=== PATIENT | female | born 1945 | race Caucasian/White ===

== ENCOUNTER 2024-04-22 15:58 | Inpatient (IN) | payer MEDICARE, OTHER ==
[2024-04-22] MEDS: SODIUM CHLORIDE 0.9% 500 ML 500 ML IV ONE (16:41)
--- NOTE | 2024-04-22 16:46 | ED ---
General Adult HPI - General Chief complaint: Altered Mental Status Stated complaint: AMS Time Seen by Provider: 04/22/24 16:14 Source: EMS Mode of arrival: EMS Limitations: altered mental status - History of Present Illness Initial comments: Patient is an 78-year-old female past medical history CKD stage III, hypertension, CHF presenting today from [facility] for altered mental status. History limited by patient's aphasia. Patient reportedly AO x 4 at baseline up until 4 days ago per EMS report. Now not speaking or following commands. Patient does follow commands for me but does not answer my questions. Per chart review from patient's paperwork from the [facility] patient was being evaluated for paranoia and hallucinations yesterday and per that note patient was able to answer questions at that time. - Related Data Home Medications Medication Instructions Recorded Confirmed Acetaminophen Tab [Tylenol Tab] 1,000 mg PO BID 04/22/24 04/22/24 Acetaminophen [Tylenol 8 Hour] 650 mg PO Q6H PRN 04/22/24 04/22/24 Apixaban [Eliquis] 5 mg PO BID 04/22/24 04/22/24 Atorvastatin [Lipitor] 10 mg PO HS@199904/22/24 04/22/24 Calcium Carbonate [Tums] 500 mg PO TID PRN 04/22/24 04/22/24 Dapagliflozin Propanediol [Farxiga] 10 mg PO DAILY 04/22/24 04/22/24 Diltiazem Oral [Cardizem Oral] 60 mg PO Q6H 04/22/24 04/22/24 Fluticasone Nasal [place] [Flonase 1 spr EA NOSTRIL BID PRN 04/22/24 04/22/24 Nasal Nicolaus] Furosemide [Lasix] 20 mg PO DAILY 04/22/24 04/22/24 Latanoprost [Latanoprost 0.005%] 1 drop BOTH EYES HS@199904/22/24 04/22/24 Levothyroxine Sodium [Synthroid] 112 mcg PO DAILY@0500 04/22/24 04/22/24 Loratadine 10 mg PO DAILY 04/22/24 04/22/24 Magnesium Oxide [Mag-Ox] 400 mg PO HS@199904/22/24 04/22/24 Naloxone HCl 0.4 mg IM DIRECTED PRN 04/22/24 04/22/24 Naloxone HCl [Narcan] 4 mg NASAL ONCE PRN 04/22/24 04/22/24 Ondansetron [Zofran] 4 mg PO Q6H PRN 04/22/24 04/22/24 Potassium Chloride ER [K-Dur 20] 20 meq PO DAILY 04/22/24 04/22/24 Tramadol 100mg 100 mg PO BID PRN 04/22/24 04/22/24 allopurinoL 200 mg PO DAILY 04/22/24 04/22/24 guaiFENesin [guaiFENesin ER] 600 mg PO Q12H 04/22/24 04/22/24 Allergies Allergy/AdvReac Type Severity Reaction Status Date / Time morphine AdvReac Unknown Verified 04/22/24 16:27 Review of Systems ROS Statement: Those systems with pertinent positive or pertinent negative responses have been documented in the HPI. Limitations: ROS unobtainable due to patients medical condition Past Medical History Past Medical History: Unable to Obtain, Atrial Fibrillation, Heart Failure, CV A/TIA, Hyperlipidemia, Hypertension, Renal Disease, Thyroid Disorder Past Surgical History: Unable to Obtain, Joint Replacement Smoking Status: Unknown if ever smoked General Exam - General Exam Comments Initial Comments: PE: CONSTITUTIONAL: [no apparent distress, chronically ill-appearing, awake, alert, disheveled SKIN: Warm, dry, no jaundice, hives or petechiae EYES: Pupils are equally round, extraocular movements intact without nystagmus, clear conjunctiva, non-icteric sclera HENT: Normocephalic, atraumatic, dry mucus membranes, oropharynx clear without exudates NECK: , Full range of motion, normal appearance PULMONARY: Clear to auscultation without wheezes, rhonchi, or rales, normal excursion, no accessory muscle use and no stridor, exam is limited by patient's body habitus and ability to cooperate with exam, she continues making whining noises throughout the entirety of exam CARDIOVASCULAR: Tachycardia, irregularly irregular rhythm,. No appreciated murmurs, rubs or gallops. Strong radial pulses with intact distal perfusion. 1+ bilateral lower extremity pitting edema GASTROINTESTINAL: Soft, active bowel sounds throughout, non-tender, non- distended, no palpable masses, over patient does guard with palpation of her abdomen, does not appear to be painful in one particular area. No hepatosplenomegaly GENITOURINARY: MUSCULOSKELETAL: Extremities have no gross deformity or signs of injury NEUROLOGIC:_a/o x 0-aphasic, GCS 12, follows commands, EOM intact, no facial droop, Moves all extremities x 4 without motor or sensory deficit PSYCHIATRIC:_appears withdrawn, makes poor eye contact, cooperative Limitations: altered mental status Course Vital Signs 04/22/24 04/22/24 04/22/24 16:02 19:10 20:00 Temperature 97.4 F L Pulse Rate 126 H 112 H 102 H Respiratory 20 18 18 Rate Blood Pressure 128/92 138/86 150/108 O2 Sat by Pulse 94 L 93 L 95 Oximetry 04/22/24 04/22/24 04/22/24 21:00 22:00 23:12 Temperature Pulse Rate 123 H 98 98 Respiratory 18 18 18 Rate Blood Pressure 146/86 140/88 133/89 O2 Sat by Pulse 94 L 94 L 94 L Oximetry 04/23/24 04/23/24 04/23/24 01:00 02:00 04:00 Temperature Pulse Rate 114 H 88 113 H Respiratory 17 16 20 Rate Blood Pressure 141/93 138/77 127/78 O2 Sat by Pulse 96 95 93 L Oximetry 04/23/24 04/23/24 04/23/24 07:50 10:31 13:48 Temperature 97.4 F L Pulse Rate 105 H 133 H 90 Respiratory 18 18 18 Rate Blood Pressure 151/92 135/92 128/75 O2 Sat by Pulse 94 L 93 L 97 Oximetry 04/23/24 04/23/24 04/23/24 15:21 18:30 19:30 Temperature 98.0 F Pulse Rate 81 90 84 Respiratory 18 18 18 Rate Blood Pressure 110/75 122/78 142/73 O2 Sat by Pulse 98 95 98 Oximetry 04/23/24 04/23/24 04/24/24 20:00 22:00 00:00 Temperature Pulse Rate 67 80 79 Respiratory 18 18 18 Rate Blood Pressure 132/70 140/69 143/68 O2 Sat by Pulse 98 98 98 Oximetry 04/24/24 04/24/24 04/24/24 02:00 04:00 07:00 Temperature 98.1 F Pulse Rate 78 80 77 Respiratory 18 18 20 Rate Blood Pressure 125/67 135/74 135/81 O2 Sat by Pulse 98 98 98 Oximetry 04/24/24 04/24/24 04/24/24 10:00 10:34 12:00 Temperature Pulse Rate 81 81 81 Respiratory 20 20 20 Rate Blood Pressure 129/74 129/70 123/74 O2 Sat by Pulse 98 98 98 Oximetry 04/24/24 04/24/24 04/24/24 13:51 15:05 15:14 Temperature Pulse Rate 78 63 74 Respiratory 16 18 18 Rate Blood Pressure 121/72 136/75 136/75 O2 Sat by Pulse 98 99 99 Oximetry 04/24/24 15:39 Temperature 98.7 F Pulse Rate 71 Respiratory 18 Rate Blood Pressure 123/76 O2 Sat by Pulse 98 Oximetry EKG Findings - EKG Comments: EKG Findings:: Atrial fibrillation with RVR rate 105 bpm intervals within acceptable limits, left axis deviation, right bundle branch block, no STEMI Medical Decision Making - Medical Decision Making Was pt. sent in by a medical professional or institution (Dr. PA, RIG SUPERVISOR, urgent care, hospital, or assisted...) When possible be specific @ -Patient was sent in by the [facility] Did you speak to anyone other than the patient for history (EMS, parent, family, police, friend...)? What history was obtained from this source @ -No Did you review nursing and triage notes (agree or disagree)? Why? @ -I reviewed and agree with nursing and triage notes Were old charts reviewed (outside hosp., previous admission, EMS record, old EKG, old radiological studies, urgent care reports/EKG's, assisted records)? Report findings @ -Medical records reviewed, reviewed paperwork sent with patient from [facility], sent in for being "awake but unresponsive unable to follow commands/altered mental status, per note sent with patient on evaluation patient was being evaluated for hallucinations, anxiety and depression, per EMS report patient's last known normal was 4 days ago and is AO x 4 at baseline I spoke with patient's nurse at the [facility], Tommie, states that patient until a week ago was oriented x 4 and able to converse without any issue, over the course of the last week she has become progressively more confused, with halluci nations and this morning was awake and able to speak but had repetitive speech. This afternoon when her family came to visit the patient was not speaking at all the was awake. This is what prompted them to call 911 to bring her to the emergency department. Differential Diagnosis (chest pain, altered mental status, abdominal pain women, abdominal pain men, vaginal bleeding, weakness, fever, dyspnea, syncope, headache, dizziness, GI bleed, back pain, seizure, CVA, palpatations, mental health, musculoskeletal)? @ -Differential Altered Mental Status: Hypoglycemia, DKA, hypercapnia, ETOH, overdose, myxedema coma, HTN encephalopathy, infection, encephalitis, psychosis, intercranial hemorrhage, hepatic encephalopathy, CVA, this is not meant to be an all-inclusive list EKG interpreted by me (3pts min.). @ -As above X-rays interpreted by me (1pt min.). @Cardiomegaly, no consolidation CT interpreted by me (1pt min.). @CT brain shows no evidence of hemorrhage or mass effect, CTA shows no evidence of large vessel occlusion or dissection, CT abdomen pelvis without contrast does not appear to show hydronephrosis, ureterolithiasis, free air or signs of bowel obstruction U/S interpreted by me (1pt. min.). @ -None done What testing was considered but not performed or refused? (CT, X-rays, U/S, labs)? Why? @ -None What meds were considered but not given or refused? Why? @ -None Did you discuss the management of the patient with other professionals (professionals i.e. , PA, RIG SUPERVISOR, lab, RT, psych nurse, social studies teacher, outsole flexer, teacher, mortgage loan officer, residential case manager)? Give summary @ -No Was smoking cessation discussed for >3mins.? @ -No Was critical care preformed (if so, how long)? Yes, 35 minutes Were there social determinants of health that impacted care today? How? (Homelessness, low income, unemployed, alcoholism, drug addiction, transportation, low edu. Level, literacy, decrease access to med. care, residential, rehab)? @ -No Was there de-escalation of care discussed even if they declined (Discuss DNR or withdrawal of care, Hospice)? @ -No What co-morbidities impacted this encounter? (DM, HTN, Smoking, COPD, CAD, Cancer, CVA, ARF, Chemo, Hep., AIDS, mental health diagnosis, sleep apnea, morbid obesity)? @Stage III CKD, hypertension, hypothyroidism, CHF Was patient admitted / discharged? Hospital course, mention meds given and route, prescriptions, significant lab abnormalities, going to OR and other pertinent info. @ -Admission- patient is an 78-year-old female the past medical history of stage III CKD, hypertension, hypothyroidism, CHF presenting today for altered mental status. On my assessment patient tachycardic, awake, eyes are open respirations are unlabored. When I say the patient's name she does make eye contact, when I ask her to look to the right and to the left she does follow these commands, additionally she has 5 out of 5 strength in all 4 extremities is able to hold her arms and legs up without issue. After a brief period patient begins making a constant whining noise, keeping her mouth closed. This did not appear to be in response to painful stimuli because I was not touching her when she began making the sounds. She did appear to guard with palpation of her abdomen. Called patient's facility and obtained history as noted above. Plan for CT brain, will likely obtain CTA however patient does have stage III CKD so may withhold this based on patient's kidney function today, will obtain remainder of altered mental status workup. Of note patient is tachycardic however I suspect tachycardia may be due to underlying infection or volume depletion so before addressing A-fib with RVR with calcium channel blockers we will hydrate and asse ss for othe causes of tachycardia. Patient noted a mild leukocytosis white blood count 15.3, urinalysis positive for nitrates and moderate amount of blood, given patient's leukocytosis and tachycardia blood cultures x 2, lactic and cefepime were ordered to complete sepsis order set. This occurred at 17:56. On reassessment patient remains awake and alert though staring at wall, does not respond to questions or answer questions. Family is at bedside. They do note that patient has had recent stressors and that her son and another family member unexpectedly in the last few months. They state that patient turned to them while in her room here and stated "you're trying to kill me", so has spoken since arriving in the ED. Mildly tachycardic, she has heart rates in 90s and 110 though does intermittently go up to 130. She missed her 5:00 dose of oral Cardizem so we given a Cardizem bolus. Updated patient to findings of UTI and plan for admission. Case discussed with Dr. Montoya, kindly accepts patient for admission. Patient overall refusing oral medications, did slowly take her Eliquis however will not open her mouth for Cardizem. At this point we will give additional C ardizem bolus and start patient on Cardizem drip. Undiagnosed new problem with uncertain prognosis? @ -No Drug Therapy requiring intensive monitoring for toxicity (Heparin, Nitro, Insulin, Cardizem)? @ -No Were any procedures done? @ -No Diagnosis/symptom? Acute encephalopathy, urinary tract infection Acute, or Chronic, or Acute on Chronic? acute Uncomplicated (without systemic symptoms) or Complicated (systemic symptoms)? complicated Side effects of treatment? @ -No Exacerbation, Progression, or Severe Exacerbation? @ -No Poses a threat to life or bodily function? How? (Chest pain, [place], [place], pneumonia, PE, COPD, DKA, ARF, appy, cholecystitis, CVA, Diverticulitis, Homicidal, Suicidal, threat to staff... and all critical care pts) Yes - Lab Data Result diagrams: 04/25/24 05:00 04/22/24 16:37 Lab Results 04/22/24 04/22/24 04/22/24 Range/Units 16:37 16:37 16:37 WBC 15.3 H (3.8-10.6) k/uL RBC 4.70 (3.80-5.40) m/uL Hgb 14.4 (11.4-16.0) gm/dL Hct 45.4 (34.0-46.0) % MCV 96.6 (80.0-100.0) fL MCH 30.6 (25.0-35.0) pg MCHC 31.7 (31.0-37.0) g/dL RDW 14.5 (11.5-15.5) % Plt Count 353 (150-450) k/uL MPV 6.9 Neutrophils % 80 % Lymphocytes % 15 % Monocytes % 4 % Eosinophils % 0 % Basophils % 0 % Neutrophils # 12.2 H (1.3-7.7) k/uL Lymphocytes # 2.2 (1.0-4.8) k/uL Monocytes # 0.7 (0-1.0) k/uL Eosinophils # 0.1 (0-0.7) k/uL Basophils # 0.0 (0-0.2) k/uL Hypochromasia Slight PT 12.1 (10.0-12.5) sec INR 1.1 (<1.2) APTT 24.7 (22.0-30.0) sec Sodium 138 (137-145) mmol/L Potassium 3.8 (3.5-5.1) mmol/L Chloride 99 (98-107) mmol/L Carbon Dioxide 28 (22-30) mmol/L Anion Gap 11 mmol/L BUN 19 H (7-17) mg/dL Creatinine 0.91 (0.52-1.04) mg/dL Est GFR (CKD-EPI)AfAm 69 (>60 ml/min/1.73 sqM) Est GFR (CKD-EPI)NonAf 60 (>60 ml/min/1.73 sqM) Glucose 145 H (74-99) mg/dL Plasma Lactic Acid Jose D (0.7-2.0) mmol/L Calcium 10.6 H (8.4-10.2) mg/dL Magnesium 1.9 (1.6-2.3) mg/dL Total Bilirubin 0.7 (0.2-1.3) mg/dL AST 31 (14-36) U/L ALT 16 (4-34) U/L Alkaline Phosphatase 86 (38-126) U/L Ammonia (<30) umol/L Troponin I (0.000-0.034) ng/mL Total Protein 6.5 (6.3-8.2) g/dL Albumin 4.0 (3.5-5.0) g/dL Lipase 52 (23-300) U/L TSH 2.000 (0.465-4.680) mIU/L Urine Color Urine Appearance (Clear) Urine pH (5.0-8.0) Ur Specific [place] (1.001-1.035) Urine Protein (Negative) Urine Glucose (UA) (Negative) Urine Ketones (Negative) Urine Blood (Negative) Urine Nitrite (Negative) Urine Bilirubin (Negative) Urine Urobilinogen (<2.0) mg/dL Ur Leukocyte Esterase (Negative) Urine RBC (0-5) /hpf Urine WBC (0-5) /hpf Ur Squamous Epith Cells (0-4) /hpf Urine Bacteria (None) /hpf Urine Mucus (None) /hpf Salicylates <1.0 mg/dL Acetaminophen <10.0 ug/mL Influenza Type A (PCR) (Not Detectd) Influenza Type B (PCR) (Not Detectd) RSV (PCR) (Not Detectd) SARS-CoV-2 (PCR) (Not Detectd) 04/22/24 04/22/24 04/22/24 Range/Units 16:37 16:37 16:37 WBC (3.8-10.6) k/uL RBC (3.80-5.40) m/uL Hgb (11.4-16.0) gm/dL Hct (34.0-46.0) % MCV (80.0-100.0) fL MCH (25.0-35.0) pg MCHC (31.0-37.0) g/dL RDW (11.5-15.5) % Plt Count (150-450) k/uL MPV Neutrophils % % Lymphocytes % % Monocytes % % Eosinophils % % Basophils % % Neutrophils # (1.3-7.7) k/uL Lymphocytes # (1.0-4.8) k/uL Monocytes # (0-1.0) k/uL Eosinophils # (0-0.7) k/uL Basophils # (0-0.2) k/uL Hypochromasia PT (10.0-12.5) sec INR (<1.2) APTT (22.0-30.0) sec Sodium (137-145) mmol/L Potassium (3.5-5.1) mmol/L Chloride (98-107) mmol/L Carbon Dioxide (22-30) mmol/L Anion Gap mmol/L BUN (7-17) mg/dL Creatinine (0.52-1.04) mg/dL Est GFR (CKD-EPI)AfAm (>60 ml/min/1.73 sqM) Est GFR (CKD-EPI)NonAf (>60 ml/min/1.73 sqM) Glucose (74-99) mg/dL Plasma Lactic Acid Jose D (0.7-2.0) mmol/L Calcium (8.4-10.2) mg/dL Magnesium (1.6-2.3) mg/dL Total Bilirubin (0.2-1.3) mg/dL AST (14-36) U/L ALT (4-34) U/L Alkaline Phosphatase (38-126) U/L Ammonia <9 (<30) umol/L Troponin I 0.022 (0.000-0.034) ng/mL Total Protein (6.3-8.2) g/dL Albumin (3.5-5.0) g/dL Lipase (23-300) U/L TSH (0.465-4.680) mIU/L Urine Color Light Yellow Urine Appearance Clear (Clear) Urine pH 5.0 (5.0-8.0) Ur Specific [place] 1.022 (1.001-1.035) Urine Protein Negative (Negative) Urine Glucose (UA) 4+ H (Negative) Urine Ketones Negative (Negative) Urine Blood Moderate H (Negative) Urine Nitrite Positive H (Negative) Urine Bilirubin Negative (Negative) Urine Urobilinogen <2.0 (<2.0) mg/dL Ur Leukocyte Esterase Small H (Negative) Urine RBC 14 H (0-5) /hpf Urine WBC 4 (0-5) /hpf Ur Squamous Epith Cells 2 (0-4) /hpf Urine Bacteria Occasional H (None) /hpf Urine Mucus Rare H (None) /hpf Salicylates mg/dL Acetaminophen ug/mL Influenza Type A (PCR) (Not Detectd) Influenza Type B (PCR) (Not Detectd) RSV (PCR) (Not Detectd) SARS-CoV-2 (PCR) (Not Detectd) 04/22/24 04/22/24 Range/Units 16:37 19:53 WBC (3.8-10.6) k/uL RBC (3.80-5.40) m/uL Hgb (11.4-16.0) gm/dL Hct (34.0-46.0) % MCV (80.0-100.0) fL MCH (25.0-35.0) pg MCHC (31.0-37.0) g/dL RDW (11.5-15.5) % Plt Count (150-450) k/uL MPV Neutrophils % % Lymphocytes % % Monocytes % % Eosinophils % % Basophils % % Neutrophils # (1.3-7.7) k/uL Lymphocytes # (1.0-4.8) k/uL Monocytes # (0-1.0) k/uL Eosinophils # (0-0.7) k/uL Basophils # (0-0.2) k/uL Hypochromasia PT (10.0-12.5) sec INR (<1.2) APTT (22.0-30.0) sec Sodium (137-145) mmol/L Potassium (3.5-5.1) mmol/L Chloride (98-107) mmol/L Carbon Dioxide (22-30) mmol/L Anion Gap mmol/L BUN (7-17) mg/dL Creatinine (0.52-1.04) mg/dL Est GFR (CKD-EPI)AfAm (>60 ml/min/1.73 sqM) Est GFR (CKD-EPI)NonAf (>60 ml/min/1.73 sqM) Glucose (74-99) mg/dL Plasma Lactic Acid Jose D 1.5 (0.7-2.0) mmol/L Calcium (8.4-10.2) mg/dL Magnesium (1.6-2.3) mg/dL Total Bilirubin (0.2-1.3) mg/dL AST (14-36) U/L ALT (4-34) U/L Alkaline Phosphatase (38-126) U/L Ammonia (<30) umol/L Troponin I (0.000-0.034) ng/mL Total Protein (6.3-8.2) g/dL Albumin (3.5-5.0) g/dL Lipase (23-300) U/L TSH (0.465-4.680) mIU/L Urine Color Urine Appearance (Clear) Urine pH (5.0-8.0) Ur Specific [place] (1.001-1.035) Urine Protein (Negative) Urine Glucose (UA) (Negative) Urine Ketones (Negative) Urine Blood (Negative) Urine Nitrite (Negative) Urine Bilirubin (Negative) Urine Urobilinogen (<2.0) mg/dL Ur Leukocyte Esterase (Negative) Urine RBC (0-5) /hpf Urine WBC (0-5) /hpf Ur Squamous Epith Cells (0-4) /hpf Urine Bacteria (None) /hpf Urine Mucus (None) /hpf Salicylates mg/dL Acetaminophen ug/mL Influenza Type A (PCR) Not Detected (Not Detectd) Influenza Type B (PCR) Not Detected (Not Detectd) RSV (PCR) Not Detected (Not Detectd) SARS-CoV-2 (PCR) Not Detected (Not Detectd) Disposition Clinical Impression: Acute encephalopathy, Urinary tract infection Disposition: ADMITTED IP TO THIS HOSP Condition: Stable
[2024-04-22 17:04] LABS: Basophils % (A) 0 %; Eosinophils # (A) 0.1 k/uL (0-0.7); Eosinophils % (A) 0 %; HCT 45.4 % (34.0-46.0); HGB 14.4 gm/dL (11.4-16.0); Hypochromasia Slight; Lymphocytes # (A) 2.2 k/uL (1.0-4.8); Lymphocytes % (A) 15 %; MCH 30.6 pg (25.0-35.0); MCHC 31.7 g/dL (31.0-37.0); MCV 96.6 fL (80.0-100.0); Mean Platelet Volume 6.9; Monocytes # (A) 0.7 k/uL (0-1.0); Monocytes % (A) 4 %; Neutrophils # (A) 12.2 k/uL (1.3-7.7); Neutrophils % (A) 80 %; Platelet Count 353 k/uL (150-450); RDW 14.5 % (11.5-15.5); WBC 15.3 k/uL (3.8-10.6)
[2024-04-22 17:39] LABS: INR 1.1 (<1.2); Partial Thromboplastin Time 24.7 sec (22.0-30.0); Prothrombin Time 12.1 sec (10.0-12.5)
[2024-04-22 17:51] LABS: ALT 16 U/L (4-34); Acetaminophen <10.0 ug/mL; African American GFR (CKD) 69 (>60 ml/min/1.73 sqM); Anion Gap 11 mmol/L; Appearance,Urine Clear (Clear); Bacteria,Urine Occasional /hpf; Bilirubin,Urine Negative (Negative); Blood Urea Nitrogen 19 mg/dL (7-17); Blood,Urine Moderate (Negative); Calcium 10.6 mg/dL (8.4-10.2); Carbon Dioxide 28 mmol/L (22-30); Chloride 99 mmol/L (98-107); Color,Urine Light Yellow; Glucose 145 mg/dL (74-99); Glucose,Urine (UA) 4+ (Negative); Ketones,Urine Negative (Negative); Leukocyte Esterase,Urine Small (Negative); Lipase 52 U/L (23-300); Magnesium 1.9 mg/dL (1.6-2.3); Mucus,Urine Rare /hpf; Nitrite,Urine Positive (Negative); Non-African American GFR(CKD) 60 (>60 ml/min/1.73 sqM); Protein,Urine Negative (Negative); RBC,Urine 14 /hpf (0-5); Salicylate <1.0 mg/dL; Sodium 138 mmol/L (137-145); Specific Gravity,Urine 1.022 (1.001-1.035); Squamous Epithelial Cell,Urine 2 /hpf (0-4); Total Bilirubin 0.7 mg/dL (0.2-1.3); Urobilinogen,Urine <2.0 mg/dL (<2.0); WBC,Urine 4 /hpf (0-5)
[2024-04-22 17:53] LABS: AST 31 U/L (14-36); Alkaline Phosphatase 86 U/L (38-126); Potassium 3.8 mmol/L (3.5-5.1); Total Protein 6.5 g/dL (6.3-8.2)
[2024-04-22] MEDS: DILTIAZEM 5 MG/ML 5 ML VIAL IVP STA (19:13)
--- NOTE | 2024-04-22 19:14 | CT ---
EXAMINATION TYPE: CT brain wo con DATE OF EXAM: 04/22/2024 6:56 PM COMPARISON: None. CLINICAL INDICATION: Female, 78 years old with history of Altered mental status, AMS, worsening x4 da ys. UA at [facility] negative for UTI. arrives non-verbal. TECHNIQUE: Brain: Axial CT images of the brain were obtained with coronal and sagittal reformats created and rev iewed. Contrast used: None. Oral contrast used: None. CT DLP: 1132 mGycm, Automated exposure control for dose reduction was used. FINDINGS: Brain: No acute intracranial hemorrhage, midline shift or acute mass effect. Basal cisterns are patent. Vent ricles and sulci are prominent compatible with generalized cerebral volume loss. Vascular calcificati ons involving the right vertebral artery. Patchy periventricular and subcortical white matter hypoatt enuation suggestive of underlying chronic microvascular ischemic disease. No sizable extra-axial flui d collection. No depressed calvarial fracture or scalp hematoma. Paranasal sinuses and mastoid air ce lls appear patent. Previous bilateral cataract lens extraction noted. IMPRESSION: No acute intracranial process. [facility], , 04/22/2024 7:11 PM
--- NOTE | 2024-04-22 19:15 | XR ---
EXAMINATION TYPE: XR chest 1V DATE OF EXAM: 04/22/2024 6:44 PM COMPARISON: None. CLINICAL INDICATION: Female, 78 years old with history of altered mental status; [facility] TECHNIQUE: XR chest 1V Frontal view of the chest. FINDINGS: Low lung volumes limit study. Cardiomegaly. No acute focal consolidation. No pleural effusion. No pneumothorax. No acute osseous abnormality. IMPRESSION: No acute cardiopulmonary disease/process. [facility], , 04/22/2024 7:12 PM
--- NOTE | 2024-04-22 19:25 | CT ---
EXAMINATION TYPE: CT abdomen pelvis wo con DATE OF EXAM: 04/22/2024 6:56 PM COMPARISON: None. CLINICAL INDICATION: Female, 78 years old with history of altered, guards with palp of abdomen; AMS, worsening x4 days. UA at [facility] negative for UTI. arrives non-verbal. TECHNIQUE: Axial CT abdomen pelvis wo con;Sagittal and coronal reformats were created on a separate workstation. Oral contrast used: without Oral Contrast (none if empty) CT DLP: 1307 mGycm, Automated exposure control for dose reduction was used. FINDINGS: LOWER CHEST: Cardiomegaly and mitral annular calcifications partially visualized. Trace left pleural effusion with adjacent left lower lobe consolidative changes. ABDOMEN LIVER: Unremarkable GALLBLADDER AND BILE DUCTS: The gallbladder is surgically absent. PANCREAS: Unremarkable. SPLEEN: Unremarkable. ADRENAL GLANDS: Unremarkable. KIDNEYS AND URETERS: Bilateral renal parenchymal atrophy. Nonobstructing small calculus in the inferi or right renal collecting system. No evidence of significant hydronephrosis or hydroureter. PELVIS BLADDER: Leone catheter within the decompressed bladder with associated nondependent gas. Overall, ev aluation of the urinary bladder is significantly limited due to streak artifact bilateral arthroplast y devices. REPRODUCTIVE: Calcified fibroid uterus. ABDOMEN & PELVIS STOMACH AND BOWEL: Colonic diverticulosis without acute diverticulitis. No evidence small bowel obstr uction. Appendix unremarkable. Stomach unremarkable. PERITONEUM/RETROPERITONEUM: No evidence of pneumoperitoneum or free fluid. VASCULATURE: No evidence of aortic aneurysm. MUSCULOSKELETAL: No acute osseous abnormalities. Thoracolumbar spine degenerative changes with grade 1 anterolisthesis of L4 on L5. Bilateral hip arthroplasty device is present. LYMPH NODES: No gross evidence for lymphadenopathy. SOFT TISSUE/ABDOMINAL WALL: Unremarkable IMPRESSION: 1. No acute abnormality in the abdomen/pelvis. 2. Trace left pleural effusion and adjacent left lower lobe consolidative changes which may reflect atelectasis and/or pneumonia. 3. Additional nonacute findings as above. [facility], , 04/22/2024 7:23 PM
--- NOTE | 2024-04-22 19:30 | CT ---
EXAMINATION TYPE: CT angio head neck DATE OF EXAM: 04/22/2024 7:00 PM COMPARISON: None. CLINICAL INDICATION: Female, 78 years old with history of altered, completely aphasic; [facility], TECHNIQUE: Axially acquired helical CT angiogram of the head and neck was obtained with contrast. Axi al images are supplemented with 3D reconstructions and MIP images which were post-processed at an in dependent workstation. NASCET criteria used. . FINDINGS: CTA HEAD: No evidence of acute intracranial hemorrhage, mass effect, or midline shift. The ventricles, sulci, a nd cisterns are unremarkable. Vertebral arteries: The vertebral arteries are patent. Vertebral artery dominance: Codominant Basilar artery: The basilar artery is intact. The basilar artery bifurcation is normal. Internal Carotid arteries: The cervical, petrous, cavernous and supraclinoid segments are normal. NE: Patent with no evidence of aneurysm. ACOM: Present without evidence of aneurysm. MCA: Patent with no evidence of aneurysm. [employer]: Patent with no evidence of aneurysm. PCOM: Left P-comm hypoplastic. Dural sinuses: Patent. CTA NECK: Right Carotid System: The common carotid and external carotid arteries are patent. There is less than 25% stenosis at the c arotid bifurcation secondary to calcified/noncalcified plaque. The rest of the internal carotid arter y is patent. Left Carotid System: The common carotid and external carotid arteries are patent. There is less than 25% stenosis at the c arotid bifurcation secondary to calcified/noncalcified plaque. The rest of the internal carotid arter y is patent. Vertebral arteries are patent without evidence hemodynamically significant stenosis. There is a three-vessel aortic arch. The origins of the great vessels are patent. No evidence of hemo dynamically significant stenosis. Upper thorax: IMPRESSION: 1. No evidence of dissection of the cervical internal carotid arteries or vertebral arteries. 2. No any evidence of significant stenosis at the carotid bifurcations. 3. No evidence of intracranial high-grade stenosis or intracranial aneurysm. [facility], , 04/22/2024 7:28 PM
[2024-04-22] MEDS ORDERED: ACETAMINOPHEN TAB 325 MG TAB PO PRN (20:23)
[2024-04-22] MEDS ORDERED: NALOXONE 0.4 MG/ML 1 ML VIAL IV PRN (20:23)
[2024-04-22] MEDS: CEFEPIME 2 GM in SODIUM CHLORIDE 0.9% 100 ML IVPB STA (21:15)
[2024-04-22] MEDS: DEXTROSE 5%-0.45% NACL 1,000 ML IV SCH (21:15)
[2024-04-22] MEDS: ATORVASTATIN 10 MG TAB PO SCH (21:24)
[2024-04-22] MEDS: APIXABAN 5 MG TAB PO SCH (21:24)
[2024-04-22] MEDS: DILTIAZEM 125 MG in SODIUM CHLORIDE 0.9% 100 ML IV SCH (23:15)
[2024-04-22] MEDS: DILTIAZEM ORAL 60 MG TAB PO SCH (23:17)
[2024-04-22] MEDS: DILTIAZEM DRIP BOLUS FROM BAG 1 MG SOLN IV ONE (23:18)
[2024-04-23] MEDS: FUROSEMIDE 20 MG TAB PO SCH (08:38)
[2024-04-23] MEDS ORDERED: CALCIUM CARBONATE 500 MG CHEWABLE PO PRN (10:06)
[2024-04-23] MEDS: PANTOPRAZOLE 40 MG/10 ML VIAL IV SCH (10:25)
--- NOTE | 2024-04-23 11:14 | P.HPIM ---
History of Present Illness H&P Date: 04/23/24 History of present illness; patient is a 78-year-old lady with past medical history significant for CKD stage III, hypertension, CHF who is currently a resident of a halfway facility brought to the ER for altered mental status. Most of the history has been taken from the EMR as patient is a poor historian, according to that patient was all right 1 week back when nursing staff found her that patient was confused. Before 1 week patient was alert oriented x 4 and and answering questions. Over the last 1 week patient has become more confused with limited participation. Day prior to admission patient was brought talking and was hallucinating. Patient was moving all extremities. Nursing staff did not notice any slurred speech. There was no weakness of any extremity. There is no complaint of any fall. Family visited patient in the halfway and they found her to be altered and because of this altered mental status, patient brought to the ER. Initial lab work done in the ER showed WBC 15.3, hemoglobin 14.4, platelet count 353, sodium 138, potassium 3.8, BUN 19, creatinine 0.91, glucose 145, calcium 10.6, magnesium 1.9, bilirubin 0.7, AST 31, ALT 16, UA showed nitrite positive, small amount of leukocyte Estrace Influenza A not detected Influenza B not detected RSV not detected COVID-19 not detected EKG done in the ER showed heart rate of 105, irregular rhythm, no ST segment elevation or depression seen, no T-wave inversions seen. Chest x-ray done in the ER no acute cardiopulmonary process CT head done showed no acute intracranial process CTA head and neck done showed no significant stenosis, aneurysm or thrombus in the intracranial circulation CT abdomen pelvis done showed no acute abnormality in the abdominal/pelvis In the ER, patient was moving her extremities and was following commands for the physician. Family did tell the ER physician that the patient had been going through a lot of of stress with loss of her son and another family member. They also mentioned that patient told them while in the room that they were trying to kill her Patient admitted to internal medicine service REVIEW OF SYSTEMS: Review of system cannot be obtained as patient refuses to respond to questions PHYSICAL EXAMINATION: GENERAL: The patient is alert, moving all extremities, HEENT: Pupils are round and equally reacting to light. EOMI. No scleral icterus. No conjunctival pallor. Normocephalic, atraumatic. No pharyngeal erythema. No thyromegaly. CARDIOVASCULAR: S1 and S2 present. No murmurs, rubs, or gallops. PULMONARY: Chest is clear to auscultation, no wheezing or crackles. ABDOMEN: Soft, nontender, nondistended, normoactive bowel sounds. No palpable or ganomegaly. MUSCULOSKELETAL: No joint swelling or deformity. EXTREMITIES: No cyanosis, clubbing, or pedal edema. NEUROLOGICAL: Gross neurological examination did not reveal any focal deficits. SKIN: No rashes. Assessment and plan Acute infectious encephalopathy UTI Psychosis Depression Chronic atrial fibrillation, currently in RVR Hypertension Hypothyroidism Hyperlipidemia Monitor vital signs Monitor CBC Monitor CMP Ordered blood cultures Ordered urine culture Ordered Rocephin Ordered Cardizem drip Continue Eliquis Consult neurology Consult psychiatry PT and OT evaluation Labs and medication were reviewed.. Continue same treatment. Continue with symptomatic treatment. Resume home medication. Monitor labs and vitals. DVT and GI prophylaxis. Further recommendations as per clinical course of the patient Dictation was produced using [employer] dictation software. please excuse any grammatical, word or spelling errors. Past Medical History Past Medical History: Unable to Obtain, Atrial Fibrillation, Heart Failure, CVA/TIA, Hyperlipidemia, Hypertension, Renal Disease, Thyroid Disorder Past Surgical History: Unable to Obtain, Joint Replacement Smoking Status: Unknown if ever smoked Medications and Allergies Home Medications Medication Instructions Recorded Confirmed Type Acetaminophen Tab [Tylenol Tab] 1,000 mg PO BID 04/22/24 04/22/24 History Acetaminophen [Tylenol 8 Hour] 650 mg PO Q6H PRN 04/22/24 04/22/24 History Apixaban [Eliquis] 5 mg PO BID 04/22/24 04/22/24 History Atorvastatin [Lipitor] 10 mg PO HS@199904/22/24 04/22/24 History Calcium Carbonate [Tums] 500 mg PO TID PRN 04/22/24 04/22/24 History Dapagliflozin Propanediol [Farxiga] 10 mg PO DAILY 04/22/24 04/22/24 History Diltiazem Oral [Cardizem Oral] 60 mg PO Q6H 04/22/24 04/22/24 History Fluticasone Nasal [place] [Flonase 1 spr EA NOSTRIL BID PRN 04/22/24 04/22/24 History Nasal [place]] Furosemide [Lasix] 20 mg PO DAILY 04/22/24 04/22/24 History Latanoprost [Latanoprost 0.005%] 1 drop BOTH EYES HS@199904/22/24 04/22/24 History Levothyroxine Sodium [Synthroid] 112 mcg PO DAILY@0500 04/22/24 04/22/24 History Loratadine 10 mg PO DAILY 04/22/24 04/22/24 History Magnesium Oxide [Mag-Ox] 400 mg PO HS@199904/22/24 04/22/24 History Naloxone HCl 0.4 mg IM DIRECTED PRN 04/22/24 04/22/24 History Naloxone HCl [Narcan] 4 mg NASAL ONCE PRN 04/22/24 04/22/24 History Ondansetron [Zofran] 4 mg PO Q6H PRN 04/22/24 04/22/24 History Potassium Chloride ER [K-Dur 20] 20 meq PO DAILY 04/22/24 04/22/24 History Tramadol 100mg 100 mg PO BID PRN 04/22/24 04/22/24 History allopurinoL 200 mg PO DAILY 04/22/24 04/22/24 History guaiFENesin [guaiFENesin ER] 600 mg PO Q12H 04/22/24 04/22/24 History Allergies Allergy/AdvReac Type Severity Reaction Status Date / Time morphine AdvReac Unknown Verified 04/22/24 16:27 Physical Exam Vitals: Vital Signs Temp Pulse Resp BP Pulse Ox 04/23/24 07:50 97.4 F L 105 H 18 151/92 94 L 04/23/24 04:00 113 H 20 127/78 93 L 04/23/24 02:00 88 16 138/77 95 04/23/24 01:00 114 H 17 141/93 96 04/22/24 23:12 98 18 133/89 94 L 04/22/24 22:00 98 18 140/88 94 L 04/22/24 21:00 123 H 18 146/86 94 L 04/22/24 20:00 102 H 18 150/108 95 04/22/24 19:10 112 H 18 138/86 93 L 04/22/24 16:02 97.4 F L 126 H 20 128/92 94 L Intake and Output 04/22/24 04/23/24 04/23/24 22:59 06:59 14:59 Other: Weight 93.44 kg Results CBC & Chem 7: 04/22/24 16:37 04/22/24 16:37 Labs: Abnormal Lab Results - Last 24 Hours (Table) 04/22/24 04/22/24 04/22/24 Range/Units 16:37 16:37 16:37 WBC 15.3 H (3.8-10.6) k/uL Neutrophils # 12.2 H (1.3-7.7) k/uL BUN 19 H (7-17) mg/dL Glucose 145 H (74-99) mg/dL Calcium 10.6 H (8.4-10.2) mg/dL Urine Glucose (UA) 4+ H (Negative) Urine Blood Moderate H (Negative) Urine Nitrite Positive H (Negative) Ur Leukocyte Esterase Small H (Negative) Urine RBC 14 H (0-5) /hpf Urine Bacteria Occasional H (None) /hpf Urine Mucus Rare H (None) /hpf
[2024-04-23] MEDS: guaiFENesin 600 MG TABLET.ER PO SCH (13:46)
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
[2024-04-23] MEDS: LATANOPROST 0.005% OPHTH DROPS 2.5 ML BTL BOTH EYES SCH (21:10)
[2024-04-23 23:18] LABS: Chol/HDL Ratio 2.18 Ratio
[2024-04-23 23:19] LABS: LDL Cholesterol,Calculated 45.3 mg/dL (0.0-131.0)
[2024-04-24] MEDS: LEVOTHYROXINE 112 MCG TAB PO SCH (06:18)
--- NOTE | 2024-04-24 07:23 | P.CONS ---
History of Present Illness - Reason for Consult Consult date: 04/23/24 UTI Requesting physician: Bhargav Herrera - Chief Complaint Mental status changes x 1 day - History of Present Illness Patient is a 78-year-old female with a past medical history significant for hypertension hyperlipidemia CVA TIA heart failure and atrial fibrillation patient was brought into the hospital from the local prison for evaluation of mental status changes patient was noted to be less responsive and also noticed to have some hallucination by the prison staff for the patient was sent to the ER on arrival to the patient was afebrile no fever have been recorded subsequently patient was nontachycardic hypotensive or hypoxic and no need for supplemental oxygen patient did have a white count of 15.3 with a left shift creatinine 0.91 electrolytes are normal liver enzymes are normal she did have a positive UA influenza RSV COVID testing was negative blood cultures obtained which are currently pending did have a chest x-ray no acute cardiopul monary disease process abdominal pelvis CT no acute abnormality in the abdominal pelvis trace left effusion and chest and left lower lobe consolidative changes which may reflect atelectasis or pneumonia patient was started on Rocephin infectious disease was consulted for possible UTI most information has been extracted from review the chart talking to nursing staff the patient has had was not available historian Review of Systems Positive points has been mentioned in HPI complete review could not be obtained because of his underlying mental status Past Medical History Past Medical History: Unable to Obtain, Atrial Fibrillation, Heart Failure, CVA/TIA, Hyperlipidemia, Hypertension, Renal Disease, Thyroid Disorder Past Surgical History: Unable to Obtain, Joint Replacement Smoking Status: Unknown if ever smoked Medications and Allergies Home Medications Medication Instructions Recorded Confirmed Type Acetaminophen Tab [Tylenol Tab] 1,000 mg PO BID 04/22/24 04/22/24 History Acetaminophen [Tylenol 8 Hour] 650 mg PO Q6H PRN 04/22/24 04/22/24 History Apixaban [Eliquis] 5 mg PO BID 04/22/24 04/22/24 History Atorvastatin [Lipitor] 10 mg PO HS@2000 04/22/24 04/22/24 History Calcium Carbonate [Tums] 500 mg PO TID PRN 04/22/24 04/22/24 History Dapagliflozin Propanediol [Farxiga] 10 mg PO DAILY 04/22/24 04/22/24 History Diltiazem Oral [Cardizem Oral] 60 mg PO Q6H 04/22/24 04/22/24 History Fluticasone Nasal [place] [Flonase 1 spr EA NOSTRIL BID PRN 04/22/24 04/22/24 History Nasal [place]] Furosemide [Lasix] 20 mg PO DAILY 04/22/24 04/22/24 History Latanoprost [Latanoprost 0.005%] 1 drop BOTH EYES HS@199904/22/24 04/22/24 History Levothyroxine Sodium [Synthroid] 112 mcg PO DAILY@0500 04/22/24 04/22/24 History Loratadine 10 mg PO DAILY 04/22/24 04/22/24 History Magnesium Oxide [Mag-Ox] 400 mg PO HS@199904/22/24 04/22/24 History Naloxone HCl 0.4 mg IM DIRECTED PRN 04/22/24 04/22/24 History Naloxone HCl [Narcan] 4 mg NASAL ONCE PRN 04/22/24 04/22/24 History Ondansetron [Zofran] 4 mg PO Q6H PRN 04/22/24 04/22/24 History Potassium Chloride ER [K-Dur 20] 20 meq PO DAILY 04/22/24 04/22/24 History Tramadol 100mg 100 mg PO BID PRN 04/22/24 04/22/24 History allopurinoL 200 mg PO DAILY 04/22/24 04/22/24 History guaiFENesin [guaiFENesin ER] 600 mg PO Q12H 04/22/24 04/22/24 History Allergies Allergy/AdvReac Type Severity Reaction Status Date / Time morphine AdvReac Unknown Verified 04/22/24 16:27 Physical Exam Vitals: Vital Signs Temp Pulse Resp BP Pulse Ox 04/23/24 10:31 133 H 18 135/92 93 L 04/23/24 07:50 97.4 F L 105 H 18 151/92 94 L 04/23/24 04:00 113 H 20 127/78 93 L 04/23/24 02:00 88 16 138/77 95 04/23/24 01:00 114 H 17 141/93 96 04/22/24 23:12 98 18 133/89 94 L 04/22/24 22:00 98 18 140/88 94 L 04/22/24 21:00 123 H 18 146/86 94 L 04/22/24 20:00 102 H 18 150/108 95 04/22/24 19:10 112 H 18 138/86 93 L 04/22/24 16:02 97.4 F L 126 H 20 128/92 94 L Intake and Output 04/22/24 04/23/24 04/23/24 22:59 06:59 14:59 Intake Total 58.917 Balance 58.917 Intake: Intake, IV Titration 58.917 Amount Diltiazem 125 mg In 58.917 Sodium Chloride 0.9% 100 ml @ 5 MG/HR 5 mls/hr IV .Q24H [facility] Rx#:[id number] Other: Weight 93.44 kg GENERAL DESCRIPTION: Elderly female lying in bed, no distress. No tachypnea or accessory muscle of respiration use. HEENT: Shows Pallor , no scleral icterus. Oral mucous membrane is dry. NECK: Trachea central, no thyromegaly. LUNGS: Unlabored breathing. Clear to auscultation anteriorly. HEART: S1, S2, regular rate and rhythm. No loud murmur ABDOMEN: Soft, no tenderness , guarding or rigidity, no organomegaly EXTREMITIES: No edema of feet. SKIN: No rash, no masses palpable. NEUROLOGICAL: The patient is awake, but pleasantly confused orientation could not be determined Results CBC & Chem 7: 04/22/24 16:37 04/22/24 16:37 Labs: Abnormal Lab Results - Last 24 Hours (Table) 04/22/24 04/22/24 04/22/24 Range/Units 16:37 16:37 16:37 WBC 15.3 H (3.8-10.6) k/uL Neutrophils # 12.2 H (1.3-7.7) k/uL BUN 19 H (7-17) mg/dL Glucose 145 H (74-99) mg/dL Calcium 10.6 H (8.4-10.2) mg/dL Urine Glucose (UA) 4+ H (Negative) Urine Blood Moderate H (Negative) Urine Nitrite Positive H (Negative) Ur Leukocyte Esterase Small H (Negative) Urine RBC 14 H (0-5) /hpf Urine Bacteria Occasional H (None) /hpf Urine Mucus Rare H (None) /hpf Assessment and Plan (1) Leukocytosis Current Visit: Yes Status: Acute Code(s): D72.829 - ELEVATED WHITE BLOOD CELL COUNT, UNSPECIFIED SNOMED Code(s): 614124058 (2) Urinary tract infection Current Visit: Yes Status: Acute Code(s): N39.0 - URINARY TRACT INFECTION, SITE NOT SPECIFIED SNOMED Code(s): 76600845 Plan: 1patient presented to hospital with mental status changes in this patient who did have a elevated white count positive UA concerning for symptomatic UTI likely from to the gram-negative pathogen currently no other obvious focus of infection with his elevated white count there was question of possible pneumonia however the patient is breathing comfortably on room air clinically doubt pneumonia 2patient to be treated with Rocephin 2 g daily while waiting for the culture to finalize We will follow on clinical condition and cultures to further adjust medication if needed Thank you for this consultation we will follow the patient along with you Dictation was produced using [employer] dictation software. please excuse any grammatical, word or spelling errors. Time with Patient: Greater than 30
--- NOTE | 2024-04-24 08:37 | P.CNNES ---
History of Present Illness Consult date: 04/23/24 Requesting physician: Jihan Kan Reason for Consult: Altered mental status History of Present Illness: Patient is a 78-year-old right-handed female came to the hospital by ambulance yesterday at 3:58 PM for altered mental status. Patient not able to provide appropriate history. She states that she had pneumonia, was confused for a while. She states that she took a pill which made her confused, and she feels like she was waking up with dreams like real. Patient then started talking out of context as per details below, therefore history not reliable. As per EMS flow sheet, they were dispatched for unresponsive patient. Staff mentioned the patient began to decline 4 days ago. Patient is normally alert a nd oriented 4 but has been getting gradually more confused and less engaging over the past 4 days. Nurse mentioned that this morning patient was verbally communicating but confused. Dipstick was negative for UTI. No fever. Staff check the patient in the afternoon and was found verbally unresponsive. Patient not complaining of anything. When they arrived, patient was awake alert but verbally unresponsive. Patient would look at you when you set her name. She will trip with her hands when asked twice would not move anything else when asked. Patient's blood pressure was 150/86 pulse rate 68 respiration 18 and saturation 98%. Blood sugar 212. Blood test shows WBC 15.3 hemoglobin 14.4, platelets 353 PT/PTT normal, CMP essentially normal. Troponin negative ammonia less than 9. UA showed positive nitrite, small amount of leukocyte Estrace for WBCs and occasional bacteria. Influenza, dysphagia and coronal virus PCR negative. EKG showed atrial fibrillation with rapid ventricular response. CT head showed no acute intracranial process. I personally reviewed CT head, agree with the findings. Evidence of old ischemia involving bilateral basal ganglia. Chest x-ray showed no acute cardiac event process. CT abdomen and pelvis showed no acute abnormality in the abdomen and pelvis. CTA of head and neck revealed no evidence of dissection of the cervical and intracranial carotid arteries or vertebral arteries. No evidence of significant stenosis at the carotid bifurcation. No evidence of intracranial high-grade stenosis or intracranial aneurysm. Home medications include Eliquis 5 mg twice a day, Lipitor 10 mg, Farxiga, Lasix, Cardizem, tramadol. Patient states that she feels good now, wants "more glue on oxygen". Patient is fixated on "Glue". Please refer to examination below. Patient states she lives with her children. She does have a walker and uses sometimes. Review of Systems All pertinent positive and negative review of systems mentioned in the HPI. Patient admits to having headache but denies any abdominal pain or chest pain. Past Medical History Past Medical History: Unable to Obtain, Atrial Fibrillation, Heart Failure, CVA/TIA, Hyperlipidemia, Hypertension, Renal Disease, Thyroid Disorder Past Surgical History: Unable to Obtain, Joint Replacement Smoking Status: Unknown if ever smoked Medications and Allergies Home Medications Medication Instructions Recorded Confirmed Type Acetaminophen Tab [Tylenol Tab] 1,000 mg PO BID 04/22/24 04/22/24 History Acetaminophen [Tylenol 8 Hour] 650 mg PO Q6H PRN 04/22/24 04/22/24 History Apixaban [Eliquis] 5 mg PO BID 04/22/24 04/22/24 History Atorvastatin [Lipitor] 10 mg PO HS@199904/22/24 04/22/24 History Calcium Carbonate [Tums] 500 mg PO TID PRN 04/22/24 04/22/24 History Dapagliflozin Propanediol [Farxiga] 10 mg PO DAILY 04/22/24 04/22/24 History Diltiazem Oral [Cardizem Oral] 60 mg PO Q6H 04/22/24 04/22/24 History Fluticasone Nasal [place] [Flonase 1 spr EA NOSTRIL BID PRN 04/22/24 04/22/24 History Nasal [place]] Furosemide [Lasix] 20 mg PO DAILY 04/22/24 04/22/24 History Latanoprost [Latanoprost 0.005%] 1 drop BOTH EYES HS@199904/22/24 04/22/24 History Levothyroxine Sodium [Synthroid] 112 mcg PO DAILY@0500 04/22/24 04/22/24 History Loratadine 10 mg PO DAILY 04/22/24 04/22/24 History Magnesium Oxide [Mag-Ox] 400 mg PO HS@199904/22/24 04/22/24 History Naloxone HCl 0.4 mg IM DIRECTED PRN 04/22/24 04/22/24 History Naloxone HCl [Narcan] 4 mg NASAL ONCE PRN 04/22/24 04/22/24 History Ondansetron [Zofran] 4 mg PO Q6H PRN 04/22/24 04/22/24 History Potassium Chloride ER [K-Dur 20] 20 meq PO DAILY 04/22/24 04/22/24 History Tramadol 100mg 100 mg PO BID PRN 04/22/24 04/22/24 History allopurinoL 200 mg PO DAILY 04/22/24 04/22/24 History guaiFENesin [guaiFENesin ER] 600 mg PO Q12H 04/22/24 04/22/24 History Allergies Allergy/AdvReac Type Severity Reaction Status Date / Time morphine AdvReac Unknown Verified 04/22/24 16:27 Physical Examination - Vital Signs Vital Signs: Vital Signs Temp Pulse Resp BP Pulse Ox 04/23/24 07:50 97.4 F L 105 H 18 151/92 94 L 04/23/24 04:00 113 H 20 127/78 93 L 04/23/24 02:00 88 16 138/77 95 04/23/24 01:00 114 H 17 141/93 96 04/22/24 23:12 98 18 133/89 94 L 04/22/24 22:00 98 18 140/88 94 L 04/22/24 21:00 123 H 18 146/86 94 L 04/22/24 20:00 102 H 18 150/108 95 04/22/24 19:10 112 H 18 138/86 93 L 04/22/24 16:02 97.4 F L 126 H 20 128/92 94 L Intake and Output 04/22/24 04/23/24 04/23/24 22:59 06:59 14:59 Other: Weight 93.44 kg Patient is an elderly female, who appears somewhat delirious, confused. Patient appears slightly flushed. Patient is alert awake. She often perseverates. On asking the month, patient states it is "March", said 3 times. On asking the year, she said "", also said 3 times. Patient states "1 pill was at an angle". Patient then perseverates on 04/07/1926. She is frequently talking about something "glue". Patient states some random stuff like "the 1 pill I gave you was for March". "It was April 06, was the ". "Last letter is another 7". For earlobe patient states "ear bone", then said "that's where that oval comes in". Took extra time to get knuckles out of her. She would say fingers, joints etc. Patient was able to repeat. Patient knows that she is in [place] in [place]. Regarding the building, patient states "the same building as my glue was". She believes it is a school. Then she said was a yarsanism, on giving some choices. No dysarthria. Attention, concentration and fund of knowledge are all moderately impaired. Patient appears somewhat delirious. On cranial nerve examination, pupils are equal, round and reacting to light, visual melgoza are difficult to assess because of patient's noncooperation, inattentiveness. Extraocular muscles are intact with no nystagmus. Face is symmetric, tongue protrudes to the midline. Palatal elevation and sensation normal, hearing and shoulder shrug normal, facial sensation normal. On muscle strength testing, there is no pronator drift and the strength is normal in arms and legs distally and proximally, except deltoids which are 4 bilaterally, and hip flexion 3-on the right, 4+ left. Ankle dorsiflexion normal. Deep tendon reflexes are symmetric and plantars are flat. Sensory to touch is equal and she did not cooperate for neglect testing. Cerebellar function showed no ataxia for ctulyh-pz-ubhb testing. No ataxia for aiml-lc-iskc testing on either side. Tone and bulk of muscles normal. Gait deferred.. On general examination, there is no carotid bruit or murmur, S1-S2 audible. Chest is clear on consultation. Abdomen is soft nontender. No organomegaly, bowel sounds present. Peripheral pulses are present. There is mild peripheral edema. Results - Laboratory Findings CBC and BMP: 04/22/24 16:37 04/22/24 16:37 Abnormal Lab Findings: Abnormal Labs 04/22/24 04/22/24 04/22/24 16:37 16:37 16:37 WBC 15.3 H Neutrophils # 12.2 H BUN 19 H Glucose 145 H Calcium 10.6 H Urine Glucose (UA) 4+ H Urine Blood Moderate H Urine Nitrite Positive H Ur Leukocyte Esterase Small H Urine RBC 14 H Urine Bacteria Occasional H Urine Mucus Rare H Assessment and Plan Assessment: * Altered mental status, likely due to acute delirium. Rule out CVA. * Possible UTI * Atrial fibrillation, on Eliquis * Hypertension * Diabetes * Hyperlipidemia Plan: * MRI of the brain without contrast, evaluate for acute CVA * 2-D echo with bubble study to rule out PFO. Cardiology on the case. * CTA head and neck showed: No evidence of dissection of the cervical internal carotid arteries or vertebral arteries. No evidence of significant stenosis at the carotid bifurcations. No evidence of intracranial high-grade stenosis or intracranial aneurysm. * Fasting a.m. lipid panel with cholesterol 122, LDL 45, HDL 55, triglycerides 104. Continue Lipitor 10 mg daily. * Hemoglobin A1c 5.3 * B12, folate. Ammonia normal < 9 * EEG * Patient has probable UTI. Patient started on ceftriaxone. ID consulted. * Optimize control of blood pressure * Continue Eliquis 5 mg twice a day. * Neuro checks every 2 hours.. * Telemetry monitoring rule out any arrhythmia * DVT prophylaxis: Patient on Eliquis * Neurology will continue to follow. Thank you for the consult.
[2024-04-24] MEDS: allopurinoL 100 MG TAB PO SCH (10:27)
[2024-04-24] MEDS: DILTIAZEM ORAL 30 MG TAB PO STA (10:27)
[2024-04-24] MEDS: LORATADINE 10 MG TAB PO SCH (10:28)
[2024-04-24] MEDS: DAPAGLIFLOZIN PROPANEDIOL 10 MG TABLET PO SCH (10:40)
--- NOTE | 2024-04-24 11:49 | P.CRDCN ---
History of Present Illness History of present illness: HISTORY OF PRESENT ILLNESS: This is a 78-year-old female with a past medical history significant for hyperlipidemia, congestive heart failure, and atrial fibrillation. Patient does not follow with a [facility]. We have been asked to see the patient in consultation for atrial fibrillation. Patient examined at the bedside in the emergency room. Patient was brought into the hospital from [facility] due to altered mental status. Patient apparently was more confused and was hallucinating. Patient was found to be in A-fib with RVR. She was started on IV Cardizem. The patient does have a history of atrial fibrillation and is prescribed Eliquis on an outpatient basis. At the time of examination she remains in atrial fibrillation with heart rate in the 80s. She is currently on IV Cardizem at 10 mg an hour. She still remains somewhat confused at the time of examination. She denies any chest pain or pressure. Denies any shortness of breath. DIAGNOSTICS: - EKG reveals atrial fibrillation with RVR. Right bundle branch block. - Chest xray negative for acute process - Laboratory data: WBC 15.3. Hemoglobin 14.4. Platelet count 353. Sodium 138. Potassium 3.8. BUN 19. Creatinine 0.91. TSH 2.0. - Current home cardiac medications include Eliquis 5 mg twice a day, Lipitor 10 mg at night, Farxiga 10 mg daily, Cardizem 60 mg every 6 hours, Lasix 20 mg daily - No previous echocardiogram, stress test, or cardiac catheterization available in EMR for review REVIEW OF SYSTEMS: At the time of my exam: CONSTITUTIONAL: Denies fever or chills. HEENT: Denies blurred vision, vision changes, or eye pain. Denies hemoptysis CARDIOVASCULAR: Denies chest pain. Denies orthopnea. Denies PND. Denies palpitations RESPIRATORY: Denies shortness of breath. GASTROINTESTINAL: Denies abdominal pain. Denies nausea or vomiting. HEMATOLOGIC: Denies bleeding disorders. GENITOURINARY: Denies any blood in urine. SKIN: Denies pruitis. Denies rash. PHYSICAL EXAM: VITAL SIGNS: Reviewed. GENERAL: Well-developed in no acute distress. HEENT: Head is normocephalic. Pupils are equal, round. Sclerae anicteric. Mucous membranes of the mouth are moist. Neck supple. No JVD or thyromegaly LUNGS: Respirations even and unlabored. Lungs essentially clear to auscultation bilaterally. HEART: Irregular rate and rhythm. S1 and S2 heard. ABDOMEN: Soft. Nondistended. Nontender. EXTREMITIES: Normal range of motion. No clubbing or cyanosis. Peripheral pulses intact. No lower extremity edema NEUROLOGIC: Awake and alert. Oriented x 1. ASSESSMENT: Altered mental status Urinary tract infection Atrial fibrillation with RVR, paroxysmal versus persistent Chronic congestive heart failure, type unknown, currently euvolemic Hyperlipidemia Obesity: BMI 43.1 PLAN: Obtain 2D echo to assess cardiac structure and function TSH checked and within normal limits Continue anticoagulation with Eliquis Increase atorvastatin to 20 mg at night Discontinue IV Cardizem. Resume home dose of oral Cardizem 60 mg every 6 hours Continue telemetry monitoring Further recommendations pending patient course Nurse practitioner note has been reviewed by physician. Signing provider agrees with the documented findings, assessment, and plan of care documented by [employer] as a scribe. Past Medical History Past Medical History: Unable to Obtain, Atrial Fibrillation, Heart Failure, CVA/TIA, Hyperlipidemia, Hypertension, Renal Disease, Thyroid Disorder Past Surgical History: Unable to Obtain, Joint Replacement Smoking Status: Unknown if ever smoked Medications and Allergies Home Medications Medication Instructions Recorded Confirmed Type Acetaminophen Tab [Tylenol Tab] 1,000 mg PO BID 04/22/24 04/22/24 History Acetaminophen [Tylenol 8 Hour] 650 mg PO Q6H PRN 04/22/24 04/22/24 History Apixaban [Eliquis] 5 mg PO BID 04/22/24 04/22/24 History Atorvastatin [Lipitor] 10 mg PO HS@199904/22/24 04/22/24 History Calcium Carbonate [Tums] 500 mg PO TID PRN 04/22/24 04/22/24 History Dapagliflozin Propanediol [Farxiga] 10 mg PO DAILY 04/22/24 04/22/24 History Diltiazem Oral [Cardizem Oral] 60 mg PO Q6H 04/22/24 04/22/24 History Fluticasone Nasal [place] [Flonase 1 spr EA NOSTRIL BID PRN 04/22/24 04/22/24 History Nasal [place]] Furosemide [Lasix] 20 mg PO DAILY 04/22/24 04/22/24 History Latanoprost [Latanoprost 0.005%] 1 drop BOTH EYES HS@199904/22/24 04/22/24 History Levothyroxine Sodium [Synthroid] 112 mcg PO DAILY@0500 04/22/24 04/22/24 History Loratadine 10 mg PO DAILY 04/22/24 04/22/24 History Magnesium Oxide [Mag-Ox] 400 mg PO HS@199904/22/24 04/22/24 History Naloxone HCl 0.4 mg IM DIRECTED PRN 04/22/24 04/22/24 History Naloxone HCl [Narcan] 4 mg NASAL ONCE PRN 04/22/24 04/22/24 History Ondansetron [Zofran] 4 mg PO Q6H PRN 04/22/24 04/22/24 History Potassium Chloride ER [K-Dur 20] 20 meq PO DAILY 04/22/24 04/22/24 History Tramadol 100mg 100 mg PO BID PRN 04/22/24 04/22/24 History allopurinoL 200 mg PO DAILY 04/22/24 04/22/24 History guaiFENesin [guaiFENesin ER] 600 mg PO Q12H 04/22/24 04/22/24 History Allergies Allergy/AdvReac Type Severity Reaction Status Date / Time morphine AdvReac Unknown Verified 04/22/24 16:27 Physical Exam Vitals: Vital Signs Temp Pulse Resp BP Pulse Ox 04/24/24 04:00 98.1 F 80 18 135/74 98 04/24/24 02:00 78 18 125/67 98 04/24/24 00:00 79 18 143/68 98 04/23/24 22:00 80 18 140/69 98 04/23/24 20:00 67 18 132/70 98 04/23/24 19:30 84 18 142/73 98 04/23/24 18:30 98.0 F 90 18 122/78 95 04/23/24 15:21 81 18 110/75 98 04/23/24 13:48 90 18 128/75 97 04/23/24 10:31 133 H 18 135/92 93 L Intake and Output 04/23/24 04/24/24 04/24/24 22:59 06:59 14:59 Intake Total 49.667 0 Output Total 600 Balance 49.667 -600 Intake: Intake, IV Titration 49.667 0 Amount Diltiazem 125 mg In 49.667 0 Sodium Chloride 0.9% 100 ml @ 5 MG/HR 5 mls/hr IV .Q24H [facility] Rx#:[id number] Output: Urine 600 Results 04/22/24 16:37 04/22/24 16:37 Lipids 04/23/24 Range/Units 12:05 Triglycerides 104.00 (0.00-149.00) mg/dL Cholesterol 122.00 (0.00-200.00) mg/dL HDL Cholesterol 55.90 (40.00-60.00) mg/dL Cholesterol/HDL Ratio 2.18 Ratio Current Medications Generic Name Dose Route Start Last Admin Trade Name Freq PRN Reason Stop Dose Admin Acetaminophen 650 mg 04/22/24 20:23 Acetaminophen Tab 325 Mg Tab PO Q6HR PRN Mild Pain or Fever > 100.5 Acetaminophen 650 mg 04/23/24 10:06 Acetaminophen Tab 325 Mg Tab PO Q6H PRN Mild Pain (Scale 1 to 3) Allopurinol 200 mg 04/24/24 09:00 Allopurinol 100 Mg Tab PO DAILY [facility] Apixaban 5 mg 04/22/24 21:00 04/23/24 20:16 Apixaban 5 Mg Tab PO 5 mg BID [facility] Administration Protocol Atorvastatin Calcium 10 mg 04/22/24 20:00 04/23/24 20:16 Atorvastatin 10 Mg Tab PO 10 mg HS@2000 INE[facility] Administration Calcium Carbonate/Glycine 500 mg 04/23/24 10:06 Calcium Carbonate 500 Mg Chewable PO TID PRN Indigestion Dapagliflozin 10 mg 04/24/24 09:00 Dapagliflozin Propanediol 10 Mg Tablet PO DAILY [facility] Diltiazem HCl 60 mg 04/22/24 23:00 04/24/24 06:19 Diltiazem Oral 60 Mg Tab PO Not Given Q6H [facility] Furosemide 20 mg 04/23/24 09:00 04/23/24 08:38 Furosemide 20 Mg Tab PO 20 mg DAILY [facility] Administration Guaifenesin 600 mg 04/23/24 10:15 04/23/24 20:16 Guaifenesin 600 Mg Tablet.Er PO 600 mg Q12HR [facility] Administration Dextrose/Sodium Chloride 1,000 mls @ 70 mls/hr 04/22/24 20:30 04/24/24 00:54 Dextrose 5%-1/2ns Iv Soln IV 70 mls/hr .[id number] [facility] Administration Diltiazem HCl 125 mg/ Sodium 125 mls @ 5 mls/hr 04/22/24 22:30 04/23/24 23:19 Chloride IV 10 mg/hr .Q24H [facility] 10 mls/hr Administration Protocol 5 MG/HR Ceftriaxone Sodium 2 gm/ 50 mls @ 100 mls/hr 04/23/24 11:00 04/23/24 11:02 Sodium Chloride IVPB 100 mls/hr Q24HR [facility] Administration Protocol Latanoprost 1 drops 04/23/24 20:00 04/23/24 21:10 Latanoprost 0.005% Ophth Drops 2.5 Ml Btl BOTH EYES 1 drops HS@2000 INE[facility] Administration Levothyroxine Sodium 112 mcg 04/24/24 05:00 04/24/24 06:18 Levothyroxine 112 Mcg Tab PO 112 mcg DAILY@0500 [facility] Administration Loratadine 10 mg 04/24/24 09:00 Loratadine 10 Mg Tab PO DAILY [facility] Naloxone HCl 0.2 mg 04/22/24 20:23 Naloxone 0.4 Mg/Ml 1 Ml Vial IV Q2M PRN Opioid Reversal Pantoprazole Sodium 40 mg 04/23/24 09:00 04/23/24 10:25 Pantoprazole 40 Mg/10 Ml Vial IV 40 mg DAILY [facility] Administration Intake and Output 04/23/24 04/24/24 04/24/24 22:59 06:59 14:59 Intake Total 49.667 0 Output Total 600 Balance 49.667 -600 Intake: Intake, IV Titration 49.667 0 Amount Diltiazem 125 mg In 49.667 0 Sodium Chloride 0.9% 100 ml @ 5 MG/HR 5 mls/hr IV .Q24H [facility] Rx#:[id number] Output: Urine 600 04/22/24 16:37 04/22/24 16:37
--- NOTE | 2024-04-24 15:13 | P.PN ---
Subjective Progress Note Date: 04/24/24 patient is a 78-year-old lady with past medical history significant for CKD stage III, hypertension, CHF who is currently a resident of a [facility] facility brought to the ER for altered mental status. Most of the history has been taken from the EMR as patient is a poor historian, according to that pat ient was all right 1 week back when nursing staff found her that patient was confused. Before 1 week patient was alert oriented x 4 and and answering questions. Over the last 1 week patient has become more confused with limited participation. Day prior to admission patient was brought talking and was hallucinating. Patient was moving all extremities. Nursing staff did not notice any slurred speech. There was no weakness of any extremity. There is no complaint of any fall. Family visited patient in the [facility] and they found her to be altered and because of this altered mental status, patient brought to the ER. Initial lab work done in the ER showed WBC 15.3, hemoglobin 14.4, platelet count 353, sodium 138, potassium 3.8, BUN 19, creatinine 0.91, glucose 145, calcium 10.6, magnesium 1.9, bilirubin 0.7, AST 31, ALT 16, UA showed nitrite positive, small amount of leukocyte Estrace Influenza A not detected Influenza B not detected RSV not detected COVID-19 not detected EKG done in the ER showed heart rate of 105, irregular rhythm, no ST segment elevation or depression seen, no T-wave inversions seen. Chest x-ray done in the ER no acute cardiopulmonary process CT head done showed no acute intracranial process CTA head and neck done showed no significant stenosis, aneurysm or thrombus in the intracranial circulation CT abdomen pelvis done showed no acute abnormality in the abdominal/pelvis In the ER, patient was moving her extremities and was following commands for the physician. Family did tell the ER physician that the patient had been going through a lot of of stress with loss of her son and another family member. They also mentioned that patient told them while in the room that they were trying to kill her Patient admitted to internal medicine service 04/24. Patient seen and examined. Patient more alert compared to yesterday, answering questions but then states something totally out of abnormal like she told me that she does not have syphilis REVIEW OF SYSTEMS: CONSTITUTIONAL: No fever, no malaise,. CARDIOVASCULAR: No chest pain, no palpitations, no syncope. PULMONARY: No shortness of breath, no cough, GASTROINTESTINAL: No diarrhea, no nausea, no vomiting, no abdominal pain. NEUROLOGICAL: No headaches, no weakness, PHYSICAL EXAMINATION: GENERAL: The patient is alert, mental status waxes and wanes HEENT: Pupils are round and equally reacting to light. EOMI. No scleral icterus. No conjunctival pallor. Normocephalic, atraumatic. No pharyngeal erythema. No thyromegaly. CARDIOVASCULAR: S1 and S2 present. No murmurs, rubs, or gallops. PULMONARY: Chest is clear to auscultation, no wheezing or crackles. ABDOMEN: Soft, nontender, nondistended, normoactive bowel sounds. No palpable organomegaly. MUSCULOSKELETAL: No joint swelling or deformity. EXTREMITIES: No cyanosis, clubbing, or pedal edema. NEUROLOGICAL: Gross neurological examination did not reveal any focal deficits. SKIN: No rashes. Assessment and plan Acute infectious encephalopathy UTI Psychosis Depression Chronic atrial fibrillation Hypertension Hypothyroidism Hyperlipidemia Monitor vital signs Monitor CBC Monitor CMP Follow-up on blood cultures follow-up on urine cultures Continue Rocephin Continue oral Cardizem and Eliquis MRI brain ordered EEG ordered Neurology following Psychiatry evaluated, think this is most likely encephalopathy secondary to UTI PT and OT evaluation Labs and medication were reviewed.. Continue same treatment. Continue with s ymptomatic treatment. Resume home medication. Monitor labs and vitals. DVT and GI prophylaxis. Further recommendations as per clinical course of the patient Dictation was produced using [employer] dictation software. please excuse any grammatical, word or spelling errors. Objective - Vital Signs Vital signs: Vital Signs Temp 98.1 F 04/24/24 04:00 Pulse 81 04/24/24 10:00 Resp 20 04/24/24 10:00 BP 129/74 04/24/24 10:00 Pulse Ox 98 04/24/24 10:00 FiO2 Intake & Output 04/23/24 04/24/24 04/24/24 18:59 06:59 18:59 Intake Total 108.584 0 Output Total 800 600 120 Balance -691.416 -600 -120 Intake: Intake, IV Titration 108.584 0 Amount Diltiazem 125 mg In 108.584 0 Sodium Chloride 0.9% 100 ml @ 5 MG/HR 5 mls/hr IV .Q24H [facility] Rx#:[id number] Output: Urine 800 600 120 - Labs CBC & Chem 7: 04/22/24 16:37 04/22/24 16:37 Labs: Microbiology - Last 24 Hours (Table) 04/22/24 19:13 Blood Culture - Preliminary Blood
--- NOTE | 2024-04-24 16:04 | P.PN ---
Subjective Progress Note Date: 04/24/24 Principal diagnosis: Reason for follow-up is UTI Patient is a 78-year-old female with a past medical history significant for hypertension hyperlipidemia CVA TIA heart failure and atrial fibrillation patient was brought into the hospital from the local halfway for evaluation of mental status, patient have elevated white count positive UA concerning for urinary tract infection. On today's evaluation that is 04/24/2024, Patient is afebrile patient is currently on room air and denies having any shortness of breath, the patient denies any chest pain or cough, the patient denies any nausea vomiting did not have any abdominal pain and no diarrhea No CBC was done today cultures are currently pending Objective - Vital Signs Vital signs: Vital Signs Temp 98.1 F 04/24/24 04:00 Pulse 81 04/24/24 10:00 Resp 20 04/24/24 10:00 BP 129/74 04/24/24 10:00 Pulse Ox 98 04/24/24 10:00 FiO2 Intake & Output 04/23/24 04/24/24 04/24/24 18:59 06:59 18:59 Intake Total 108.584 0 Output Total 800 600 120 Balance -691.416 -600 -120 Intake: Intake, IV Titration 108.584 0 Amount Diltiazem 125 mg In 108.584 0 Sodium Chloride 0.9% 100 ml @ 5 MG/HR 5 mls/hr IV .Q24H [facility], [facility]–1983 Rx#:[id number] Output: Urine 800 600 120 - Exam GENERAL DESCRIPTION: An elderly female lying in bed in no distress RESPIRATORY SYSTEM: Unlabored breathing , decreased breath sounds at bases HEART: S1 S2 regular rate and rhythm , ABDOMEN: Soft , no tenderness EXTREMITIES: No edema feet - Labs CBC & Chem 7: 04/22/24 16:37 04/22/24 16:37 Labs: Microbiology - Last 24 Hours (Table) 04/22/24 19:13 Blood Culture - Preliminary Blood Assessment and Plan (1) Leukocytosis Current Visit: Yes Status: Acute Code(s): D72.829 - ELEVATED WHITE BLOOD CELL COUNT, UNSPECIFIED SNOMED Code(s): 443818948 (2) Urinary tract infection Current Visit: Yes Status: Acute Code(s): N39.0 - URINARY TRACT INFECTION, SITE NOT SPECIFIED SNOMED Code(s): 40349972 Plan: 1patient presented to hospital with mental status changes in this patient who did have a elevated white count positive UA concerning for symptomatic UTI likely from to the gram-negative pathogen currently no other obvious focus of infection with his elevated white count there was question of possible pneumonia however the patient is breathing comfortably on room air clinically doubt pneum onia 2unfortunately no urine culture done in the ER will request for UA and culture continue with Rocephin monitor clinical course closely Dictation was produced using [employer] dictation software. please excuse any grammatical, word or spelling errors. Time with Patient: Less than 30
[2024-04-24 17:22] LABS: Appearance,Urine Clear (Clear); Bilirubin,Urine Negative (Negative); Blood,Urine Small (Negative); Color,Urine Colorless; Glucose,Urine (UA) 3+ (Negative); Ketones,Urine Negative (Negative); Leukocyte Esterase,Urine Small (Negative); Mucus,Urine Rare /hpf; Nitrite,Urine Negative (Negative); PH, Urine 5.5 (5.0-8.0); Protein,Urine Negative (Negative); RBC,Urine 10 /hpf (0-5); Specific Gravity,Urine 1.004 (1.001-1.035); Squamous Epithelial Cell,Urine <1 /hpf (0-4); Urobilinogen,Urine <2.0 mg/dL (<2.0); WBC,Urine 8 /hpf (0-5)
[2024-04-24] MEDS: FOLIC ACID 1 MG TAB PO SCH (18:14)
[2024-04-24] MEDS: ZINC OXIDE PASTE (Z-GUARD) 1 APPLIC TOPICAL PRN (18:17)
[2024-04-24] MEDS: ATORVASTATIN 20 MG TAB PO SCH (20:09)
--- NOTE | 2024-04-24 22:50 | P.PN ---
Subjective Progress Note Date: 04/24/24 Patient was seen for a follow-up. Patient continues to be somewhat delirious. She has a very flat affect. I spoke to patient's granddaughter Jada, who provided with further information. She mentions that patient at baseline is completely normal person. She started having altered mental status about 2 weeks ago. It has progressively got worse, particularly in the last 1 week when she has been worse. She has been having some violent thoughts like someone's head has been chopped off and she is having a lot of thoughts. She saw patient 2 nights ago and she was staring at the wall, wide eyed not responding talking about "glue". Last night when she saw her, she had just woken up. She was saying something about fingers chopped off. Patient's granddaughter mentions that patient had history of a stroke, with no residual deficits. She has been under a lot of stress because her and her son within the last 1 year. Objective - Vital Signs Vital signs: Vital Signs Temp 98.7 F 04/24/24 15:39 Pulse 71 04/24/24 15:39 Resp 18 04/24/24 15:39 BP 123/76 04/24/24 15:39 Pulse Ox 98 04/24/24 15:39 FiO2 Intake & Output 04/23/24 04/24/24 04/24/24 18:59 06:59 18:59 Intake Total 108.584 0 Output Total 800 600 820 Balance -691.416 -600 -820 Intake: Intake, IV Titration 108.584 0 Amount Diltiazem 125 mg In 108.584 0 Sodium Chloride 0.9% 100 ml @ 5 MG/HR 5 mls/hr IV .Q24H [facility] Rx#:[id number] Output: Urine 800 600 820 - Exam Patient continues to be delirious, flat affect, partially oriented. She knows that she is in [facility], in [facility]. Patient denies headache. On asking the month patient says 43. Speech is otherwise clear. - Labs CBC & Chem 7: 04/22/24 16:37 04/22/24 16:37 Labs: Microbiology - Last 24 Hours (Table) 04/22/24 19:13 Blood Culture - Preliminary Blood Assessment and Plan Assessment: * Altered mental status, likely due to acute delirium. Rule out CVA. Rule out psychosis from depression. * Possible UTI * Atrial fibrillation, on Eliquis * Hypertension * Diabetes * Hyperlipidemia Plan: * MRI of the brain without contrast, evaluate for acute CVA * 2-D echo with bubble study to rule out PFO. Cardiology on the case. * CTA head and neck showed: No evidence of dissection of the cervical internal carotid arteries or vertebral arteries. No evidence of significant stenosis at the carotid bifurcations. No evidence of intracranial high-grade stenosis or intracranial aneurysm. * Fasting a.m. lipid panel with cholesterol 122, LDL 45, HDL 55, triglycerides 104. Continue Lipitor 10 mg daily. * Hemoglobin A1c 5.3 * B12 650, folate 7.7. Ammonia normal < 9. Patient started on folic acid 1 mg daily. * EEG pending. * Optimize control of blood pressure * Continue Eliquis 5 mg twice a day. * Neuro checks every 2 hours.. * Telemetry monitoring rule out any arrhythmia * Psychiatry has seen the patient, who believes patient has delirium from acute UTI. If the above neurological workup is negative, then recommend psychiatry follow-up for possible inpatient psych. * Check CBC in the morning. Patient is afebrile. Patient denies headache. * Patient currently on ceftriaxone for possible UTI. ID following. * DVT prophylaxis: Patient on Eliquis * Discussed with patient's granddaughter on the phone. * Dr. Sun to resume neurology service in the morning.
[2024-04-25] MEDS: SODIUM CHLORIDE 0.9% 1,000 ML IV SCH (02:25)
[2024-04-25 09:18] LABS: Basophils # (A) 0.05 X 10*3/uL (0.00-0.10); Basophils % (A) 0.5 %; Eosinophils # (A) 0.23 X 10*3/uL (0.04-0.35); Eosinophils % (A) 2.2 %; HGB 13.9 g/dL (12.0-15.0); Lymphocytes % (A) 21.6 %; MCH 30.2 pg (27.0-32.0); MCHC 31.6 g/dL (32.0-37.0); MCV 95.4 FL (80.0-97.0); Mean Platelet Volume 9.8 FL (9.5-12.2); Monocytes # (A) 0.78 X 10*3/uL (0.20-1.00); Monocytes % (A) 7.3 %; NRBC Per 100 WBC 0 X 10*3/uL (0.00-0.01); Neutrophils # (A) 7.23 X 10*3/uL (1.80-7.70); Platelet Count 316 X 10*3/uL (140-440); RBC 4.61 X 10*6/uL (4.10-5.20); RDW 14.8 % (11.5-14.5); WBC 10.63 X 10*3/uL (4.50-10.00)
[2024-04-25] MEDS: DILTIAZEM ORAL 60 MG TAB PO SCH (10:08)
--- NOTE | 2024-04-25 11:27 | CA ---
Transthoracic Echo Report Name: Danae Saavedra Age: 78 Gender: F : 1945 Exam Date: 04/25/2024 08:49 Exam Location: [facility] Ht (in): 58 Wt (lb): 206 Ordering Physician: Ángela Lockett Attending/Referring Phys: [id number], Cathryn Physical Meteorologist Mini Delgado, AIMEE Procedure CPT: Indications: LV Function, afib Cardiac Hx: Technical Quality: Poor, Technically difficult study Contrast 1: Definity Total Dose (mL): 2 Contrast 2: Total Dose (mL): MEASUREMENTS (Male / Female) Normal Values 2D ECHO LV Diastolic Diameter PLAX 3.8 cm 4.2 - 5.9 / 3.9 - 5.3 cm LV Systolic Diameter PLAX 2.1 cm IVS Diastolic Thickness 1.5 cm 0.6 - 1.0 / 0.6 - 0.9 cm LVPW Diastolic Thickness 1.6 cm 0.6 - 1.0 / 0.6 - 0.9 cm LV Relative Wall Thickness 0.8 RV Internal Dim ED PLAX 2.5 cm LA Systolic Diameter LX 5.6 cm 3.0 - 4.0 / 2.7 - 3.8 cm M-MODE Aortic Root Diameter MM 3.1 cm LA Systolic Diameter MM 4.8 cm LA Ao Ratio MM 1.5 AV Cusp Separation MM 1.9 cm DOPPLER AI Peak Velocity 247.0 cm/s AI Peak Gradient 24.4 mmHg AI Pressure Half Time 742.8 ms MV E' Velocity 7.2 cm/s TR Peak Velocity 322.5 cm/s TR Peak Gradient 41.6 mmHg Right Atrial Pressure 10.0 mmHg Pulmonary Artery Systolic Pressu 51.6 mmHg Right Ventricular Systolic Press 51.6 mmHg FINDINGS Left Ventricle Left ventricular ejection fraction is estimated at 65-70 %. Severely increased left ventricular wall thickness. Hyperdynamic left ventricular systolic function. Small left ventricular cavity. Apical hypertrophy of the left ventricle. Right Ventricle Right ventricle not well visualized. Moderate pulmonary hypertension. Right Atrium Mild right atrial dilatation. Left Atrium Severely increased left atrial diameter. Mitral Valve Structurally normal mitral valve. Aortic Valve Trileaflet aortic valve. Mild aortic regurgitation. Mild aortic regurgitation. Tricuspid Valve Structurally normal tricuspid valve. [id number] tricuspid regurgitation. No tricuspid stenosis. Pulmonic Valve Structurally normal pulmonic valve. No pulmonic stenosis. Trace pulmonic regurgitation. Pericardium No pericardial or pleural effusion. Aorta Normal size aortic root and proximal ascending aorta. CONCLUSIONS Technically difficult study for interpretation Poorly visualized endocardium and intracardiac valves Normal LV systolic function Moderate pulmonary hypertension Mild aortic regurgitation Moderate to severe tricuspid regurgitation Moderate pulmonary hypertension Previewed by: Dr. Home Powell MD (Electronically Signed) Final Date: 25 April 2024 11:26
--- NOTE | 2024-04-25 13:50 | P.PN ---
Subjective HISTORY OF PRESENT ILLNESS: This is a 78-year-old female with a past medical history significant for hyperlipidemia, congestive heart failure, and atrial fibrillation. Patient does not follow with a industrial relations director at [facility]. We have been asked to see the patient in consultation for atrial fibrillation. Patient examined at the bedside in the emergency room. Patient was brought into the hospital from [facility] due to altered mental status. Patient apparently was more confused and was hallucinating. Patient was found to be in A-fib with RVR. She was started on IV Cardizem. The patient does have a history of atrial fibrillation and is prescribed Eliquis on an outpatient basis. At the time of examination she remains in atrial fibrillation with heart rate in the 80s. She is currently on IV Cardizem at 10 mg an hour. She still remains somewhat confused at the time of examination. She denies any chest pain or pressure. Denies any shortness of breath. DIAGNOSTICS: - EKG reveals atrial fibrillation with RVR. Right bundle branch block. - Chest xray negative for acute process - Laboratory data: WBC 15.3. Hemoglobin 14.4. Platelet count 353. Sodium 138. Potassium 3.8. BUN 19. Creatinine 0.91. TSH 2.0. - Current home cardiac medications include Eliquis 5 mg twice a day, Lipitor 10 mg at night, Farxiga 10 mg daily, Cardizem 60 mg every 6 hours, Lasix 20 mg daily - No previous echocardiogram, stress test, or cardiac catheterization available in EMR for review 04/25/2024 Patient examined this morning the bedside. Patient appears to be resting comfortably at the time of examination. Patient answers "fine" to all questions asked during examination. Heart rates are well-controlled. Echocardiogram completed revealing ejection fraction 65 to 70%, hyperdynamic left ventricular systolic function, moderate pulmonary hypertension, mild aortic regurgitation, moderate to severe tricuspid regurgitation. PHYSICAL EXAM: VITAL SIGNS: Reviewed. GENERAL: Well-developed in no acute distress. HEENT: Head is normocephalic. Pupils are equal, round. Sclerae anicteric. Mucous membranes of the mouth are moist. Neck supple. No JVD or thyromegaly LUNGS: Respirations even and unlabored. Lungs essentially clear to auscultation bilaterally. HEART: Irregular rate and rhythm. S1 and S2 heard. ABDOMEN: Soft. Nondistended. Nontender. EXTREMITIES: Normal range of motion. No clubbing or cyanosis. Peripheral pulses intact. No lower extremity edema ASSESSMENT: Altered mental status Urinary tract infection Atrial fibrillation with RVR, paroxysmal versus persistent Chronic congestive heart failure, type unknown, currently euvolemic Hyperlipidemia Obesity: BMI 43.1 PLAN: Continue anticoagulation with Eliquis Continue current dose of oral Cardizem Continue additional cardiac medications Continue telemetry monitoring No further inpatient recommendations from a cardiac standpoint We will sign off. Please reconsult if needed. Nurse practitioner note has been reviewed by physician. Signing provider agrees with the documented findings, assessment, and plan of care documented by RIG SUPERINTENDENT as a scribe. Objective - Vital Signs Vital signs: Vital Signs Temp 97.3 F L 04/25/24 12:53 Pulse 102 H 04/25/24 12:53 Resp 17 04/25/24 12:53 BP 137/79 04/25/24 12:53 Pulse Ox 95 04/25/24 12:53 FiO2 Intake & Output 04/24/24 04/25/24 04/25/24 18:59 06:59 18:59 Output Total 1070 475 Balance -1070 -475 Weight 93.44 kg Output: Urine 1070 475 Other: Voiding Method Indwelling Catheter Indwelling Catheter - Labs CBC & Chem 7: 04/25/24 05:00 04/22/24 16:37 Labs: Abnormal Lab Results - Last 24 Hours (Table) 04/24/24 04/25/24 Range/Units 17:00 05:00 WBC 10.63 H (4.50-10.00) X 10*3/uL MCHC 31.6 L (32.0-37.0) g/dL RDW 14.8 H (11.5-14.5) % Urine Glucose (UA) 3+ H (Negative) Urine Blood Small H (Negative) Ur Leukocyte Esterase Small H (Negative) Urine RBC 10 H (0-5) /hpf Urine WBC 8 H (0-5) /hpf Urine Mucus Rare H (None) /hpf Microbiology - Last 24 Hours (Table) 04/22/24 19:13 Blood Culture - Preliminary Blood
--- NOTE | 2024-04-25 14:32 | P.PN ---
Subjective Progress Note Date: 04/25/24 patient is a 78-year-old lady with past medical history significant for CKD stage III, hypertension, CHF who is currently a resident of a longterm facility brought to the ER for altered mental status. Most of the history has been taken from the EMR as patient is a poor historian, according to that pat ient was all right 1 week back when nursing staff found her that patient was confused. Before 1 week patient was alert oriented x 4 and and answering questions. Over the last 1 week patient has become more confused with limited participation. Day prior to admission patient was brought talking and was hallucinating. Patient was moving all extremities. Nursing staff did not notice any slurred speech. There was no weakness of any extremity. There is no complaint of any fall. Family visited patient in the longterm and they found her to be altered and because of this altered mental status, patient brought to the ER. Initial lab work done in the ER showed WBC 15.3, hemoglobin 14.4, platelet count 353, sodium 138, potassium 3.8, BUN 19, creatinine 0.91, glucose 145, calcium 10.6, magnesium 1.9, bilirubin 0.7, AST 31, ALT 16, UA showed nitrite positive, small amount of leukocyte Estrace Influenza A not detected Influenza B not detected RSV not detected COVID-19 not detected EKG done in the ER showed heart rate of 105, irregular rhythm, no ST segment elevation or depression seen, no T-wave inversions seen. Chest x-ray done in the ER no acute cardiopulmonary process CT head done showed no acute intracranial process CTA head and neck done showed no significant stenosis, aneurysm or thrombus in the intracranial circulation CT abdomen pelvis done showed no acute abnormality in the abdominal/pelvis In the ER, patient was moving her extremities and was following commands for the physician. Family did tell the ER physician that the patient had been going through a lot of of stress with loss of her son and another family member. They also mentioned that patient told them while in the room that they were trying to kill her Patient admitted to internal medicine service 04/24. Patient seen and examined. Patient more alert compared to yesterday, answering questions but then states something totally out of abnormal like she told me that she does not have syphilis 04/25 patient seen and examined. Patient mental status waxes and wanes. Patient makes weird statements and keeps staring at the roof. Did tell nursing staff that she will kill her brothers REVIEW OF SYSTEMS: Review of system cannot be obtained as patient refuses to answer PHYSICAL EXAMINATION: GENERAL: The patient is alert, mental status waxes and wanes HEENT: Pupils are round and equally reacting to light. EOMI. No scleral icterus. No conjunctival pallor. Normocephalic, atraumatic. No pharyngeal erythema. No thyromegaly. CARDIOVASCULAR: S1 and S2 present. No murmurs, rubs, or gallops. PULMONARY: Chest is clear to auscultation, no wheezing or crackles. ABDOMEN: Soft, nontender, nondistended, normoactive bowel sounds. No palpable organomegaly. MUSCULOSKELETAL: No joint swelling or deformity. EXTREMITIES: No cyanosis, clubbing, or pedal edema. NEUROLOGICAL: Gross neurological examination did not reveal any focal deficits. SKIN: No rashes. Assessment and plan Acute infectious encephalopathy UTI Psychosis Depression Chronic atrial fibrillation Hypertension Hypothyroidism Hyperlipidemia Monitor vital signs Monitor CBC Monitor CMP Follow-up on blood cultures follow-up on urine cultures Continue Rocephin Continue oral Cardizem and Eliquis MRI brain ordered EEG ordered Neurology following Will reconsult psychiatry PT and OT evaluation Labs and medication were reviewed.. Continue same treatment. Continue with symptomatic treatment. Resume home medication. Monitor labs and vitals. DVT and GI prophylaxis. Further recommendations as per clinical course of the patient Dictation was produced using [employer] dictation software. please excuse any grammatical, word or spelling errors. Objective - Vital Signs Vital signs: Vital Signs Temp 97.3 F L 04/25/24 12:53 Pulse 102 H 04/25/24 12:53 Resp 17 04/25/24 12:53 BP 137/79 04/25/24 12:53 Pulse Ox 95 04/25/24 12:53 FiO2 Intake & Output 04/24/24 04/25/24 04/25/24 18:59 06:59 18:59 Output Total 1070 475 Balance -1070 -475 Weight 93.44 kg Output: Urine 1070 475 Other: Voiding Method Indwelling Catheter Indwelling Catheter - Labs CBC & Chem 7: 04/25/24 05:00 04/22/24 16:37 Labs: Abnormal Lab Results - Last 24 Hours (Table) 04/24/24 04/25/24 Range/Units 17:00 05:00 WBC 10.63 H (4.50-10.00) X 10*3/uL MCHC 31.6 L (32.0-37.0) g/dL RDW 14.8 H (11.5-14.5) % Urine Glucose (UA) 3+ H (Negative) Urine Blood Small H (Negative) Ur Leukocyte Esterase Small H (Negative) Urine RBC 10 H (0-5) /hpf Urine WBC 8 H (0-5) /hpf Urine Mucus Rare H (None) /hpf Microbiology - Last 24 Hours (Table) 04/22/24 19:13 Blood Culture - Preliminary Blood
[2024-04-25] MEDS ORDERED: OLANZapine 10 MG VIAL IM PRN (14:34)
[2024-04-25] MEDS ORDERED: OLANZapine 5 MG TAB PO PRN (14:34)
--- NOTE | 2024-04-25 14:44 | P.PN ---
Progress Note - Text Progress Note Date: 04/25/24 IDENTIFYING DATA: Patient is an 78-year-old female, currently at [facility] REASON FOR CONSULT: AMS, possible catatonia INTERVAL HISTORY: Patient seen and evaluated. She was A&Ox2-3 not date. Patient of note was a poor historian, stating "I do not know" to several questions. She states feeling "not good" but was unable to elaborate what was going on. She reports auditory hallucinations, described as voices saying "you are " however she herself denied any suicidal or homicidal ideations. She reports paranoia. She denied any past psych history. Staff noted patient to be spitting pills out and displaying psychotic behavior. Patient is currently on antibiotics for UTI. MENTAL STATUS EXAM: General Appearance: Patient appears to be stated age. Patient appears to have fair hygiene and grooming wearing hospital gown with poor eye contact. Behavior: Patient is calmly lying in bed without any agitated behavior. Speech: Volume is low, monotone however normal rate Mood/Affect: Mood described as "not good" and affect is constricted Suicidality/Homicidality: Patient denied any suicidal or homicidal ideations Perceptions: Patient describes auditory hallucinations however did not appear internally preoccupied. Though content/process: There is evidence of paranoia Judgment and insight: Poor IMPRESSIONS: Delirium, related to UTI PLAN: -At this time patient DOES NOT meet criteria for inpatient psychiatric admission. -Delirium precautions recommended with patient including - avoiding use of narcotics and [employer] sedatives, limit anticholinergic medications when possible, frequent re-orientation, minimize use of restraints, open window shades during the day and close them at night -Would recommend the following medication changes/additions: Start Zyprexa zydis 5 mg at bedtime with as needed p.o./IM for acute safety concerns. Patient symptoms are likely sequela of UTI given patient's age and presentation. Of note, it is normal to still exhibit delirium symptoms such as paranoia and psychosis despite being on antibiotics and given patient's age, it may take several weeks to fully clear. Will start antipsychotic medications in the interim -Communicated plan to patient's nurse -Will continue to follow along -Please contact with any questions.
[2024-04-25] MEDS: OLANZapine ODT 5 MG TAB PO SCH (19:47)
[2024-04-26] MEDS: ACETAMINOPHEN TAB 325 MG TAB PO PRN (00:34)
--- NOTE | 2024-04-26 02:38 | EEG ---
ELECTROENCEPHALOGRAM REPORT CLINICAL HISTORY: The is an 78-year-old woman with altered mental status. The video EEG is obtained to evaluate for seizure epileptiform activity. RELEVANT MEDICATION: The patient is not on any antiseizure medication. EEG TYPE: This is a routine 21-channel EEG with video using the 10/20 electrode placement system. DESCRIPTION: Wakefulness is only obtained. During awake state, the background consists of low-to- moderate voltage of 7 to 8 hertz activity and sometimes intermixed with delta activity. There was no physiological stage 2 sleep architecture. There is no focal slowing. Interictal and ictal is none. ACTIVATION PROCEDURE: Photic stimulation did not evoke a posterior driving response. There is no abnormality during the photic stimulation. Hyperventilation is not performed. CLINICAL INTERPRETATION: This is an abnormal routine EEG. The background slowing suggestive of mild encephalopathy. There is no focal slowing, epileptiform discharge, or seizure on the EEG. Clinical correlation is recommended. MMMORIS / IJN: [id number] /
--- NOTE | 2024-04-26 15:04 | P.PN ---
Subjective Progress Note Date: 04/25/24 Principal diagnosis: Reason for follow-up is UTI Patient is a 78-year-old female with a past medical history significant for hypertension hyperlipidemia CVA TIA heart failure and atrial fibrillation patient was brought into the hospital from the local snf for evaluation of mental status, patient have elevated white count positive UA concerning for urinary tract infection. On today's evaluation that is 04/25/2024, patient has been afebrile, patient is breathing comfortably and is currently on room air, patient is lethargic but arousable not a very good historian no vomiting or diarrhea has been reported. Patient white count is 10.6 3 repeat UA is positive with a WBC Objective - Vital Signs Vital signs: Vital Signs Temp 97.3 F L 04/25/24 12:53 Pulse 102 H 04/25/24 12:53 Resp 17 04/25/24 12:53 BP 137/79 04/25/24 12:53 Pulse Ox 95 04/25/24 12:53 FiO2 Intake & Output 04/24/24 04/25/24 04/25/24 18:59 06:59 18:59 Output Total 1070 475 Balance -1070 -475 Weight 93.44 kg Output: Urine 1070 475 Other: Voiding Method Indwelling Catheter Indwelling Catheter - Exam GENERAL DESCRIPTION: An elderly female lying in bed in no distress RESPIRATORY SYSTEM: Unlabored breathing , decreased breath sounds at bases HEART: S1 S2 regular rate and rhythm , ABDOMEN: Soft , no tenderness EXTREMITIES: No edema feet - Labs CBC & Chem 7: 04/25/24 05:00 04/22/24 16:37 Labs: Abnormal Lab Results - Last 24 Hours (Table) 04/24/24 04/25/24 Range/Units 17:00 05:00 WBC 10.63 H (4.50-10.00) X 10*3/uL MCHC 31.6 L (32.0-37.0) g/dL RDW 14.8 H (11.5-14.5) % Urine Glucose (UA) 3+ H (Negative) Urine Blood Small H (Negative) Ur Leukocyte Esterase Small H (Negative) Urine RBC 10 H (0-5) /hpf Urine WBC 8 H (0-5) /hpf Urine Mucus Rare H (None) /hpf Microbiology - Last 24 Hours (Table) 12/27/24 19:13 Blood Culture - Preliminary Blood Assessment and Plan (1) Leukocytosis Current Visit: Yes Status: Acute Code(s): D72.829 - ELEVATED WHITE BLOOD CELL COUNT, UNSPECIFIED SNOMED Code(s): 067740868 (2) Urinary tract infection Current Visit: Yes Status: Acute Code(s): N39.0 - URINARY TRACT INFECTION, SITE NOT SPECIFIED SNOMED Code(s): 63961772 Plan: 1patient presented to hospital with mental status changes in this patient who did have a elevated white count positive UA concerning for symptomatic UTI likely from to the gram-negative pathogen currently no other obvious focus of infection with his elevated white count there was question of possible pneumonia however the patient is breathing comfortably on room air clinically doubt pneumonia 2patient did have improvement her white count her repeat urine is positive we will wait for the culture continue with Rocephin Dictation was produced using [employer] dictation software. please excuse any grammatical, word or spelling errors. Time with Patient: Less than 30
--- NOTE | 2024-04-26 15:06 | P.PN ---
Subjective Progress Note Date: 04/26/24 Principal diagnosis: Reason for follow-up is UTI Patient is a 78-year-old female with a past medical history significant for hypertension hyperlipidemia CVA TIA heart failure and atrial fibrillation patient was brought into the hospital from the local custodial for evaluation of mental status, patient have elevated white count positive UA concerning for urinary tract infection. On today's evaluation that is 04/26/2024, Patient is afebrile this morning patient is more awake and alert today she is breathing comfortably room air denies any chest pain or cough no abdominal pain and no diarrhea has been reported. No new lab has been obtained today. Blood culture pending Objective - Vital Signs Vital signs: Vital Signs Temp 98.6 F 04/26/24 07:31 Pulse 103 H 04/26/24 07:31 Resp 18 04/26/24 07:31 BP 152/84 04/26/24 07:31 Pulse Ox 94 L 04/26/24 07:31 FiO2 Intake & Output 04/25/24 04/26/24 04/26/24 18:59 06:59 18:59 Intake Total 120 480 Output Total 700 Balance -580 480 Intake: Oral 120 480 Output: Urine 700 Other: Voiding Method Indwelling Catheter Indwelling Catheter Indwelling Catheter # Voids 2 # Bowel Movements 1 - Exam GENERAL DESCRIPTION: An elderly female lying in bed in no distress RESPIRATORY SYSTEM: Unlabored breathing , decreased breath sounds at bases HEART: S1 S2 regular rate and rhythm , ABDOMEN: Soft , no tenderness EXTREMITIES: No edema feet - Labs CBC & Chem 7: 04/25/24 05:00 04/22/24 16:37 Labs: Microbiology - Last 24 Hours (Table) 04/22/24 19:13 Blood Culture - Preliminary Blood Assessment and Plan (1) Leukocytosis Current Visit: Yes Status: Acute Code(s): D72.829 - ELEVATED WHITE BLOOD CELL COUNT, UNSPECIFIED SNOMED Code(s): 827393896 (2) Urinary tract infection Current Visit: Yes Status: Acute Code(s): N39.0 - URINARY TRACT INFECTION, SITE NOT SPECIFIED SNOMED Code(s): 10958709 Plan: 1patient presented to hospital with mental status changes in this patient who did have a elevated white count positive UA concerning for symptomatic UTI likely from to the gram-negative pathogen currently no other obvious focus of infection with his elevated white count there was question of possible pneumonia however the patient is breathing comfortably on room air clinically doubt pneumonia 2patient did have improvement her white count her repeat urine is positive but did not have the threshold for culture we will continue Rocephin, in view of clinical improvement finishing therapy with oral Ceftin Dictation was produced using [employer] dictation software. please excuse any grammatical, word or spelling errors. Time with Patient: Less than 30
--- NOTE | 2024-04-26 15:43 | P.PN ---
Subjective Progress Note Date: 04/26/24 patient is a 78-year-old lady with past medical history significant for CKD stage III, hypertension, CHF who is currently a resident of a custodial facility brought to the ER for altered mental status. Most of the history has been taken from the EMR as patient is a poor historian, according to that pat ient was all right 1 week back when nursing staff found her that patient was confused. Before 1 week patient was alert oriented x 4 and and answering questions. Over the last 1 week patient has become more confused with limited participation. Day prior to admission patient was brought talking and was hallucinating. Patient was moving all extremities. Nursing staff did not notice any slurred speech. There was no weakness of any extremity. There is no complaint of any fall. Family visited patient in the custodial and they found her to be altered and because of this altered mental status, patient brought to the ER. Initial lab work done in the ER showed WBC 15.3, hemoglobin 14.4, platelet count 353, sodium 138, potassium 3.8, BUN 19, creatinine 0.91, glucose 145, calcium 10.6, magnesium 1.9, bilirubin 0.7, AST 31, ALT 16, UA showed nitrite positive, small amount of leukocyte Estrace Influenza A not detected Influenza B not detected RSV not detected COVID-19 not detected EKG done in the ER showed heart rate of 105, irregular rhythm, no ST segment elevation or depression seen, no T-wave inversions seen. Chest x-ray done in the ER no acute cardiopulmonary process CT head done showed no acute intracranial process CTA head and neck done showed no significant stenosis, aneurysm or thrombus in the intracranial circulation CT abdomen pelvis done showed no acute abnormality in the abdominal/pelvis In the ER, patient was moving her extremities and was following commands for the physician. Family did tell the ER physician that the patient had been going through a lot of of stress with loss of her son and another family member. They also mentioned that patient told them while in the room that they were trying to kill her Patient admitted to internal medicine service 04/24. Patient seen and examined. Patient more alert compared to yesterday, answering questions but then states something totally out of abnormal like she told me that she does not have syphilis 04/25 patient seen and examined. Patient mental status waxes and wanes. Patient makes weird statements and keeps staring at the roof. Did tell nursing staff that she will kill her brothers 04/26. Patient seen examined. Patient refused to talk. EEG done showed mild encephalopathy, no evidence of seizure-like activity REVIEW OF SYSTEMS: Review of system cannot be obtained as patient refuses to answer PHYSICAL EXAMINATION: GENERAL: The patient is alert, HEENT: Pupils are round and equally reacting to light. EOMI. No scleral icterus. No conjunctival pallor. Normocephalic, atraumatic. No pharyngeal erythema. No thyromegaly. CARDIOVASCULAR: S1 and S2 present. No murmurs, rubs, or gallops. PULMONARY: Chest is clear to auscultation, no wheezing or crackles. ABDOMEN: Soft, nontender, nondistended, normoactive bowel sounds. No palpable organomegaly. MUSCULOSKELETAL: No joint swelling or deformity. EXTREMITIES: No cyanosis, clubbing, or pedal edema. NEUROLOGICAL: Gross neurological examination did not reveal any focal deficits. SKIN: No rashes. Assessment and plan Acute infectious encephalopathy UTI Psychosis Depression Chronic atrial fibrillation Hypertension Hypothyroidism Hyperlipidemia Monitor vital signs Monitor CBC Monitor CMP Follow-up on blood cultures follow-up on urine cultures Continue Rocephin Continue oral Cardizem and Eliquis MRI brain ordered EEG done showed mild encephalopathy, no evidence of seizure-like activity Neurology following Psych reevaluation, added Zyprexa as needed, patient has not been getting up for inpatient psych admission PT and OT evaluation Labs and medication were reviewed.. Continue same treatment. Continue with symptomatic treatment. Resume home medication. Monitor labs and vitals. DVT and GI prophylaxis. Further recommendations as per clinical course of the patient Dictation was produced using [employer] dictation software. please excuse any grammatical, word or spelling errors. Objective - Vital Signs Vital signs: Vital Signs Temp 98.5 F 04/26/24 13:30 Pulse 109 H 04/26/24 13:30 Resp 20 04/26/24 13:30 BP 164/72 04/26/24 13:30 Pulse Ox 95 04/26/24 13:30 FiO2 Intake & Output 04/25/24 04/26/24 04/26/24 18:59 06:59 18:59 Intake Total 120 480 Output Total 700 575 Balance -580 480 -575 Intake: Oral 120 480 Output: Urine 700 575 Other: Voiding Method Indwelling Catheter Indwelling Catheter Indwelling Catheter # Voids 2 # Bowel Movements 1 - Labs CBC & Chem 7: 04/25/24 05:00 04/22/24 16:37 Labs: Microbiology - Last 24 Hours (Table) 04/22/24 19:13 Blood Culture - Preliminary Blood
--- NOTE | 2024-04-26 17:42 | P.PN ---
Subjective Progress Note Date: 04/26/24 I am seeing the patient for the first time during this hospital admission. Please refer to Dr. Lowe's note for further details. According the patient's nurse the patient is having episode of staring off. According to the campus receptionist it seems that psychiatry was consulted twice during this hospital admission. Also per the campus receptionist the patient was having conversation yesterday with the nurse. Objective - Vital Signs Vital signs: Vital Signs Temp 98.5 F 04/26/24 13:30 Pulse 109 H 04/26/24 13:30 Resp 20 04/26/24 13:30 BP 164/72 04/26/24 13:30 Pulse Ox 95 04/26/24 13:30 FiO2 Intake & Output 04/25/24 04/26/24 04/26/24 18:59 06:59 18:59 Intake Total 120 480 Output Total 700 575 Balance -580 480 -575 Intake: Oral 120 480 Output: Urine 700 575 Other: Voiding Method Indwelling Catheter Indwelling Catheter Indwelling Catheter # Voids 2 # Bowel Movements 1 - Exam General: Lying in bed and does not appear in acute distress. Neuro: Patient was looking to the right upon examiner and nurse was at bedside and she was responding. With painful stimuli she kept on saying ouch stated that it is not the nurse and that was me that was doing it. Also she followed few simple commands with motivation such as showing a thumbs. Upon asking her as a last command to stick out her tongue then I will bedside then she did immediately. Then towards the end of the exam upon leaving the room patient's was having behavioral issues and stating that we need to take shower. - Labs CBC & Chem 7: 04/25/24 05:00 04/22/24 16:37 Labs: Microbiology - Last 24 Hours (Table) 04/22/24 19:13 Blood Culture - Preliminary Blood Assessment and Plan Assessment: * Episode of confusion, staring off not responding is more psychiatric. With Motivation patient appropriately follows commands and has behavioral issues towards the end of the exam. * Possible UTI * Atrial fibrillation, on Eliquis * Hypertension * Diabetes * Hyperlipidemia Plan: * 2-D echo with bubble study to rule out PFO. Cardiology on the case. * CTA head and neck showed: No evidence of dissection of the cervical internal carotid arteries or vertebral arteries. No evidence of significant stenosis at the carotid bifurcations. No evidence of intracranial high-grade stenosis or intracranial aneurysm. * Fasting a.m. lipid panel with cholesterol 122, LDL 45, HDL 55, triglycerides 104. Continue Lipitor 10 mg daily. * Hemoglobin A1c 5.3 * B12 650, folate 7.7. Ammonia normal < 9. Patient started on folic acid 1 mg daily. * EEG: Is abnormal. The background slowing suggestive of mild encephalopathy. There is no focal slowing,epileptiform discharge or seizure on the EEG. * Dr. Lowe ordered MRI of the brain and I canceled it since this does not seems neurological but seems more psychiatric. * Optimize control of blood pressure * Continue Eliquis 5 mg twice a day. * Psychiatry has seen the patient, who believes patient has delirium from acute UTI. Recommend the patient to be reevaluated by psychiatry team. * Patient currently on ceftriaxone for possible UTI. ID following. * DVT prophylaxis: Patient on Eliquis The plan discussed with the patient's nurse Will follow-up with the patient sporadically. Time with Patient: Less than 30
[2024-04-27 09:15] LABS: HGB 13.8 g/dL (12.0-15.0); MCH 30.2 pg (27.0-32.0); MCHC 32.9 g/dL (32.0-37.0); MCV 91.9 FL (80.0-97.0); Mean Platelet Volume 9.8 FL (9.5-12.2); NRBC Per 100 WBC 0 X 10*3/uL (0.00-0.01); Platelet Count 337 X 10*3/uL (140-440); RBC 4.57 X 10*6/uL (4.10-5.20); RDW 14.9 % (11.5-14.5); WBC 11.83 X 10*3/uL (4.50-10.00)
[2024-04-27 09:32] LABS: ALT 9 U/L (8-44); AST 26 U/L (13-35); Albumin 3.3 g/dL (3.8-4.9); Alkaline Phosphatase 75 U/L (41-126); BUN/Creat Ratio 17.12 Ratio (12.00-20.00); Blood Urea Nitrogen 13.7 mg/dL (9.0-27.0); Calcium 10.4 mg/dL (8.7-10.3); Carbon Dioxide 26.9 mmol/L (21.6-31.8); Chloride 99 mmol/L (96-109); Globulin 2.2 g/dL (1.6-3.3); Glucose 99 mg/dL (70-110); Potassium 3.1 mmol/L (3.5-5.5); Sodium 142 mmol/L (135-145); Total Bilirubin 0.4 mg/dL (0.3-1.2); Total Protein 5.5 g/dL (6.2-8.2)
--- NOTE | 2024-04-27 13:25 | P.PN ---
Subjective Progress Note Date: 04/27/24 patient is a 78-year-old lady with past medical history significant for CKD stage III, hypertension, CHF who is currently a [facility] a [facility] brought to the ER for altered mental status. Most of the history has been taken from the EMR as patient is a poor historian, according to that pat ient was all right 1 week back when nursing staff found her that patient was confused. Before 1 week patient was alert oriented x 4 and and answering questions. Over the last 1 week patient has become more confused with limited participation. Day prior to admission patient was brought talking and was hallucinating. Patient was moving all extremities. Nursing staff did not notice any slurred speech. There was no weakness of any extremity. There is no complaint of any fall. Family visited patient in the prison and they found her to be altered and because of this altered mental status, patient brought to the ER. Initial lab work done in the ER showed WBC 15.3, hemoglobin 14.4, platelet count 353, sodium 138, potassium 3.8, BUN 19, creatinine 0.91, glucose 145, calcium 10.6, magnesium 1.9, bilirubin 0.7, AST 31, ALT 16, UA showed nitrite positive, small amount of leukocyte Estrace Influenza A not detected Influenza B not detected RSV not detected COVID-19 not detected EKG done in the ER showed heart rate of 105, irregular rhythm, no ST segment elevation or depression seen, no T-wave inversions seen. Chest x-ray done in the ER no acute cardiopulmonary process CT head done showed no acute intracranial process CTA head and neck done showed no significant stenosis, aneurysm or thrombus in the intracranial circulation CT abdomen pelvis done showed no acute abnormality in the abdominal/pelvis In the ER, patient was moving her extremities and was following commands for the physician. Family did tell the ER physician that the patient had been going through a lot of of stress with loss of her son and another family member. They also mentioned that patient told them while in the room that they were trying to kill her Patient admitted to internal medicine service 04/24. Patient seen and examined. Patient more alert compared to yesterday, answering questions but then states something totally out of abnormal like she told me that she does not have syphilis 04/25 patient seen and examined. Patient mental status waxes and wanes. Patient makes weird statements and keeps staring at the roof. Did tell nursing staff that she will kill her brothers 04/26. Patient seen examined. Patient refused to talk. EEG done showed mild encephalopathy, no evidence of seizure-like activity 04/27. Patient seen and examined. Patient little bit more talkative compared to yesterday. Vital signs stable. Neurology discontinued MRI. REVIEW OF SYSTEMS: Review of system cannot be obtained as patient refuses to answer PHYSICAL EXAMINATION: GENERAL: The patient is alert, HEENT: Pupils are round and equally reacting to light. EOMI. No scleral icterus. No conjunctival pallor. Normocephalic, atraumatic. No pharyngeal erythema. No thyromegaly. CARDIOVASCULAR: S1 and S2 present. No murmurs, rubs, or gallops. PULMONARY: Chest is clear to auscultation, no wheezing or crackles. ABDOMEN: Soft, nontender, nondistended, normoactive bowel sounds. No palpable organomegaly. MUSCULOSKELETAL: No joint swelling or deformity. EXTREMITIES: No cyanosis, clubbing, or pedal edema. NEUROLOGICAL: Gross neurological examination did not reveal any focal deficits. SKIN: No rashes. Assessment and plan Acute infectious encephalopathy UTI Psychosis Depression Chronic atrial fibrillation Hypertension Hypothyroidism Hyperlipidemia Monitor vital signs Monitor CBC Monitor CMP Follow-up on blood cultures follow-up on urine cultures Continue Rocephin Continue oral Cardizem and Eliquis EEG done showed mild encephalopathy, no evidence of seizure-like activity Neurology following Psych reevaluation, added Zyprexa as needed, patient does not need inpatient psych admission PT and OT evaluation Labs and medication were reviewed.. Continue same treatment. Continue with symptomatic treatment. Resume home medication. Monitor labs and vitals. DVT and GI prophylaxis. Further recommendations as per clinical course of the patient Dictation was produced using [employer] dictation software. please excuse any grammatical, word or spelling errors. Objective - Vital Signs Vital signs: Vital Signs Temp 97.6 F 04/27/24 07:29 Pulse 112 H 04/27/24 07:29 Resp 16 04/27/24 07:29 BP 130/81 04/27/24 07:29 Pulse Ox 96 04/27/24 07:29 FiO2 Intake & Output 04/26/24 04/27/24 04/27/24 18:59 06:59 18:59 Intake Total 762 710 Output Total 700 200 Balance 62 510 Intake: Oral 762 710 Output: Urine 700 200 Other: Voiding Method Indwelling Catheter Indwelling Catheter Indwelling Catheter - Labs CBC & Chem 7: 04/27/24 05:11 04/27/24 05:11 Labs: Abnormal Lab Results - Last 24 Hours (Table) 04/27/24 04/27/24 Range/Units 05:11 05:11 WBC 11.83 H (4.50-10.00) X 10*3/uL RDW 14.9 H (11.5-14.5) % Potassium 3.1 L (3.5-5.5) mmol/L Anion Gap 16.10 H (4.00-12.00) mmol/L Calcium 10.4 H (8.7-10.3) mg/dL Total Protein 5.5 L (6.2-8.2) g/dL Albumin 3.3 L (3.8-4.9) g/dL Albumin/Globulin Ratio 1.50 L (1.60-3.17) Ratio
[2024-04-27] MEDS: POTASSIUM CHLORIDE ER 20 MEQ TAB.ER PO STA (13:44)
--- NOTE | 2024-04-27 22:17 | P.PN ---
Subjective Progress Note Date: 04/27/24 Principal diagnosis: Reason for follow-up is UTI Patient is a 78-year-old female with a past medical history significant for hypertension hyperlipidemia CVA TIA heart failure and atrial fibrillation patient was [facility] into the [facility] the local [facility] for evaluation of mental status, patient have elevated white count positive UA concerning for urinary tract infection. On today's evaluation that is 04/27/2024,the patient denies any fever or any chills, patient is more awake alert today and breathing comfortably on room air, the patient denies chest pain shortness of breath and no significant cough, patient denies abdominal pain, no nausea vomiting or diarrhea. Patient white count slightly up 11.83 creatinine 0.8 Objective - Vital Signs Vital signs: Vital Signs Temp 97.9 F 04/27/24 14:03 Pulse 103 H 04/27/24 14:03 Resp 18 04/27/24 14:03 BP 136/73 04/27/24 14:03 Pulse Ox 95 04/27/24 14:03 FiO2 Intake & Output 04/26/24 04/27/24 04/27/24 18:59 06:59 18:59 Intake Total 762 710 50 Output Total 700 200 Balance 62 510 50 Intake: Intake, IV Titration 50 Amount cefTRIAXone 2 gm In 50 Sodium Chloride 0.9% 50 ml @ 100 mls/hr IVPB Q24HR [facility] Rx#:[id number] Oral 762 710 Output: Urine 700 200 Other: Voiding Method Indwelling Catheter Indwelling Catheter Indwelling Catheter - Exam GENERAL DESCRIPTION: An elderly female lying in bed in no distress RESPIRATORY SYSTEM: Unlabored breathing , decreased breath sounds at bases HEART: S1 S2 regular rate and rhythm , ABDOMEN: Soft , no tenderness EXTREMITIES: No edema feet - Labs CBC & Chem 7: 04/27/24 05:11 04/27/24 05:11 Labs: Abnormal Lab Results - Last 24 Hours (Table) 04/27/24 04/27/24 Range/Units 05:11 05:11 WBC 11.83 H (4.50-10.00) X 10*3/uL RDW 14.9 H (11.5-14.5) % Potassium 3.1 L (3.5-5.5) mmol/L Anion Gap 16.10 H (4.00-12.00) mmol/L Calcium 10.4 H (8.7-10.3) mg/dL Total Protein 5.5 L (6.2-8.2) g/dL Albumin 3.3 L (3.8-4.9) g/dL Albumin/Globulin Ratio 1.50 L (1.60-3.17) Ratio Assessment and Plan (1) Leukocytosis Current Visit: Yes Status: Acute Code(s): D72.829 - ELEVATED WHITE BLOOD CELL COUNT, UNSPECIFIED SNOMED Code(s): 882676041 (2) Urinary tract infection Current Visit: Yes Status: Acute Code(s): N39.0 - URINARY TRACT INFECTION, SITE NOT SPECIFIED SNOMED Code(s): 49096300 Plan: 1patient presented to hospital with mental status changes in this patient who did have a elevated white count positive UA concerning for symptomatic UTI likel y from to the gram-negative pathogen currently no other obvious focus of infection with his elevated white count there was question of possible pneumonia however the patient is breathing comfortably on room air clinically doubt pneumonia 2patient did have improvement her white count her repeat urine is positive but did not have the threshold for culture 3patient did have clinical improvement and will continue Rocephin,finishing therapy with oral Ceftin Dictation was produced using [employer] dictation software. please excuse any grammatical, word or spelling errors. Time with Patient: Less than 30
[2024-04-28 06:56] LABS: African American GFR (CKD) >90 (>60 ml/min/1.73 sqM); Anion Gap 8 mmol/L; Blood Urea Nitrogen 17 mg/dL (7-17); Calcium 9.9 mg/dL (8.4-10.2); Carbon Dioxide 28 mmol/L (22-30); Chloride 98 mmol/L (98-107); Glucose 104 mg/dL (74-99); Non-African American GFR(CKD) 83 (>60 ml/min/1.73 sqM); Potassium 2.8 mmol/L (3.5-5.1); Sodium 134 mmol/L (137-145)
--- NOTE | 2024-04-28 12:24 | P.PN ---
Subjective HISTORY OF PRESENT ILLNESS: This is a 78-year-old female with a past medical history significant for hyperlipidemia, congestive heart failure, and atrial fibrillation. Patient does not follow with a brand strategy manager [facility]. We have been asked to see the patient in consultation for atrial fibrillation. Patient examined at the bedside in the emergency room. Patient was brought into the hospital from [facility] due to altered mental status. Patient apparently was more confused and was hallucinating. Patient was found to be in A-fib with RVR. She was started on IV Cardizem. The patient does have a history of atrial fibrillation and is prescribed Eliquis on an outpatient basis. At the time of examination she remains in atrial fibrillation with heart rate in the 80s. She is currently on IV Cardizem at 10 mg an hour. She still remains somewhat confused at the time of examination. She denies any chest pain or pressure. Denies any shortness of breath. DIAGNOSTICS: - EKG reveals atrial fibrillation with RVR. Right bundle branch block. - Chest xray negative for acute process - Laboratory data: WBC 15.3. Hemoglobin 14.4. Platelet count 353. Sodium 138. Potassium 3.8. BUN 19. Creatinine 0.91. TSH 2.0. - Current home cardiac medications include Eliquis 5 mg twice a day, Lipitor 10 mg at night, Farxiga 10 mg daily, Cardizem 60 mg every 6 hours, Lasix 20 mg daily - No previous echocardiogram, stress test, or cardiac catheterization available in EMR for review 04/25/2024 Patient examined this morning the bedside. Patient appears to be resting comfortably at the time of examination. Patient answers "fine" to all questions asked during examination. Heart rates are well-controlled. Echocardiogram completed revealing ejection fraction 65 to 70%, hyperdynamic left ventricular systolic function, moderate pulmonary hypertension, mild aortic regurgitation, moderate to severe tricuspid regurgitation. 04/28/2024 Cardiology was reconsulted due to A-fib with RVR yesterday. Patient examined this afternoon at the bedside. Patient currently denies chest pain or pressure. She denies shortness of breath. Per nursing, patient had urinary retention and had indwelling urinary catheter reinserted. Telemetry reveals atrial fibrillation with controlled ventricular rates. Patient was tachycardic yesterday with heart rates in the 110's. However she has been controlled today. She is currently on Cardizem 60 mg 4 times a day. PHYSICAL EXAM: VITAL SIGNS: Reviewed. GENERAL: Well-developed in no acute distress. HEENT: Head is normocephalic. Pupils are equal, round. Sclerae anicteric. Mucous membranes of the mouth are moist. Neck supple. No JVD or thyromegaly LUNGS: Respirations even and unlabored. Lungs essentially clear to auscultation bilaterally. HEART: Irregular rate and rhythm. S1 and S2 heard. ABDOMEN: Soft. Nondistended. Nontender. EXTREMITIES: Normal range of motion. No clubbing or cyanosis. Peripheral pulses intact. No lower extremity edema ASSESSMENT: Altered mental status Urinary tract infection Atrial fibrillation with RVR, paroxysmal versus persistent Chronic congestive heart failure, type unknown, currently euvolemic Hyperlipidemia Obesity: BMI 43.1 PLAN: Continue anticoagulation with Eliquis Continue current dose of oral Cardizem. May increase if patient has further i ssues of Afib rvr Continue additional cardiac medications Continue telemetry monitoring We will sign off. Please reconsult if needed. Nurse practitioner note has been reviewed by physician. Signing provider agrees with the documented findings, assessment, and plan of care documented by FIELD SERVICE COORDINATOR as a scribe. Objective - Vital Signs Vital signs: Vital Signs Temp 98.0 F 04/28/24 07:38 Pulse 79 04/28/24 07:38 Resp 16 04/28/24 07:38 BP 116/71 04/28/24 07:38 Pulse Ox 94 L 04/28/24 07:38 FiO2 Intake & Output 04/27/24 04/28/24 04/28/24 18:59 06:59 18:59 Intake Total 530 Output Total 450 Balance 80 Intake: Intake, IV Titration 50 Amount cefTRIAXone 2 gm In 50 Sodium Chloride 0.9% 50 ml @ 100 mls/hr IVPB Q24HR [facility] Rx#:[id number] Oral 480 Output: Urine 450 Other: Voiding Method Indwelling Catheter Indwelling Catheter Indwelling Catheter # Voids 1 - Labs CBC & Chem 7: 04/27/24 05:11 04/28/24 06:06 Labs: Abnormal Lab Results - Last 24 Hours (Table) 04/28/24 Range/Units 06:06 Sodium 134 L (137-145) mmol/L Potassium 2.8 L (3.5-5.1) mmol/L Glucose 104 H (74-99) mg/dL Microbiology - Last 24 Hours (Table) 04/22/24 19:13 Blood Culture - Final Blood
--- NOTE | 2024-04-28 13:31 | P.PN ---
Subjective Progress Note Date: 04/28/24 Principal diagnosis: Reason for follow-up is UTI Patient is a 78-year-old female with a past medical history significant for hypertension hyperlipidemia CVA TIA heart failure and atrial fibrillation patient was brought into the hospital from the local [place] [facility] for evaluation of mental status, patient have elevated white count positive UA concerning for urinary tract infection. On today's evaluation that is 04/28/2024,the patient remains to be afebrile, patient is on room air not requiring supplemental oxygen patient is slightly sleepy today however did open eyes to her name, she is currently in no distress no vomiting or diarrhea has been reported. Patient did have a creatinine 0.69 no CBC was done today blood culture has been negative Objective - Vital Signs Vital signs: Vital Signs Temp 98.0 F 04/28/24 07:38 Pulse 79 04/28/24 07:38 Resp 16 04/28/24 07:38 BP 116/71 04/28/24 07:38 Pulse Ox 94 L 04/28/24 07:38 FiO2 Intake & Output 04/27/24 04/28/24 04/28/24 18:59 06:59 18:59 Intake Total 530 Output Total 450 Balance 80 Intake: Intake, IV Titration 50 Amount cefTRIAXone 2 gm In 50 Sodium Chloride 0.9% 50 ml @ 100 mls/hr IVPB Q24HR [facility] Rx#:[id number] Oral 480 Output: Urine 450 Other: Voiding Method Indwelling Catheter Indwelling Catheter Indwelling Catheter # Voids 1 - Exam GENERAL DESCRIPTION: An elderly female lying in bed in no distress RESPIRATORY SYSTEM: Unlabored breathing , decreased breath sounds at bases HEART: S1 S2 regular rate and rhythm , ABDOMEN: Soft , no tenderness EXTREMITIES: No edema feet - Labs CBC & Chem 7: 04/27/24 05:11 04/28/24 06:06 Labs: Abnormal Lab Results - Last 24 Hours (Table) 04/28/24 Range/Units 06:06 Sodium 134 L (137-145) mmol/L Potassium 2.8 L (3.5-5.1) mmol/L Glucose 104 H (74-99) mg/dL Microbiology - Last 24 Hours (Table) 04/22/24 19:13 Blood Culture - Final Blood Assessment and Plan (1) Leukocytosis Current Visit: Yes Status: Acute Code(s): D72.829 - ELEVATED WHITE BLOOD CELL COUNT, UNSPECIFIED SNOMED Code(s): 149764038 (2) Urinary tract infection Current Visit: Yes Status: Acute Code(s): N39.0 - URINARY TRACT INFECTION, SITE NOT SPECIFIED SNOMED Code(s): 59898088 Plan: 1patient presented to hospital with mental status changes in this patient who did have a elevated white count positive UA concerning for symptomatic UTI likely from to the gram-negative pathogen currently no other obvious focus of infection with his elevated white count there was question of possible pneumonia however the patient is breathing comfortably on room air clinically doubt pneumonia 2patient did have improvement her white count her repeat urine is positive but did not have the threshold for culture 3patient did have clinical improvement we will continue with Rocephin while inpatient and monitor clinical course closely Dictation was produced using [employer] dictation software. please excuse any grammatical, word or spelling errors. Time with Patient: Less than 30
[2024-04-28] MEDS ORDERED: Potassium Replacement Protocol 1 EACH MISC MISCELLANE PRN ×2 (13:33→21:54)
--- NOTE | 2024-04-28 13:43 | P.PN ---
Subjective Progress Note Date: 05/05/24 patient is a 78-year-old lady with past medical history significant for CKD stage III, hypertension, CHF who is currently a resident of a residential facility brought to the ER for altered mental status. Most of the history has been taken from the EMR as patient is a poor historian, according to that pat ient was all right 1 week back when nursing staff found her that patient was confused. Before 1 week patient was alert oriented x 4 and and answering questions. Over the last 1 week patient has become more confused with limited participation. Day prior to admission patient was brought talking and was hallucinating. Patient was moving all extremities. Nursing staff did not notice any slurred speech. There was no weakness of any extremity. There is no complaint of any fall. Family visited patient in the residential and they found her to be altered and because of this altered mental status, patient brought to the ER. Initial lab work done in the ER showed WBC 15.3, hemoglobin 14.4, platelet count 353, sodium 138, potassium 3.8, BUN 19, creatinine 0.91, glucose 145, calcium 10.6, magnesium 1.9, bilirubin 0.7, AST 31, ALT 16, UA showed nitrite positive, small amount of leukocyte Estrace Influenza A not detected Influenza B not detected RSV not detected COVID-19 not detected EKG done in the ER showed heart rate of 105, irregular rhythm, no ST segment elevation or depression seen, no T-wave inversions seen. Chest x-ray done in the ER no acute cardiopulmonary process CT head done showed no acute intracranial process CTA head and neck done showed no significant stenosis, aneurysm or thrombus in the intracranial circulation CT abdomen pelvis done showed no acute abnormality in the abdominal/pelvis In the ER, patient was moving her extremities and was following commands for the physician. Family did tell the ER physician that the patient had been going through a lot of of stress with loss of her son and another family member. They also mentioned that patient told them while in the room that they were trying to kill her Patient admitted to internal medicine service 04/24. Patient seen and examined. Patient more alert compared to yesterday, answering questions but then states something totally out of abnormal like she told me that she does not have syphilis 04/25 patient seen and examined. Patient mental status waxes and wanes. Patient makes weird statements and keeps staring at the roof. Did tell nursing staff that she will kill her brothers 04/26. Patient seen examined. Patient refused to talk. EEG done showed mild encephalopathy, no evidence of seizure-like activity 04/27. Patient seen and examined. Patient little bit more talkative compared to yesterday. Vital signs stable. Neurology discontinued MRI. 04/28. Patient seen and examined. Complaining of urine retention, bladder scan showed more than 400 mL of urine, Leone placed. Potassium this morning is 2.8, replacement ordered REVIEW OF SYSTEMS: Complaining abdominal pain Continues to have poor appetite Denies any chest pain or shortness of breath PHYSICAL EXAMINATION: GENERAL: The patient is alert, HEENT: Pupils are round and equally reacting to light. EOMI. No scleral icterus. No conjunctival pallor. Normocephalic, atraumatic. No pharyngeal erythema. No thyromegaly. CARDIOVASCULAR: S1 and S2 present. No murmurs, rubs, or gallops. PULMONARY: Chest is clear to auscultation, no wheezing or crackles. ABDOMEN: Soft, nontender, nondistended, normoactive bowel sounds. No palpable organomegaly. MUSCULOSKELETAL: No joint swelling or deformity. EXTREMITIES: No cyanosis, clubbing, or pedal edema. NEUROLOGICAL: Gross neurological examination did not reveal any focal deficits. SKIN: No rashes. Assessment and plan Acute infectious encephalopathy UTI Psychosis Depression Chronic atrial fibrillation Hypertension Hypothyroidism Hyperlipidemia Monitor vital signs Monitor CBC Monitor CMP Follow-up on blood cultures follow-up on urine cultures Continue Rocephin Continue oral Cardizem and Eliquis EEG done showed mild encephalopathy, no evidence of seizure-like activity Neurology following Psych reevaluation, added Zyprexa as needed, patient does not need inpatient psy ch admission PT and OT evaluation Labs and medication were reviewed.. Continue same treatment. Continue with symptomatic treatment. Resume home medication. Monitor labs and vitals. DVT and GI prophylaxis. Further recommendations as per clinical course of the patient Dictation was produced using [email or web address] dictation software. please excuse any grammatical, word or spelling errors. Objective - Vital Signs Vital signs: Vital Signs Temp 98.0 F 04/28/24 12:06 Pulse 95 04/28/24 12:06 Resp 16 04/28/24 12:06 BP 181/78 04/28/24 12:06 Pulse Ox 95 04/28/24 12:06 FiO2 Intake & Output 01/01/25 01/02/25 01/02/25 18:59 06:59 18:59 Intake Total 530 Output Total 450 Balance 80 Intake: Intake, IV Titration 50 Amount cefTRIAXone 2 gm In 50 Sodium Chloride 0.9% 50 ml @ 100 mls/hr IVPB Q24HR [facility] Rx#:[id number] Oral 480 Output: Urine 450 Other: Voiding Method Indwelling Catheter Indwelling Catheter Indwelling Catheter # Voids 1 - Labs CBC & Chem 7: 04/27/24 05:11 04/28/24 06:06 Labs: Abnormal Lab Results - Last 24 Hours (Table) 04/28/24 Range/Units 06:06 Sodium 134 L (137-145) mmol/L Potassium 2.8 L (3.5-5.1) mmol/L Glucose 104 H (74-99) mg/dL Microbiology - Last 24 Hours (Table) 04/22/24 19:13 Blood Culture - Final Blood
[2024-04-28] MEDS: POTASSIUM CHLORIDE ER 20 MEQ TAB.ER PO SCH ×2 (15:40→22:23)
[2024-04-29] MEDS ORDERED: Potassium Replacement Protocol 1 EACH MISC MISCELLANE PRN (01:33)
[2024-04-29] MEDS: POTASSIUM CHLORIDE ER 20 MEQ TAB.ER PO SCH (03:22)
[2024-04-29 07:44] LABS: Glucose,Whole Blood 122 mg/dL (70-110)
[2024-04-29] MEDS: METOPROLOL TARTRATE 5 MG/5 ML VIAL IVP STA (07:50)
[2024-04-29 07:59] LABS: ABG Base Excess 5.2 mmol/L; ABG HCO3 30 mmol/L (21-25); ABG Oxygen Saturation 88.3 % (94-97); ABG PCO2 41 mmHg (35-45); ABG PH 7.47 (7.35-7.45); ABG TCO2 31 mmol/L (19-24); Allen Test Performed? Yes
[2024-04-29 08:11] LABS: ABG PO2 52 mmHg (83-108)
[2024-04-29 08:15] LABS: Glucose,Whole Blood 136 mg/dL (70-110)
--- NOTE | 2024-04-29 08:46 | XR ---
EXAMINATION TYPE: XR chest 1V portable DATE OF EXAM: 04/29/2024 7:43 AM COMPARISON: 04/22/2024 CLINICAL INDICATION: Female, 78 years old with history of chest congestion, TECHNIQUE: XR chest 1V portable view(s) obtained. FINDINGS: The heart size is borderline prominent. The pulmonary vasculature is normal. The lungs are clear. IMPRESSION: 1. No acute pulmonary process. [facility], , 04/29/2024 8:43 AM
[2024-04-29 09:32] LABS: ABG Base Excess 5.2 mmol/L; ABG HCO3 30 mmol/L (21-25); ABG Oxygen Saturation >100.0 % (94-97); ABG PCO2 43 mmHg (35-45); ABG PH 7.45 (7.35-7.45); ABG PO2 288 mmHg (83-108); ABG TCO2 31 mmol/L (19-24); Allen Test Performed? Yes
[2024-04-29 09:35] LABS: African American GFR (CKD) 81 (>60 ml/min/1.73 sqM); Anion Gap 7 mmol/L; Blood Urea Nitrogen 17 mg/dL (7-17); Calcium 10.3 mg/dL (8.4-10.2); Carbon Dioxide 32 mmol/L (22-30); Chloride 102 mmol/L (98-107); Glucose 138 mg/dL (74-99); Non-African American GFR(CKD) 70 (>60 ml/min/1.73 sqM); Potassium 4.1 mmol/L (3.5-5.1); Sodium 141 mmol/L (137-145)
[2024-04-29] MEDS: LACTATED RINGERS 1,000 ML IV SCH (09:35)
[2024-04-29 09:47] LABS: HCT 43.2 % (34.0-46.0); HGB 13.7 gm/dL (11.4-16.0); Hypochromasia Slight; MCH 30.7 pg (25.0-35.0); MCHC 31.6 g/dL (31.0-37.0); MCV 97.1 fL (80.0-100.0); Mean Platelet Volume 7.3; Platelet Count 236 k/uL (150-450); RBC 4.45 m/uL (3.80-5.40); RDW 14.6 % (11.5-15.5); WBC 11.4 k/uL (3.8-10.6)
--- NOTE | 2024-04-29 12:49 | P.PN ---
Subjective Progress Note Date: 04/29/24 PROGRESS NOTE The patient is an 78-year-old female who was admitted few days ago with change in mental status, she has a known history of chronic persistent atrial fibrillation, anticoagulated, moderate to severe tricuspid regurgitation. Today she became less responsive, tachypneic and had episodes of atrial fibrillation with rapid ventricle response, she was transferred to the ICU she is on the BiPAP. Her rate is controlled at this time. She is opening her eyes to verbal stimulation and following commands. Her blood pressure is stable. There is no evidence of ventricular tachyarrhythmia. Her echocardiogram showed a preserved systolic function. Medications: Eliquis 5 mg twice a day, Lasix 20 mg daily, Cardizem 60 mg 4 times a day, atorvastatin 20 mg daily, Rocephin, Farxiga 10 mg daily, Zyprexa. PHYSICAL EXAMINATION: Blood pressure 117/50 heart rate 96 LUNGS: Clear to auscultation HEART: Irregular rate and rhythm, S1, S2. No S3. systolic murmur at the base ABDOMEN: Soft, nontender, no organomegaly obese EXTREMETIES: No edema LAB: Potassium 4.1, BUN 17, creatinine 0.8. Hemoglobin 13.7 IMPRESSION: 1. Change in mental status, improving 2. Respiratory failure on BiPAP, stable 3. Permanent atrial fibrillation, anticoagulated 4. History of psychosis and depression PLAN: 1. Continue present therapy 2. If patient is unable to take oral medication change to intravenous Cardizem 3. Follow oxygenation and wean BiPAP as tolerated 4. Depending on her progress further recommendations will be made Objective - Vital Signs Vital signs: Vital Signs Temp 98.6 F 04/29/24 08:13 Pulse 98 04/29/24 12:30 Resp 23 04/29/24 12:30 BP 117/50 04/29/24 12:30 Pulse Ox 99 04/29/24 12:30 FiO2 60 04/29/24 12:01 Intake & Output 04/28/24 04/29/24 04/29/24 18:59 06:59 18:59 Intake Total 222 225 Output Total 1625 675 45 Balance -1403 -675 180 Intake: IV 225 Lactated Ringers 1,000 ml 225 @ 75 mls/hr IV .[id number] [facility] Rx#:[id number] Oral 222 Output: Urine 1000 675 45 Post Void Residual 625 Other: Voiding Method Indwelling Catheter Indwelling Catheter - Labs CBC & Chem 7: 04/29/24 08:50 04/29/24 08:50 Labs: Abnormal Lab Results - Last 24 Hours (Table) 04/28/24 04/29/24 04/29/24 Range/Units 20:49 07:28 07:53 WBC (3.8-10.6) k/uL ABG pH 7.47 H (7.35-7.45) ABG pO2 52 L* (83-108) mmHg ABG HCO3 30 H (21-25) mmol/L ABG Total CO2 31 H (19-24) mmol/L ABG O2 Saturation 88.3 L (94-97) % Potassium 3.2 L (3.5-5.1) mmol/L Carbon Dioxide (22-30) mmol/L Glucose (74-99) mg/dL POC Glucose (mg/dL) 122 H (70-110) mg/dL Calcium (8.4-10.2) mg/dL 04/29/24 04/29/24 04/29/24 Range/Units 08:14 08:50 08:50 WBC 11.4 H (3.8-10.6) k/uL ABG pH (7.35-7.45) ABG pO2 (83-108) mmHg ABG HCO3 (21-25) mmol/L ABG Total CO2 (19-24) mmol/L ABG O2 Saturation (94-97) % Potassium (3.5-5.1) mmol/L Carbon Dioxide 32 H (22-30) mmol/L Glucose 138 H (74-99) mg/dL POC Glucose (mg/dL) 136 H (70-110) mg/dL Calcium 10.3 H (8.4-10.2) mg/dL 04/29/24 Range/Units 09:29 WBC (3.8-10.6) k/uL ABG pH (7.35-7.45) ABG pO2 288 H (83-108) mmHg ABG HCO3 30 H (21-25) mmol/L ABG Total CO2 31 H (19-24) mmol/L ABG O2 Saturation >100.0 H (94-97) % Potassium (3.5-5.1) mmol/L Carbon Dioxide (22-30) mmol/L Glucose (74-99) mg/dL POC Glucose (mg/dL) (70-110) mg/dL Calcium (8.4-10.2) mg/dL
[2024-04-29] MEDS: DILTIAZEM 125 MG in SODIUM CHLORIDE 0.9% 100 ML IV SCH (13:12)
--- NOTE | 2024-04-29 13:26 | P.CNPUL ---
History of Present Illness Consult date: 04/29/24 Requesting physician: Bhargav Herrera Reason for consult: hypoxemia Chief complaint: Altered mental status History of present illness: This is an 78-year-old female patient was brought in back on April 22, 2024 with altered mental status and confusion from a local longterm. CT scan of the brain revealed no acute intracranial process. She had been seen by neurology, psychiatry and infectious disease. Her mental status had been waxing and waning throughout the admission. This morning a rapid response team was called to her room as she was quite obtunded and with shallow respirations. C hest x-ray revealed no acute process. Blood gases on 4 L of oxygen revealed a PaO2 of 52, P CO2 41 and a pH of 7.47. She only responded to painful stimuli. She was subsequently transferred to the intensive care unit. She was placed on BiPAP 12 over 6 and 100% FiO2. Follow-up blood gases revealed a PaO2 of 288, pCO2 43 and a pH of 7.45. Her FiO2 had been decreased to 60%. White count 11.4. Hemoglobin 13.7. Platelets 236. Sodium 141. Potassium 4.1. Bicarb 32. BUN 17. Creatinine 0.80. Glucose 138. Ammonia level less than 9. Calcium 10.3. She remains quite obtunded. She is afebrile. Hemodynamically stable. She is continued on ceftriaxone. She is anticoagulated with Eliquis. Currently on a Cardizem drip at 10 mg/h for atrial fibrillation with rapid ventricular response. She remains on oral diuretics. Lactated Ringer's at 75 mL/h. Review of Systems ROS unobtainable: due to mental status Past Medical History Past Medical History: Unable to Obtain, Atrial Fibrillation, Heart Failure, CVA/ TIA, Hyperlipidemia, Hypertension, Renal Disease, Thyroid Disorder Additional Past Medical History / Comment(s): brain bleed from fall History of Any Multi-Drug Resistant Organisms: None Reported Past Surgical History: Unable to Obtain, Joint Replacement Smoking Status: Unknown if ever smoked Medications and Allergies Home Medications Medication Instructions Recorded Confirmed Type Acetaminophen Tab [Tylenol Tab] 1,000 mg PO BID 04/22/24 04/22/24 History Acetaminophen [Tylenol 8 Hour] 650 mg PO Q6H PRN 04/22/24 04/22/24 History Apixaban [Eliquis] 5 mg PO BID 04/22/24 04/22/24 History Atorvastatin [Lipitor] 10 mg PO HS@199904/22/24 04/22/24 History Calcium Carbonate [Tums] 500 mg PO TID PRN 04/22/24 04/22/24 History Dapagliflozin Propanediol [Farxiga] 10 mg PO DAILY 04/22/24 04/22/24 History Diltiazem Oral [Cardizem Oral] 60 mg PO Q6H 04/22/24 04/22/24 History Fluticasone Nasal [place] [Flonase 1 spr EA NOSTRIL BID PRN 04/22/24 04/22/24 History Nasal [place]] Furosemide [Lasix] 20 mg PO DAILY 04/22/24 04/22/24 History Latanoprost [Latanoprost 0.005%] 1 drop BOTH EYES HS@199904/22/24 04/22/24 History Levothyroxine Sodium [Synthroid] 112 mcg PO DAILY@0500 04/22/24 04/22/24 History Loratadine 10 mg PO DAILY 04/22/24 04/22/24 History Magnesium Oxide [Mag-Ox] 400 mg PO HS@199904/22/24 04/22/24 History Naloxone HCl 0.4 mg IM DIRECTED PRN 04/22/24 04/22/24 History Naloxone HCl [Narcan] 4 mg NASAL ONCE PRN 04/22/24 04/22/24 History Ondansetron [Zofran] 4 mg PO Q6H PRN 04/22/24 04/22/24 History Potassium Chloride ER [K-Dur 20] 20 meq PO DAILY 04/22/24 04/22/24 History Tramadol 100mg 100 mg PO BID PRN 04/22/24 04/22/24 History allopurinoL 200 mg PO DAILY 04/22/24 04/22/24 History guaiFENesin [guaiFENesin ER] 600 mg PO Q12H 04/22/24 04/22/24 History Allergies Allergy/AdvReac Type Severity Reaction Status Date / Time morphine AdvReac Unknown Verified 04/22/24 16:27 Physical Exam Vitals: Vital Signs Temp Pulse Pulse Resp BP BP Pulse Ox 04/29/24 12:30 98 23 117/50 99 04/29/24 12:15 114 H 20 117/50 98 04/29/24 12:01 04/29/24 12:00 112 H 22 124/86 94 L 04/29/24 11:45 100 31 H 124/86 93 L 04/29/24 11:30 103 H 26 H 124/86 95 04/29/24 11:15 104 H 31 H 124/86 99 04/29/24 11:00 97 24 119/56 100 04/29/24 10:45 124 H 23 114/54 97 04/29/24 10:30 97 18 108/72 93 L 04/29/24 10:15 117 H 17 105/72 99 04/29/24 10:00 105 H 24 123/99 94 L 04/29/24 09:45 105 H 21 134/75 100 04/29/24 09:33 04/29/24 09:30 124 H 32 H 194/163 100 04/29/24 09:15 94 20 180/142 100 04/29/24 09:00 123 H 20 145/56 100 04/29/24 08:45 113 H 22 137/89 100 04/29/24 08:31 04/29/24 08:30 103 H 31 H 107/72 97 04/29/24 08:25 04/29/24 08:15 105 H 21 108/70 04/29/24 08:13 98.6 F 105 H 28 H 108/70 100 04/29/24 06:50 106 H 04/29/24 06:37 109 H 18 97 04/29/24 06:32 110 H 18 135/82 97 04/29/24 06:27 130 H 18 139/90 86 L 04/29/24 02:00 98.1 F 109 H 12 109/77 94 L 04/28/24 20:00 14 04/28/24 19:56 98.4 F 108 H 12 122/72 95 FiO2 04/29/24 12:30 04/29/24 12:15 04/29/24 12:01 60 04/29/24 12:00 04/29/24 11:45 04/29/24 11:30 04/29/24 11:15 04/29/24 11:00 04/29/24 10:45 04/29/24 10:30 04/29/24 10:15 04/29/24 10:00 60 04/29/24 09:45 04/29/24 09:33 60 04/29/24 09:30 04/29/24 09:15 04/29/24 09:00 04/29/24 08:45 04/29/24 08:31 100 04/29/24 08:30 04/29/24 08:25 100 04/29/24 08:15 04/29/24 08:13 100 04/29/24 06:50 04/29/24 06:37 04/29/24 06:32 04/29/24 06:27 04/29/24 02:00 04/28/24 20:00 04/28/24 19:56 Intake and Output 04/28/24 04/29/24 04/29/24 22:59 06:59 14:59 Intake Total 225 Output Total 1625 675 45 Balance -1625 -675 180 Intake: IV 225 Lactated Ringers 1,000 ml 225 @ 75 mls/hr IV .[id number] [facility] Rx#:[id number] Output: Urine 1000 675 45 Post Void Residual 625 Other: Voiding Method Indwelling Catheter GENERAL EXAM: Obtunded 78-year-old female patient, on BiPAP. HEAD: Normocephalic. EYES: Normal reaction of pupils, equal size. NOSE: Clear with pink turbinates. THROAT: No erythema or exudates. NECK: No masses, no JVD. CHEST: No chest wall deformity. LUNGS: Equal air entry with no crackles, wheeze, rhonchi or dullness. CVS: S1 and S2 normal with no audible murmur, regular rhythm. ABDOMEN: No hepatosplenomegaly, normal bowel sounds, no guarding or rigidity. SPINE: No scoliosis or deformity SKIN: No rashes CENTRAL NERVOUS SYSTEM: No focal deficits, tone is normal in all 4 extremities. EXTREMITIES: There is no peripheral edema. No clubbing, no cyanosis. Peripheral pulses are intact. Results - Laboratory Findings CBC and BMP: 04/29/24 08:50 04/29/24 08:50 ABG ABG pH 7.45 (7.35-7.45) 04/29/24 09:29 ABG pCO2 43 mmHg (35-45) 04/29/24 09:29 ABG pO2 288 mmHg (83-108) H 04/29/24 09:29 ABG O2 Saturation >100.0 % (94-97) H 04/29/24 09:29 PT/INR, D-dimer PT 12.1 sec (10.0-12.5) 04/22/24 16:37 INR 1.1 (<1.2) 04/22/24 16:37 Abnormal lab findings: Abnormal Labs 04/22/24 04/22/24 04/22/24 16:37 16:37 16:37 WBC 15.3 H MCHC RDW Neutrophils # 12.2 H ABG pH ABG pO2 ABG HCO3 ABG Total CO2 ABG O2 Saturation Sodium Potassium Carbon Dioxide Anion Gap BUN 19 H Glucose 145 H POC Glucose (mg/dL) Calcium 10.6 H Total Protein Albumin Albumin/Globulin Ratio Urine Glucose (UA) 4+ H Urine Blood Moderate H Urine Nitrite Positive H Ur Leukocyte Esterase Small H Urine RBC 14 H Urine WBC Urine Bacteria Occasional H Urine Mucus Rare H 04/24/24 04/25/24 04/27/24 17:00 05:00 05:11 WBC 10.63 H 11.83 H MCHC 31.6 L RDW 14.8 H 14.9 H Neutrophils # ABG pH ABG pO2 ABG HCO3 ABG Total CO2 ABG O2 Saturation Sodium Potassium Carbon Dioxide Anion Gap BUN Glucose POC Glucose (mg/dL) Calcium Total Protein Albumin Albumin/Globulin Ratio Urine Glucose (UA) 3+ H Urine Blood Small H Urine Nitrite Ur Leukocyte Esterase Small H Urine RBC 10 H Urine WBC 8 H Urine Bacteria Urine Mucus Rare H 04/27/24 04/28/24 04/28/24 05:11 06:06 20:49 WBC MCHC RDW Neutrophils # ABG pH ABG pO2 ABG HCO3 ABG Total CO2 ABG O2 Saturation Sodium 134 L Potassium 3.1 L 2.8 L 3.2 L Carbon Dioxide Anion Gap 16.10 H BUN Glucose 104 H POC Glucose (mg/dL) Calcium 10.4 H Total Protein 5.5 L Albumin 3.3 L Albumin/Globulin Ratio 1.50 L Urine Glucose (UA) Urine Blood Urine Nitrite Ur Leukocyte Esterase Urine RBC Urine WBC Urine Bacteria Urine Mucus 04/29/24 04/29/24 04/29/24 07:28 07:53 08:14 WBC MCHC RDW Neutrophils # ABG pH 7.47 H ABG pO2 52 L* ABG HCO3 30 H ABG Total CO2 31 H ABG O2 Saturation 88.3 L Sodium Potassium Carbon Dioxide Anion Gap BUN Glucose POC Glucose (mg/dL) 122 H 136 H Calcium Total Protein Albumin Albumin/Globulin Ratio Urine Glucose (UA) Urine Blood Urine Nitrite Ur Leukocyte Esterase Urine RBC Urine WBC Urine Bacteria Urine Mucus 04/29/24 04/29/24 04/29/24 08:50 08:50 09:29 WBC 11.4 H MCHC RDW Neutrophils # ABG pH ABG pO2 288 H ABG HCO3 30 H ABG Total CO2 31 H ABG O2 Saturation >100.0 H Sodium Potassium Carbon Dioxide 32 H Anion Gap BUN Glucose 138 H POC Glucose (mg/dL) Calcium 10.3 H Total Protein Albumin Albumin/Globulin Ratio Urine Glucose (UA) Urine Blood Urine Nitrite Ur Leukocyte Esterase Urine RBC Urine WBC Urine Bacteria Urine Mucus - Diagnostic Findings Chest x-ray: image reviewed Assessment and Plan Assessment: Altered mental status admitted back on 04/22/2024. [place] to be acute infectious encephalopathy secondary to urinary tract infection. Today became obtunded and a rapid response team was initiated. Transferred to the intensive care unit 04/29/2024 Acute hypoxemic respiratory failure secondary to obtundation and shallow respirations. Chest x-ray shows no acute process. Currently on BiPAP Atrial fibrillation with a rapid ventricular response, currently on Cardizem drip at 10 mg an hour. Anticoagulated with Eliquis Possible episodes of catatonia History of depression Possible delirium secondary to infection History of congestive heart failure Hypertension Plan: The patient was seen and evaluated Chest x-ray, ABGs, labs and medications reviewed Continue on BiPAP support for now 04/01 and 60% FiO2 Titrate down the FiO2 as tolerated Will need a CT scan of the brain Currently on ceftriaxone Anticoagulated with Eliquis We will continue to follow and make further recommendations based on her clinical status I have personally seen and examined the patient, performed the documentation and the assessment and plan as written. Number of minutes spent on the visit: 20 Dictation was produced using [employer] dictation software. Please excuse any grammatical, word or spelling errors. This patient was seen in coordination with the pulmonary/critical care physician, Dr. Sun. He did spend greater than 50% of the time evaluating, examining and developing the plan of care. He agrees to the above HPI, physical exam, assessment and plan of care as dictated by the nurse practitioner..
--- NOTE | 2024-04-29 14:14 | P.PN ---
Subjective Progress Note Date: 04/29/24 patient is a 78-year-old lady with past medical history significant for CKD stage III, hypertension, CHF who is currently a resident of a long-term facility brought to the ER for altered mental status. Most of the history has been taken from the EMR as patient is a poor historian, according to that pat ient was all right 1 week back when nursing staff found her that patient was confused. Before 1 week patient was alert oriented x 4 and and answering questions. Over the last 1 week patient has become more confused with limited participation. Day prior to admission patient was brought talking and was hallucinating. Patient was moving all extremities. Nursing staff did not notice any slurred speech. There was no weakness of any extremity. There is no complaint of any fall. Family visited patient in the long-term and they found her to be altered and because of this altered mental status, patient brought to the ER. Initial lab work done in the ER showed WBC 15.3, hemoglobin 14.4, platelet count 353, sodium 138, potassium 3.8, BUN 19, creatinine 0.91, glucose 145, calcium 10.6, magnesium 1.9, bilirubin 0.7, AST 31, ALT 16, UA showed nitrite positive, small amount of leukocyte Estrace Influenza A not detected Influenza B not detected RSV not detected COVID-19 not detected EKG done in the ER showed heart rate of 105, irregular rhythm, no ST segment elevation or depression seen, no T-wave inversions seen. Chest x-ray done in the ER no acute cardiopulmonary process CT head done showed no acute intracranial process CTA head and neck done showed no significant stenosis, aneurysm or thrombus in the intracranial circulation CT abdomen pelvis done showed no acute abnormality in the abdominal/pelvis In the ER, patient was moving her extremities and was following commands for the physician. Family did tell the ER physician that the patient had been going through a lot of of stress with loss of her son and another family member. They also mentioned that patient told them while in the room that they were trying to kill her Patient admitted to internal medicine service 04/24. Patient seen and examined. Patient more alert compared to yesterday, answering questions but then states something totally out of abnormal like she told me that she does not have syphilis 04/25 patient seen and examined. Patient mental status waxes and wanes. Patient makes weird statements and keeps staring at the roof. Did tell nursing staff that she will kill her brothers 04/26. Patient seen examined. Patient refused to talk. EEG done showed mild encephalopathy, no evidence of seizure-like activity 04/27. Patient seen and examined. Patient little bit more talkative compared to yesterday. Vital signs stable. Neurology discontinued MRI. 04/28. Patient seen and examined. Complaining of urine retention, bladder scan showed more than 400 mL of urine, Leone placed. Potassium this morning is 2.8, replacement ordered 04/29. Patient seen examined. Patient had a rapid response called this morning for being lethargic and being in A-fib with RVR, stat CT head and IV Lopressor was given. Patient was transferred to ICU. Placed on BiPAP. REVIEW OF SYSTEMS: Review of system cannot be obtained as patient is lethargic PHYSICAL EXAMINATION: GENERAL: The patient is lethargic HEENT: Pupils are round and equally reacting to light. EOMI. No scleral icterus. No conjunctival pallor. Normocephalic, atraumatic. No pharyngeal erythema. No thyromegaly. CARDIOVASCULAR: S1 and S2 present. No murmurs, rubs, or gallops. Irregular in rate and rhythm PULMONARY: Diminished breath sounds at the bases bilaterally, no wheezing or crackles. ABDOMEN: Soft, nontender, nondistended, normoactive bowel sounds. No palpable organomegaly. MUSCULOSKELETAL: No joint swelling or deformity. EXTREMITIES: No cyanosis, clubbing, or pedal edema. NEUROLOGICAL: Lethargic SKIN: No rashes. Assessment and plan Acute infectious encephalopathy UTI Psychosis Depression Chronic atrial fibrillation Hypertension Hypothyroidism Hyperlipidemia Monitor vital signs Monitor CBC Monitor CMP Continue BiPAP Serial ABGs CT head ordered Ordered CTA chest Continue IV Rocephin Continue oral Cardizem, Lopressor, patient given IV Lopressor if continues to be in A-fib with RVR will consider initiating IV Cardizem drip Continue Eliquis EEG done showed mild encephalopathy, no evidence of seizure-like activity Neurology following Psych reevaluation, added Zyprexa as needed, patient does not need inpatient psy ch admission Transferred to ICU PT and OT evaluation Labs and medication were reviewed.. Continue same treatment. Continue with symptomatic treatment. Resume home medication. Monitor labs and vitals. DVT and GI prophylaxis. Further recommendations as per clinical course of the patient Dictation was produced using [employer] dictation software. please excuse any grammatical, word or spelling errors. Objective - Vital Signs Vital signs: Vital Signs Temp 98.1 F 04/29/24 02:00 Pulse 106 H 04/29/24 06:50 Resp 18 04/29/24 06:37 BP 135/82 04/29/24 06:32 Pulse Ox 97 04/29/24 06:37 FiO2 100 04/29/24 08:31 Intake & Output 04/28/24 04/29/24 04/29/24 18:59 06:59 18:59 Intake Total 222 Output Total 1625 675 Balance -1403 -675 Intake: Oral 222 Output: Urine 1000 675 Post Void Residual 625 Other: Voiding Method Indwelling Catheter Indwelling Catheter - Labs CBC & Chem 7: 04/29/24 08:50 04/29/24 08:50 Labs: Abnormal Lab Results - Last 24 Hours (Table) 04/28/24 04/29/24 04/29/24 Range/Units 20:49 07:28 07:53 ABG pH 7.47 H (7.35-7.45) ABG pO2 52 L* (83-108) mmHg ABG HCO3 30 H (21-25) mmol/L ABG Total CO2 31 H (19-24) mmol/L ABG O2 Saturation 88.3 L (94-97) % Potassium 3.2 L (3.5-5.1) mmol/L POC Glucose (mg/dL) 122 H (70-110) mg/dL 04/29/24 Range/Units 08:14 ABG pH (7.35-7.45) ABG pO2 (83-108) mmHg ABG HCO3 (21-25) mmol/L ABG Total CO2 (19-24) mmol/L ABG O2 Saturation (94-97) % Potassium (3.5-5.1) mmol/L POC Glucose (mg/dL) 136 H (70-110) mg/dL Microbiology - Last 24 Hours (Table) 04/22/24 19:13 Blood Culture - Final Blood
--- NOTE | 2024-04-29 15:03 | CT ---
EXAMINATION TYPE: CT brain wo con DATE OF EXAM: 04/29/2024 3:00 PM COMPARISON: 04/22/2024. CLINICAL INDICATION: Female, 78 years old with history of change in mentation, change in mental statu s TECHNIQUE: Brain: Axial CT images of the brain were obtained with coronal and sagittal reformats created and rev iewed. Contrast used: None. Oral contrast used: None. CT DLP: 1928.7 mGycm, Automated exposure control for dose reduction was used. FINDINGS: Brain: Extra-axial spaces: No abnormal extra-axial fluid collections. Ventricular system: Within normal limits Cerebral parenchyma: Bilateral hypodensities near the moreno radiata and the basal ganglia remote inj ury to the right inferior occipital lobe. No acute intraparenchymal hemorrhage or mass effect. The g ray-white junction is well differentiated. Cerebellum: Unremarkable. Mass effect: No evidence of midline shift. Intracranial vasculature: unremarkable Soft tissues: Normal. Calvarium/osseous structures: No depressed skull fracture. Paranasal sinuses and mastoid air cells: Mild scattered paranasal sinus disease. Visualized orbits: Bilateral aphakia IMPRESSION: 1. There remains hypodense areas surrounding the basal ganglia bilaterally and left posterior fronta l lobe. Findings not all that different from 04/22/2024, if there is concern for stroke consider MRI to exclude acute/subacute CVA. 2. Remote injury right inferior occipital lobe. [facility], , 04/29/2024 3:01 PM
--- NOTE | 2024-04-29 15:09 | CT ---
EXAMINATION TYPE: CT angio chest DATE OF EXAM: 04/29/2024 3:00 PM COMPARISON: None CLINICAL INDICATION: Female, 78 years old with history of hypoxia, resp distress; A Team, respiratory distress, hypoxia TECHNIQUE/CONTRAST: CTA scan of the thorax is performed with IV Contrast, patient injected with 100 mL of Isovue 370, MIP images are created and reviewed these are created on a separate workstation.. CT DLP: combined 1928.7 mGycm, Automated exposure control for dose reduction was used. FINDINGS: Lungs/Pleura: Increased consolidation changes in the left lung base most pronounced posteriorly. Find ings partially seen on prior on 04/22/2024. There is a small left pleural effusion no right pneumotho rax perfusion or focal consolidation. Airway: Large airways are patent. Heart: Heart is within normal limits for size. Vasculature: There is no evidence for a filling defect within the pulmonary vasculature to suggest ac anat pulmonary embolism. The pulmonary artery is of normal size. Mediastinum: No gross evidence of adenopathy. Small hiatal hernia. Musculoskeletal: No acute osseous abnormalities Soft Tissues/lymph nodes: Unremarkable. Lower neck: No significant findings. Upper Abdomen: The gallbladder surgically absent. IMPRESSION: 1. No evidence of pulmonary embolism. 2. Left lower lobe airspace consolidation correlate for pneumonia and/or atelectasis. 3. Small left pleural effusion. [facility], , 04/29/2024 3:06 PM
--- NOTE | 2024-04-29 15:27 | CDI ---
Documentation Clarification Form Date: 04/29/2024 03:09:20 PM From: Marely Garcia RN CCDS Phone: [phone] Admit Date: 04/22/2024 08:23:00 PM Patient Name: Danae Saavedra Visit Number: [id number] Discharge Date: ATTENTION: The Clinical Documentation Specialists (CDI) and [facility] Coding Staff appreciate your assistance in clarifying documentation. Please respond to the clarification below the line at the bottom and electronically sign. The CDI & [facility] Coding staff will review the response and follow-up if needed. Please note: Queries are made part of the Legal Health Record. If you have any questions, please contact the author of this message via ITS. Dr. Bhargav Herrera The patient has an elevated heart rate, lactic acid and elevated wbc. Based on this information and the findings below, is there an additional diagnosis that is clinically appropriate for this patient? History/Risk Factors: 78 year old female presents to the ED with altered mental status and hallucinating. Medical History: Atrial Fibrillation, Heart Failure, HTN, CKD and Thyroid Disorder. 04/23, HP Clinical Indicators: WBC, 04/22: 15.3 Venous Lactic acid, 04/22: 1.5 Blood cultures: 04/22, No growth after 5 days Vitals signs, 04/22: B/P 129/92, HR 126, Temp 97.4 F Oral, RR 20, SpO2 94% ra Treatment: ID Progress note, 04/28: Patient did have improvement her white count her repeat urine is positive but did not have the threshold for culture. Antibiotics: 04/23 Cefepime IVPB x 1; 04/23 Ceftrixone IVPB Q24H, IV Bolus: 04/22 0.9NS 500cc IV Bolus, 04/25 0.9NS 1L IV Bolus Is there an additional diagnosis that is clinically appropriate for this patient? [ x ] Sepsis, present on admission [ ] No additional diagnosis/not clinically significant [ ] Other, please specify [ ] Unable to determine SIRS Criteria: 2 or more of the following may indicate SIRS Temperature < 96.8F (36C) or > 101.0F (38.3C) Heart Rate > 90 bpm Respiratory Rate > 20 breaths/min or PaCO2 < 32 mmHg White Blood Cell Count > 12,000 or < 4,000 cells/mm3 or > 10% bands (Template Last Reviewed: April 2022) BROOKS
--- NOTE | 2024-04-29 17:20 | P.PN ---
Subjective Progress Note Date: 04/29/24 Follow-up with the patient and his seems today rapid response team was called since the patient was obtunded and with shallow respiration and is having respiratory issues and the patient is on BiPAP. She was transferred to ICU. She continues to be on BiPAP. Objective - Vital Signs Vital signs: Vital Signs Temp 98.5 F 04/29/24 16:00 Pulse 84 04/29/24 16:00 Resp 17 04/29/24 16:00 BP 106/61 04/29/24 16:00 Pulse Ox 100 04/29/24 16:00 FiO2 60 04/29/24 14:54 Intake & Output 04/28/24 04/29/24 04/29/24 18:59 06:59 18:59 Intake Total 222 650 Output Total 1625 675 135 Balance -1403 -675 515 Weight 93.44 kg Intake: IV 650 Lactated Ringers 1,000 ml 600 @ 75 mls/hr IV .[id number] [facility] Rx#:[id number] cefTRIAXone 2 gm In 50 Sodium Chloride 0.9% 50 ml @ 100 mls/hr IVPB Q24HR [facility] Rx#:[id number] Oral 222 Output: Urine 1000 675 135 Post Void Residual 625 Other: Voiding Method Indwelling Catheter Indwelling Catheter Indwelling Catheter - Exam General: Lying in bed and does not appear in acute distress. Lung: Ins on BiPAP Neuro: Is severely drowsy and briefly awakeable to voice. Not following commands or verbalizing. - Labs CBC & Chem 7: 04/29/24 08:50 04/29/24 08:50 Labs: Abnormal Lab Results - Last 24 Hours (Table) 04/28/24 04/29/24 04/29/24 Range/Units 20:49 07:28 07:53 WBC (3.8-10.6) k/uL ABG pH 7.47 H (7.35-7.45) ABG pO2 52 L* (83-108) mmHg ABG HCO3 30 H (21-25) mmol/L ABG Total CO2 31 H (19-24) mmol/L ABG O2 Saturation 88.3 L (94-97) % Potassium 3.2 L (3.5-5.1) mmol/L Carbon Dioxide (22-30) mmol/L Glucose (74-99) mg/dL POC Glucose (mg/dL) 122 H (70-110) mg/dL Calcium (8.4-10.2) mg/dL 04/29/24 04/29/24 04/29/24 Range/Units 08:14 08:50 08:50 WBC 11.4 H (3.8-10.6) k/uL ABG pH (7.35-7.45) ABG pO2 (83-108) mmHg ABG HCO3 (21-25) mmol/L ABG Total CO2 (19-24) mmol/L ABG O2 Saturation (94-97) % Potassium (3.5-5.1) mmol/L Carbon Dioxide 32 H (22-30) mmol/L Glucose 138 H (74-99) mg/dL POC Glucose (mg/dL) 136 H (70-110) mg/dL Calcium 10.3 H (8.4-10.2) mg/dL 04/29/24 Range/Units 09:29 WBC (3.8-10.6) k/uL ABG pH (7.35-7.45) ABG pO2 288 H (83-108) mmHg ABG HCO3 30 H (21-25) mmol/L ABG Total CO2 31 H (19-24) mmol/L ABG O2 Saturation >100.0 H (94-97) % Potassium (3.5-5.1) mmol/L Carbon Dioxide (22-30) mmol/L Glucose (74-99) mg/dL POC Glucose (mg/dL) (70-110) mg/dL Calcium (8.4-10.2) mg/dL Assessment and Plan Assessment: * Episode of confusion, staring off not responding is more psychiatric. With Motivation patient appropriately follows commands and has behavioral issues towards the end of the exam. Had EEG and mild encephalopathy and no seizure or discharges. Had repeat CT head and negative for acute or subacute stroke * Acute hypoxemic respiratory failure secondary to obstruction and shallow respiration and patient is on BiPAP. * Possible UTI * Atrial fibrillation, on Eliquis * Hypertension * Diabetes * Hyperlipidemia Plan: * 2-D echo with bubble study to rule out PFO. Cardiology on the case. * CTA head and neck showed: No evidence of dissection of the cervical internal carotid arteries or vertebral arteries. No evidence of significant stenosis at the carotid bifurcations. No evidence of intracranial high-grade stenosis or intracranial aneurysm. * Fasting a.m. lipid panel with cholesterol 122, LDL 45, HDL 55, triglycerides 104. Continue Lipitor 10 mg daily. * Hemoglobin A1c 5.3 * B12 650, folate 7.7. Ammonia normal < 9. Patient started on folic acid 1 mg daily. * EEG: Is abnormal. The background slowing suggestive of mild encephalopathy. There is no focal slowing,epileptiform discharge or seizure on the EEG. * Patient had a repeat CT of the head Today reported that there remains hypodense area surrounding the basal ganglia bilaterally and left posterior frontal lobe. Findings all that different from 04/22/2024, if there is any concern for stroke consider MRI to exclude acute/subacute CVA. Remote injury in the right frontal occipital lobe. * On examining the patient a few days ago she seemed more psychiatric than neurological. That is why MRI Brain was cancelled at that time. But if she continues to be confused and psychiatry team feels it is not psychiatric then recommend an MRI Brain. * Optimize control of blood pressure * Continue Eliquis 5 mg twice a day. * Psychiatry has seen the patient, who believes patient has delirium from acute UTI. Recommend the patient to be reevaluated by psychiatry team. * Patient currently on ceftriaxone for possible UTI. ID following. * DVT prophylaxis: Patient on Eliquis Will follow-up with the patient sporadically. Dr. Lowe will resume neurology service 05/02/2024 A.M. Time with Patient: Less than 30
[2024-04-29 20:13] LABS: Glucose,Whole Blood 109 mg/dL (70-110)
--- NOTE | 2024-04-29 20:15 | XR ---
EXAMINATION TYPE: XR chest 1V portable DATE OF EXAM: 04/29/2024 CLINICAL HISTORY: No left-sided breath sounds. TECHNIQUE: Single AP portable upright view of the chest is obtained. COMPARISON: Chest x-ray and CTA chest from earlier today FINDINGS: Persistent cardiomegaly with atherosclerotic thoracic aorta. Persistent left basilar conso lidation and/or atelectasis. Right lung remains clear. Osseous structures are intact. IMPRESSION: Persisting cardiomegaly with left basilar consolidation and/or atelectasis. No significan t change from earlier studies. [facility], , 04/29/2024 8:13 PM
[2024-04-29 20:43] LABS: ABG Base Excess 5.3 mmol/L; ABG HCO3 29 mmol/L (21-25); ABG Oxygen Saturation 94.6 % (94-97); ABG PCO2 39 mmHg (35-45); ABG PH 7.48 (7.35-7.45); ABG PO2 65 mmHg (83-108); ABG TCO2 30 mmol/L (19-24); Allen Test Performed? Yes
[2024-04-30 05:30] LABS: Basophils % (A) 0 %; Eosinophils # (A) 0.1 k/uL (0-0.7); Eosinophils % (A) 1 %; HCT 36.5 % (34.0-46.0); HGB 11.5 gm/dL (11.4-16.0); Lymphocytes # (A) 1.6 k/uL (1.0-4.8); Lymphocytes % (A) 12 %; MCHC 31.4 g/dL (31.0-37.0); MCV 95.5 fL (80.0-100.0); Mean Platelet Volume 7.7; Monocytes # (A) 0.7 k/uL (0-1.0); Monocytes % (A) 5 %; Neutrophils # (A) 11.3 k/uL (1.3-7.7); Neutrophils % (A) 82 %; Platelet Count 321 k/uL (150-450); RBC 3.83 m/uL (3.80-5.40); WBC 13.9 k/uL (3.8-10.6)
[2024-04-30 05:55] LABS: African American GFR (CKD) >90 (>60 ml/min/1.73 sqM); Anion Gap 8 mmol/L; Blood Urea Nitrogen 16 mg/dL (7-17); Carbon Dioxide 29 mmol/L (22-30); Chloride 104 mmol/L (98-107); Glucose 116 mg/dL (74-99); Non-African American GFR(CKD) 83 (>60 ml/min/1.73 sqM); Potassium 3.9 mmol/L (3.5-5.1); Sodium 141 mmol/L (137-145)
--- NOTE | 2024-04-30 06:59 | XR ---
EXAMINATION TYPE: XR chest 1V portable DATE OF EXAM: 04/30/2024 CLINICAL HISTORY: Difficulty breathing progress study. Diminished lung sounds left side TECHNIQUE: Single AP portable semiupright view of the chest is obtained. COMPARISON: Chest x-ray from one day earlier and older studies. FINDINGS: Persistent elevated left hemidiaphragm with left basilar consolidation and/or atelectasis P ersistent and mild cardiomegaly with atherosclerotic thoracic aorta. Right lung remains clear. Osseou s structures are intact. IMPRESSION: Persistent mild cardiomegaly with left basilar consolidation and/or atelectasis. No signi ficant change from one day earlier. [facility], , 04/30/2024 6:56 AM
[2024-04-30] MEDS: POTASSIUM CHLORIDE 10 MEQ in WATER FOR INJECTION 1 100ML.BAG IVPB SCH (07:06)
--- NOTE | 2024-04-30 09:02 | P.PN ---
Subjective Progress Note Date: 04/30/24 PROGRESS NOTE The patient is an 78-year-old female who was admitted few days ago with change in mental status, she has a known history of chronic persistent atrial fibrillation, anticoagulated, moderate to severe tricuspid regurgitation. Today she became less responsive, tachypneic and had episodes of atrial fibrillation with rapid ventricle response, she was transferred to the ICU she is on the BiPAP. Her rate is controlled at this time. She is opening her eyes to verbal stimulation and following commands. Her blood pressure is stable. There is no evidence of ventricular tachyarrhythmia. Her echocardiogram showed a preserved systolic function. April 30: The patient continues to be obtunded but opening eyes to verbal stimulation and following commands. She continues to be in atrial fibrillation but her rate is controlled, she is on IV Cardizem. Her blood pressure is relatively stable. There is no evidence of ventricular ectopic activity. Her chest x-ray is unchanged. Her CT scan of the chest showed no evidence of pulmonary embolism. Medications: IV Cardizem, oral anticoagulation has been on hold PHYSICAL EXAMINATION: Blood pressure 127/70 heart rate 94, on BiPAP LUNGS: Clear to auscultation anteriorly HEART: Irregular rate and rhythm, S1, S2. No S3. systolic murmur at the base ABDOMEN: Soft, nontender, no organomegaly obese EXTREMETIES: No edema LAB: Potassium 3.9, BUN 16, creatinine 0.69. Hemoglobin 11.5 IMPRESSION: 1. Change in mental status, stable since yesterday 2. Respiratory failure on BiPAP, stable 3. Permanent atrial fibrillation, rate controlled on IV Cardizem, off oral anticoagulation for now 4. History of psychosis and depression PLAN: 1. Continue present therapy 2. If patient is unable to take oral medication by tomorrow start IV heparin 3. Follow oxygenation and wean BiPAP as tolerated 4. Depending on her progress further recommendations will be made Objective - Vital Signs Vital signs: Vital Signs Temp 98.8 F 04/30/24 04:00 Pulse 92 04/30/24 07:00 Resp 18 04/30/24 07:00 BP 127/71 04/30/24 07:00 Pulse Ox 100 04/30/24 07:00 FiO2 70 04/30/24 07:40 Intake & Output 04/29/24 04/30/24 04/30/24 18:59 06:59 18:59 Intake Total 800 1014.833 175 Output Total 165 275 10 Balance 635 739.833 165 Weight 93.44 kg 95.5 kg Intake: IV 800 900 75 Lactated Ringers 1,000 ml 750 900 75 @ 75 mls/hr IV .[id number] [facility] Rx#:[id number] cefTRIAXone 2 gm In 50 Sodium Chloride 0.9% 50 ml @ 100 mls/hr IVPB Q24HR [facility] Rx#:[id number] Intake, IV Titration 114.833 100 Amount Diltiazem 125 mg In 114.833 Sodium Chloride 0.9% 100 ml @ 10 MG/HR 10 mls/hr IV .[id number] [facility] Rx#: [id number] Potassium Chloride 10 meq 100 In Water For Injection 1 100ml.bag @ 100 mls/hr IVPB Q1H [facility] Rx#: [id number] Output: Urine 165 275 10 Other: Voiding Method Indwelling Catheter Indwelling Catheter - Labs CBC & Chem 7: 04/30/24 05:15 04/30/24 05:15 Labs: Abnormal Lab Results - Last 24 Hours (Table) 04/29/24 04/29/24 04/29/24 Range/Units 08:50 08:50 09:29 WBC 11.4 H (3.8-10.6) k/uL Neutrophils # (1.3-7.7) k/uL ABG pH (7.35-7.45) ABG pO2 288 H (83-108) mmHg ABG HCO3 30 H (21-25) mmol/L ABG Total CO2 31 H (19-24) mmol/L ABG O2 Saturation >100.0 H (94-97) % Carbon Dioxide 32 H (22-30) mmol/L Glucose 138 H (74-99) mg/dL Calcium 10.3 H (8.4-10.2) mg/dL 04/29/24 04/30/24 04/30/24 Range/Units 20:41 05:15 05:15 WBC 13.9 H (3.8-10.6) k/uL Neutrophils # 11.3 H (1.3-7.7) k/uL ABG pH 7.48 H (7.35-7.45) ABG pO2 65 L (83-108) mmHg ABG HCO3 29 H (21-25) mmol/L ABG Total CO2 30 H (19-24) mmol/L ABG O2 Saturation (94-97) % Carbon Dioxide (22-30) mmol/L Glucose 116 H (74-99) mg/dL Calcium (8.4-10.2) mg/dL
--- NOTE | 2024-04-30 10:36 | P.PN ---
Subjective Progress Note Date: 04/30/24 Principal diagnosis: reason for consult: altered mental status This is an 78-year-old female patient was brought in back on April 22, 2024 with altered mental status and confusion from a local longterm. CT scan of the brain revealed no acute intracranial process. She had been seen by neurology, psychiatry and infectious disease. Her mental status had been waxing and waning throughout the admission. This morning a rapid response team was called to her room as she was quite obtunded and with shallow respirations. Chest x-ray revealed no acute process. Blood gases on 4 L of oxygen revealed a PaO2 of 52, P CO2 41 and a pH of 7.47. She only responded to painful stimuli. She was subsequently transferred to the intensive care unit on 04/29. She was placed on BiPAP 12 over 6 and 100% FiO2. Follow-up blood gases revealed a PaO2 of 288, pCO2 43 and a pH of 7.45. Her FiO2 had been decreased to 60%. White count 11.4. Hemoglobin 13.7. Platelets 236. Sodium 141. Potassium 4.1. Bicarb 32. BUN 17. Creatinine 0.80. Glucose 138. Ammonia level less than 9. Calcium 10.3. She remains quite obtunded. She is afebrile. Hemodynamically stable. She is continued on ceftriaxone. She is anticoagulated with Eliquis. On a Cardizem drip at 10 mg/h for atrial fibrillation with rapid ventricular response. She remains on oral diuretics. Lactated Ringer's at 75 mL/h. 04/30/2024 patient seen and examined at bedside. Patient still in the ICU requiring BiPAP oxygen support at the settings of 15/6 at FiO2 70%. Overnight, patient noted to have abnormal movements with some eye lateral deviation and that patient was awake and alert but does not fully follow all commands per nursing staff. Currently on Cardizem drip 10 mg/h and lactated Ringer's at 75 mL/h. Chest x-ray showed mild cardiomegaly with left bibasilar consolidation a nd/or atelectasis. Labs today show WBC 13.9, hemoglobin 11.5, platelet count 221,000, sodium 141, potassium 3.9, chloride 104, BUN 16, creatinine 0.69, glucose 116, calcium 10. Procalcitonin 0.21. Blood cultures final results are negative. Brain CT shows remaining hypodense area surrounding the basal ganglia bilaterally and left posterior imaging of frontal lobe which are findings that are not different from brain CT on admission and remote injury right inferior occipital lobe. Review of systems: Pertinent positives and negatives as discussed in HPI, a complete review of systems was performed and all other systems are negative. Pertinent imaging and labs reviewed. Physical examination: Vital signs reviewed General: non toxic, no distress, currently on BiPAP Derm: no unusual rashes/lesions, warm Head: atraumatic, normocephalic, symmetric Eyes: EOMI, anicteric sclera, pupils equal round reactive to light ENT: Nose and ears atraumatic Neck: No cervical lymphadenopathy, trachea midline, supple Mouth: no lip lesion, mucus membranes moist Cardiovascular: S1S2 present, irregularly irregular, no murmur Lungs: Decreased breath sounds on left lung field, no rhonchi, no rales, no accessory muscle use Abdominal: soft, nontender to palpation, no guarding Ext: No gross muscle atrophy, no contractures, positive dorsalis pedis pulse bilateral, no edema Neuro: CN II-XI grossly intact, no gross focal neuro deficits, follows limited commands Psych: Alert and oriented x1, appropriate affect and mood Assessment/Plan: -Active problems: Acute encephalopathy admitted back on 04/22/2024. Cameron to be acute infectious encephalopathy secondary to sepsis from urinary tract infection. Alert and awake and only oriented to self. Follows limited commands. Transferred to the intensive care unit 04/29/2024 Possible delirium secondary to infection Acute hypoxemic respiratory failure secondary to obtundation and shallow respirations. Chest x-ray showed mild cardiomegaly with left bibasilar consolidation and/or atelectasis. Currently on BiPAP Atrial fibrillation with a rapid ventricular response, currently on Cardizem drip at 10 mg an hour. Anticoagulated with Eliquis Possible episodes of catatonia -Chronic conditions: Depression Congestive heart failure Hypertension Recommendations: Continue on BiPAP support. FiO2 decreased to 50% Titrate down the FiO2 as tolerated then trial off BiPAP Currently NPO. Continue IV fluids LR at 75 mL/h. Procalcitonin 0.21. Discontinue IV ceftriaxone Continue Cardizem drip Brain CT 04/29 shows remaining hypodense area surrounding the basal ganglia bilaterally and left posterior imaging of frontal lobe which are findings that are not different from brain CT on admission and remote injury right inferior occipital lobe. Cardiology following. Recommended to transition to IV heparin tomorrow if still on n.p.o. Neurology following Psychiatry following Infectious disease following DVT prophylaxis: Eliquis 5mg PO twice GI prophylaxis: Protonix 40mg IV daily Prognosis: guarded. We will continue to follow and make further recommendations based on her clinical status Jessica Sutherland MD PGY-1/[employer] Dictation was produced using [employer] dictation software. please excuse any grammatical, word or spelling errors. Objective - Vital Signs Vital signs: Vital Signs Temp 98.8 F 04/30/24 04:00 Pulse 92 04/30/24 07:00 Resp 18 04/30/24 07:00 BP 127/71 04/30/24 07:00 Pulse Ox 100 04/30/24 07:00 FiO2 70 04/30/24 04:14 Intake & Output 04/29/24 04/30/24 04/30/24 18:59 06:59 18:59 Intake Total 800 1014.833 175 Output Total 165 275 10 Balance 635 739.833 165 Weight 93.44 kg 95.5 kg Intake: IV 800 900 75 Lactated Ringers 1,000 ml 750 900 75 @ 75 mls/hr IV .[id number] [facility] Rx#:[id number] cefTRIAXone 2 gm In 50 Sodium Chloride 0.9% 50 ml @ 100 mls/hr IVPB Q24HR [facility] Rx#:[id number] Intake, IV Titration 114.833 100 Amount Diltiazem 125 mg In 114.833 Sodium Chloride 0.9% 100 ml @ 10 MG/HR 10 mls/hr IV .[id number] [facility] Rx#: [id number] Potassium Chloride 10 meq 100 In Water For Injection 1 100ml.bag @ 100 mls/hr IVPB Q1H [facility] Rx#: [id number] Output: Urine 165 275 10 Other: Voiding Method Indwelling Catheter Indwelling Catheter - Labs CBC & Chem 7: 04/30/24 05:15 04/30/24 05:15 Labs: Abnormal Lab Results - Last 24 Hours (Table) 04/29/24 04/29/24 04/29/24 Range/Units 07:28 07:53 08:14 WBC (3.8-10.6) k/uL Neutrophils # (1.3-7.7) k/uL ABG pH 7.47 H (7.35-7.45) ABG pO2 52 L* (83-108) mmHg ABG HCO3 30 H (21-25) mmol/L ABG Total CO2 31 H (19-24) mmol/L ABG O2 Saturation 88.3 L (94-97) % Carbon Dioxide (22-30) mmol/L Glucose (74-99) mg/dL POC Glucose (mg/dL) 122 H 136 H (70-110) mg/dL Calcium (8.4-10.2) mg/dL 04/29/24 04/29/24 04/29/24 Range/Units 08:50 08:50 09:29 WBC 11.4 H (3.8-10.6) k/uL Neutrophils # (1.3-7.7) k/uL ABG pH (7.35-7.45) ABG pO2 288 H (83-108) mmHg ABG HCO3 30 H (21-25) mmol/L ABG Total CO2 31 H (19-24) mmol/L ABG O2 Saturation >100.0 H (94-97) % Carbon Dioxide 32 H (22-30) mmol/L Glucose 138 H (74-99) mg/dL POC Glucose (mg/dL) (70-110) mg/dL Calcium 10.3 H (8.4-10.2) mg/dL 04/29/24 04/30/24 04/30/24 Range/Units 20:41 05:15 05:15 WBC 13.9 H (3.8-10.6) k/uL Neutrophils # 11.3 H (1.3-7.7) k/uL ABG pH 7.48 H (7.35-7.45) ABG pO2 65 L (83-108) mmHg ABG HCO3 29 H (21-25) mmol/L ABG Total CO2 30 H (19-24) mmol/L ABG O2 Saturation (94-97) % Carbon Dioxide (22-30) mmol/L Glucose 116 H (74-99) mg/dL POC Glucose (mg/dL) (70-110) mg/dL Calcium (8.4-10.2) mg/dL
[2024-04-30 11:32] LABS: Glucose,Whole Blood 106 mg/dL (70-110)
--- NOTE | 2024-04-30 14:10 | P.PN ---
Subjective Progress Note Date: 04/29/24 Principal diagnosis: Reason for follow-up is UTI Patient is a 78-year-old female with a past medical history significant for hypertension hyperlipidemia CVA TIA heart failure and atrial fibrillation patient was brought into the hospital from the local [facility] for evaluation of mental status, patient have elevated white count positive UA concerning for urinary tract infection. On today's evaluation that is 04/29/2024, the patient was found less responsive and the patient has been transferred to the ICU patient is currently on a BiPAP no clear history of nausea vomiting has been reported and not requiring any pressor support. Patient not running any fever Patient white count is 11.4 creatinine 0.8, chest x-ray this morning no acute pulmonary process Objective - Vital Signs Vital signs: Vital Signs Temp 98.6 F 04/29/24 08:13 Pulse 98 04/29/24 12:30 Resp 23 04/29/24 12:30 BP 117/50 04/29/24 12:30 Pulse Ox 99 04/29/24 12:30 FiO2 60 04/29/24 12:01 Intake & Output 04/28/24 04/29/24 04/29/24 18:59 06:59 18:59 Intake Total 222 225 Output Total 1625 675 45 Balance -1403 -675 180 Intake: IV 225 Lactated Ringers 1,000 ml 225 @ 75 mls/hr IV .[id number] [facility] Rx#:[id number] Oral 222 Output: Urine 1000 675 45 Post Void Residual 625 Other: Voiding Method Indwelling Catheter Indwelling Catheter - Exam GENERAL DESCRIPTION: An elderly female lying in bed in no distress RESPIRATORY SYSTEM: Unlabored breathing , decreased breath sounds at bases HEART: S1 S2 regular rate and rhythm , ABDOMEN: Soft , no tenderness EXTREMITIES: No edema feet - Labs CBC & Chem 7: 04/30/24 05:15 04/30/24 05:15 Labs: Abnormal Lab Results - Last 24 Hours (Table) 04/28/24 04/29/24 04/29/24 Range/Units 20:49 07:28 07:53 WBC (3.8-10.6) k/uL ABG pH 7.47 H (7.35-7.45) ABG pO2 52 L* (83-108) mmHg ABG HCO3 30 H (21-25) mmol/L ABG Total CO2 31 H (19-24) mmol/L ABG O2 Saturation 88.3 L (94-97) % Potassium 3.2 L (3.5-5.1) mmol/L Carbon Dioxide (22-30) mmol/L Glucose (74-99) mg/dL POC Glucose (mg/dL) 122 H (70-110) mg/dL Calcium (8.4-10.2) mg/dL 04/29/24 04/29/24 04/29/24 Range/Units 08:14 08:50 08:50 WBC 11.4 H (3.8-10.6) k/uL ABG pH (7.35-7.45) ABG pO2 (83-108) mmHg ABG HCO3 (21-25) mmol/L ABG Total CO2 (19-24) mmol/L ABG O2 Saturation (94-97) % Potassium (3.5-5.1) mmol/L Carbon Dioxide 32 H (22-30) mmol/L Glucose 138 H (74-99) mg/dL POC Glucose (mg/dL) 136 H (70-110) mg/dL Calcium 10.3 H (8.4-10.2) mg/dL 04/29/24 Range/Units 09:29 WBC (3.8-10.6) k/uL ABG pH (7.35-7.45) ABG pO2 288 H (83-108) mmHg ABG HCO3 30 H (21-25) mmol/L ABG Total CO2 31 H (19-24) mmol/L ABG O2 Saturation >100.0 H (94-97) % Potassium (3.5-5.1) mmol/L Carbon Dioxide (22-30) mmol/L Glucose (74-99) mg/dL POC Glucose (mg/dL) (70-110) mg/dL Calcium (8.4-10.2) mg/dL Assessment and Plan (1) Leukocytosis Current Visit: Yes Status: Acute Code(s): D72.829 - ELEVATED WHITE BLOOD CELL COUNT, UNSPECIFIED SNOMED Code(s): 020711774 (2) Urinary tract infection Current Visit: Yes Status: Acute Code(s): N39.0 - URINARY TRACT INFECTION, SITE NOT SPECIFIED SNOMED Code(s): 55579705 Plan: 1patient presented to hospital with mental status changes in this patient who did have a elevated white count positive UA concerning for symptomatic UTI likely from to the gram-negative pathogen currently no other obvious focus of infection with his elevated white count there was question of possible pneumonia however the patient is breathing comfortably on room air clinically doubt pneumonia 2patient did have significant change in her clinical condition requiring transfer to the ICU patient is currently hypoxic on BiPAP chest x-ray was negative questionably PE we will check a CT angiogram of the chest CT of the brain is pending chest x-ray reported negative this morning Dictation was produced using [employer] dictation software. please excuse any grammatical, word or spelling errors. Time with Patient: Less than 30
--- NOTE | 2024-04-30 14:12 | P.PN ---
Subjective Progress Note Date: 04/30/24 Principal diagnosis: Reason for follow-up is UTI Patient is a 78-year-old female with a past medical history significant for hypertension hyperlipidemia CVA TIA heart failure and atrial fibrillation patient was [facility] the [facility] for evaluation of mental status, patient have elevated white count positive UA concerning for urinary tract infection. On today's evaluation that is 04/30/2024, patient continues to be afebrile the patient remains to be lethargic and BiPAP dependent is hemodynamic stable not requiring any pressor support no vomiting diarrhea or urinary changes reported by the nursing staff. Patient white count slightly up to 13.9 today, creatinine 2.69 patient did have a chest x-ray this morning which did shows left basilar consolidation or atelectasis Objective - Vital Signs Vital signs: Vital Signs Temp 98.0 F 04/30/24 12:00 Pulse 96 04/30/24 12:00 Resp 22 04/30/24 12:00 BP 112/74 04/30/24 12:00 Pulse Ox 100 04/30/24 12:00 FiO2 50 04/30/24 12:00 Intake & Output 04/29/24 04/30/24 04/30/24 18:59 06:59 18:59 Intake Total 800 1014.833 858.667 Output Total 165 275 115 Balance 635 739.833 743.667 Weight 93.44 kg 95.5 kg Intake: IV 800 900 650 Lactated Ringers 1,000 ml 750 900 450 @ 75 mls/hr IV .[id number] [facility] Rx#:[id number] Potassium Chloride 10 meq 200 In Water For Injection 1 100ml.bag @ 100 mls/hr IVPB Q1H [facility] Rx#: [id number] cefTRIAXone 2 gm In 50 Sodium Chloride 0.9% 50 ml @ 100 mls/hr IVPB Q24HR [facility] Rx#:[id number] Intake, IV Titration 114.833 208.667 Amount Diltiazem 125 mg In 114.833 108.667 Sodium Chloride 0.9% 100 ml @ 10 MG/HR 10 mls/hr IV .[id number] [facility] Rx#: [id number] Potassium Chloride 10 meq 100 In Water For Injection 1 100ml.bag @ 100 mls/hr IVPB Q1H [facility] Rx#: [id number] Output: Urine 165 275 115 Other: Voiding Method Indwelling Catheter Indwelling Catheter Indwelling Catheter - Exam GENERAL DESCRIPTION: An elderly female lying in bed in no distress RESPIRATORY SYSTEM: Unlabored breathing , decreased breath sounds at bases HEART: S1 S2 regular rate and rhythm , ABDOMEN: Soft , no tenderness EXTREMITIES: No edema feet - Labs CBC & Chem 7: 04/30/24 05:15 04/30/24 05:15 Labs: Abnormal Lab Results - Last 24 Hours (Table) 04/29/24 04/30/24 04/30/24 Range/Units 20:41 05:15 05:15 WBC 13.9 H (3.8-10.6) k/uL Neutrophils # 11.3 H (1.3-7.7) k/uL ABG pH 7.48 H (7.35-7.45) ABG pO2 65 L (83-108) mmHg ABG HCO3 29 H (21-25) mmol/L ABG Total CO2 30 H (19-24) mmol/L Glucose 116 H (74-99) mg/dL Assessment and Plan (1) Leukocytosis Current Visit: Yes Status: Acute Code(s): D72.829 - ELEVATED WHITE BLOOD CELL COUNT, UNSPECIFIED SNOMED Code(s): 353706993 (2) Urinary tract infection Current Visit: Yes Status: Acute Code(s): N39.0 - URINARY TRACT INFECTION, SITE NOT SPECIFIED SNOMED Code(s): 86812084 Plan: 1patient presented to hospital with mental status changes in this patient who did have a elevated white count positive UA concerning for symptomatic UTI likely from to the gram-negative pathogen currently no other obvious focus of infection with his elevated white count there was question of possible pneumonia however the patient is breathing comfortably on room air clinically doubt pneumonia 2patient did have significant change in her clinical condition requiring transfer to the ICU patient CT of the brain neck concerning for hyperdense lesion along the base again concerning for stroke possible MRI when respite status improves as reported by the patient nurse 3patient did have worsening of the white count chest x-ray showing left basilar infiltrate consolidation concerning for possible aspiration pneumonitis we will check a blood culture and start the patient on Zosyn empirically check procalcitonin and sputum with possible Dictation was produced using [employer] software. please excuse any grammatical, word or spelling errors. Time with Patient: Less than 30
--- NOTE | 2024-04-30 14:54 | P.PN ---
Subjective Progress Note Date: 04/30/24 patient is a 78-year-old lady with past medical history significant for CKD stage III, hypertension, CHF who is [facility] a [facility] brought to the ER for altered mental status. Most of the history has been taken from the EMR as patient is a poor historian, according to that pat ient was all right 1 week back when nursing staff found her that patient was confused. Before 1 week patient was alert oriented x 4 and and answering questions. Over the last 1 week patient has become more confused with limited participation. Day prior to admission patient was brought talking and was hallucinating. Patient was moving all extremities. Nursing staff did not notice any slurred speech. There was no weakness of any extremity. There is no complaint of any fall. Family visited patient in the [facility] and they found her to be altered and because of this altered mental status, patient brought to the ER. Initial lab work done in the ER showed WBC 15.3, hemoglobin 14.4, platelet count 353, sodium 138, potassium 3.8, BUN 19, creatinine 0.91, glucose 145, calcium 10.6, magnesium 1.9, bilirubin 0.7, AST 31, ALT 16, UA showed nitrite positive, small amount of leukocyte Estrace Influenza A not detected Influenza B not detected RSV not detected COVID-19 not detected EKG done in the ER showed heart rate of 105, irregular rhythm, no ST segment elevation or depression seen, no T-wave inversions seen. Chest x-ray done in the ER no acute cardiopulmonary process CT head done showed no acute intracranial process CTA head and neck done showed no significant stenosis, aneurysm or thrombus in the intracranial circulation CT abdomen pelvis done showed no acute abnormality in the abdominal/pelvis In the ER, patient was moving her extremities and was following commands for the physician. Family did tell the ER physician that the patient had been going through a lot of of stress with loss of her son and another family member. They also mentioned that patient told them while in the room that they were trying to kill her Patient admitted to internal medicine service 04/24. Patient seen and examined. Patient more alert compared to yesterday, answering questions but then states something totally out of abnormal like she told me that she does not have syphilis 04/25 patient seen and examined. Patient mental status waxes and wanes. Patient makes weird statements and keeps staring at the roof. Did tell nursing staff that she will kill her brothers 04/26. Patient seen examined. Patient refused to talk. EEG done showed mild encephalopathy, no evidence of seizure-like activity 04/27. Patient seen and examined. Patient little bit more talkative compared to yesterday. Vital signs stable. Neurology discontinued MRI. 04/28. Patient seen and examined. Complaining of urine retention, bladder scan showed more than 400 mL of urine, Leone placed. Potassium this morning is 2.8, replacement ordered 04/29. Patient seen examined. Patient had a rapid response called this morning for being lethargic and being in A-fib with RVR, stat CT head and IV Lopressor was given. Patient was transferred to ICU. Placed on BiPAP. 04/30. Patient seen and examined. Blood work done showed WBC 13.9, hemoglobin 11.5, platelet count 321, sodium 141, potassium 3.9, BUN 16, creatinine 0.69. Repeat CT head done on 04/29 showed hypodense area surrounding the basal ganglia bilaterally and left posterior lobe unchanged from previous study. Patient continues to be lethargic, does not follow commands REVIEW OF SYSTEMS: Review of system cannot be obtained as patient is lethargic PHYSICAL EXAMINATION: GENERAL: The patient is lethargic HEENT: Pupils are round and equally reacting to light. EOMI. No scleral icterus. No conjunctival pallor. Normocephalic, atraumatic. No pharyngeal erythema. No thyromegaly. CARDIOVASCULAR: S1 and S2 present. No murmurs, rubs, or gallops. Irregular in rate and rhythm PULMONARY: Diminished breath sounds at the bases bilaterally, no wheezing or crackles. ABDOMEN: Soft, nontender, nondistended, normoactive bowel sounds. No palpable organomegaly. MUSCULOSKELETAL: No joint swelling or deformity. EXTREMITIES: No cyanosis, clubbing, or pedal edema. NEUROLOGICAL: Lethargic, moving extremities SKIN: No rashes. Assessment and plan Acute infectious encephalopathy UTI Psychosis Depression Chronic atrial fibrillation Hypertension Hypothyroidism Hyperlipidemia Monitor vital signs Monitor CBC Monitor CMP Continue BiPAP Serial ABGs Repeat CT head results reviewed CT chest done showed no evidence of PE MRI brain ordered Antibiotics changed to IV Zosyn Continue IV Cardizem drip Continue Eliquis EEG done showed mild encephalopathy, no evidence of seizure-like activity Neurology following Psych reevaluation, added Zyprexa as needed, patient does not need inpatient psych admission Pulmonology following PT and OT evaluation Labs and medication were reviewed.. Continue same treatment. Continue with symptomatic treatment. Resume home medication. Monitor labs and vitals. DVT and GI prophylaxis. Further recommendations as per clinical course of the patient Dictation was produced using [employer] dictation software. please excuse any grammatical, word or spelling errors. Objective - Vital Signs Vital signs: Vital Signs Temp 98.8 F 04/30/24 04:00 Pulse 92 04/30/24 07:00 Resp 18 04/30/24 07:00 BP 127/71 04/30/24 07:00 Pulse Ox 100 04/30/24 07:00 FiO2 50 04/30/24 08:22 Intake & Output 04/29/24 04/30/24 04/30/24 18:59 06:59 18:59 Intake Total 800 1014.833 175 Output Total 165 275 10 Balance 635 739.833 165 Weight 93.44 kg 95.5 kg Intake: IV 800 900 75 Lactated Ringers 1,000 ml 750 900 75 @ 75 mls/hr IV .[id number] [facility] Rx#:[id number] cefTRIAXone 2 gm In 50 Sodium Chloride 0.9% 50 ml @ 100 mls/hr IVPB Q24HR [facility] Rx#:[id number] Intake, IV Titration 114.833 100 Amount Diltiazem 125 mg In 114.833 Sodium Chloride 0.9% 100 ml @ 10 MG/HR 10 mls/hr IV .[id number] [facility] Rx#: [id number] Potassium Chloride 10 meq 100 In Water For Injection 1 100ml.bag @ 100 mls/hr IVPB Q1H [facility] Rx#: [id number] Output: Urine 165 275 10 Other: Voiding Method Indwelling Catheter Indwelling Catheter - Labs CBC & Chem 7: 04/30/24 05:15 04/30/24 05:15 Labs: Abnormal Lab Results - Last 24 Hours (Table) 04/29/24 04/29/24 04/29/24 Range/Units 08:50 08:50 09:29 WBC 11.4 H (3.8-10.6) k/uL Neutrophils # (1.3-7.7) k/uL ABG pH (7.35-7.45) ABG pO2 288 H (83-108) mmHg ABG HCO3 30 H (21-25) mmol/L ABG Total CO2 31 H (19-24) mmol/L ABG O2 Saturation >100.0 H (94-97) % Carbon Dioxide 32 H (22-30) mmol/L Glucose 138 H (74-99) mg/dL Calcium 10.3 H (8.4-10.2) mg/dL 04/29/24 04/30/24 04/30/24 Range/Units 20:41 05:15 05:15 WBC 13.9 H (3.8-10.6) k/uL Neutrophils # 11.3 H (1.3-7.7) k/uL ABG pH 7.48 H (7.35-7.45) ABG pO2 65 L (83-108) mmHg ABG HCO3 29 H (21-25) mmol/L ABG Total CO2 30 H (19-24) mmol/L ABG O2 Saturation (94-97) % Carbon Dioxide (22-30) mmol/L Glucose 116 H (74-99) mg/dL Calcium (8.4-10.2) mg/dL
[2024-04-30] MEDS: PIPERACILLIN-TAZOBACTAM 3.375 GM in SODIUM CHLORIDE 0.9% 100 ML IVPB SCH (15:39)
[2024-04-30 17:37] LABS: Glucose,Whole Blood 95 mg/dL (70-110)
[2024-04-30] MEDS: METOPROLOL TARTRATE 5 MG/5 ML VIAL IVP SCH (20:13)
[2024-05-01 00:05] LABS: Glucose,Whole Blood 109 mg/dL (70-110)
[2024-05-01 05:15] LABS: Basophils % (A) 0 %; Eosinophils # (A) 0.2 k/uL (0-0.7); Eosinophils % (A) 2 %; HCT 35.9 % (34.0-46.0); HGB 11.2 gm/dL (11.4-16.0); Hypochromasia Slight; Lymphocytes # (A) 1.9 k/uL (1.0-4.8); Lymphocytes % (A) 15 %; MCH 30.2 pg (25.0-35.0); MCHC 31.2 g/dL (31.0-37.0); MCV 96.7 fL (80.0-100.0); Mean Platelet Volume 7.2; Monocytes # (A) 0.5 k/uL (0-1.0); Monocytes % (A) 4 %; Neutrophils # (A) 9.8 k/uL (1.3-7.7); Neutrophils % (A) 79 %; Platelet Count 322 k/uL (150-450); RBC 3.71 m/uL (3.80-5.40); RDW 14.6 % (11.5-15.5); WBC 12.5 k/uL (3.8-10.6)
[2024-05-01 05:25] LABS: African American GFR (CKD) >90 (>60 ml/min/1.73 sqM); Anion Gap 8 mmol/L; Blood Urea Nitrogen 16 mg/dL (7-17); Calcium 10.1 mg/dL (8.4-10.2); Carbon Dioxide 29 mmol/L (22-30); Chloride 104 mmol/L (98-107); Glucose 92 mg/dL (74-99); Non-African American GFR(CKD) 82 (>60 ml/min/1.73 sqM); Potassium 3.7 mmol/L (3.5-5.1); Sodium 141 mmol/L (137-145)
[2024-05-01 06:02] LABS: Glucose,Whole Blood 98 mg/dL (70-110)
[2024-05-01 06:22] LABS: C Reactive Protein 24.2 mg/dL (<1.0)
--- NOTE | 2024-05-01 07:12 | XR ---
EXAMINATION TYPE: XR chest 1V portable DATE OF EXAM: 05/01/2024 CLINICAL HISTORY: Difficulty breathing progress study. Diminished lung sounds left side. TECHNIQUE: Single AP portable semiupright view of the chest is obtained. COMPARISON: Chest x-ray from one day earlier and older studies. FINDINGS: Persistent elevated left hemidiaphragm with left basilar opacity. Persistent mild cardiome alma with atherosclerotic thoracic aorta. Right lung remains clear. Osseous structures are intact. IMPRESSION: Persistent cardiomegaly with left basilar consolidation and/or atelectasis. No significa nt change from one day earlier. [facility], , 05/01/2024 7:10 AM
[2024-05-01] MEDS: POTASSIUM CHLORIDE 10 MEQ in WATER FOR INJECTION 1 100ML.BAG IVPB SCH ×2 (07:55→18:13)
[2024-05-01] MEDS: FUROSEMIDE 10 MG/ML 4 ML VIAL IV STA (09:16)
--- NOTE | 2024-05-01 09:18 | P.PN ---
Subjective Progress Note Date: 05/01/24 PROGRESS NOTE The patient is an 78-year-old female who was admitted few days ago with change in mental status, she has a known history of chronic persistent atrial fibrillation, anticoagulated, moderate to severe tricuspid regurgitation. Today she became less responsive, tachypneic and had episodes of atrial fibrillation with rapid ventricle response, she was transferred to the ICU she is on the BiPAP. Her rate is controlled at this time. She is opening her eyes to verbal stimulation and following commands. Her blood pressure is stable. There is no evidence of ventricular tachyarrhythmia. Her echocardiogram showed a preserved systolic function. April 30: The patient continues to be obtunded but opening eyes to verbal stimulation and following commands. She continues to be in atrial fibrillation but her rate is controlled, she is on IV Cardizem. Her blood pressure is relatively stable. There is no evidence of ventricular ectopic activity. Her chest x-ray is unchanged. Her CT scan of the chest showed no evidence of pulmonary embolism. May 01: The patient is more awake and alert, following command. She had episodes of atrial fibrillation with rapid ventricle response yesterday, started on IV metoprolol. Her blood pressure and heart rate are stable at this time. She continues to be n.p.o. awaiting further evaluation although she appears to be more awake and alert today as noted. She continues to be on the BiPAP. She is in atrial fibrillation with controlled ventricular sponsor this morning. Medications: IV Cardizem, oral anticoagulation has been on hold, metoprolol tartrate 5 mg IV every 8 hours. PHYSICAL EXAMINATION: Blood pressure 109/60 heart rate 85, on BiPAP, awake, alert following command LUNGS: Clear to auscultation anteriorly HEART: Irregular rate and rhythm, S1, S2. No S3. systolic murmur at the base ABDOMEN: Soft, nontender, no organomegaly obese EXTREMETIES: Trace to 1+ edema LAB: Potassium 3.7, BUN 16, creatinine 0.70. Hemoglobin 11.2 IMPRESSION: 1. Change in mental status, improved 2. Respiratory failure on BiPAP, stable 3. Permanent atrial fibrillation, rate controlled on IV Cardizem and IV metoprolol, off oral anticoagulation for now 4. History of psychosis and depression PLAN: 1. Continue present therapy 2. If patient is unable to take oral medication today start IV heparin 3. Follow oxygenation and wean BiPAP as tolerated 4. Depending on her progress further recommendations will be made 5. If able to take oral can switch to oral beta-arabella and calcium channel arabella Objective - Vital Signs Vital signs: Vital Signs Temp 98.2 F 05/01/24 04:00 Pulse 85 05/01/24 08:30 Resp 22 05/01/24 08:30 BP 109/52 05/01/24 08:30 Pulse Ox 100 05/01/24 08:30 FiO2 40 05/01/24 08:00 Intake & Output 04/30/24 05/01/24 05/01/24 18:59 06:59 18:59 Intake Total 5523.539 8173 350 Output Total 215 215 65 Balance 1193.667 910 285 Weight 100.6 kg Intake: IV 1200 1000 350 Lactated Ringers 1,000 ml 900 900 150 @ 75 mls/hr IV .[id number] [facility] Rx#:[id number] Piperacillin-Tazobactam 3 100 100 100 .375 gm In Sodium Chloride 0.9% 100 ml @ 25 mls/hr IVPB Q8HR [facility] Rx# :[id number] Potassium Chloride 10 meq 200 100 In Water For Injection 1 100ml.bag @ 100 mls/hr IVPB Q1H [facility] Rx#: [id number] Intake, IV Titration 208.667 125 Amount Diltiazem 125 mg In 108.667 125 Sodium Chloride 0.9% 100 ml @ 10 MG/HR 10 mls/hr IV .[id number] [facility] Rx#: [id number] Potassium Chloride 10 meq 100 In Water For Injection 1 100ml.bag @ 100 mls/hr IVPB Q1H [facility] Rx#: [id number] Output: Urine 215 215 65 Other: Voiding Method Indwelling Catheter Indwelling Catheter # Bowel Movements 1 - Labs CBC & Chem 7: 05/01/24 04:52 05/01/24 04:52 Labs: Abnormal Lab Results - Last 24 Hours (Table) 05/01/24 05/01/24 Range/Units 04:52 04:52 WBC 12.5 H (3.8-10.6) k/uL RBC 3.71 L (3.80-5.40) m/uL Hgb 11.2 L (11.4-16.0) gm/dL Neutrophils # 9.8 H (1.3-7.7) k/uL C-Reactive Protein 24.2 H (<1.0) mg/dL
[2024-05-01] MEDS ORDERED: HEPARIN SODIUM 1,000 UN/ML (10ML VL) IV PRN ×2 (09:53→11:00)
[2024-05-01] MEDS ORDERED: HEPARIN SOD,PORK IN 0.45% NACL 25,000 UNIT in 0.45% NACL 1 250ML.BAG IV SCH (10:00)
[2024-05-01 11:15] LABS: Basophils % (A) 0 %; Eosinophils # (A) 0.2 k/uL (0-0.7); Eosinophils % (A) 1 %; HCT 40.1 % (34.0-46.0); HGB 12.5 gm/dL (11.4-16.0); Hypochromasia Moderate; Lymphocytes # (A) 1.4 k/uL (1.0-4.8); Lymphocytes % (A) 11 %; MCH 30.4 pg (25.0-35.0); MCHC 31.1 g/dL (31.0-37.0); MCV 97.7 fL (80.0-100.0); Mean Platelet Volume 7.2; Monocytes # (A) 0.5 k/uL (0-1.0); Monocytes % (A) 4 %; Neutrophils # (A) 9.9 k/uL (1.3-7.7); Neutrophils % (A) 82 %; Platelet Count 343 k/uL (150-450); RDW 14.6 % (11.5-15.5)
[2024-05-01] MEDS: HEPARIN SOD,PORK IN 0.45% NACL 25,000 UNIT in 0.45% NACL 1 250ML.BAG IV SCH (11:15)
[2024-05-01 11:25] LABS: INR 1.1 (<1.2); Partial Thromboplastin Time 25.5 sec (22.0-30.0); Prothrombin Time 11.7 sec (10.0-12.5)
[2024-05-01 11:31] LABS: Glucose,Whole Blood 93 mg/dL (70-110)
--- NOTE | 2024-05-01 11:35 | P.PN ---
Subjective Progress Note Date: 05/01/24 This is an 78-year-old female patient was brought in back on April 22, 2024 with altered mental status and confusion from a local snf. CT scan of the brain revealed no acute intracranial process. She had been seen by neurology, psychiatry and infectious disease. Her mental status had been waxing and waning throughout the admission. This morning a rapid response team was called to her room as she was quite obtunded and with shallow respirations. Chest x-ray revealed no acute process. Blood gases on 4 L of oxygen revealed a PaO2 of 52, P CO2 41 and a pH of 7.47. She only responded to painful stimuli. She was subsequently transferred to the intensive care unit on 04/29. She was p laced on BiPAP 12 over 6 and 100% FiO2. Follow-up blood gases revealed a PaO2 of 288, pCO2 43 and a pH of 7.45. Her FiO2 had been decreased to 60%. White count 11.4. Hemoglobin 13.7. Platelets 236. Sodium 141. Potassium 4.1. Bicarb 32. BUN 17. Creatinine 0.80. Glucose 138. Ammonia level less than 9. Calcium 10.3. She remains quite obtunded. She is afebrile. Hemodynamically stable. She is continued on ceftriaxone. She is anticoagulated with Eliquis. On a Cardizem drip at 10 mg/h for atrial fibrillation with rapid ventricular response. She remains on oral diuretics. Lactated Ringer's at 75 mL/h. 04/30/2024 patient seen and examined at bedside. Patient still in the ICU requiring BiPAP oxygen support at the settings of 15/6 at FiO2 70%. Overnight, patient noted to have abnormal movements with some eye lateral deviation and that patient was awake and alert but does not fully follow all commands per nursing staff. Currently on Cardizem drip 10 mg/h and lactated Ringer's at 75 mL/h. Chest x-ray showed mild cardiomegaly with left bibasilar consolidation and/or atelectasis. Labs today show WBC 13.9, hemoglobin 11.5, platelet count 221,000, sodium 141, potassium 3.9, chloride 104, BUN 16, creatinine 0.69, glucose 116, calcium 10. Procalcitonin 0.21. Blood cultures final results are negative. Brain CT shows remaining hypodense area surrounding the basal ganglia bilaterally and left posterior imaging of frontal lobe which are findings that are not different from brain CT on admission and remote injury right inferior occipital lobe. The patient is seen today May 01, 2024 in follow-up in the intensive care unit. She is a bit more awake and alert today compared to yesterday. She remains on BiPAP 15/6 and 40% FiO2. She has lactated Ringer's at 75 mL/h. She remains on a Cardizem drip at 10 mg/h. Chest x-ray reveals persistent cardiomegaly with left basilar consolidation. White count 12.0. Hemoglobin 12.5. Platelets 343. INR 1.1. Sodium 141. Potassium 3.7. Bicarb 29. BUN 16. Creatinine 0.70. Glucose 92. Procalcitonin 0.36. She is on antibiotics in the form of Zosyn per infectious disease. Remains on on oral diuretics. She remains in a +2.1 L balance. Objective - Vital Signs Vital signs: Vital Signs Temp 98.2 F 05/01/24 04:00 Pulse 71 05/01/24 10:00 Resp 14 05/01/24 10:00 BP 130/111 05/01/24 10:00 Pulse Ox 100 05/01/24 10:00 FiO2 40 05/01/24 08:00 Intake & Output 04/30/24 05/01/24 05/01/24 18:59 06:59 18:59 Intake Total 5524.505 9055 700 Output Total 215 215 205 Balance 1193.667 910 495 Weight 100.6 kg Intake: IV 1200 1000 500 Lactated Ringers 1,000 ml 900 900 300 @ 75 mls/hr IV .[id number] [facility] Rx#:[id number] Piperacillin-Tazobactam 3 100 100 100 .375 gm In Sodium Chloride 0.9% 100 ml @ 25 mls/hr IVPB Q8HR [facility] Rx# :[id number] Potassium Chloride 10 meq 200 100 In Water For Injection 1 100ml.bag @ 100 mls/hr IVPB Q1H [facility] Rx#: [id number] Intake, IV Titration 208.667 125 200 Amount Diltiazem 125 mg In 108.667 125 Sodium Chloride 0.9% 100 ml @ 10 MG/HR 10 mls/hr IV .[id number] [facility] Rx#: [id number] Potassium Chloride 10 meq 100 In Water For Injection 1 100ml.bag @ 100 mls/hr IVPB Q1H [facility] Rx#: [id number] Potassium Chloride 10 meq 200 In Water For Injection 1 100ml.bag @ 100 mls/hr IVPB Q1H [facility] Rx#: [id number] Output: Urine 215 215 205 Other: Voiding Method Indwelling Catheter Indwelling Catheter Indwelling Catheter # Bowel Movements 1 - Exam GENERAL EXAM: Alert, 78-year-old female, on BiPAP, resting in bed, comfortable in no apparent distress. HEAD: Normocephalic. EYES: Normal reaction of pupils, equal size. NOSE: Clear with pink turbinates. THROAT: No erythema or exudates. NECK: No masses, no JVD. CHEST: No chest wall deformity. LUNGS: Equal air entry with crackles in the left lung base. CVS: S1 and S2 normal with no audible murmur, regular rhythm. ABDOMEN: No hepatosplenomegaly, normal bowel sounds, no guarding or rigidity. SPINE: No scoliosis or deformity SKIN: No rashes CENTRAL NERVOUS SYSTEM: No focal deficits, tone is normal in all 4 extremities. EXTREMITIES: There is no peripheral edema. No clubbing, no cyanosis. Peripheral pulses are intact. - Labs CBC & Chem 7: 05/01/24 10:46 05/01/24 04:52 Labs: Abnormal Lab Results - Last 24 Hours (Table) 05/01/24 05/01/24 05/01/24 Range/Units 04:52 04:52 10:46 WBC 12.5 H 12.0 H (3.8-10.6) k/uL RBC 3.71 L (3.80-5.40) m/uL Hgb 11.2 L (11.4-16.0) gm/dL Neutrophils # 9.8 H 9.9 H (1.3-7.7) k/uL C-Reactive Protein 24.2 H (<1.0) mg/dL Assessment and Plan Assessment: Altered mental status admitted back on 04/22/2024. [place] to be acute infectious encephalopathy secondary to urinary tract infection. Became obtunded and a rapid response team was initiated and transferred to the intensive care unit 04/29/2024 Acute hypoxemic respiratory failure secondary to obtundation and shallow respirations. Chest x-ray shows left lower lobe infiltrate/atelectasis. Procalcitonin negative. Currently on BiPAP Atrial fibrillation with a rapid ventricular response, currently on Cardizem drip at 10 mg an hour. Anticoagulated with Eliquis Possible episodes of catatonia History of depression Possible delirium secondary to infection History of congestive heart failure Hypertension Plan: The patient was seen and evaluated Chest x-ray, labs and medications reviewed Continue on BiPAP support 15/6 and 40% FiO2 Titrate down the FiO2 as tolerated Swallow evaluation Currently on Cardizem drip at 10 mg an hour May need heparin drip if unable to take Eliquis Give Lasix 40 mg IVP x 1 Procalcitonin negative Remains on Zosyn per ID service We will continue to follow I have personally seen and examined the patient, performed the documentation and the assessment and plan as written. Number of minutes spent on the visit: 15 Dictation was produced using [employer] dictation software. Please excuse any grammatical, word or spelling errors. This patient was seen in coordination with the pulmonary/critical care physician, Dr. Sun. He did spend greater than 50% of the time evaluating, examining and developing the plan of care. He agrees to the above HPI, physical exam, assessment and plan of care as dictated by the nurse practitioner.
--- NOTE | 2024-05-01 12:06 | P.PN ---
Subjective Progress Note Date: 05/01/24 patient is a 78-year-old lady with past medical history significant for CKD stage III, hypertension, CHF who is currently a resident of a intermediate facility brought to the ER for altered mental status. Most of the history has been taken from the EMR as patient is a poor historian, according to that pat ient was all right 1 week back when nursing staff found her that patient was confused. Before 1 week patient was alert oriented x 4 and and answering questions. Over the last 1 week patient has become more confused with limited participation. Day prior to admission patient was brought talking and was hallucinating. Patient was moving all extremities. Nursing staff did not notice any slurred speech. There was no weakness of any extremity. There is no complaint of any fall. Family visited patient in the intermediate and they found her to be altered and because of this altered mental status, patient brought to the ER. Initial lab work done in the ER showed WBC 15.3, hemoglobin 14.4, platelet count 353, sodium 138, potassium 3.8, BUN 19, creatinine 0.91, glucose 145, calcium 10.6, magnesium 1.9, bilirubin 0.7, AST 31, ALT 16, UA showed nitrite positive, small amount of leukocyte Estrace Influenza A not detected Influenza B not detected RSV not detected COVID-19 not detected EKG done in the ER showed heart rate of 105, irregular rhythm, no ST segment elevation or depression seen, no T-wave inversions seen. Chest x-ray done in the ER no acute cardiopulmonary process CT head done showed no acute intracranial process CTA head and neck done showed no significant stenosis, aneurysm or thrombus in the intracranial circulation CT abdomen pelvis done showed no acute abnormality in the abdominal/pelvis In the ER, patient was moving her extremities and was following commands for the physician. Family did tell the ER physician that the patient had been going through a lot of of stress with loss of her son and another family member. They also mentioned that patient told them while in the room that they were trying to kill her Patient admitted to internal medicine service 04/24. Patient seen and examined. Patient more alert compared to yesterday, answering questions but then states something totally out of abnormal like she told me that she does not have syphilis 04/25 patient seen and examined. Patient mental status waxes and wanes. Patient makes weird statements and keeps staring at the roof. Did tell nursing staff that she will kill her brothers 04/26. Patient seen examined. Patient refused to talk. EEG done showed mild encephalopathy, no evidence of seizure-like activity 04/27. Patient seen and examined. Patient little bit more talkative compared to yesterday. Vital signs stable. Neurology discontinued MRI. 04/28. Patient seen and examined. Complaining of urine retention, bladder scan showed more than 400 mL of urine, Leone placed. Potassium this morning is 2.8, replacement ordered 04/29. Patient seen examined. Patient had a rapid response called this morning for being lethargic and being in A-fib with RVR, stat CT head and IV Lopressor was given. Patient was transferred to ICU. Placed on BiPAP. 04/30. Patient seen and examined. Blood work done showed WBC 13.9, hemoglobin 11.5, platelet count 321, sodium 141, potassium 3.9, BUN 16, creatinine 0.69. Repeat CT head done on 04/29 showed hypodense area surrounding the basal ganglia bilaterally and left posterior lobe unchanged from previous study. Patient continues to be lethargic, does not follow commands 05/01. Patient seen and examined. Blood work this morning showed WBC 12.5, hem oglobin 11.2, sodium 141, potassium 3.7, BUN 16, creatinine 0.70. More alert, talking, states she feels slightly better REVIEW OF SYSTEMS: Denies chest pain. Denies nausea or vomiting. Denies any abdominal pain PHYSICAL EXAMINATION: GENERAL: The patient is alert HEENT: Pupils are round and equally reacting to light. EOMI. No scleral icterus. No conjunctival pallor. Normocephalic, atraumatic. No pharyngeal erythema. No thyromegaly. CARDIOVASCULAR: S1 and S2 present. No murmurs, rubs, or gallops. Irregular in rate and rhythm PULMONARY: Diminished breath sounds at the bases bilaterally, no wheezing or crackles. ABDOMEN: Soft, nontender, nondistended, normoactive bowel sounds. No palpable organomegaly. MUSCULOSKELETAL: No joint swelling or deformity. EXTREMITIES: No cyanosis, clubbing, or pedal edema. NEUROLOGICAL: Lethargic, moving extremities SKIN: No rashes. Assessment and plan Acute infectious encephalopathy UTI Aspiration pneumonia Psychosis Depression Chronic atrial fibrillation Hypertension Hypothyroidism Hyperlipidemia Monitor vital signs Monitor CBC Monitor CMP Continue BiPAP as needed Continue oxygen supplementation CT chest done showed no evidence of PE MRI brain ordered Continue IV Zosyn Continue IV Cardizem drip Continue Eliquis EEG done showed mild encephalopathy, no evidence of seizure-like activity Neurology following Psych reevaluation, added Zyprexa as needed, patient does not need inpatient psych admission Pulmonology following PT and OT evaluation Labs and medication were reviewed.. Continue same treatment. Continue with symptomatic treatment. Resume home medication. Monitor labs and vitals. DVT and GI prophylaxis. Further recommendations as per clinical course of the patient Dictation was produced using [employer] dictation software. please excuse any grammatical, word or spelling errors. Objective - Vital Signs Vital signs: Vital Signs Temp 98.2 F 05/01/24 04:00 Pulse 85 05/01/24 08:30 Resp 22 05/01/24 08:30 BP 109/52 05/01/24 08:30 Pulse Ox 100 05/01/24 08:30 FiO2 40 05/01/24 08:00 Intake & Output 04/30/24 05/01/24 05/01/24 18:59 06:59 18:59 Intake Total 4139.272 2210 350 Output Total 215 215 65 Balance 1193.667 910 285 Weight 100.6 kg Intake: IV 1200 1000 350 Lactated Ringers 1,000 ml 900 900 150 @ 75 mls/hr IV .[id number] [facility] Rx#:[id number] Piperacillin-Tazobactam 3 100 100 100 .375 gm In Sodium Chloride 0.9% 100 ml @ 25 mls/hr IVPB Q8HR [facility] Rx# :[id number] Potassium Chloride 10 meq 200 100 In Water For Injection 1 100ml.bag @ 100 mls/hr IVPB Q1H [facility] Rx#: [id number] Intake, IV Titration 208.667 125 Amount Diltiazem 125 mg In 108.667 125 Sodium Chloride 0.9% 100 ml @ 10 MG/HR 10 mls/hr IV .[id number] [facility] Rx#: [id number] Potassium Chloride 10 meq 100 In Water For Injection 1 100ml.bag @ 100 mls/hr IVPB Q1H [facility] Rx#: [id number] Output: Urine 215 215 65 Other: Voiding Method Indwelling Catheter Indwelling Catheter # Bowel Movements 1 - Labs CBC & Chem 7: 05/01/24 10:46 05/01/24 04:52 Labs: Abnormal Lab Results - Last 24 Hours (Table) 05/01/24 05/01/24 Range/Units 04:52 04:52 WBC 12.5 H (3.8-10.6) k/uL RBC 3.71 L (3.80-5.40) m/uL Hgb 11.2 L (11.4-16.0) gm/dL Neutrophils # 9.8 H (1.3-7.7) k/uL C-Reactive Protein 24.2 H (<1.0) mg/dL
--- NOTE | 2024-05-01 13:25 | P.PN ---
Subjective Progress Note Date: 05/01/24 Follow-up with the patient and it seems a few days ago she had decline and condition and was having respiratory issues as well as results she was placed on BiPAP. Per the nurse she did not feel the patient was following commands but upon seeing her she did follow commands to me. She continues to be congested. Objective - Vital Signs Vital signs: Vital Signs Temp 98.7 F 05/01/24 12:00 Pulse 78 05/01/24 13:00 Resp 13 05/01/24 13:00 BP 128/54 05/01/24 13:00 Pulse Ox 98 05/01/24 13:00 FiO2 40 05/01/24 08:00 Intake & Output 04/30/24 05/01/24 05/01/24 18:59 06:59 18:59 Intake Total 6864.128 5347 850 Output Total 171 159 4205 Balance 1193.667 910 -205 Weight 100.6 kg Intake: IV 1200 1000 650 Lactated Ringers 1,000 ml 900 900 450 @ 75 mls/hr IV .[id number] [facility] Rx#:[id number] Piperacillin-Tazobactam 3 100 100 100 .375 gm In Sodium Chloride 0.9% 100 ml @ 25 mls/hr IVPB Q8HR [facility] Rx# :[id number] Potassium Chloride 10 meq 200 100 In Water For Injection 1 100ml.bag @ 100 mls/hr IVPB Q1H [facility] Rx#: [id number] Intake, IV Titration 208.667 125 200 Amount Diltiazem 125 mg In 108.667 125 Sodium Chloride 0.9% 100 ml @ 10 MG/HR 10 mls/hr IV .[id number] [facility] Rx#: [id number] Potassium Chloride 10 meq 100 In Water For Injection 1 100ml.bag @ 100 mls/hr IVPB Q1H [facility] Rx#: [id number] Potassium Chloride 10 meq 200 In Water For Injection 1 100ml.bag @ 100 mls/hr IVPB Q1H [facility] Rx#: [id number] Output: Urine 829 377 0701 Other: Voiding Method Indwelling Catheter Indwelling Catheter Indwelling Catheter # Bowel Movements 1 - Exam General: Lying in bed and does not appear in acute distress. Lung: Sounds coarse and she had cough on examination Neuro: Patient is drowsy but is awake both is oriented to self, she correctly stated she is in the hospital and the state was [place]. She was following simple commands. She is able to show thumbs up wiggled her toes. Motor the strength is unable to assess individual muscle strength because of her cooperation but patient had increased tone in the upper extremity mostly in the hands/distally. - Labs CBC & Chem 7: 05/01/24 10:46 05/01/24 04:52 Labs: Abnormal Lab Results - Last 24 Hours (Table) 05/01/24 05/01/24 05/01/24 Range/Units 04:52 04:52 10:46 WBC 12.5 H 12.0 H (3.8-10.6) k/uL RBC 3.71 L (3.80-5.40) m/uL Hgb 11.2 L (11.4-16.0) gm/dL Neutrophils # 9.8 H 9.9 H (1.3-7.7) k/uL C-Reactive Protein 24.2 H (<1.0) mg/dL Assessment and Plan Assessment: * Episode of confusion, staring off not responding is more psychiatric. With Motivation patient appropriately follows commands and has behavioral issues towards the end of the exam. Had EEG and mild encephalopathy and no seizure or discharges. Had repeat CT head and negative for acute or subacute stroke * Acute hypoxemic respiratory failure secondary to obstruction and shallow respiration and patient is on BiPAP. * Possible UTI * Atrial fibrillation, on Eliquis * Hypertension * Diabetes * Hyperlipidemia Plan: * 2-D echo with bubble study to rule out PFO. Cardiology on the case. * CTA head and neck showed: No evidence of dissection of the cervical internal carotid arteries or vertebral arteries. No evidence of significant stenosis at the carotid bifurcations. No evidence of intracranial high-grade stenosis or intracranial aneurysm. * Fasting a.m. lipid panel with cholesterol 122, LDL 45, HDL 55, triglycerides 104. Continue Lipitor 10 mg daily. * Hemoglobin A1c 5.3 * B12 650, folate 7.7. Ammonia normal < 9. Patient started on folic acid 1 mg daily. * EEG: Is abnormal. The background slowing suggestive of mild encephalopathy. There is no focal slowing,epileptiform discharge or seizure on the EEG. * Patient had a repeat CT of the head Today reported that there remains hypodense area surrounding the basal ganglia bilaterally and left posterior frontal lobe. Findings all that different from 04/22/2024, if there is any concern for stroke consider MRI to exclude acute/subacute CVA. Remote injury in the right frontal occipital lobe. * Pending MRI of the brain. Will get a repeat EEG. * Optimize control of blood pressure * Continue Eliquis 5 mg twice a day. * Psychiatry has seen the patient, who believes patient has delirium from acute UTI. Recommend the patient to be reevaluated by psychiatry team. * Patient currently on ceftriaxone for possible UTI. ID following. * DVT prophylaxis: Patient on Eliquis Plan discussed with ICU nurse. Dr. Lowe will resume neurology service 05/02/2024 A.M. Time with Patient: Less than 30
[2024-05-01 17:39] LABS: Glucose,Whole Blood 71 mg/dL (70-110)
--- NOTE | 2024-05-01 21:46 | P.PN ---
Subjective Progress Note Date: 05/01/24 Principal diagnosis: Reason for follow-up is UTI Patient is a 78-year-old female with a past medical history significant for hypertension hyperlipidemia CVA TIA heart failure and atrial fibrillation patient was brought into the hospital from the local halfway for evaluation of mental status, patient have elevated white count positive UA concerning for urinary tract infection. On today's evaluation that is 05/01/2024, Patient is afebrile patient is currently on 2 L nasal oxygen and breathing comfortably patient is slightly more awake and alert today after BiPAP seem to be slightly confused elevated good historian no vomiting diarrhea or any focal weakness reported by the nursing staff. Patient white count is down to 12,000 creatinine is 0.70 Pro-Steve 0.36 Objective - Vital Signs Vital signs: Vital Signs Temp 98.2 F 05/01/24 04:00 Pulse 77 05/01/24 11:00 Resp 15 05/01/24 11:00 BP 86/55 05/01/24 11:00 Pulse Ox 100 05/01/24 11:00 FiO2 40 05/01/24 08:00 Intake & Output 04/30/24 05/01/24 05/01/24 18:59 06:59 18:59 Intake Total 3811.557 8244 775 Output Total 215 215 555 Balance 1193.667 910 220 Weight 100.6 kg Intake: IV 1200 1000 575 Lactated Ringers 1,000 ml 900 900 375 @ 75 mls/hr IV .[id number] [facility] Rx#:[id number] Piperacillin-Tazobactam 3 100 100 100 .375 gm In Sodium Chloride 0.9% 100 ml @ 25 mls/hr IVPB Q8HR [facility] Rx# :[id number] Potassium Chloride 10 meq 200 100 In Water For Injection 1 100ml.bag @ 100 mls/hr IVPB Q1H [facility] Rx#: [id number] Intake, IV Titration 208.667 125 200 Amount Diltiazem 125 mg In 108.667 125 Sodium Chloride 0.9% 100 ml @ 10 MG/HR 10 mls/hr IV .[id number] [facility] Rx#: [id number] Potassium Chloride 10 meq 100 In Water For Injection 1 100ml.bag @ 100 mls/hr IVPB Q1H [facility] Rx#: [id number] Potassium Chloride 10 meq 200 In Water For Injection 1 100ml.bag @ 100 mls/hr IVPB Q1H [facility] Rx#: [id number] Output: Urine 215 215 555 Other: Voiding Method Indwelling Catheter Indwelling Catheter Indwelling Catheter # Bowel Movements 1 - Exam GENERAL DESCRIPTION: An elderly female lying in bed in no distress RESPIRATORY SYSTEM: Unlabored breathing , decreased breath sounds at bases HEART: S1 S2 regular rate and rhythm , ABDOMEN: Soft , no tenderness EXTREMITIES: No edema feet - Labs CBC & Chem 7: 05/01/24 10:46 05/01/24 16:59 Labs: Abnormal Lab Results - Last 24 Hours (Table) 05/01/24 05/01/24 05/01/24 Range/Units 04:52 04:52 10:46 WBC 12.5 H 12.0 H (3.8-10.6) k/uL RBC 3.71 L (3.80-5.40) m/uL Hgb 11.2 L (11.4-16.0) gm/dL Neutrophils # 9.8 H 9.9 H (1.3-7.7) k/uL C-Reactive Protein 24.2 H (<1.0) mg/dL Assessment and Plan (1) Leukocytosis Current Visit: Yes Status: Acute Code(s): D72.829 - ELEVATED WHITE BLOOD CELL COUNT, UNSPECIFIED SNOMED Code(s): 791418908 (2) Urinary tract infection Current Visit: Yes Status: Acute Code(s): N39.0 - URINARY TRACT INFECTION, SITE NOT SPECIFIED SNOMED Code(s): 99954313 Plan: 1patient presented to hospital with mental status changes in this patient who did have a elevated white count positive UA concerning for symptomatic UTI likely from to the gram-negative pathogen currently no other obvious focus of infection with his elevated white count there was question of possible pneumonia however the patient is breathing comfortably on room air clinically doubt pneumonia 2patient did have significant change in her clinical condition requiring transfer to the ICU patient CT of the brain neck concerning for hyperdense lesion along the base again concerning for stroke possible MRI when respiratory status improves as reported by the patient nurse 3patient did have worsening of the white count chest x-ray showing left basilar infiltrate consolidation concerning for possible aspiration pneumonitis, blood cultures are currently pending sputum not collected patient did have some clinical improvement white count is trending down continue with Zosyn and monitor clinical course closely Dictation was produced using [employer] dictation software. please excuse any grammatical, word or spelling errors. Time with Patient: Less than 30
[2024-05-02 02:50] LABS: Basophils % (A) 0 %; Eosinophils # (A) 0.3 k/uL (0-0.7); Eosinophils % (A) 3 %; Lymphocytes % (A) 18 %; MCH 30.1 pg (25.0-35.0); MCHC 31.4 g/dL (31.0-37.0); MCV 95.7 fL (80.0-100.0); Mean Platelet Volume 7.8; Monocytes # (A) 0.5 k/uL (0-1.0); Monocytes % (A) 5 %; Neutrophils # (A) 8.3 k/uL (1.3-7.7); Neutrophils % (A) 74 %; Platelet Count 317 k/uL (150-450); RBC 3.66 m/uL (3.80-5.40); RDW 14.9 % (11.5-15.5); WBC 11.2 k/uL (3.8-10.6)
[2024-05-02 03:11] LABS: INR 1.1 (<1.2); Partial Thromboplastin Time 60.8 sec (22.0-30.0); Prothrombin Time 11.9 sec (10.0-12.5)
[2024-05-02 04:18] LABS: African American GFR (CKD) >90 (>60 ml/min/1.73 sqM); Anion Gap 9 mmol/L; Blood Urea Nitrogen 12 mg/dL (7-17); Calcium 9.6 mg/dL (8.4-10.2); Carbon Dioxide 30 mmol/L (22-30); Chloride 99 mmol/L (98-107); Glucose 62 mg/dL (74-99); Non-African American GFR(CKD) 85 (>60 ml/min/1.73 sqM); Potassium 4.1 mmol/L (3.5-5.1); Sodium 138 mmol/L (137-145)
[2024-05-02 04:30] LABS: Glucose,Whole Blood 66 mg/dL (70-110)
[2024-05-02 06:50] LABS: Glucose,Whole Blood 78 mg/dL (70-110)
--- NOTE | 2024-05-02 08:27 | P.PN ---
Subjective Progress Note Date: 05/02/24 This is an 78-year-old female patient was brought in back on April 22, 2024 with altered mental status and confusion from a local longterm. CT scan of the brain revealed no acute intracranial process. She had been seen by neurology, psychiatry and infectious disease. Her mental status had been waxing and waning throughout the admission. This morning a rapid response team was called to her room as she was quite obtunded and with shallow respirations. Chest x-ray revealed no acute process. Blood gases on 4 L of oxygen revealed a PaO2 of 52, P CO2 41 and a pH of 7.47. She only responded to painful stimuli. She was subsequently transferred to the intensive care unit on 04/29. She was placed on BiPAP 12 over 6 and 100% FiO2. Follow-up blood gases revealed a PaO2 of 288, pCO2 43 and a pH of 7.45. Her FiO2 had been decreased to 60%. White count 11.4. Hemoglobin 13.7. Platelets 236. Sodium 141. Potassium 4.1. Bicarb 32. BUN 17. Creatinine 0.80. Glucose 138. Ammonia level less than 9. Calcium 10.3. She remains quite obtunded. She is afebrile. Hemodynamically stable. She is continued on ceftriaxone. She is anticoagulated with Eliquis. On a Cardizem drip at 10 mg/h for atrial fibrillation with rapid ventricular response. She remains on oral diuretics. Lactated Ringer's at 75 mL/h. 04/30/2024 patient seen and examined at bedside. Patient still in the ICU requiring BiPAP oxygen support at the settings of 15/6 at FiO2 70%. Overnight, patient noted to have abnormal movements with some eye lateral deviation and that patient was awake and alert but does not fully follow all commands per nursing staff. Currently on Cardizem drip 10 mg/h and lactated Ringer's at 75 mL/h. Chest x-ray showed mild cardiomegaly with left bibasilar consolidation and/or atelectasis. Labs today show WBC 13.9, hemoglobin 11.5, platelet count 221,000, sodium 141, potassium 3.9, chloride 104, BUN 16, creatinine 0.69, glucose 116, calcium 10. Procalcitonin 0.21. Blood cultures final results are negative. Brain CT shows remaining hypodense area surrounding the basal ganglia bilaterally and left posterior imaging of frontal lobe which are findings that are not different from brain CT on admission and remote injury right inferior occipital lobe. The patient is seen today May 01, 2024 in follow-up in the intensive care unit. She is a bit more awake and alert today compared to yesterday. She remains on BiPAP 15/6 and 40% FiO2. She has lactated Ringer's at 75 mL/h. She remains on a Cardizem drip at 10 mg/h. Chest x-ray reveals persistent cardiomegaly with left basilar consolidation. White count 12.0. Hemoglobin 12.5. Platelets 343. INR 1.1. Sodium 141. Potassium 3.7. Bicarb 29. BUN 16. Creatinine 0.70. Glucose 92. Procalcitonin 0.36. She is on antibiotics in the form of Zosyn per infectious disease. Remains on on oral diuretics. She remains in a +2.1 L balance. 05/02/2024, the patient is being seen for a follow-up. The patient was taken off BiPAP and the patient is currently on 2 L of oxygen by nasal cannula. CTA of the chest was done on 04/29/2024 and it showed left lower lobe atelectasis/consolidation and the patient was given IV Zosyn. Patient remains in atrial fibrillation. The patient was given Cardizem drip for rate control which is currently running at 10 mg an hour and the patient is also on IV h eparin. Echocardiogram was done on 04/25/2024 and it showed a preserved LV function with an ejection fraction of 65 to 70%. There is moderate tricuspid regurgitation and moderate pulm hypertension noted. Labs from today shows a WBC count of 11.2 with a hemoglobin of 11 and a platelet count of 317. PTT is therapeutic at 60, sodium is at 138 with a potassium level of 4.1 chloride 99 bicarb 30 BUN 12 creatinine 0.6. Blood cultures been negative. The patient remains on empiric antibiotic coverage with IV Zosyn. Rest of the medications include metoprolol for rate control 5 mg IV every 8 hours, Lasix 20 mg p.o. daily, lactated Ringer at rate of 75 cc an hour and the patient is also on Zypre xa. Objective - Vital Signs Vital signs: Vital Signs Temp 98.9 F 05/02/24 04:00 Pulse 79 05/02/24 05:00 Resp 16 05/02/24 05:00 BP 115/65 05/02/24 05:00 Pulse Ox 95 05/02/24 05:00 FiO2 40 05/01/24 16:00 Intake & Output 05/01/24 05/01/24 05/02/24 06:59 18:59 06:59 Intake Total 1125 1505.000 950 Output Total 215 2330 800 Balance 910 -825.000 150 Weight 100.6 kg 99.7 kg Intake: IV 1000 1125 825 Lactated Ringers 1,000 ml 900 825 825 @ 75 mls/hr IV .[id number] [facility] Rx#:[id number] Piperacillin-Tazobactam 3 100 200 .375 gm In Sodium Chloride 0.9% 100 ml @ 25 mls/hr IVPB Q8HR [facility] Rx# :[id number] Potassium Chloride 10 meq 100 In Water For Injection 1 100ml.bag @ 100 mls/hr IVPB Q1H [facility] Rx#: [id number] Intake, IV Titration 125 380.000 125 Amount Diltiazem 125 mg In 125 109.167 125 Sodium Chloride 0.9% 100 ml @ 10 MG/HR 10 mls/hr IV .[id number] [facility] Rx#: [id number] Heparin Sod,Pork in 0.45% 70.833 0 NaCl 25,000 unit In 0.45 % NaCl 1 250ml.bag @ 9.94 UNITS/KG/HR 10 mls/hr IV .Q24H [facility] Rx#:[id number] Potassium Chloride 10 meq 200 In Water For Injection 1 100ml.bag @ 100 mls/hr IVPB Q1H [facility] Rx#: [id number] Output: Urine 215 2330 800 Other: Voiding Method Indwelling Catheter Indwelling Catheter Indwelling Catheter # Bowel Movements 1 - Exam GENERAL EXAM: Alert, 78-year-old female, on oxygen 2 L/min nasal cannula HEAD: Normocephalic. EYES: Normal reaction of pupils, equal size. NOSE: Clear with pink turbinates. THROAT: No erythema or exudates. NECK: No masses, no JVD. CHEST: No chest wall deformity. LUNGS: Equal air entry with crackles in the left lung base. CVS: S1 and S2 normal with no audible murmur, regular rhythm. ABDOMEN: No hepatosplenomegaly, normal bowel sounds, no guarding or rigidity. SPINE: No scoliosis or deformity SKIN: No rashes CENTRAL NERVOUS SYSTEM: No focal deficits, tone is normal in all 4 extremities. EXTREMITIES: There is no peripheral edema. No clubbing, no cyanosis. Peripheral pulses are intact. - Labs CBC & Chem 7: 05/02/24 02:24 05/02/24 02:24 Labs: Abnormal Lab Results - Last 24 Hours (Table) 05/01/24 05/01/24 05/01/24 Range/Units 04:52 10:46 16:59 WBC 12.0 H (3.8-10.6) k/uL RBC (3.80-5.40) m/uL Hgb (11.4-16.0) gm/dL Neutrophils # 9.9 H (1.3-7.7) k/uL APTT 110.5 H* (22.0-30.0) sec Potassium (3.5-5.1) mmol/L Glucose (74-99) mg/dL POC Glucose (mg/dL) (70-110) mg/dL C-Reactive Protein 24.2 H (<1.0) mg/dL 05/01/24 05/02/24 05/02/24 Range/Units 16:59 02:24 02:24 WBC 11.2 H (3.8-10.6) k/uL RBC 3.66 L (3.80-5.40) m/uL Hgb 11.0 L (11.4-16.0) gm/dL Neutrophils # 8.3 H (1.3-7.7) k/uL APTT 60.8 H (22.0-30.0) sec Potassium 3.3 L (3.5-5.1) mmol/L Glucose (74-99) mg/dL POC Glucose (mg/dL) (70-110) mg/dL C-Reactive Protein (<1.0) mg/dL 05/02/24 05/02/24 Range/Units 02:24 04:29 WBC (3.8-10.6) k/uL RBC (3.80-5.40) m/uL Hgb (11.4-16.0) gm/dL Neutrophils # (1.3-7.7) k/uL APTT (22.0-30.0) sec Potassium (3.5-5.1) mmol/L Glucose 62 L (74-99) mg/dL POC Glucose (mg/dL) 66 L (70-110) mg/dL C-Reactive Protein (<1.0) mg/dL Microbiology - Last 24 Hours (Table) 04/30/24 14:27 Blood Culture - Preliminary Blood Assessment and Plan Plan: Altered mental status admitted back on 04/22/2024. Bruce to be acute infectious encephalopathy secondary to urinary tract infection. Became obtunded and a rapid response team was initiated and transferred to the intensive care unit 04/29/2024, improved Acute hypoxemic respiratory failure secondary to obtundation and shallow respirations. Chest x-ray shows left lower lobe infiltrate/atelectasis. Procalcitonin negative. Currently off the BiPAP and the patient is currently on 2 L of oxygen by nasal cannula. Atrial fibrillation with a rapid ventricular response, currently on Cardizem drip at 10 mg an hour. Anticoagulated with Eliquis. She has a controlled rate. Normal Echo. Possible episodes of catatonia History of depression delirium secondary to infection, improved History of congestive heart failure, repeat echocardiogram on 04/24/2024showed a preserved LV function, preserved LV is hyperdynamic with an ejection fraction of 65 to 70%, moderate to severe tricuspid regurgitation and moderate pulmonary hypertension with estimated PA pressures of 51. Hypertension prison resident Plan: Currently on 2 L of oxygen by nasal cannula Titrate down the FiO2 as tolerated Swallow evaluation failed yesterday and this is to be repeated today Procalcitonin negative Remains on Zosyn per ID service Will discontinue the Cardizem drip and will start the patient on Lopressor 50 mg p.o. twice a day Discontinue the IV heparin and start the patient on anticoagulation with Eliquis 5 mg p.o. twice a day Lasix 20 mg p.o. daily Involve physical therapy Transfer this patient to [facility]. as the patient's condition is stable.
[2024-05-02] MEDS: APIXABAN 5 MG TAB PO SCH (09:15)
[2024-05-02] MEDS: METOPROLOL TARTRATE 50 MG TAB PO SCH (09:16)
[2024-05-02 11:40] VITALS: BMI 45.9
[2024-05-02 12:44] LABS: Glucose,Whole Blood 109 mg/dL (70-110)
[2024-05-02] MEDS: LACTATED RINGERS 500 ML IV SCH (12:56)
--- NOTE | 2024-05-02 14:31 | P.PN ---
Subjective Progress Note Date: 05/02/24 05/02/2024: Patient over the last week was seen by Dr. Steven Sun. Please refer to his note for details. 04/24/2024: Patient was seen for a follow-up. Patient continues to be somewhat delirious. She has a very flat affect. I spoke to patient's granddaughter Jada, who provided with further information. She mentions that patient at baseline is completely normal person. She started having altered mental status about 2 weeks ago. It has progressively got worse, particularly in the last 1 week when she has been worse. She has been having some violent thoughts like someone's head has been chopped off and she is having a lot of thoughts. She saw patient 2 nights ago and she was staring at the wall, wide eyed not responding talking about "glue". Last night when she saw her, she had just woken up. She was saying something about fingers chopped off. Patient's granddaughter mentions that patient had history of a stroke, with no residual deficits. She has been under a lot of stress because her and her son within the last 1 year. Objective - Vital Signs Vital signs: Vital Signs Temp 97.6 F 05/02/24 12:00 Pulse 81 05/02/24 12:00 Resp 14 05/02/24 12:00 BP 107/31 05/02/24 12:00 Pulse Ox 98 05/02/24 12:00 FiO2 40 05/01/24 16:00 Intake & Output 05/01/24 05/02/24 05/02/24 18:59 06:59 18:59 Intake Total 2627.511 4121 395.067 Output Total 2330 830 165 Balance -825.000 195 230.067 Weight 99.7 kg 99.7 kg Intake: IV 1125 900 225 0.9 150 Lactated Ringers 1,000 ml 825 900 75 @ 75 mls/hr IV .[id number] [facility] Rx#:[id number] Piperacillin-Tazobactam 3 200 .375 gm In Sodium Chloride 0.9% 100 ml @ 25 mls/hr IVPB Q8HR [facility] Rx# :[id number] Potassium Chloride 10 meq 100 In Water For Injection 1 100ml.bag @ 100 mls/hr IVPB Q1H [facility] Rx#: [id number] Intake, IV Titration 380.000 125 170.067 Amount Diltiazem 125 mg In 109.167 125 73 Sodium Chloride 0.9% 100 ml @ 10 MG/HR 10 mls/hr IV .[id number] [facility] Rx#: [id number] Heparin Sod,Pork in 0.45% 70.833 0 97.067 NaCl 25,000 unit In 0.45 % NaCl 1 250ml.bag @ 9.94 UNITS/KG/HR 10 mls/hr IV .Q24H [facility] Rx#:[id number] Potassium Chloride 10 meq 200 In Water For Injection 1 100ml.bag @ 100 mls/hr IVPB Q1H [facility] Rx#: [id number] Output: Urine 2330 830 165 Other: Voiding Method Indwelling Catheter Indwelling Catheter Indwelling Catheter - Exam Patient is much more alert and awake fairly well oriented. Patient states that she is in a prison. She has been in multiple hospitals in the last 6 months. She knows that she is in [place] in [place] and that it is 05/02/2024 and that Mr. Osuna is the president. Speech is otherwise clear. Patient has fairly normal door slinger. She moves her legs equally. Ankle dorsiflexion appears normal. He flexion appears fairly normal. Patient's face is symmetric. Tongue protrudes in midline. Visual melgoza are full. - Labs CBC & Chem 7: 05/02/24 02:24 05/02/24 02:24 Labs: Abnormal Lab Results - Last 24 Hours (Table) 05/01/24 05/01/24 05/02/24 Range/Units 16:59 16:59 02:24 WBC (3.8-10.6) k/uL RBC (3.80-5.40) m/uL Hgb (11.4-16.0) gm/dL Neutrophils # (1.3-7.7) k/uL APTT 110.5 H* 60.8 H (22.0-30.0) sec Potassium 3.3 L (3.5-5.1) mmol/L Glucose (74-99) mg/dL POC Glucose (mg/dL) (70-110) mg/dL 05/02/24 05/02/24 05/02/24 Range/Units 02:24 02:24 04:29 WBC 11.2 H (3.8-10.6) k/uL RBC 3.66 L (3.80-5.40) m/uL Hgb 11.0 L (11.4-16.0) gm/dL Neutrophils # 8.3 H (1.3-7.7) k/uL APTT (22.0-30.0) sec Potassium (3.5-5.1) mmol/L Glucose 62 L (74-99) mg/dL POC Glucose (mg/dL) 66 L (70-110) mg/dL Microbiology - Last 24 Hours (Table) 04/30/24 14:27 Blood Culture - Preliminary Blood Assessment and Plan Assessment: * Episode of confusion, staring off not responding is more psychiatric. Mentation appears back to normal. Had EEG and mild encephalopathy and no seizure or discharges. Had repeat CT head and negative for acute or subacute stroke * Acute hypoxemic respiratory failure secondary to obstruction and shallow respiration and patient is on BiPAP, improved. * Possible UTI * Atrial fibrillation, on Eliquis * Hypertension * Diabetes * Hyperlipidemia Plan: * 2-D echo with bubble study to rule out PFO. Cardiology on the case. * CTA head and neck showed: No evidence of dissection of the cervical internal carotid arteries or vertebral arteries. No evidence of significant stenosis at the carotid bifurcations. No evidence of intracranial high-grade stenosis or intracranial aneurysm. * Fasting a.m. lipid panel with cholesterol 122, LDL 45, HDL 55, triglycerides 104. Continue Lipitor 10 mg daily. * Hemoglobin A1c 5.3 * B12 650, folate 7.7. Ammonia normal < 9. Patient started on folic acid 1 mg daily. * Patient had a repeat CT of the head reported that there remains hypodense area surrounding the basal ganglia bilaterally and left posterior frontal lobe. Findings all that different from 04/22/2024, if there is any concern for stroke consider MRI to exclude acute/subacute CVA. Remote injury in the right frontal occipital lobe. * Pending MRI of the brain. * Repeat EEG 2024 revealed mild background slowing with mild bitemporal slowing. Background slowing suggestive of generalized cerebral dysfunction suggestive of encephalopathy and bitemporal slowing suggest focal cortical neuronal dysfunction. No epileptiform activity was seen. * Optimize control of blood pressure * Continue Eliquis 5 mg twice a day. * Psychiatry has seen the patient, who believes patient has delirium from acute UTI. Recommend the patient to be reevaluated by psychiatry team. * Patient currently on ceftriaxone for possible UTI. ID following. * DVT prophylaxis: Patient on Eliquis
--- NOTE | 2024-05-02 15:06 | P.PN ---
Subjective PROGRESS NOTE The patient is an 78-year-old female who was admitted few days ago with change in mental status, she has a known history of chronic persistent atrial fibrillation, anticoagulated, moderate to severe tricuspid regurgitation. Today she became less responsive, tachypneic and had episodes of atrial fibrillation with rapid ventricle response, she was transferred to the ICU she is on the BiPAP. Her rate is controlled at this time. She is opening her eyes to verbal stimulation and following commands. Her blood pressure is stable. There is no evidence of ventricular tachyarrhythmia. Her echocardiogram showed a preserved systolic function. April 30: The patient continues to be obtunded but opening eyes to verbal stimulation and following commands. She continues to be in atrial fibrillation but her rate is controlled, she is on IV Cardizem. Her blood pressure is relatively stable. There is no evidence of ventricular ectopic activity. Her chest x-ray is unchanged. Her CT scan of the chest showed no evidence of pulmonary embolism. May 01: The patient is more awake and alert, following command. She had episodes of atrial fibrillation with rapid ventricle response yesterday, started on IV metoprolol. Her blood pressure and heart rate are stable at this time. She continues to be n.p.o. awaiting further evaluation although she appears to be more awake and alert today as noted. She continues to be on the BiPAP. She is in atrial fibrillation with controlled ventricular sponsor this morning. 05/02 Patient has been feeling okay. She denies any chest pain or pressure. No significant shortness breath. Borderline blood pressures in the 90s over 60s. She is receiving oral metoprolol 50 mg twice a day which was recently increased this morning. Remains in A. fib with heart rates in the 70s to 90s. She is receiving IV fluids as well as was started on oral Lasix. Medications: IV Cardizem, oral anticoagulation has been on hold, metoprolol tartrate 5 mg IV every 8 hours. PHYSICAL EXAMINATION: Blood pressure 109/60 heart rate 85, on BiPAP, awake, alert following command LUNGS: Clear to auscultation anteriorly HEART: Irregular rate and rhythm, S1, S2. No S3. systolic murmur at the base ABDOMEN: Soft, nontender, no organomegaly obese EXTREMETIES: Trace to 1+ edema IMPRESSION: 1. Change in mental status, improved 2. Respiratory failure on BiPAP, stable improving 3. Permanent atrial fibrillation, rate controlled on IV Cardizem and IV metoprolol, off oral anticoagulation for now 4. History of psychosis and depression 5. Chronic diastolic heart failure PLAN: Patient appears to be progressing well and is awaiting transfer to stepdown unit. Continue with oral metoprolol which was increased and appears to be controlling her heart rates. Blood pressure is borderline and monitor closely. No need for IV fluids and oral Lasix and we will stop the IV fluids. Monitor closely. Objective - Vital Signs Vital signs: Vital Signs Temp 97.6 F 05/02/24 12:00 Pulse 81 05/02/24 12:00 Resp 14 05/02/24 12:00 BP 107/31 05/02/24 12:00 Pulse Ox 98 05/02/24 12:00 FiO2 40 05/01/24 16:00 Intake & Output 05/01/24 05/02/24 05/02/24 18:59 06:59 18:59 Intake Total 3643.772 1721 395.067 Output Total 2330 830 165 Balance -825.000 195 230.067 Weight 99.7 kg 99.7 kg Intake: IV 1125 900 225 0.9 150 Lactated Ringers 1,000 ml 825 900 75 @ 75 mls/hr IV .[id number] [facility] Rx#:[id number] Piperacillin-Tazobactam 3 200 .375 gm In Sodium Chloride 0.9% 100 ml @ 25 mls/hr IVPB Q8HR [facility] Rx# :[id number] Potassium Chloride 10 meq 100 In Water For Injection 1 100ml.bag @ 100 mls/hr IVPB Q1H [facility] Rx#: [id number] Intake, IV Titration 380.000 125 170.067 Amount Diltiazem 125 mg In 109.167 125 73 Sodium Chloride 0.9% 100 ml @ 10 MG/HR 10 mls/hr IV .[id number] [facility] Rx#: [id number] Heparin Sod,Pork in 0.45% 70.833 0 97.067 NaCl 25,000 unit In 0.45 % NaCl 1 250ml.bag @ 9.94 UNITS/KG/HR 10 mls/hr IV .Q24H [facility] Rx#:[id number] Potassium Chloride 10 meq 200 In Water For Injection 1 100ml.bag @ 100 mls/hr IVPB Q1H [facility] Rx#: [id number] Output: Urine 2330 830 165 Other: Voiding Method Indwelling Catheter Indwelling Catheter Indwelling Catheter - Labs CBC & Chem 7: 05/02/24 02:24 05/02/24 02:24 Labs: Abnormal Lab Results - Last 24 Hours (Table) 05/01/24 05/01/24 05/02/24 Range/Units 16:59 16:59 02:24 WBC (3.8-10.6) k/uL RBC (3.80-5.40) m/uL Hgb (11.4-16.0) gm/dL Neutrophils # (1.3-7.7) k/uL APTT 110.5 H* 60.8 H (22.0-30.0) sec Potassium 3.3 L (3.5-5.1) mmol/L Glucose (74-99) mg/dL POC Glucose (mg/dL) (70-110) mg/dL 05/02/24 05/02/24 05/02/24 Range/Units 02:24 02:24 04:29 WBC 11.2 H (3.8-10.6) k/uL RBC 3.66 L (3.80-5.40) m/uL Hgb 11.0 L (11.4-16.0) gm/dL Neutrophils # 8.3 H (1.3-7.7) k/uL APTT (22.0-30.0) sec Potassium (3.5-5.1) mmol/L Glucose 62 L (74-99) mg/dL POC Glucose (mg/dL) 66 L (70-110) mg/dL Microbiology - Last 24 Hours (Table) 04/30/24 14:27 Blood Culture - Preliminary Blood
[2024-05-02] MEDS: SODIUM CHLORIDE 0.9% 1,000 ML IV SCH (15:10)
[2024-05-02 15:47] LABS: Glucose,Whole Blood 87 mg/dL (70-110)
[2024-05-02 16:33] LABS: Glucose,Whole Blood 113 mg/dL (70-110)
[2024-05-02] MEDS ORDERED: CHOLESTYRAMINE (WITH SUGAR) 4 GM PACKET PO PRN (18:00)
[2024-05-02 20:32] LABS: Glucose,Whole Blood 112 mg/dL (70-110)
--- NOTE | 2024-05-02 21:49 | P.PN ---
Subjective patient is a 78-year-old lady with past medical history significant for CKD stage III, hypertension, CHF who is currently a resident of a halfway facility brought to the ER for altered mental status. Most of the history has been taken from the EMR as patient is a poor historian, according to that patient was all right 1 week back when nursing staff found her that patient was confused. Before 1 week patient was alert oriented x 4 and and answering questions. Over the last 1 week patient has become more confused with limited participation. Day prior to admission patient was brought talking and was hallucinating. Patient was moving all extremities. Nursing staff did not notice any slurred speech. There was no weakness of any extremity. There is no complaint of any fall. Family visited patient in the halfway and they foun d her to be altered and because of this altered mental status, patient brought to the ER. Initial lab work done in the ER showed WBC 15.3, hemoglobin 14.4, platelet count 353, sodium 138, potassium 3.8, BUN 19, creatinine 0.91, glucose 145, calcium 10.6, magnesium 1.9, bilirubin 0.7, AST 31, ALT 16, UA showed nitrite positive, small amount of leukocyte Estrace Influenza A not detected Influenza B not detected RSV not detected COVID-19 not detected EKG done in the ER showed heart rate of 105, irregular rhythm, no ST segment elevation or depression seen, no T-wave inversions seen. Chest x-ray done in the ER no acute cardiopulmonary process CT head done showed no acute intracranial process CTA head and neck done showed no significant stenosis, aneurysm or thrombus in the intracranial circulation CT abdomen pelvis done showed no acute abnormality in the abdominal/pelvis In the ER, patient was moving her extremities and was following commands for the physician. Family did tell the ER physician that the patient had been going through a lot of of stress with loss of her son and another family member. They also mentioned that patient told them while in the room that they were trying to kill her Patient admitted to internal medicine service 04/24. Patient seen and examined. Patient more alert compared to yesterday, answering questions but then states something totally out of abnormal like she told me that she does not have syphilis 04/25 patient seen and examined. Patient mental status waxes and wanes. Patient makes weird statements and keeps staring at the roof. Did tell nursing staff that she will kill her brothers 04/26. Patient seen examined. Patient refused to talk. EEG done showed mild encephalopathy, no evidence of seizure-like activity 04/27. Patient seen and examined. Patient little bit more talkative compared to yesterday. Vital signs stable. Neurology discontinued MRI. 04/28. Patient seen and examined. Complaining of urine retention, bladder scan showed more than 400 mL of urine, Leone placed. Potassium this morning is 2.8, replacement ordered 04/29. Patient seen examined. Patient had a rapid response called this morning for being lethargic and being in A-fib with RVR, stat CT head and IV Lopressor was given. Patient was transferred to ICU. Placed on BiPAP. 04/30. Patient seen and examined. Blood work done showed WBC 13.9, hemoglobin 11.5, platelet count 321, sodium 141, potassium 3.9, BUN 16, creatinine 0.69. Repeat CT head done on 04/29 showed hypodense area surrounding the basal ganglia bilaterally and left posterior lobe unchanged from previous study. Patient continues to be lethargic, does not follow commands 05/01. Patient seen and examined. Blood work this morning showed WBC 12.5, hemoglobin 11.2, sodium 141, potassium 3.7, BUN 16, creatinine 0.70. More alert, talking, states she feels slightly better 05/02/24 Patient awake alert No abdominal pain Abdominal soft Leone catheter ambulate no chest pain or significant dyspnea He just finished his EEG Heparin drip and Cardizem drip were discontinued and patient was transferred out of the ICU to [facility]. Objective - Vital Signs Vital signs: Vital Signs Temp 97.9 F 05/02/24 09:00 Pulse 78 05/02/24 09:00 Resp 22 05/02/24 09:00 BP 113/67 05/02/24 09:00 Pulse Ox 95 05/02/24 09:00 FiO2 40 05/01/24 16:00 Intake & Output 05/01/24 05/02/24 05/02/24 18:59 06:59 18:59 Intake Total 0878.797 5330 395.067 Output Total 2330 830 165 Balance -825.000 195 230.067 Weight 99.7 kg Intake: IV 1125 900 225 0.9 150 Lactated Ringers 1,000 ml 825 900 75 @ 75 mls/hr IV .[id number] [facility] Rx#:[id number] Piperacillin-Tazobactam 3 200 .375 gm In Sodium Chloride 0.9% 100 ml @ 25 mls/hr IVPB Q8HR [facility] Rx# :[id number] Potassium Chloride 10 meq 100 In Water For Injection 1 100ml.bag @ 100 mls/hr IVPB Q1H [facility] Rx#: [id number] Intake, IV Titration 380.000 125 170.067 Amount Diltiazem 125 mg In 109.167 125 73 Sodium Chloride 0.9% 100 ml @ 10 MG/HR 10 mls/hr IV .[id number] [facility] Rx#: [id number] Heparin Sod,Pork in 0.45% 70.833 0 97.067 NaCl 25,000 unit In 0.45 % NaCl 1 250ml.bag @ 9.94 UNITS/KG/HR 10 mls/hr IV .Q24H [facility] Rx#:[id number] Potassium Chloride 10 meq 200 In Water For Injection 1 100ml.bag @ 100 mls/hr IVPB Q1H [facility] Rx#: [id number] Output: Urine 2330 830 165 Other: Voiding Method Indwelling Catheter Indwelling Catheter Indwelling Catheter - Exam GENERAL: The patient is alert and oriented x3, not in any acute distress. Well developed, well nourished. HEENT: Pupils are round and equally reacting to light. EOMI. No scleral icterus. No conjunctival pallor. Normocephalic, atraumatic. No pharyngeal erythema. No thyromegaly. CARDIOVASCULAR: S1 and S2 present. No murmurs, rubs, or gallops. PULMONARY: Chest is clear to auscultation, no wheezing , no crackles. ABDOMEN: Soft, nontender, nondistended, normoactive bowel sounds. No palpable organomegaly. MUSCULOSKELETAL: No joint swelling or deformity. EXTREMITIES: No cyanosis, clubbing, or pedal edema. NEUROLOGICAL: Gross neurological examination did not reveal any focal deficits. SKIN: No rashes. no petechiae. - Labs CBC & Chem 7: 05/02/24 02:24 05/02/24 02:24 Labs: Abnormal Lab Results - Last 24 Hours (Table) 05/01/24 05/01/24 05/01/24 Range/Units 10:46 16:59 16:59 WBC 12.0 H (3.8-10.6) k/uL RBC (3.80-5.40) m/uL Hgb (11.4-16.0) gm/dL Neutrophils # 9.9 H (1.3-7.7) k/uL APTT 110.5 H* (22.0-30.0) sec Potassium 3.3 L (3.5-5.1) mmol/L Glucose (74-99) mg/dL POC Glucose (mg/dL) (70-110) mg/dL 05/02/24 05/02/24 05/02/24 Range/Units 02:24 02:24 02:24 WBC 11.2 H (3.8-10.6) k/uL RBC 3.66 L (3.80-5.40) m/uL Hgb 11.0 L (11.4-16.0) gm/dL Neutrophils # 8.3 H (1.3-7.7) k/uL APTT 60.8 H (22.0-30.0) sec Potassium (3.5-5.1) mmol/L Glucose 62 L (74-99) mg/dL POC Glucose (mg/dL) (70-110) mg/dL 05/02/24 Range/Units 04:29 WBC (3.8-10.6) k/uL RBC (3.80-5.40) m/uL Hgb (11.4-16.0) gm/dL Neutrophils # (1.3-7.7) k/uL APTT (22.0-30.0) sec Potassium (3.5-5.1) mmol/L Glucose (74-99) mg/dL POC Glucose (mg/dL) 66 L (70-110) mg/dL Microbiology - Last 24 Hours (Table) 04/30/24 14:27 Blood Culture - Preliminary Blood Assessment and Plan Assessment: Acute urinary tract infection Metabolic encephalopathy improved Acute hypoxic respiratory failure, improving Left lower lobe infiltrate suspicious for atelectasis A-fib with rate controlled History of depression and psychosis Plan: Continue with metoprolol and Eliquis Heart rate controlled with cardiology following closely Continue with Zosyn and follow-up blood culture ID team consult on the case Pulmonary/critical care team on the case Mentation improving continue with bronchodilator and oxygen therapy, patient currently does not need BiPAP Labs and medication were reviewed.. Continue same treatment. Continue with symptomatic treatment. Resume home medication. Monitor labs and vitals. DVT and GI prophylaxis. Further recommendations as per clinical course of the patient DVT prophylaxis: Eliquis GI Prophylaxis: Protonix PT/OT: Pending Prognosis is guarded
--- NOTE | 2024-05-02 23:11 | EEG ---
ELECTROENCEPHALOGRAM REPORT PREAMBLE: This is an 78-year-old female with altered mental status, rule out seizure. The patient does have history of AFib, CVA/TIA, heart failure, hyperlipidemia, and hypertension. CURRENT MEDICATIONS: Lipitor. Diltiazem. Lasix. Synthroid. Lopressor. Piperacillin. EEG FINDINGS: This is a 21-channel digital EEG recorded with video component, utilizing 10/20 international system with referential and bipolar montages. The background consists of moderately well-developed and regulated, mixed frequencies of 6 to 7 hertz theta seen in posterior head region. Background does not seem to be clearly reactive to eye opening or closing. Frequent, bitemporal and dysrhythmic mixed theta and delta slowing was seen. Photic driving response was not seen. Different stages of sleep were not seen. No focal or generalized epileptiform activity was seen. IMPRESSION: This is an abnormal EEG due to presence of mild background slowing, with superimposed focal bitemporal slowing. Generalized slowing suggestive of mild encephalopathy whereas bitemporal slowing, suggest focal cortical neuronal dysfunction. No electrographic seizure was recorded. No epileptiform activity was seen. MMODL / IJN: [id number] /
--- NOTE | 2024-05-03 05:21 | P.PN ---
Subjective Progress Note Date: 05/02/24 Principal diagnosis: Reason for follow-up is UTI Patient is a 78-year-old female with a past medical history significant for hypertension hyperlipidemia CVA TIA heart failure and atrial fibrillation patient was brought into the hospital from the local assisted for evaluation of mental status, patient have elevated white count positive UA concerning for urinary tract infection. On today's evaluation that is 05/02/2023, patient has been afebrile, patient is breathing comfortably and is currently on 2 L current oxygen patient denies having any significant cough no chest pain, patient denies nausea vomiting or diarrhea and no abdominal pain. Patient white count is 11.2 creatinine 0.64 Objective - Vital Signs Vital signs: Vital Signs Temp 97.6 F 05/02/24 12:00 Pulse 81 05/02/24 12:00 Resp 14 05/02/24 12:00 BP 107/31 05/02/24 12:00 Pulse Ox 98 05/02/24 12:00 FiO2 40 05/01/24 16:00 Intake & Output 05/01/24 05/02/24 05/02/24 18:59 06:59 18:59 Intake Total 9001.156 6069 395.067 Output Total 2330 830 165 Balance -825.000 195 230.067 Weight 99.7 kg 99.7 kg Intake: IV 1125 900 225 0.9 150 Lactated Ringers 1,000 ml 825 900 75 @ 75 mls/hr IV .[id number] [facility] Rx#:[id number] Piperacillin-Tazobactam 3 200 .375 gm In Sodium Chloride 0.9% 100 ml @ 25 mls/hr IVPB Q8HR [facility] Rx# :[id number] Potassium Chloride 10 meq 100 In Water For Injection 1 100ml.bag @ 100 mls/hr IVPB Q1H [facility] Rx#: [id number] Intake, IV Titration 380.000 125 170.067 Amount Diltiazem 125 mg In 109.167 125 73 Sodium Chloride 0.9% 100 ml @ 10 MG/HR 10 mls/hr IV .[id number] [facility] Rx#: [id number] Heparin Sod,Pork in 0.45% 70.833 0 97.067 NaCl 25,000 unit In 0.45 % NaCl 1 250ml.bag @ 9.94 UNITS/KG/HR 10 mls/hr IV .Q24H [facility] Rx#:[id number] Potassium Chloride 10 meq 200 In Water For Injection 1 100ml.bag @ 100 mls/hr IVPB Q1H [facility] Rx#: [id number] Output: Urine 2330 830 165 Other: Voiding Method Indwelling Catheter Indwelling Catheter Indwelling Catheter - Exam GENERAL DESCRIPTION: An elderly female lying in bed in no distress RESPIRATORY SYSTEM: Unlabored breathing , decreased breath sounds at bases HEART: S1 S2 regular rate and rhythm , ABDOMEN: Soft , no tenderness EXTREMITIES: No edema feet - Labs CBC & Chem 7: 05/02/24 02:24 05/02/24 02:24 Labs: Abnormal Lab Results - Last 24 Hours (Table) 05/01/24 05/01/24 05/02/24 Range/Units 16:59 16:59 02:24 WBC (3.8-10.6) k/uL RBC (3.80-5.40) m/uL Hgb (11.4-16.0) gm/dL Neutrophils # (1.3-7.7) k/uL APTT 110.5 H* 60.8 H (22.0-30.0) sec Potassium 3.3 L (3.5-5.1) mmol/L Glucose (74-99) mg/dL POC Glucose (mg/dL) (70-110) mg/dL 05/02/24 05/02/24 05/02/24 Range/Units 02:24 02:24 04:29 WBC 11.2 H (3.8-10.6) k/uL RBC 3.66 L (3.80-5.40) m/uL Hgb 11.0 L (11.4-16.0) gm/dL Neutrophils # 8.3 H (1.3-7.7) k/uL APTT (22.0-30.0) sec Potassium (3.5-5.1) mmol/L Glucose 62 L (74-99) mg/dL POC Glucose (mg/dL) 66 L (70-110) mg/dL Microbiology - Last 24 Hours (Table) 04/30/24 14:27 Blood Culture - Preliminary Blood Assessment and Plan (1) Leukocytosis Current Visit: Yes Status: Acute Code(s): D72.829 - ELEVATED WHITE BLOOD CELL COUNT, UNSPECIFIED SNOMED Code(s): 459466069 (2) Urinary tract infection Current Visit: Yes Status: Acute Code(s): N39.0 - URINARY TRACT INFECTION, SITE NOT SPECIFIED SNOMED Code(s): 57511616 Plan: 1patient presented to hospital with mental status changes in this patient who did have a elevated white count positive UA concerning for symptomatic UTI likely from to the gram-negative pathogen currently no other obvious focus of infection with his elevated white count there was question of possible pneumonia however the patient is breathing comfortably on room air clinically doubt pneumonia 2patient did have significant change in her clinical condition requiring transfer to the ICU patient CT of the brain neck concerning for hyperdense lesion along the base again concerning for stroke possible MRI when respiratory status improves as reported by the patient nurse 3patient with left basilar infiltrate consolidation concerning for possible aspiration pneumonitis, blood cultures are so far negative sputum not collected white count is trending down continue Zosyn Dictation was produced using [employer] dictation software. please excuse any grammatical, word or spelling errors. Time with Patient: Less than 30
[2024-05-03 06:07] LABS: Glucose,Whole Blood 101 mg/dL (70-110)
--- NOTE | 2024-05-03 09:51 | P.PN ---
Subjective patient is a 78-year-old lady with past medical history significant for CKD stage III, hypertension, CHF who is currently a resident of a half-way facility brought to the ER for altered mental status. Most of the history has been taken from the EMR as patient is a poor historian, according to that patient was all right 1 week back when nursing staff found her that patient was confused. Before 1 week patient was alert oriented x 4 and and answering questions. Over the last 1 week patient has become more confused with limited participation. Day prior to admission patient was brought talking and was hallucinating. Patient was moving all extremities. Nursing staff did not notice any slurred speech. There was no weakness of any extremity. There is no complaint of any fall. Family visited patient in the half-way and they foun d her to be altered and because of this altered mental status, patient brought to the ER. Initial lab work done in the ER showed WBC 15.3, hemoglobin 14.4, platelet count 353, sodium 138, potassium 3.8, BUN 19, creatinine 0.91, glucose 145, calcium 10.6, magnesium 1.9, bilirubin 0.7, AST 31, ALT 16, UA showed nitrite positive, small amount of leukocyte Estrace Influenza A not detected Influenza B not detected RSV not detected COVID-19 not detected EKG done in the ER showed heart rate of 105, irregular rhythm, no ST segment elevation or depression seen, no T-wave inversions seen. Chest x-ray done in the ER no acute cardiopulmonary process CT head done showed no acute intracranial process CTA head and neck done showed no significant stenosis, aneurysm or thrombus in the intracranial circulation CT abdomen pelvis done showed no acute abnormality in the abdominal/pelvis In the ER, patient was moving her extremities and was following commands for the physician. Family did tell the ER physician that the patient had been going through a lot of of stress with loss of her son and another family member. They also mentioned that patient told them while in the room that they were trying to kill her Patient admitted to internal medicine service 04/24. Patient seen and examined. Patient more alert compared to yesterday, answering questions but then states something totally out of abnormal like she told me that she does not have syphilis 04/25 patient seen and examined. Patient mental status waxes and wanes. Patient makes weird statements and keeps staring at the roof. Did tell nursing staff that she will kill her brothers 04/26. Patient seen examined. Patient refused to talk. EEG done showed mild encephalopathy, no evidence of seizure-like activity 04/27. Patient seen and examined. Patient little bit more talkative compared to yesterday. Vital signs stable. Neurology discontinued MRI. 04/28. Patient seen and examined. Complaining of urine retention, bladder scan showed more than 400 mL of urine, Leone placed. Potassium this morning is 2.8, replacement ordered 04/29. Patient seen examined. Patient had a rapid response called this morning for being lethargic and being in A-fib with RVR, stat CT head and IV Lopressor was given. Patient was transferred to ICU. Placed on BiPAP. 04/30. Patient seen and examined. Blood work done showed WBC 13.9, hemoglobin 11.5, platelet count 321, sodium 141, potassium 3.9, BUN 16, creatinine 0.69. Repeat CT head done on 04/29 showed hypodense area surrounding the basal ganglia bilaterally and left posterior lobe unchanged from previous study. Patient continues to be lethargic, does not follow commands 05/01. Patient seen and examined. Blood work this morning showed WBC 12.5, hemoglobin 11.2, sodium 141, potassium 3.7, BUN 16, creatinine 0.70. More alert, talking, states she feels slightly better 05/02/24 Patient awake alert No abdominal pain Abdominal soft Leone catheter ambulate no chest pain or significant dyspnea He just finished his EEG Heparin drip and Cardizem drip were discontinued and patient was transferred out of the ICU to [facility]. 05/03 Patient awake and mildly confused, she knows she is in [place] on [place] but she thought it is a half-way she could not tell the year but the name of the president She thought she has infection in her lung and explained to her she has UTI. She is very weak She refused to take her oral medications this morning but after talking to the patient she is agreeing to take the pills now She has mild leukocytosis She remains on IV Zosyn and Eliquis She is currently on 2 L oxygen via nasal cannula, she told me at home also she is 2 and sometimes 3 L/min. Objective - Vital Signs Vital signs: Vital Signs Temp 97.8 F 05/03/24 04:42 Pulse 82 05/03/24 04:42 Resp 16 05/03/24 04:42 BP 100/69 05/03/24 04:42 Pulse Ox 97 05/03/24 04:42 FiO2 40 05/01/24 16:00 Intake & Output 05/02/24 05/03/24 05/03/24 18:59 06:59 18:59 Intake Total 635.067 Output Total 165 400 Balance 470.067 -400 Weight 99.7 kg 100 kg Intake: IV 225 0.9 150 Lactated Ringers 1,000 ml 75 @ 75 mls/hr IV .[id number] [facility] Rx#:[id number] Intake, IV Titration 170.067 Amount Diltiazem 125 mg In 73 Sodium Chloride 0.9% 100 ml @ 10 MG/HR 10 mls/hr IV .[id number] [facility] Rx#: [id number] Heparin Sod,Pork in 0.45% 97.067 NaCl 25,000 unit In 0.45 % NaCl 1 250ml.bag @ 9.94 UNITS/KG/HR 10 mls/hr IV .Q24H [facility] Rx#:[id number] Oral 240 Output: Urine 165 400 Other: Voiding Method Indwelling Catheter Indwelling Catheter - Exam GENERAL: The patient is alert and oriented x3, not in any acute distress. Well developed, well nourished. HEENT: Pupils are round and equally reacting to light. EOMI. No scleral icterus. No conjunctival pallor. Normocephalic, atraumatic. No pharyngeal erythema. No thyromegaly. CARDIOVASCULAR: S1 and S2 present. No murmurs, rubs, or gallops. PULMONARY: Chest is clear to auscultation, no wheezing , no crackles. ABDOMEN: Soft, nontender, nondistended, normoactive bowel sounds. No palpable organomegaly. MUSCULOSKELETAL: No joint swelling or deformity. EXTREMITIES: No cyanosis, clubbing, or pedal edema. NEUROLOGICAL: Gross neurological examination did not reveal any focal deficits. SKIN: No rashes. no petechiae. - Labs CBC & Chem 7: 05/02/24 02:24 05/02/24 02:24 Labs: Abnormal Lab Results - Last 24 Hours (Table) 05/02/24 05/02/24 Range/Units 16:32 20:28 POC Glucose (mg/dL) 113 H 112 H (70-110) mg/dL Microbiology - Last 24 Hours (Table) 04/30/24 14:27 Blood Culture - Preliminary Blood Assessment and Plan Assessment: Acute urinary tract infection Metabolic encephalopathy improved Acute hypoxic respiratory failure, improving Left lower lobe infiltrate suspicious for atelectasis A-fib with rate controlled History of depression and psychosis Plan: Continue with metoprolol and Eliquis Heart rate controlled with cardiology following closely Continue with Zosyn and follow-up blood culture ID team consult on the case Pulmonary/critical care team on the case Mentation improving continue with bronchodilator and oxygen therapy, patient currently does not need BiPAP Labs and medication were reviewed.. Continue same treatment. Continue with symptomatic treatment. Resume home medication. Monitor labs and vitals. DVT and GI prophylaxis. Further recommendations as per clinical course of the patient DVT prophylaxis: Eliquis GI Prophylaxis: Protonix PT/OT: [facility], social services consulted. As per note patient does not ambulate at baseline Prognosis is guarded
[2024-05-03 11:12] LABS: Glucose,Whole Blood 105 mg/dL (70-110)
--- NOTE | 2024-05-03 13:10 | P.PN ---
Subjective HISTORY OF PRESENT ILLNESS: This is a 78-year-old female with a past medical history significant for hyperlipidemia, congestive heart failure, and atrial fibrillation. Patient does not follow with a [facility] We have been asked to see the patient in consultation for atrial fibrillation. Patient examined at the bedside in the emergency room. Patient was brought into the hospital from [facility] due to altered mental status. Patient apparently was more confused and was hallucinating. Patient was found to be in A-fib with RVR. She was started on IV Cardizem. The patient does have a history of atrial fibrillation and is prescribed Eliquis on an outpatient basis. At the time of examination she remains in atrial fibrillation with heart rate in the 80s. She is currently on IV Cardizem at 10 mg an hour. She still remains somewhat confused at the time of examination. She denies any chest pain or pressure. Denies any shortness of breath. DIAGNOSTICS: - EKG reveals atrial fibrillation with RVR. Right bundle branch block. - Chest xray negative for acute process - Laboratory data: WBC 15.3. Hemoglobin 14.4. Platelet count 353. Sodium 138. Potassium 3.8. BUN 19. Creatinine 0.91. TSH 2.0. - Current home cardiac medications include Eliquis 5 mg twice a day, Lipitor 10 mg at night, Farxiga 10 mg daily, Cardizem 60 mg every 6 hours, Lasix 20 mg daily - No previous echocardiogram, stress test, or cardiac catheterization available in EMR for review 04/25/2024 Patient examined this morning the bedside. Patient appears to be resting comfortably at the time of examination. Patient answers "fine" to all questions asked during examination. Heart rates are well-controlled. Echocardiogram completed revealing ejection fraction 65 to 70%, hyperdynamic left ventricular systolic function, moderate pulmonary hypertension, mild aortic regurgitation, moderate to severe tricuspid regurgitation. 04/28/2024 Cardiology was reconsulted due to A-fib with RVR yesterday. Patient examined this afternoon at the bedside. Patient currently denies chest pain or pressure. She denies shortness of breath. Per nursing, patient had urinary retention and had indwelling urinary catheter reinserted. Telemetry reveals atrial fibrillation with controlled ventricular rates. Patient was tachycardic yesterday with heart rates in the 110's. However she has been controlled today. She is currently on Cardizem 60 mg 4 times a day. April 30: The patient continues to be obtunded but opening eyes to verbal stimulation and following commands. She continues to be in atrial fibrillation but her rate is controlled, she is on IV Cardizem. Her blood pressure is relatively stable. There is no evidence of ventricular ectopic activity. Her chest x-ray is unchanged. Her CT scan of the chest showed no evidence of pulmonary embolism. May 01: The patient is more awake and alert, following command. She had episodes of atrial fibrillation with rapid ventricle response yesterday, started on IV metoprolol. Her blood pressure and heart rate are stable at this time. She continues to be n.p.o. awaiting further evaluation although she appears to be more awake and alert today as noted. She continues to be on the BiPAP. She is in atrial fibrillation with controlled ventricular sponsor this morning. 05/02 Patient has been feeling okay. She denies any chest pain or pressure. No significant shortness breath. Borderline blood pressures in the 90s over 60s. She is receiving oral metoprolol 50 mg twice a day which was recently increased this morning. Remains in A. fib with heart rates in the 70s to 90s. She is receiving IV fluids as well as was started on oral Lasix. 05/03/2024 Patient has been transferred out of the ICU to the cardiac stepdown unit. Patient examined this morning at the bedside. Patient remains lethargic. She denies any chest pain or shortness of breath. Telemetry reveals atrial fibrillation with a heart rate in the 70s. PHYSICAL EXAM: VITAL SIGNS: Reviewed. GENERAL: Well-developed in no acute distress. HEENT: Head is normocephalic. Pupils are equal, round. Sclerae anicteric. Mucous membranes of the mouth are moist. Neck supple. No JVD or thyromegaly LUNGS: Respirations even and unlabored. Lungs essentially clear to auscultation bilaterally. HEART: Irregular rate and rhythm. S1 and S2 heard. ABDOMEN: Soft. Nondistended. Nontender. EXTREMITIES: Normal range of motion. No clubbing or cyanosis. Peripheral pulses intact. No lower extremity edema ASSESSMENT: Altered mental status Urinary tract infection Persistent atrial fibrillation Chronic congestive heart failure with preserved EF Hyperlipidemia History of psychosis and depression Obesity: BMI 43.1 PLAN: Continue current cardiac medications Continue telemetry monitoring Further recommendations pending patient course Nurse practitioner note has been reviewed by physician. Signing provider agrees with the documented findings, assessment, and plan of care documented by [employer]SE OPERATOR as a scribe. Objective - Vital Signs Vital signs: Vital Signs Temp 97.8 F 05/03/24 04:42 Pulse 82 05/03/24 04:42 Resp 16 05/03/24 04:42 BP 100/69 05/03/24 04:42 Pulse Ox 97 05/03/24 04:42 FiO2 40 05/01/24 16:00 Intake & Output 05/02/24 05/03/24 05/03/24 18:59 06:59 18:59 Intake Total 635.067 Output Total 165 400 Balance 470.067 -400 Weight 99.7 kg 100 kg Intake: IV 225 0.9 150 Lactated Ringers 1,000 ml 75 @ 75 mls/hr IV .[id number] [facility] Rx#:[id number] Intake, IV Titration 170.067 Amount Diltiazem 125 mg In 73 Sodium Chloride 0.9% 100 ml @ 10 MG/HR 10 mls/hr IV .[id number] [facility] Rx#: [id number] Heparin Sod,Pork in 0.45% 97.067 NaCl 25,000 unit In 0.45 % NaCl 1 250ml.bag @ 9.94 UNITS/KG/HR 10 mls/hr IV .Q24H [facility] Rx#:[id number] Oral 240 Output: Urine 165 400 Other: Voiding Method Indwelling Catheter Indwelling Catheter - Labs CBC & Chem 7: 05/02/24 02:24 05/02/24 02:24 Labs: Abnormal Lab Results - Last 24 Hours (Table) 05/02/24 05/02/24 Range/Units 16:32 20:28 POC Glucose (mg/dL) 113 H 112 H (70-110) mg/dL Microbiology - Last 24 Hours (Table) 04/30/24 14:27 Blood Culture - Preliminary Blood
--- NOTE | 2024-05-03 15:16 | P.PN ---
Subjective Progress Note Date: 05/03/24 Principal diagnosis: Reason for follow-up is UTI Patient is a 78-year-old female with a past medical history significant for hypertension hyperlipidemia CVA TIA heart failure and atrial fibrillation patient was brought into the hospital from the local correction for evaluation of mental status, patient have elevated white count positive UA concerning for urinary tract infection. On today's evaluation that is 05/03/2023, Patient is afebrile this morning patient denies having any chest pain shortness of breath or cough, the patient is currently on 2 L nasal oxygen, patient denies any abdominal pain no nausea no vomiting, did have some diarrhea stool for C. difficile was negative Objective - Vital Signs Vital signs: Vital Signs Temp 97.8 F 05/03/24 08:50 Pulse 79 05/03/24 11:50 Resp 17 05/03/24 11:50 BP 130/79 05/03/24 11:50 Pulse Ox 98 05/03/24 11:50 FiO2 40 05/01/24 16:00 Intake & Output 05/02/24 05/03/24 05/03/24 18:59 06:59 18:59 Intake Total 635.067 Output Total 165 400 Balance 470.067 -400 Weight 99.7 kg 100 kg Intake: IV 225 0.9 150 Lactated Ringers 1,000 ml 75 @ 75 mls/hr IV .[id number] [facility] Rx#:[id number] Intake, IV Titration 170.067 Amount Diltiazem 125 mg In 73 Sodium Chloride 0.9% 100 ml @ 10 MG/HR 10 mls/hr IV .[id number] [facility] Rx#: [id number] Heparin Sod,Pork in 0.45% 97.067 NaCl 25,000 unit In 0.45 % NaCl 1 250ml.bag @ 9.94 UNITS/KG/HR 10 mls/hr IV .Q24H [facility] Rx#:[id number] Oral 240 Output: Urine 165 400 Other: Voiding Method Indwelling Catheter Indwelling Catheter Indwelling Catheter # Voids 1 # Bowel Movements 1 - Exam GENERAL DESCRIPTION: An elderly female lying in bed in no distress RESPIRATORY SYSTEM: Unlabored breathing , decreased breath sounds at bases HEART: S1 S2 regular rate and rhythm , ABDOMEN: Soft , no tenderness EXTREMITIES: No edema feet - Labs CBC & Chem 7: 05/02/24 02:24 05/02/24 02:24 Labs: Abnormal Lab Results - Last 24 Hours (Table) 05/02/24 05/02/24 Range/Units 16:32 20:28 POC Glucose (mg/dL) 113 H 112 H (70-110) mg/dL Microbiology - Last 24 Hours (Table) 04/30/24 14:27 Blood Culture - Preliminary Blood Assessment and Plan (1) Leukocytosis Current Visit: Yes Status: Acute Code(s): D72.829 - ELEVATED WHITE BLOOD CELL COUNT, UNSPECIFIED SNOMED Code(s): 419182143 (2) Urinary tract infection Current Visit: Yes Status: Acute Code(s): N39.0 - URINARY TRACT INFECTION, SITE NOT SPECIFIED SNOMED Code(s): 83664545 Plan: 1patient presented to hospital with mental status changes in this patient who did have a elevated white count positive UA concerning for symptomatic UTI likely from to the gram-negative pathogen currently no other obvious focus of infection with his elevated white count there was question of possible pneumonia however the patient is breathing comfortably on room air clinically doubt pneumonia 2patient did have significant change in her clinical condition requiring transfer to the ICU patient CT of the brain neck concerning for hyperdense lesion along the base again concerning for stroke possible MRI when respiratory status improves as reported by the patient nurse 3patient with left basilar infiltrate consolidation concerning for possible as piration pneumonitis, blood cultures are so far negative sputum not collected white count is trending down continue Zosyn, transition to oral on discharge 4diarrhea possible antibiotic associated stool for C. difficile negative will add Questran for symptomatic relief Dictation was produced using [employer] dictation software. please excuse any grammatical, word or spelling errors. Time with Patient: Less than 30
--- NOTE | 2024-05-03 15:59 | MR ---
EXAMINATION TYPE: MR brain wo con DATE OF EXAM: 05/03/2024 COMPARISON: CT brain 4 days earlier HISTORY: Confusion, AMS. TECHNIQUE: Multiplanar, multisequence imaging of the brain and brainstem is performed without IV cont rast. FINDINGS: Diffusion weighted images demonstrate no evidence of a recent infarct or other diffusion abnormality. There is moderate ventricular and sulcal prominence redemonstrated. There are focal and confluent are as of T2 hyperintensity scattered in the deep and periventricular white matter. There is old subcorti wendy infarct right frontal lobe and inferior right occipital lobe. Midline structures demonstrate normal morphology. The craniocervical junction appears within normal limits. Normal vascular flow voids are present. Bilateral aphakia is redemonstrated. The paranasal si nuses are grossly clear. IMPRESSION: 1. No MRI evidence for a recent infarct. 2. 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 [facility], , 05/03/2024 3:57 PM
[2024-05-03 16:21] LABS: Glucose,Whole Blood 168 mg/dL (70-110)
[2024-05-03 20:12] LABS: Glucose,Whole Blood 133 mg/dL (70-110)
--- NOTE | 2024-05-03 21:13 | P.PN ---
Subjective Progress Note Date: 05/03/24 This is an 78-year-old female patient was brought in back on April 22, 2024 with altered mental status and confusion from a local custodial. CT scan of the brain revealed no acute intracranial process. She had been seen by neurology, psychiatry and infectious disease. Her mental status had been waxing and waning throughout the admission. This morning a rapid response team was called to her room as she was quite obtunded and with shallow respirations. Chest x-ray revealed no acute process. Blood gases on 4 L of oxygen revealed a PaO2 of 52, P CO2 41 and a pH of 7.47. She only responded to painful stimuli. She was subsequently transferred to the intensive care unit on 04/29. She was placed on BiPAP 12 over 6 and 100% FiO2. Follow-up blood gases revealed a PaO2 of 288, pCO2 43 and a pH of 7.45. Her FiO2 had been decreased to 60%. White count 11.4. Hemoglobin 13.7. Platelets 236. Sodium 141. Potassium 4.1. Bicarb 32. BUN 17. Creatinine 0.80. Glucose 138. Ammonia level less than 9. Calcium 10.3. She remains quite obtunded. She is afebrile. Hemodynamically stable. She is continued on ceftriaxone. She is anticoagulated with Eliquis. On a Cardizem drip at 10 mg/h for atrial fibrillation with rapid ventricular response. She remains on oral diuretics. Lactated Ringer's at 75 mL/h. 04/30/2024 patient seen and examined at bedside. Patient still in the ICU requiring BiPAP oxygen support at the settings of 15/6 at FiO2 70%. Overnight, patient noted to have abnormal movements with some eye lateral deviation and that patient was awake and alert but does not fully follow all commands per nursing staff. Currently on Cardizem drip 10 mg/h and lactated Ringer's at 75 mL/h. Chest x-ray showed mild cardiomegaly with left bibasilar consolidation and/or atelectasis. Labs today show WBC 13.9, hemoglobin 11.5, platelet count 221,000, sodium 141, potassium 3.9, chloride 104, BUN 16, creatinine 0.69, glucose 116, calcium 10. Procalcitonin 0.21. Blood cultures final results are negative. Brain CT shows remaining hypodense area surrounding the basal ganglia bilaterally and left posterior imaging of frontal lobe which are findings that are not different from brain CT on admission and remote injury right inferior occipital lobe. The patient is seen today May 01, 2024 in follow-up in the intensive care unit. She is a bit more awake and alert today compared to yesterday. She remains on BiPAP 15/6 and 40% FiO2. She has lactated Ringer's at 75 mL/h. She remains on a Cardizem drip at 10 mg/h. Chest x-ray reveals persistent cardiomegaly with left basilar consolidation. White count 12.0. Hemoglobin 12.5. Platelets 343. INR 1.1. Sodium 141. Potassium 3.7. Bicarb 29. BUN 16. Creatinine 0.70. Glucose 92. Procalcitonin 0.36. She is on antibiotics in the form of Zosyn per infectious disease. Remains on on oral diuretics. She remains in a +2.1 L balance. 05/02/2024, the patient is being seen for a follow-up. The patient was taken off BiPAP and the patient is currently on 2 L of oxygen by nasal cannula. CTA of the chest was done on 04/29/2024 and it showed left lower lobe atelectasis/consolidation and the patient was given IV Zosyn. Patient remains in atrial fibrillation. The patient was given Cardizem drip for rate control which is currently running at 10 mg an hour and the patient is also on IV h eparin. Echocardiogram was done on 04/25/2024 and it showed a preserved LV function with an ejection fraction of 65 to 70%. There is moderate tricuspid regurgitation and moderate pulm hypertension noted. Labs from today shows a WBC count of 11.2 with a hemoglobin of 11 and a platelet count of 317. PTT is therapeutic at 60, sodium is at 138 with a potassium level of 4.1 chloride 99 bicarb 30 BUN 12 creatinine 0.6. Blood cultures been negative. The patient remains on empiric antibiotic coverage with IV Zosyn. Rest of the medications include metoprolol for rate control 5 mg IV every 8 hours, Lasix 20 mg p.o. daily, lactated Ringer at rate of 75 cc an hour and the patient is also on Zypre xa. On 05/03/2024, the patient is being seen for a follow-up. The patient's is awake and alert and communicating. Denies having any specific complaints. Mental status is improved considerably. No signs of any focal neurological deficits. No fever. No hemodynamic instability. She is being treated for a suspected urinary tract infection and the blood cultures have been negative thus far. Urine culture still pending. Meanwhile, the patient has improved while being on broad-spectrum antibiotics and the patient is currently on IV cefepime. No new labs are available from today. IV heparin has been discontinued and the patient is currently on anticoagulation with Eliquis. Respiratory status is stable and the patient remains on 2 L of oxygen by nasal cannula with a pulse ox of 98%. Objective - Vital Signs Vital signs: Vital Signs Temp 97.8 F 05/03/24 08:50 Pulse 79 05/03/24 11:50 Resp 17 05/03/24 11:50 BP 130/79 05/03/24 11:50 Pulse Ox 98 05/03/24 11:50 FiO2 40 05/01/24 16:00 Intake & Output 05/02/24 05/03/24 05/03/24 18:59 06:59 18:59 Intake Total 635.067 Output Total 165 400 Balance 470.067 -400 Weight 99.7 kg 100 kg Intake: IV 225 0.9 150 Lactated Ringers 1,000 ml 75 @ 75 mls/hr IV .[id number] [facility] Rx#:[id number] Intake, IV Titration 170.067 Amount Diltiazem 125 mg In 73 Sodium Chloride 0.9% 100 ml @ 10 MG/HR 10 mls/hr IV .[id number] [facility] Rx#: [id number] Heparin Sod,Pork in 0.45% 97.067 NaCl 25,000 unit In 0.45 % NaCl 1 250ml.bag @ 9.94 UNITS/KG/HR 10 mls/hr IV .Q24H [facility] Rx#:[id number] Oral 240 Output: Urine 165 400 Other: Voiding Method Indwelling Catheter Indwelling Catheter Indwelling Catheter # Voids 1 # Bowel Movements 1 - Exam GENERAL EXAM: Alert, 78-year-old female, on oxygen 2 L/min nasal cannula HEAD: Normocephalic. EYES: Normal reaction of pupils, equal size. NOSE: Clear with pink turbinates. THROAT: No erythema or exudates. NECK: No masses, no JVD. CHEST: No chest wall deformity. LUNGS: Equal air entry with crackles in the left lung base. CVS: S1 and S2 normal with no audible murmur, irregular rhythm consistent with atrial fibrillation ABDOMEN: No hepatosplenomegaly, normal bowel sounds, no guarding or rigidity. SPINE: No scoliosis or deformity SKIN: No rashes CENTRAL NERVOUS SYSTEM: No focal deficits, tone is normal in all 4 extremities. EXTREMITIES: There is no peripheral edema. No clubbing, no cyanosis. Peripheral pulses are intact. - Labs CBC & Chem 7: 05/02/24 02:24 05/02/24 02:24 Labs: Abnormal Lab Results - Last 24 Hours (Table) 05/02/24 05/02/24 Range/Units 16:32 20:28 POC Glucose (mg/dL) 113 H 112 H (70-110) mg/dL Microbiology - Last 24 Hours (Table) 04/30/24 14:27 Blood Culture - Preliminary Blood Assessment and Plan Plan: Altered mental status admitted back on 04/22/2024. [place] to be acute infectious encephalopathy secondary to urinary tract infection. Mental status includes considerably Acute hypoxemic respiratory failure secondary to obtundation and shallow respirations, off the BiPAP the patient is currently on 2 L of oxygen by nasal cannula Atrial fibrillation with a rapid ventricular response, improved and the patient is off the Cardizem drip and currently on metoprolol and anticoagulated with Eliquis. She has a controlled rate. Normal Echo. Possible episodes of catatonia History of depression delirium secondary to infection, improved History of congestive heart failure, repeat echocardiogram on 04/24/2024showed a preserved LV function, preserved LV is hyperdynamic with an ejection fraction of 65 to 70%, moderate to severe tricuspid regurgitation and moderate pulmonary hypertension with estimated PA pressures of 51. Hypertension half-way resident Plan: Currently on 2 L of oxygen by nasal cannula Titrate down the FiO2 as tolerated Procalcitonin negative, minimally elevated Keep the patient on Zosyn per ID service Patient is currently off the Cardizem drip Continue Lopressor 50 mg p.o. twice a day Continue Eliquis 5 mg p.o. twice a day Lasix 20 mg p.o. daily Involve physical therapy
[2024-05-04 04:57] VITALS: TEMP 98.3
[2024-05-04 06:10] LABS: Glucose,Whole Blood 122 mg/dL (70-110)
--- NOTE | 2024-05-04 10:42 | P.PN ---
Subjective Progress Note Date: 05/03/24 05/03/2024: Patient was seen for a follow-up. Patient is laying comfortably in the bed. Offers no new complaints. Patient states she feels "pretty good". Family members were present. They believe patient today has woken up. She is eating well. 05/02/2024: Patient over the last week was seen by Dr. Steven Sun. Please refer to his note for details. 04/24/2024: Patient was seen for a follow-up. Patient continues to be somewhat delirious. She has a very flat affect. I spoke to patient's granddaughter Jada, who provided with further information. She mentions that patient at baseline is completely normal person. She started having altered mental status about 2 weeks ago. It has progressively got worse, particularly in the last 1 week when she has been worse. She has been having some violent thoughts like someone's head has been chopped off and she is having a lot of thoughts. She saw patient 2 nights ago and she was staring at the wall, wide eyed not responding talking about "glue". Last night when she saw her, she had just woken up. She was saying something about fingers chopped off. Patient's granddaughter mentions that patient had history of a stroke, with no residual deficits. She has been under a lot of stress because her and her son within the last 1 year. Objective - Vital Signs Vital signs: Vital Signs Temp 97.8 F 05/03/24 08:50 Pulse 86 05/03/24 16:00 Resp 17 05/03/24 16:00 BP 128/81 05/03/24 16:00 Pulse Ox 98 05/03/24 16:00 FiO2 40 05/01/24 16:00 Intake & Output 05/02/24 05/03/24 05/03/24 18:59 06:59 18:59 Intake Total 635.067 Output Total 165 400 Balance 470.067 -400 Weight 99.7 kg 100 kg Intake: IV 225 0.9 150 Lactated Ringers 1,000 ml 75 @ 75 mls/hr IV .[id number] [facility] Rx#:[id number] Intake, IV Titration 170.067 Amount Diltiazem 125 mg In 73 Sodium Chloride 0.9% 100 ml @ 10 MG/HR 10 mls/hr IV .[id number] [facility] Rx#: [id number] Heparin Sod,Pork in 0.45% 97.067 NaCl 25,000 unit In 0.45 % NaCl 1 250ml.bag @ 9.94 UNITS/KG/HR 10 mls/hr IV .Q24H [facility] Rx#:[id number] Oral 240 Output: Urine 165 400 Other: Voiding Method Indwelling Catheter Indwelling Catheter Indwelling Catheter # Voids 1 # Bowel Movements 1 - Exam Patient is much more alert and awake fairly well oriented. Patient states that she is in a jail. She has been in multiple hospitals in the last 6 months. She knows that she is in [facility] in [place] and that it is 05/03/2024 and that Mr. Osuna is the president. Speech is otherwise clear. Patient has fairly normal peoplesoft financials. She moves her legs equally. Ankle dorsiflexion appears normal. He flexion appears fairly normal. Patient's face is symmetric. Tongue protrudes in midline. Visual melgoza are full. - Labs CBC & Chem 7: 05/02/24 02:24 05/02/24 02:24 Labs: Abnormal Lab Results - Last 24 Hours (Table) 05/02/24 05/03/24 Range/Units 20:28 16:19 POC Glucose (mg/dL) 112 H 168 H (70-110) mg/dL Microbiology - Last 24 Hours (Table) 04/30/24 14:27 Blood Culture - Preliminary Blood Assessment and Plan Assessment: * Episode of confusion, staring off not responding is more psychiatric. Mentation appears back to normal. Had EEG and mild encephalopathy and no seizure or discharges. Had repeat CT head and negative for acute or subacute stroke * Acute hypoxemic respiratory failure secondary to obstruction and shallow respiration and patient is on BiPAP, improved. * Possible UTI * Possible aspiration pneumonia per ID * Atrial fibrillation, on Eliquis * Hypertension * Diabetes * Hyperlipidemia Plan: * MRI brain revealed no evidence for a recent infarct. 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 I personally reviewed MRI, agree with the findings. * 2-D echo revealed poorly visualized endocardium and intracardiac valves. Normal LV systolic function with EF 65 to 70%. Severely increased left ventricular wall thickness. Small left ventricular cavity. Apical hypertrophy of the left ventricle. Severely increased left atrial diameter. * Cardiology on the case, we will defer findings of echo to cardiology. Patient on Eliquis 5 mg twice daily. * CTA head and neck showed: No evidence of dissection of the cervical internal carotid arteries or vertebral arteries. No evidence of significant stenosis at the carotid bifurcations. No evidence of intracranial high-grade stenosis or intracranial aneurysm. * Fasting a.m. lipid panel with cholesterol 122, LDL 45, HDL 55, triglycerides 104. Continue Lipitor 10 mg daily. * Hemoglobin A1c 5.3 * B12 650, folate 7.7. Ammonia normal < 9. Patient started on folic acid 1 mg daily. * Repeat EEG 2024 revealed mild background slowing with mild bitemporal slowing. Background slowing suggestive of generalized cerebral dysfunction suggestive of encephalopathy and bitemporal slowing suggest focal cortical neuronal dysfunction. No epileptiform activity was seen. * Optimize control of blood pressure * Continue Eliquis 5 mg twice a day. * Psychiatry has seen the patient, who believes patient has delirium from acute UTI. Recommend the patient to be reevaluated by psychiatry team. Patient currently on olanzapine 5 mg at bedtime per psychiatry. * Patient has been treated for UTI. ID on board.. Patient currently on Zosyn. * DVT prophylaxis: Patient on Eliquis * Neurologically clear for discharge, when cleared by ID.
[2024-05-04 11:12] LABS: Glucose,Whole Blood 124 mg/dL (70-110)
--- NOTE | 2024-05-04 12:19 | P.PN ---
Subjective HISTORY OF PRESENT ILLNESS: This is a 78-year-old female with a past medical history significant for hyperlipidemia, congestive heart failure, and atrial fibrillation. Patient does not follow with a chemical processing laborer [facility]. We have been asked to see the patient in consultation for atrial fibrillation. Patient examined at the bedside in the emergency room. Patient was brought into the hospital from [facility] due to altered mental status. Patient apparently was more confused and was hallucinating. Patient was found to be in A-fib with RVR. She was started on IV Cardizem. The patient does have a history of atrial fibrillation and is prescribed Eliquis on an outpatient basis. At the time of examination she remains in atrial fibrillation with heart rate in the 80s. She is currently on IV Cardizem at 10 mg an hour. She still remains somewhat confused at the time of examination. She denies any chest pain or pressure. Denies any shortness of breath. DIAGNOSTICS: - EKG reveals atrial fibrillation with RVR. Right bundle branch block. - Chest xray negative for acute process - Laboratory data: WBC 15.3. Hemoglobin 14.4. Platelet count 353. Sodium 138. Potassium 3.8. BUN 19. Creatinine 0.91. TSH 2.0. - Current home cardiac medications include Eliquis 5 mg twice a day, Lipitor 10 mg at night, Farxiga 10 mg daily, Cardizem 60 mg every 6 hours, Lasix 20 mg daily - No previous echocardiogram, stress test, or cardiac catheterization available in EMR for review 04/25/2024 Patient examined this morning the bedside. Patient appears to be resting comfortably at the time of examination. Patient answers "fine" to all questions asked during examination. Heart rates are well-controlled. Echocardiogram completed revealing ejection fraction 65 to 70%, hyperdynamic left ventricular systolic function, moderate pulmonary hypertension, mild aortic regurgitation, moderate to severe tricuspid regurgitation. 04/28/2024 Cardiology was reconsulted due to A-fib with RVR yesterday. Patient examined this afternoon at the bedside. Patient currently denies chest pain or pressure. She denies shortness of breath. Per nursing, patient had urinary retention and had indwelling urinary catheter reinserted. Telemetry reveals atrial fibrillation with controlled ventricular rates. Patient was tachycardic yesterday with heart rates in the 110's. However she has been controlled today. She is currently on Cardizem 60 mg 4 times a day. April 30: The patient continues to be obtunded but opening eyes to verbal stimulation and following commands. She continues to be in atrial fibrillation but her rate is controlled, she is on IV Cardizem. Her blood pressure is relatively stable. There is no evidence of ventricular ectopic activity. Her chest x-ray is unchanged. Her CT scan of the chest showed no evidence of pulmonary embolism. May 01: The patient is more awake and alert, following command. She had episodes of atrial fibrillation with rapid ventricle response yesterday, started on IV metoprolol. Her blood pressure and heart rate are stable at this time. She continues to be n.p.o. awaiting further evaluation although she appears to be more awake and alert today as noted. She continues to be on the BiPAP. She is in atrial fibrillation with controlled ventricular sponsor this morning. 05/02 Patient has been feeling okay. She denies any chest pain or pressure. No significant shortness breath. Borderline blood pressures in the 90s over 60s. She is receiving oral metoprolol 50 mg twice a day which was recently increased this morning. Remains in A. fib with heart rates in the 70s to 90s. She is receiving IV fluids as well as was started on oral Lasix. 05/03/2024 Patient has been transferred out of the ICU to the cardiac stepdown unit. Patient examined this morning at the bedside. Patient remains lethargic. She denies any chest pain or shortness of breath. Telemetry reveals atrial fibrillation with a heart rate in the 70s. 05/04/2024 Patient examined this morning the bedside. Patient denies chest pain or pressure. She denies shortness of breath. Telemetry reveals atrial f ibrillation with controlled ventricular rate. PHYSICAL EXAM: VITAL SIGNS: Reviewed. GENERAL: Well-developed in no acute distress. HEENT: Head is normocephalic. Pupils are equal, round. Sclerae anicteric. Mucous membranes of the mouth are moist. Neck supple. No JVD or thyromegaly LUNGS: Respirations even and unlabored. Lungs essentially clear to auscultation bilaterally. HEART: Irregular rate and rhythm. S1 and S2 heard. ABDOMEN: Soft. Nondistended. Nontender. EXTREMITIES: Normal range of motion. No clubbing or cyanosis. Peripheral pulses intact. No lower extremity edema ASSESSMENT: Altered mental status Urinary tract infection Persistent atrial fibrillation Chronic congestive heart failure with preserved EF Hyperlipidemia History of psychosis and depression Obesity: BMI 43.1 PLAN: Continue current cardiac medications Continue telemetry monitoring Patient is stable for discharge from a cardiac standpoint Nurse practitioner note has been reviewed by physician. Signing provider agrees with the documented findings, assessment, and plan of care documented by FOUNDRY MANAGER as a scribe. Objective - Vital Signs Vital signs: Vital Signs Temp 98.3 F 05/04/24 08:40 Pulse 98 05/04/24 08:40 Resp 17 05/04/24 08:40 BP 118/69 05/04/24 08:40 Pulse Ox 98 05/04/24 08:40 FiO2 40 05/01/24 16:00 Intake & Output 05/03/24 05/04/24 05/04/24 18:59 06:59 18:59 Intake Total 180 Output Total 600 Balance -600 180 Weight 100.5 kg Intake: Oral 180 Output: Urine 600 Other: Voiding Method Indwelling Catheter Indwelling Catheter Indwelling Catheter # Voids 1 # Bowel Movements 1 - Labs CBC & Chem 7: 05/02/24 02:24 05/02/24 02:24 Labs: Abnormal Lab Results - Last 24 Hours (Table) 05/03/24 05/03/24 05/04/24 Range/Units 16:19 20:10 06:06 POC Glucose (mg/dL) 168 H 133 H 122 H (70-110) mg/dL Microbiology - Last 24 Hours (Table) 04/30/24 14:27 Blood Culture - Preliminary Blood
[2024-05-04 12:24] VITALS: BP 150/85; PULSE 71; RESP 18
--- NOTE | 2024-05-04 13:38 | P.PN ---
Subjective Progress Note Date: 05/04/24 This is an 78-year-old female patient was brought in back on April 22, 2024 with altered mental status and confusion from a local retirement. CT scan of the brain revealed no acute intracranial process. She had been seen by neurology, psychiatry and infectious disease. Her mental status had been waxing and waning throughout the admission. This morning a rapid response team was called to her room as she was quite obtunded and with shallow respirations. Chest x-ray revealed no acute process. Blood gases on 4 L of oxygen revealed a PaO2 of 52, P CO2 41 and a pH of 7.47. She only responded to painful stimuli. She was subsequently transferred to the intensive care unit on 04/29. She was placed on BiPAP 12 over 6 and 100% FiO2. Follow-up blood gases revealed a PaO2 of 288, pCO2 43 and a pH of 7.45. Her FiO2 had been decreased to 60%. White count 11.4. Hemoglobin 13.7. Platelets 236. Sodium 141. Potassium 4.1. Bicarb 32. BUN 17. Creatinine 0.80. Glucose 138. Ammonia level less than 9. Calcium 10.3. She remains quite obtunded. She is afebrile. Hemodynamically stable. She is continued on ceftriaxone. She is anticoagulated with Eliquis. On a Cardizem drip at 10 mg/h for atrial fibrillation with rapid ventricular response. She remains on oral diuretics. Lactated Ringer's at 75 mL/h. 04/30/2024 patient seen and examined at bedside. Patient still in the ICU requiring BiPAP oxygen support at the settings of 15/6 at FiO2 70%. Overnight, patient noted to have abnormal movements with some eye lateral deviation and that patient was awake and alert but does not fully follow all commands per nursing staff. Currently on Cardizem drip 10 mg/h and lactated Ringer's at 75 mL/h. Chest x-ray showed mild cardiomegaly with left bibasilar consolidation and/or atelectasis. Labs today show WBC 13.9, hemoglobin 11.5, platelet count 221,000, sodium 141, potassium 3.9, chloride 104, BUN 16, creatinine 0.69, glucose 116, calcium 10. Procalcitonin 0.21. Blood cultures final results are negative. Brain CT shows remaining hypodense area surrounding the basal ganglia bilaterally and left posterior imaging of frontal lobe which are findings that are not different from brain CT on admission and remote injury right inferior occipital lobe. The patient is seen today May 01, 2024 in follow-up in the intensive care unit. She is a bit more awake and alert today compared to yesterday. She remains on BiPAP 15/6 and 40% FiO2. She has lactated Ringer's at 75 mL/h. She remains on a Cardizem drip at 10 mg/h. Chest x-ray reveals persistent cardiomegaly with left basilar consolidation. White count 12.0. Hemoglobin 12.5. Platelets 343. INR 1.1. Sodium 141. Potassium 3.7. Bicarb 29. BUN 16. Creatinine 0.70. Glucose 92. Procalcitonin 0.36. She is on antibiotics in the form of Zosyn per infectious disease. Remains on on oral diuretics. She remains in a +2.1 L balance. 05/02/2024, the patient is being seen for a follow-up. The patient was taken off BiPAP and the patient is currently on 2 L of oxygen by nasal cannula. CTA of the chest was done on 04/29/2024 and it showed left lower lobe atelectasis/consolidation and the patient was given IV Zosyn. Patient remains in atrial fibrillation. The patient was given Cardizem drip for rate control which is currently running at 10 mg an hour and the patient is also on IV h eparin. Echocardiogram was done on 04/25/2024 and it showed a preserved LV function with an ejection fraction of 65 to 70%. There is moderate tricuspid regurgitation and moderate pulm hypertension noted. Labs from today shows a WBC count of 11.2 with a hemoglobin of 11 and a platelet count of 317. PTT is therapeutic at 60, sodium is at 138 with a potassium level of 4.1 chloride 99 bicarb 30 BUN 12 creatinine 0.6. Blood cultures been negative. The patient remains on empiric antibiotic coverage with IV Zosyn. Rest of the medications include metoprolol for rate control 5 mg IV every 8 hours, Lasix 20 mg p.o. daily, lactated Ringer at rate of 75 cc an hour and the patient is also on Zypre xa. On 05/03/2024, the patient is being seen for a follow-up. The patient's is awake and alert and communicating. Denies having any specific complaints. Mental status is improved considerably. No signs of any focal neurological deficits. No fever. No hemodynamic instability. She is being treated for a suspected urinary tract infection and the blood cultures have been negative thus far. Urine culture still pending. Meanwhile, the patient has improved while being on broad-spectrum antibiotics and the patient is currently on IV cefepime. No new labs are available from today. IV heparin has been discontinued and the patient is currently on anticoagulation with Eliquis. Respiratory status is stable and the patient remains on 2 L of oxygen by nasal cannula with a pulse ox of 98%. On 05/04/2024, the patient is awake and alert and communicating. Denies having any specific complaints. She is on 2 L of oxygen by nasal cannula with a pulse ox of 96%. No nausea. No vomiting. No diarrhea. Tolerating diet. No altered mentation. No other new complaints otherwise for now. She remains on broad- spectrum antibiotics with IV Zosyn. Rest of the medications are essentially unchanged. Cardiac rhythm is still atrial fibrillation with a controlled rate. She remains on anticoagulation with Eliquis. She is also on metoprolol 50 mg p.o. twice a day. She is also on Lasix 20 mg p.o. daily. MRI of the brain was done on 05/03/2024 and it was consistent with moderate diffuse cerebral atrophy and chronic small vessel ischemic change with old infarcts involving the right frontal lobe and inferior right occipital lobe. Objective - Vital Signs Vital signs: Vital Signs Temp 98.3 F 05/04/24 08:40 Pulse 98 05/04/24 08:40 Resp 17 05/04/24 08:40 BP 118/69 05/04/24 08:40 Pulse Ox 98 05/04/24 08:40 FiO2 40 05/01/24 16:00 Intake & Output 05/03/24 05/04/24 05/04/24 18:59 06:59 18:59 Intake Total 180 Output Total 600 Balance -600 180 Weight 100.5 kg Intake: Oral 180 Output: Urine 600 Other: Voiding Method Indwelling Catheter Indwelling Catheter Indwelling Catheter # Voids 1 # Bowel Movements 1 - Exam GENERAL EXAM: Alert, 78-year-old female, on oxygen 2 L/min nasal cannula HEAD: Normocephalic. EYES: Normal reaction of pupils, equal size. NOSE: Clear with pink turbinates. THROAT: No erythema or exudates. NECK: No masses, no JVD. CHEST: No chest wall deformity. LUNGS: Equal air entry with crackles in the left lung base. CVS: S1 and S2 normal with no audible murmur, irregular rhythm consistent with atrial fibrillation ABDOMEN: No hepatosplenomegaly, normal bowel sounds, no guarding or rigidity. SPINE: No scoliosis or deformity SKIN: No rashes CENTRAL NERVOUS SYSTEM: No focal deficits, tone is normal in all 4 extremities. EXTREMITIES: There is no peripheral edema. No clubbing, no cyanosis. Peripheral pulses are intact. - Labs CBC & Chem 7: 05/02/24 02:24 05/02/24 02:24 Labs: Abnormal Lab Results - Last 24 Hours (Table) 05/03/24 05/03/24 05/04/24 Range/Units 16:19 20:10 06:06 POC Glucose (mg/dL) 168 H 133 H 122 H (70-110) mg/dL 05/04/24 Range/Units 11:11 POC Glucose (mg/dL) 124 H (70-110) mg/dL Microbiology - Last 24 Hours (Table) 04/30/24 14:27 Blood Culture - Preliminary Blood Assessment and Plan Plan: Altered mental status thought to be related to metabolic encephalopathy. Recovered. MRI of the brain showed chronic small vessel ischemic changes along with old infarct involving the right frontal and inferior occipital lobe. Acute hypoxemic respiratory failure secondary to obtundation and shallow respirations, off the BiPAP the patient is currently on 2 L of oxygen by nasal cannula. Overall respiratory status is stable Atrial fibrillation with a rapid ventricular response, improved and the patient's rate is controlled currently on metoprolol and anticoagulated with Eliquis. She has a controlled rate. Normal Echo. Possible episodes of catatonia History of depression delirium secondary to infection, improved History of congestive heart failure, repeat echocardiogram on 04/24/2024showed a preserved LV function, preserved LV is hyperdynamic with an ejection fraction of 65 to 70%, moderate to severe tricuspid regurgitation and moderate pulmonary hypertension with estimated PA pressures of 51. Hypertension long-term resident Plan: Currently on 2 L of oxygen by nasal cannula Titrate down the FiO2 as tolerated Procalcitonin negative, minimally elevated Keep the patient on Zosyn per ID service, the patient can be switched to oral antibiotics at the time of discharge MRI of the brain was noted Continue Lopressor 50 mg p.o. twice a day Continue Eliquis 5 mg p.o. twice a day Lasix 20 mg p.o. daily Involve physical therapy
--- NOTE | 2024-05-04 14:17 | P.DS ---
Providers Date of admission: 04/22/24 20:23 Attending physician: Murray Montoya MD Consults: 04/22/24 20:23 Consult Physician Routine Consulting Provider: Rebel Hickey Consult Reason/Comments: Altered mental status, possible catatonia Do you want consulting provider notified?: Yes, Notify in am Consult Physician Routine Consulting Provider: Johan Lowe Consult Reason/Comments: Altered mental status Do you want consulting provider notified?: Yes, Notify in am 04/23/24 10:05 Consult Physician Routine Consulting Provider: Markos Gustafson Consult Reason/Comments: UTI Do you want consulting provider notified?: Yes 04/29/24 09:17 Consult Physician Urgent Consulting Provider: Jared Sun Consult Reason/Comments: icu management Do you want consulting provider notified?: Already Contacted 04/29/24 12:19 Consult Physician Stat Consulting Provider: Gage Cervantes Consult Reason/Comments: AFIB RVR Do you want consulting provider notified?: Already Contacted Primary care physician: Ana Laura Cedeno DO Hospital Course: Diagnoses: Acute urinary tract infection Metabolic encephalopathy improved Acute hypoxic respiratory failure, improving Left lower lobe infiltrate suspicious for atelectasis A-fib with rate controlled History of depression and psychosis Hospital course: patient is a 78-year-old lady with past medical history significant for CKD stage III, hypertension, CHF who is currently a [facility] a [facility] brought to the ER for altered mental statu patient was found to have acute sepsis and severe infection secondary to acute urinary tract infection, she went into respiratory failure and had to be intubated because she is unable to protect her airway, she was treated in the ICU and several consultants will seen her including paper wrapping machine operator, pulmonary/critical care team, neurologist and ID team. Patient was treated with IV antibiotics with Zosyn. Also she received fluids and she showed interval improvement, eventually patient extubated and sent to the general medical floor. Patient continued to improve slowly and gradually. On the day of discharge patient is awake alert, still slightly drowsy and encephalopathic but significantly improved and stable. She denies any chest pain or dyspnea. No other GI/ any symptoms but she is generally weak. Patient was cleared for discharge by all consultants including paper wrapping machine operator, neurologist, marketing editor and ID team Patient will be switched to oral antibiotics for short course per ID team recommendation, please refer to the discharge instructions Problems and management plan were discussed with the patient and he verbalized understanding and acceptance Patient was found stable and can be discharged home in guarded prognosis however he needs follow-up as an outpatient. Patient was instructed to follow up with PCP within one week and patient agrees Patient recommended to follow-up with Dr. Ramey in 2 weeks, paper wrapping machine operator Dr. Cervantes in 2 weeks, surgeon Dr. Martinez in 2 weeks Physical exam Gen: patient is a AAOx3, no distress CVS: S1-S2, RRR, no murmur Lungs: B/L CTA, no wheezing Abdomen: soft, no distention, no tenderness, positive bowel sounds Extremity: no leg edema or induration Time spent more than 35 minutes Patient Condition at Discharge: Stable Plan - Discharge Summary New Discharge Prescriptions: New Moxifloxacin HCl [Avelox] 400 mg PO DAILY #5 tab No Action Acetaminophen Tab [Tylenol Tab] 1,000 mg PO BID guaiFENesin [guaiFENesin ER] 600 mg PO Q12H Potassium Chloride ER [K-Dur 20] 20 meq PO DAILY Apixaban [Eliquis] 5 mg PO BID Loratadine 10 mg PO DAILY Latanoprost [Latanoprost 0.005%] 1 drop BOTH EYES HS@2000 Atorvastatin [Lipitor] 10 mg PO HS@2000 Acetaminophen [Tylenol 8 Hour] 650 mg PO Q6H PRN PRN Reason: Mild Pain (Scale 1 To 3) Tramadol 100mg 100 mg PO BID PRN PRN Reason: Pain Calcium Carbonate [Tums] 500 mg PO TID PRN PRN Reason: Indigestion Ondansetron [Zofran] 4 mg PO Q6H PRN PRN Reason: Nausea Naloxone HCl [Narcan] 4 mg NASAL ONCE PRN PRN Reason: opiod overdose Naloxone HCl 0.4 mg IM DIRECTED PRN PRN Reason: opiod overdose Fluticasone Nasal Buckley [Flonase Nasal Buckley] 1 spr EA NOSTRIL BID PRN PRN Reason: Allergy Symptoms Diltiazem Oral [Cardizem Oral] 60 mg PO Q6H Magnesium Oxide [Mag-Ox] 400 mg PO HS@2000 Levothyroxine Sodium [Synthroid] 112 mcg PO DAILY@0500 Furosemide [Lasix] 20 mg PO DAILY allopurinoL 200 mg PO DAILY Dapagliflozin Propanediol [Farxiga] 10 mg PO DAILY Discharge Medication List Acetaminophen Tab [Tylenol Tab] 1,000 mg PO BID 04/22/24 [History] Acetaminophen [Tylenol 8 Hour] 650 mg PO Q6H PRN 04/22/24 [History] Apixaban [Eliquis] 5 mg PO BID 04/22/24 [History] Atorvastatin [Lipitor] 10 mg PO HS@199904/22/24 [History] Calcium Carbonate [Tums] 500 mg PO TID PRN 04/22/24 [History] Dapagliflozin Propanediol [Farxiga] 10 mg PO DAILY 04/22/24 [History] Furosemide [Lasix] 20 mg PO DAILY 04/22/24 [History] Latanoprost [Latanoprost 0.005%] 1 drop BOTH EYES HS@199904/22/24 [History] Levothyroxine Sodium [Synthroid] 112 mcg PO DAILY@0500 04/22/24 [History] Loratadine 10 mg PO DAILY 04/22/24 [History] Magnesium Oxide [Mag-Ox] 400 mg PO HS@199904/22/24 [History] Naloxone HCl 0.4 mg IM DIRECTED PRN 04/22/24 [History] Naloxone HCl [Narcan] 4 mg NASAL ONCE PRN 04/22/24 [History] Ondansetron [Zofran] 4 mg PO Q6H PRN 04/22/24 [History] Potassium Chloride ER [K-Dur 20] 20 meq PO DAILY 04/22/24 [History] allopurinoL 200 mg PO DAILY 04/22/24 [History] guaiFENesin [guaiFENesin ER] 600 mg PO Q12H 04/22/24 [History] Cholestyramine (with Sugar) [Questran Packet] 4 gm PO BID@1000,1800 PRN packet 05/04/24 [Rx] Folic Acid 1 mg PO DAILY tab 05/04/24 [Rx] Metoprolol Tartrate [Lopressor] 50 mg PO BID tab 05/04/24 [Rx] Moxifloxacin HCl [Avelox] 400 mg PO DAILY #5 tab 05/04/24 [Rx] Omeprazole [PriLOSEC] 20 mg PO AC-BRKFST #15 cap 05/04/24 [Rx] Follow up Appointment(s)/Referral(s): [place],Ana Laura L, DO [Primary Care Provider] - 1-2 days
--- NOTE | 2024-05-06 12:51 | P.PN ---
Subjective Progress Note Date: 05/04/24 Principal diagnosis: Reason for follow-up is aspiration pneumonia Patient is a 78-year-old female with a past medical history significant for hypertension hyperlipidemia CVA TIA heart failure and atrial fibrillation patient was brought into the hospital from the local care home for evaluation of mental status, patient have elevated white count positive UA concerning for urinary tract infection. On today's evaluation that is 05/04/2024,the patient denies any fever or any chills, patient is breathing comfortably on 2 L current oxygen, the patient denies chest pain shortness of breath and no significant cough, patient denies abdominal pain, no nausea vomiting or diarrhea.. No new lab has been obtained today blood culture has been negative Objective - Vital Signs Vital signs: Vital Signs Temp 98.3 F 05/04/24 08:40 Pulse 98 05/04/24 08:40 Resp 17 05/04/24 08:40 BP 118/69 05/04/24 08:40 Pulse Ox 98 05/04/24 08:40 FiO2 40 05/01/24 16:00 Intake & Output 05/03/24 05/04/24 05/04/24 18:59 06:59 18:59 Intake Total 180 Output Total 600 Balance -600 180 Weight 100.5 kg Intake: Oral 180 Output: Urine 600 Other: Voiding Method Indwelling Catheter Indwelling Catheter Indwelling Catheter # Voids 1 # Bowel Movements 1 - Exam GENERAL DESCRIPTION: An elderly female lying in bed in no distress RESPIRATORY SYSTEM: Unlabored breathing , decreased breath sounds at bases HEART: S1 S2 regular rate and rhythm , ABDOMEN: Soft , no tenderness EXTREMITIES: No edema feet - Labs CBC & Chem 7: 05/02/24 02:24 05/02/24 02:24 Labs: Abnormal Lab Results - Last 24 Hours (Table) 05/03/24 05/03/24 05/04/24 Range/Units 16:19 20:10 06:06 POC Glucose (mg/dL) 168 H 133 H 122 H (70-110) mg/dL Microbiology - Last 24 Hours (Table) 04/30/24 14:27 Blood Culture - Preliminary Blood Assessment and Plan (1) Leukocytosis Status: Acute Code(s): D72.829 - ELEVATED WHITE BLOOD CELL COUNT, UNSPECIFIED SNOMED Code(s): 915693816 (2) Urinary tract infection Status: Acute Code(s): N39.0 - URINARY TRACT INFECTION, SITE NOT SPECIFIED SNOMED Code(s): 29879171 Plan: 1patient presented to hospital with mental status changes in this patient who did have a elevated white count positive UA concerning for symptomatic UTI likely from to the gram-negative pathogen currently no other obvious focus of infection with his elevated white count there was question of possible pneumonia however the patient is breathing comfortably on room air clinically doubt pneumonia 2patient did have significant change in her clinical condition requiring transfer to the ICU patient CT of the brain neck concerning for hyperdense lesion along the base again concerning for stroke possible MRI when respiratory status improves as reported by the patient nurse 3patient with left basilar infiltrate consolidation concerning for possible aspiration pneumonitis, blood cultures are so far negative sputum not collected patient has shown clinical pulmonary Zosyn she will finish therapy with oral Avelox discussed with the admitting physician working on discharge Dictation was produced using [employer] dictation software. please excuse any grammatical, word or spelling errors. Time with Patient: Less than 30
== END 2024-05-04 20:53 | DRG 871 ==
LOC: EC 15:58 → 3SCARD 20:23 → 5NMEDONC 04-24 12:18 → 2SICU 04-29 08:21 → 3SCARD 05-02 16:10
PROVIDERS: ADMIT Internal Medicine; ATTEND Internal Medicine
PROC: 5A09457 Assistance with Respiratory Ventilation, 24-96 Consecutive Hours, Continuous Positive Airway Pressure (ICD-10-PCS; principal; 2024-04-29)
PROC: 3E033RZ Introduction of Antiarrhythmic into Peripheral Vein, Percutaneous Approach (ICD-10-PCS; 2024-04-29)
DX: A41.9 Sepsis, unspecified organism (principal); G93.41 Metabolic encephalopathy; J96.01 Acute respiratory failure with hypoxia; N39.0 Urinary tract infection, site not specified; I48.21 Permanent atrial fibrillation; J98.11 Atelectasis; I50.32 Chronic diastolic (congestive) heart failure; I13.0 Hypertensive heart and chronic kidney disease with heart failure and stage 1 through stage 4 chronic kidney disease, or unspecified chronic kidney disease; R47.01 Aphasia; F05 Delirium due to known physiological condition; Z68.41 Body mass index [BMI] 40.0-44.9, adult; F32.A Depression, unspecified; N18.30 Chronic kidney disease, stage 3 unspecified; E11.22 Type 2 diabetes mellitus with diabetic chronic kidney disease; E78.5 Hyperlipidemia, unspecified; I45.10 Unspecified right bundle-branch block; E66.9 Obesity, unspecified; E03.9 Hypothyroidism, unspecified; I27.20 Pulmonary hypertension, unspecified; I07.1 Rheumatic tricuspid insufficiency; Z79.899 Other long term (current) drug therapy; Z79.890 Hormone replacement therapy; Z88.5 Allergy status to narcotic agent; Z86.73 Personal history of transient ischemic attack (TIA), and cerebral infarction without residual deficits
CPT/HCPCS: 36415; 36600; 70450; 70496; 70498; 70551; 71045; 71275; 74176; 80048; 80053; 80061; 80143; 80179; 81001; 82140; 82607; 82746; 82805; 83036; 83605; 83690; 83735; 84132; 84145; 84443; 84484; 85025; 85027; 85610; 85730; 86140; 87040; 87324; 87636; 93005; 93306; 94660; 95816; 96361; 96365; 96366; 96367; 96375; 96376; 99291

== ENCOUNTER 2024-05-14 11:55 | Inpatient (IN) | payer MEDICARE, OTHER ==
[2024-05-14] MEDS ORDERED: VANCOMYCIN IV PER PHARMACY 1 EACH MISC MISCELLANE PRN (12:32)
--- NOTE | 2024-05-14 12:50 | ED ---
General Adult HPI - General Chief complaint: Recheck/Abnormal Lab/Rx Stated complaint: poss sepsis Time Seen by Provider: 05/14/24 11:58 Source: patient, EMS Mode of arrival: EMS Limitations: no limitations - History of Present Illness Initial comments: Patient is an 78-year-old female presenting today for A-fib with RVR noted at her facility. Patient presents from the [facility] when a nurse "heard her to be in A-fib with RVR". History is limited as patient is oriented to self only and tells me she has no complaints. RN did note that patient's temperature at [facility] was reportedly be 97 degrees oral, per EMS was 100.1 degrees and here 99.1 degrees. Per review of patient's medical list she has not received Tylenol today. - Related Data Home Medications Medication Instructions Recorded Confirmed Acetaminophen Tab [Tylenol] 1,000 mg PO BID 04/22/24 05/14/24 Acetaminophen [Tylenol 8 Hour] 650 mg PO Q6H PRN 04/22/24 05/14/24 Apixaban [Eliquis] 5 mg PO BID 04/22/24 05/14/24 Atorvastatin [Lipitor] 10 mg PO HS@199904/22/24 05/14/24 Calcium Carbonate [Tums] 500 mg PO TID PRN 04/22/24 05/14/24 Dapagliflozin Propanediol [Farxiga] 10 mg PO DAILY@0600 04/22/24 05/14/24 Furosemide [Lasix] 20 mg PO DAILY@0600 04/22/24 05/14/24 Latanoprost [Latanoprost 0.005%] 1 drop BOTH EYES HS@199904/22/24 05/14/24 Loratadine 10 mg PO DAILY@0604/22/24 05/14/24 Magnesium Oxide [Mag-Ox] 400 mg PO DAILY@1400 04/22/24 05/14/24 Potassium Chloride ER [K-Dur 20] 20 meq PO DAILY@0600 04/22/24 05/14/24 allopurinoL 200 mg PO DAILY@0700 04/22/24 05/14/24 Cephalexin [Keflex] 500 mg PO BID@0700,1900 05/14/24 05/14/24 Cholestyramine (with Sugar) 4 gm PO BID PRN 05/14/24 05/14/24 [Questran Packet] Folic Acid 0.8 mg PO DAILY@1400 05/14/24 05/14/24 Levothyroxine Sodium [Synthroid] 125 mcg PO DAILY@0500 05/14/24 05/14/24 Mag Hydrox/Aluminum Hyd/Simeth 10 ml PO Q4H PRN 05/14/24 05/14/24 [Mylanta Maximum Strength Liq] Omeprazole [PriLOSEC] 20 mg PO DAILY@0600 05/14/24 05/14/24 Previous Rx's Medication Instructions Recorded Metoprolol Tartrate [Lopressor] 50 mg PO BID tab 05/04/24 Allergies Allergy/AdvReac Type Severity Reaction Status Date / Time morphine AdvReac Unknown Verified 05/14/24 13:19 Review of Systems ROS Statement: Those systems with pertinent positive or pertinent negative responses have been documented in the HPI. ROS Other: All systems not noted in ROS Statement are negative. Limitations: ROS unobtainable due to patients medical condition Past Medical History Past Medical History: Unable to Obtain, Atrial Fibrillation, Heart Failure, CVA/TIA, Hyperlipidemia, Hypertension, Renal Disease, Thyroid Disorder Additional Past Medical History / Comment(s): brain bleed from fall History of Any Multi-Drug Resistant Organisms: None Reported Past Surgical History: Unable to Obtain, Joint Replacement Past Psychological History: No Psychological Hx Reported Smoking Status: Unknown if ever smoked General Exam - General Exam Comments Initial Comments: PE: CONSTITUTIONAL: No apparent distress, chronically ill-appearing, awake and alert SKIN: Warm, dry, no jaundice, hives or petechiae EYES: Pupils are equally round, extraocular movements intact without nystagmus, clear conjunctiva, non-icteric sclera HENT: Normocephalic, atraumatic, moist mucus membranes, oropharynx clear without exudates NECK: , Full range of motion, normal appearance PULMONARY: Rhonchi rales and crackles throughout the left lung field and right lower lung field, no wheezes or stridor, no accessory muscle use, normal excursion CARDIOVASCULAR: Irregularly irregular rhythm, tachycardia normal S1 and S2. No appreciated murmurs, rubs or gallops. Strong radial pulses with intact distal perfusion. 2-3+ bilateral lower extremity edema GASTROINTESTINAL: Soft, active bowel sounds throughout, minimally tender to palpation in the suprapubic region, otherwise, non-distended, no palpable mass es, no rebound or guarding. No hepatosplenomegaly MUSCULOSKELETAL: Extremities are atraumatic NEUROLOGIC:_a/o x 1 believe she is at the [facility], believes it is 2002, GCS 14, patient is conversant, speech is clear moves all extremities x 4 without motor or sensory deficit PSYCHIATRIC:_normal mood and affect, thought process is linear Limitations: no limitations Course Vital Signs 05/14/24 05/14/24 05/14/24 11:57 12:07 12:50 Temperature 99.1 F 100.4 F H Pulse Rate 141 H Respiratory 20 20 Rate Blood Pressure 109/47 O2 Sat by Pulse 97 Oximetry 05/14/24 05/14/24 05/14/24 13:00 13:30 13:55 Temperature Pulse Rate 134 H 129 H 115 H Respiratory 25 H 20 20 Rate Blood Pressure 92/68 110/84 107/40 O2 Sat by Pulse 97 Oximetry 05/14/24 05/14/24 05/14/24 14:00 14:30 15:00 Temperature Pulse Rate 105 H 137 H 121 H Respiratory 22 20 18 Rate Blood Pressure 107/40 90/42 O2 Sat by Pulse 97 97 96 Oximetry 05/14/24 05/14/24 05/14/24 15:30 16:00 16:30 Temperature Pulse Rate 129 H 105 H 121 H Respiratory 13 22 32 H Rate Blood Pressure 104/79 100/87 O2 Sat by Pulse Oximetry 05/14/24 05/14/24 17:00 17:30 Temperature 98.3 F Pulse Rate 104 H 101 H Respiratory 29 H 22 Rate Blood Pressure 110/66 O2 Sat by Pulse Oximetry - Reevaluation(s) Reevaluation #1: Patient reassessed by myself her heart rate has improved status post 500 cc LR bolus, varying between 105-120 however blood pressure is 90/55 with a MAP of 55. Patient's BNP is elevated at 13,900 and does appear peripherally fluid overloaded however due to persistent hypotension we will do an LR infusion at 100 cc an hour to continue to fluid resuscitate. At this point due to CHF and improving heart rate with fluids and fever control further rate control medications will be withheld. 05/14/24 14:50 05/15/24 18:58 Reevaluation #2: Case discussed with Dr. Church, kindly accepts patient for admission for admission. Reassessed patient, blood pressure has improved to 104/79 with a MAP of 87 however heart rate has increased between 120 and 140. At this point we will give amiodarone bolus and drip to control rate. 05/14/24 15:21 05/15/24 18:58 EKG Findings - EKG Comments: EKG Findings:: A-fib with RVR, rate 140 bpm, intervals within normal limits, left axis deviation, right bundle verna block present, questionable [address] depression in lead I, otherwise no significant ST depressions or elevations. Compared to EKG performed on 04/22/2024, half millimeter ST depression in lead I does appear somewhat different from prior EKG however there is artifact present limiting interpretation, otherwise no significant changes from prior no new ST elevations Medical Decision Making - Medical Decision Making Was pt. sent in by a medical professional or institution (, PA, REGULATORY LAW SPECIALIST, urgent care, hospital, or usp...) When possible be specific @Patient was sent in by the [facility] Did you speak to anyone other than the patient for history (EMS, parent, family, police, friend...)? What history was obtained from this source @ -No Did you review nursing and triage notes (agree or disagree)? Why? @ -I reviewed nursing and triage notes Were old charts reviewed (outside hosp., previous admission, EMS record, old EKG, old radiological studies, urgent care reports/EKG's, usp records)? Report findings @ -Medical records reviewed reviewed the EEG performed on 05/02/24 showed abnormal EEG with mild background slowing superimposed focal bitemporal slowing, suggestive of mild cephalopathy, cortical neuronal dysfunction no seizure or epileptiform activity, additionally reviewed patient's medication list from her transfer facility and discharge summary from her most recent admission for which she was admitted for acute encephalopathy and required an extensive inpatient stay Differential Diagnosis (chest pain, altered mental status, abdominal pain women, abdominal pain men, vaginal bleeding, weakness, fever, dyspnea, syncope, headache, dizziness, GI bleed, back pain, seizure, CVA, palpatations, mental health, musculoskeletal)? @Differential Fever: Pneumonia, viral URI, endocarditis, myocarditis, pericarditis, sinusitis, diverticulitis, colitis, UTI, thyroid storm, pancreatitis, adrenal crisis this is not meant to be an all-inclusive list. EKG interpreted by me (3pts min.). @ -As above X-rays interpreted by me (1pt min.). @ -Cardiomegaly and bilateral LL pulmonary edema CT interpreted by me (1pt min.). @ -None done U/S interpreted by me (1pt. min.). @ -None done What testing was considered but not performed or refused? (CT, X-rays, U/S, labs)? Why? @ -None What meds were considered but not given or refused? Why? @ -None Did you discuss the management of the patient with other professionals (professionals i.e. Dr., PA, REGULATORY LAW SPECIALIST, lab, RT, psych nurse, psychosocial rehabilitation counselor, operations and maintenance technician, teacher, contracting officer, ed case manager)? Give summary @ -No Was smoking cessation discussed for >3mins.? @ -No Was critical care preformed (if so, how long)? @Yes 45 minutes Were there social determinants of health that impacted care today? How? (Homelessness, low income, unemployed, alcoholism, drug addiction, transportation, low edu. Level, literacy, decrease access to med. care, group home, rehab)? @ -No Was there de-escalation of care discussed even if they declined (Discuss DNR or withdrawal of care, Hospice)? @ -No What co-morbidities impacted this encounter? (DM, HTN, Smoking, COPD, CAD, Cancer, CVA, ARF, Chemo, Hep., AIDS, mental health diagnosis, sleep apnea, morbid obesity)? @Obesity, atrial fibrillation, CHF, prior CVA, HTN, HLD Was patient admitted / discharged? Hospital course, mention meds given and route, prescriptions, significant lab abnormalities, going to OR and other pertinent info. @Admission- patient is an 78-year-old male with female with an extensive past medical history including atrial fibrillation,CHF, prior CVA, hypertension, hyperlipidemia, thyroid disorder presenting today for A-fib with RVR. Patient fborderline febrile for EMS with temp 100.1 degrees. On arrival patient is indeed in A-fib with RVR, blood pressure 100s over 50s however MAP of 49, oral temp 99.1, rectal temp 100.4 degrees. She does have rhonchi and rales in the left lung field and right lower lung field, she herself has no complaints but is normally only oriented x 1. Actually saw this patient when she was admitted previously in 04/22/2024 and her mentation today is improved from prior. At this point out of concern that patient's heart rate is driven by fever and infection I will hold off on directly treating A-fib with RVR and start by treating patient's fever, patient will be given 500 cc fluid bolus and full 30 cc/kg bolus will be withheld at this time due to history of CHF and patient does appear overall volume overloaded, cefepime vancomycin ordered out of concern for UTI as source of fever, comprehensive labs, blood culture, lactic. Of note, patient's RN was able to call patient's daughter who confirmed that patient is currently at her baseline mental status. Workup significant for BNP 13,900, patient remained in A-fib with RVR with hypotension that subsequent improved with small fluid bolus. Rate did mildly improve after fluids and fever control as well however she did remain tachycardic so an amiodarone bolus and drip were ordered. Case was discussed w tim Church, kindly accepts patient for admission. On initial discussion with Dr. Church patient had a MAP of 55 however after my discussion with him patient's MAP improved into the 80 and she remained hemodynamically stable for admission to stepdown. Additionally, of note patient influenza A positive which would explain her fever and tachycardia with a normal urinalysis and no focal consolidation on chest x-ray. Undiagnosed new problem with uncertain prognosis? @ -No Drug Therapy requiring intensive monitoring for toxicity (Heparin, Nitro, Insulin, Cardizem)? @ -No Were any procedures done? @ -No Diagnosis/symptom? @Influenza A, CHF exacerbation,Sepsis, atrial fibrillation with RvR Acute, or Chronic, or Acute on Chronic? @Acute Uncomplicated (without systemic symptoms) or Complicated (systemic symptoms)? @complicated Side effects of treatment? @ -No Exacerbation, Progression, or Severe Exacerbation? @ CHF exacerbation Poses a threat to life or bodily function? How? (Chest pain, USA, ND, pneumonia, PE, COPD, DKA, ARF, appy, cholecystitis, CVA, Diverticulitis, Homicidal, Suicida l, threat to staff... and all critical care pts) @Yes - Lab Data Result diagrams: 05/15/24 07:17 05/15/24 07:17 Lab Results 05/14/24 05/14/24 05/14/24 Range/Units 12:48 12:48 12:48 WBC 10.2 (3.8-10.6) k/uL RBC 3.95 (3.80-5.40) m/uL Hgb 11.8 (11.4-16.0) gm/dL Hct 36.7 (34.0-46.0) % MCV 93.0 (80.0-100.0) fL MCH 29.8 (25.0-35.0) pg MCHC 32.0 (31.0-37.0) g/dL RDW 14.7 (11.5-15.5) % Plt Count 316 (150-450) k/uL MPV 7.4 Neutrophils % 70 % Lymphocytes % 24 % Monocytes % 5 % Eosinophils % 0 % Basophils % 0 % Neutrophils # 7.1 (1.3-7.7) k/uL Lymphocytes # 2.4 (1.0-4.8) k/uL Monocytes # 0.5 (0-1.0) k/uL Eosinophils # 0.0 (0-0.7) k/uL Basophils # 0.0 (0-0.2) k/uL Hypochromasia Slight PT 11.8 (10.0-12.5) sec INR 1.1 (<1.2) APTT 29.6 (22.0-30.0) sec Sodium (137-145) mmol/L Potassium (3.5-5.1) mmol/L Chloride (98-107) mmol/L Carbon Dioxide (22-30) mmol/L Anion Gap mmol/L BUN (7-17) mg/dL Creatinine (0.52-1.04) mg/dL Est GFR (CKD-EPI)AfAm (>60 ml/min/1.73 sqM) Est GFR (CKD-EPI)NonAf (>60 ml/min/1.73 sqM) Glucose (74-99) mg/dL Plasma Lactic Acid Joes D (0.7-2.0) mmol/L Calcium (8.4-10.2) mg/dL Total Bilirubin (0.2-1.3) mg/dL AST (14-36) U/L ALT (4-34) U/L Alkaline Phosphatase (38-126) U/L Troponin I (0.000-0.034) ng/mL NT-Pro-B Natriuret Pep pg/mL Total Protein (6.3-8.2) g/dL Albumin (3.5-5.0) g/dL Lipase (23-300) U/L Procalcitonin (0.02-0.50) ng/mL TSH (0.465-4.680) mIU/L Urine Color Yellow Urine Appearance Clear (Clear) Urine pH 5.5 (5.0-8.0) Ur Specific Slater 1.024 (1.001-1.035) Urine Protein Trace H (Negative) Urine Glucose (UA) 3+ H (Negative) Urine Ketones Negative (Negative) Urine Blood Negative (Negative) Urine Nitrite Negative (Negative) Urine Bilirubin Negative (Negative) Urine Urobilinogen 2.0 (<2.0) mg/dL Ur Leukocyte Esterase Negative (Negative) Influenza Type A (PCR) (Not Detectd) Influenza Type B (PCR) (Not Detectd) RSV (PCR) (Not Detectd) SARS-CoV-2 (PCR) (Not Detectd) 05/14/24 05/14/24 05/14/24 Range/Units 12:48 12:48 12:48 WBC (3.8-10.6) k/uL RBC (3.80-5.40) m/uL Hgb (11.4-16.0) gm/dL Hct (34.0-46.0) % MCV (80.0-100.0) fL MCH (25.0-35.0) pg MCHC (31.0-37.0) g/dL RDW (11.5-15.5) % Plt Count (150-450) k/uL MPV Neutrophils % % Lymphocytes % % Monocytes % % Eosinophils % % Basophils % % Neutrophils # (1.3-7.7) k/uL Lymphocytes # (1.0-4.8) k/uL Monocytes # (0-1.0) k/uL Eosinophils # (0-0.7) k/uL Basophils # (0-0.2) k/uL Hypochromasia PT (10.0-12.5) sec INR (<1.2) APTT (22.0-30.0) sec Sodium 136 L (137-145) mmol/L Potassium 5.0 (3.5-5.1) mmol/L Chloride 99 (98-107) mmol/L Carbon Dioxide 35 H (22-30) mmol/L Anion Gap 2 mmol/L BUN 17 (7-17) mg/dL Creatinine 0.75 (0.52-1.04) mg/dL Est GFR (CKD-EPI)AfAm 87 (>60 ml/min/1.73 sqM) Est GFR (CKD-EPI)NonAf 76 (>60 ml/min/1.73 sqM) Glucose 94 (74-99) mg/dL Plasma Lactic Acid Jose D 1.0 (0.7-2.0) mmol/L Calcium 9.2 (8.4-10.2) mg/dL Total Bilirubin 0.2 (0.2-1.3) mg/dL AST 28 (14-36) U/L ALT 13 (4-34) U/L Alkaline Phosphatase 76 (38-126) U/L Troponin I 0.050 H* (0.000-0.034) ng/mL NT-Pro-B Natriuret Pep 99697 pg/mL Total Protein 5.3 L (6.3-8.2) g/dL Albumin 2.9 L (3.5-5.0) g/dL Lipase 38 (23-300) U/L Procalcitonin (0.02-0.50) ng/mL TSH 4.390 (0.465-4.680) mIU/L Urine Color Urine Appearance (Clear) Urine pH (5.0-8.0) Ur Specific Slater (1.001-1.035) Urine Protein (Negative) Urine Glucose (UA) (Negative) Urine Ketones (Negative) Urine Blood (Negative) Urine Nitrite (Negative) Urine Bilirubin (Negative) Urine Urobilinogen (<2.0) mg/dL Ur Leukocyte Esterase (Negative) Influenza Type A (PCR) (Not Detectd) Influenza Type B (PCR) (Not Detectd) RSV (PCR) (Not Detectd) SARS-CoV-2 (PCR) (Not Detectd) 05/14/24 05/14/24 05/14/24 Range/Units 12:48 12:48 13:54 WBC (3.8-10.6) k/uL RBC (3.80-5.40) m/uL Hgb (11.4-16.0) gm/dL Hct (34.0-46.0) % MCV (80.0-100.0) fL MCH (25.0-35.0) pg MCHC (31.0-37.0) g/dL RDW (11.5-15.5) % Plt Count (150-450) k/uL MPV Neutrophils % % Lymphocytes % % Monocytes % % Eosinophils % % Basophils % % Neutrophils # (1.3-7.7) k/uL Lymphocytes # (1.0-4.8) k/uL Monocytes # (0-1.0) k/uL Eosinophils # (0-0.7) k/uL Basophils # (0-0.2) k/uL Hypochromasia PT (10.0-12.5) sec INR (<1.2) APTT (22.0-30.0) sec Sodium (137-145) mmol/L Potassium (3.5-5.1) mmol/L Chloride (98-107) mmol/L Carbon Dioxide (22-30) mmol/L Anion Gap mmol/L BUN (7-17) mg/dL Creatinine (0.52-1.04) mg/dL Est GFR (CKD-EPI)AfAm (>60 ml/min/1.73 sqM) Est GFR (CKD-EPI)NonAf (>60 ml/min/1.73 sqM) Glucose (74-99) mg/dL Plasma Lactic Acid Jose D (0.7-2.0) mmol/L Calcium (8.4-10.2) mg/dL Total Bilirubin (0.2-1.3) mg/dL AST (14-36) U/L ALT (4-34) U/L Alkaline Phosphatase (38-126) U/L Troponin I (0.000-0.034) ng/mL NT-Pro-B Natriuret Pep 51720 pg/mL Total Protein (6.3-8.2) g/dL Albumin (3.5-5.0) g/dL Lipase (23-300) U/L Procalcitonin 0.93 H (0.02-0.50) ng/mL TSH (0.465-4.680) mIU/L Urine Color Urine Appearance (Clear) Urine pH (5.0-8.0) Ur Specific Slater (1.001-1.035) Urine Protein (Negative) Urine Glucose (UA) (Negative) Urine Ketones (Negative) Urine Blood (Negative) Urine Nitrite (Negative) Urine Bilirubin (Negative) Urine Urobilinogen (<2.0) mg/dL Ur Leukocyte Esterase (Negative) Influenza Type A (PCR) Detected A (Not Detectd) Influenza Type B (PCR) Not Detected (Not Detectd) RSV (PCR) Not Detected (Not Detectd) SARS-CoV-2 (PCR) Not Detected (Not Detectd) Disposition Clinical Impression: Sepsis, Influenza A Disposition: ADMITTED IP TO THIS HOSP Condition: Stable
[2024-05-14 13:03] LABS: Basophils % (A) 0 %; Eosinophils % (A) 0 %; HCT 36.7 % (34.0-46.0); HGB 11.8 gm/dL (11.4-16.0); Hypochromasia Slight; Lymphocytes # (A) 2.4 k/uL (1.0-4.8); Lymphocytes % (A) 24 %; MCH 29.8 pg (25.0-35.0); Mean Platelet Volume 7.4; Monocytes # (A) 0.5 k/uL (0-1.0); Monocytes % (A) 5 %; Neutrophils # (A) 7.1 k/uL (1.3-7.7); Neutrophils % (A) 70 %; Platelet Count 316 k/uL (150-450); RBC 3.95 m/uL (3.80-5.40); RDW 14.7 % (11.5-15.5); WBC 10.2 k/uL (3.8-10.6)
[2024-05-14 13:04] LABS: Appearance,Urine Clear (Clear); Bilirubin,Urine Negative (Negative); Blood,Urine Negative (Negative); Color,Urine Yellow; Glucose,Urine (UA) 3+ (Negative); Ketones,Urine Negative (Negative); Leukocyte Esterase,Urine Negative (Negative); Nitrite,Urine Negative (Negative); PH, Urine 5.5 (5.0-8.0); Protein,Urine Trace (Negative); Specific Gravity,Urine 1.024 (1.001-1.035)
[2024-05-14] MEDS: ACETAMINOPHEN TAB 500 MG TAB PO STA (13:06)
[2024-05-14] MEDS: LACTATED RINGERS 1,000 ML BAG IV STA (13:07)
[2024-05-14] MEDS: CEFEPIME 2 GM in SODIUM CHLORIDE 0.9% 100 ML IVPB STA (13:07)
[2024-05-14 13:20] LABS: INR 1.1 (<1.2); Partial Thromboplastin Time 29.6 sec (22.0-30.0); Prothrombin Time 11.8 sec (10.0-12.5)
[2024-05-14 13:22] LABS: ALT 13 U/L (4-34); AST 28 U/L (14-36); African American GFR (CKD) 87 (>60 ml/min/1.73 sqM); Albumin 2.9 g/dL (3.5-5.0); Alkaline Phosphatase 76 U/L (38-126); Anion Gap 2 mmol/L; Blood Urea Nitrogen 17 mg/dL (7-17); Calcium 9.2 mg/dL (8.4-10.2); Carbon Dioxide 35 mmol/L (22-30); Chloride 99 mmol/L (98-107); Glucose 94 mg/dL (74-99); Lipase 38 U/L (23-300); Non-African American GFR(CKD) 76 (>60 ml/min/1.73 sqM); Sodium 136 mmol/L (137-145); Total Bilirubin 0.2 mg/dL (0.2-1.3); Total Protein 5.3 g/dL (6.3-8.2)
[2024-05-14 13:28] LABS: NT-Pro-B-Type Natriuretic Pept 13900 pg/mL
[2024-05-14] MEDS: VANCOMYCIN 1,500 MG in SODIUM CHLORIDE 0.9% 500 ML 500 ML IVPB ONE (13:59)
--- NOTE | 2024-05-14 14:16 | XR ---
EXAMINATION TYPE: XR chest 2V DATE OF EXAM: 05/14/2024 1:44 PM COMPARISON: Chest radiographs from 05/01/2023 CLINICAL INDICATION: Female, 78 years old with history of Fever; [facility] TECHNIQUE: XR chest 2V Frontal and lateral views of the chest. FINDINGS: Lungs/Pleura: There is no evidence of pleural effusion, focal consolidation, or pneumothorax. Pulmonary vascularity: Unremarkable. Heart/mediastinum: Cardiomediastinal silhouette is unremarkable. Musculoskeletal: No acute osseous pathology. IMPRESSION: No acute cardiopulmonary disease/process. [facility], , 05/14/2024 2:14 PM
[2024-05-14] MEDS ORDERED: DEXTROSE 5% IN WATER 100 ML with AMIODARONE 150 MG IV ONE (15:23)
[2024-05-14 15:30] LABS: Influenza A Detected (Not Detectd); Influenza B Not Detected (Not Detectd); RSV Not Detected (Not Detectd)
[2024-05-14] MEDS: DEXTROSE 5% IN WATER 100 ML with AMIODARONE 150 MG IV ONE (15:47)
[2024-05-14] MEDS: LACTATED RINGERS 500 ML IV ONE (15:49)
[2024-05-14] MEDS: MAG HYDROX/AL HYDROX/SIMETH 30 ML CUP PO STA (15:50)
[2024-05-14] MEDS: AMIODARONE 360 MG in DEXTROSE 5% IN WATER 200 ML IV ONE (16:01)
[2024-05-14] MEDS: MIDODRINE 5 MG TAB PO ONE (16:01)
[2024-05-14] MEDS ORDERED: NALOXONE 0.4 MG/ML 1 ML VIAL IV PRN (16:30)
[2024-05-14] MEDS ORDERED: CALCIUM CARBONATE 500 MG CHEWABLE PO PRN (16:35)
[2024-05-14] MEDS ORDERED: MAG HYDROX/AL HYDROX/SIMETH 30 ML CUP PO PRN (16:35)
[2024-05-14] MEDS: LORazepam 2 MG/ML INJ IV STA (17:06)
--- NOTE | 2024-05-14 18:25 | CT ---
EXAMINATION TYPE: CT ChestAbdPelvis w con DATE OF EXAM: 05/14/2024 5:56 PM COMPARISON: 04/29/2024 CLINICAL INDICATION: Female, 78 years old with history of fever, possible sepsis; PHH, Fever, abdomin al tenderness, full body pain. Technique: CT ChestAbdPelvis w con; Multiple axial images were obtained. Two-dimensional coronal and sagittal reconstructions were obtained. Contrast used:100 mL of Isovue 300 with IV Contrast, (None if empty) Oral contrast used: without Oral Contrast CT DLP: 2359.8 mGycm, Automated exposure control for dose reduction was used. Findings: CHEST: LUNGS/ PLEURA: Trace bilateral pleural effusions. Left greater than right. There is associated atelec tasis. Left lower lung air bronchograms consolidation. AIRWAY: A few opacified large airways in the left lower lung extending to the area of consolidation. HEART: Cardiomegaly is demonstrated.Atherosclerosis of the arterial vasculature. MEDIASTINUM: No gross evidence of adenopathy. VASCULATURE: No aortic aneurysm. MUSCULOSKELETAL: No acute osseous abnormalities. SOFT TISSUES/LYMPH NODES: Unremarkable. LOWER NECK: No significant findings. ABDOMEN: ABDOMEN LIVER: Unremarkable GALLBLADDER AND BILE DUCTS: The gallbladder is surgically absent. PANCREAS: Unremarkable. SPLEEN: Unremarkable. ADRENAL GLANDS: Unremarkable. KIDNEYS AND URETERS: No evidence of hydronephrosis or renal calculus. The ureters are unremarkable. PELVIS BLADDER: Unremarkable REPRODUCTIVE: Fibroid uterus with coarse calcifications. ABDOMEN & PELVIS STOMACH AND BOWEL: There are colonic diverticula present, one of which has adjacent fat stranding julianna nges. No organizing fluid collection or evidence of pneumoperitoneum. Series 203 image 66 and series 201 image 91. No evidence of bowel obstruction. The appendix looks surgically absent. PERITONEUM/RETROPERITONEUM: No evidence of pneumoperitoneum or free fluid. VASCULATURE: No evidence of aortic aneurysm. MUSCULOSKELETAL: No acute osseous abnormalities. Moderate disc degeneration changes are present throu ghout the thoracolumbar spine. Right hip arthroplasty appears intact. Left hip arthroplasty appears intact. Grade 1 anterolisthesis of L4 and L5. LYMPH NODES: No gross evidence for lymphadenopathy. SOFT TISSUE/ABDOMINAL WALL: Unremarkable IMPRESSION: 1. Consolidation in the left lung base at least partially due to the left pleural effusion which is small. Opacification of the left lower lung airway possibly from retained secretions. Correlate for s uperimposed infection. 2. Mild cardiomegaly, and bilateral pleural effusions. 3. Colonic diverticula and abdomen with at least one which may have some inflammation changes around it. Correlate for uncomplicated diverticulitis. 4. Fibroid uterus. [facility], , 05/14/2024 6:23 PM
[2024-05-14] MEDS: OSELTAMIVIR 30 MG CAP PO SCH (18:41)
--- NOTE | 2024-05-14 19:35 | P.HPIM ---
History of Present Illness patient is a 78-year-old lady who was recently discharged from this facility for sepsis secondary to UTI and she was in the ICU for short time intubated because of her obtundation during sickness. She was at [facility] because of possible sepsis and A-fib and RVR. Patient looks mildly confused. She knows she is from [facility]. She was confused about where she is at. She needed some help to remember what year. She could not tell the name of the president. She is just partially oriented to place and time. Complains from buttock pain, patient states is severe about 10/10. Patient could not specify duration Also patient was noted to be tachypneic, she is becoming little bit exerted with talking. She looks generally weak. She denies headache. She has some neck pain and tenderness. Does not look to have meningeal signs. Patient is afebrile but tachycardic and tachypneic She is saturating high 90s on 3 L of oxygen via nasal cannula. CBC and BMP here and liver enzymes were unremarkable. Urine analysis is negative. INR within the reference range. Troponin mildly elevated at 0.05 TSH 4.3, [place] [id number] CT of the chest and abdomen and pelvis with IV contrast showing left lower lobe pulmonary consolidation with small pleural effusion with some evidence of diverticulitis. Patient blood pressure improved. Continue current IV fluid Patient mentation looks close to baseline patient is mildly confused. Patient has multiple metabolic reasons to be mildly encephalopathic, no lateralization was noticed. However we will continue with close monitoring if any further neurological symptoms or decline will consider further workup and management. Review of Systems Review of systems -CONSTITUTIONAL: No fever, positive for malaise, positive for fatigue. HEENT: No recent visual problems or hearing problems. Denied any sore throat. CARDIOVASCULAR: No orthopnea, PND, no palpitations, no syncope. PULMONARY: No chest wall tenderness, no hemoptysis. -GASTROINTESTINAL: No diarrhea, no nausea, no vomiting, no abdominal pain. Normoactive bowel sounds. Positive for severe buttock pain NEUROLOGICAL: No headaches, no weakness, no numbness. HEMATOLOGICAL: Denies any bleeding or petechiae. GENITOURINARY: Denies any burning micturition, frequency, or urgency. MUSCULOSKELETAL/RHEUMATOLOGICAL: As above ENDOCRINE: Denies any polyuria or polydipsia. Past Medical History Past Medical History: Unable to Obtain, Atrial Fibrillation, Heart Failure, CVA/TIA, Hyperlipidemia, Hypertension, Renal Disease, Thyroid Disorder Additional Past Medical History / Comment(s): brain bleed from fall History of Any Multi-Drug Resistant Organisms: None Reported Past Surgical History: Unable to Obtain, Joint Replacement Past Psychological History: No Psychological Hx Reported Smoking Status: Unknown if ever smoked Medications and Allergies Home Medications Medication Instructions Recorded Confirmed Type Acetaminophen Tab [Tylenol] 1,000 mg PO BID 04/22/24 05/14/24 History Acetaminophen [Tylenol 8 Hour] 650 mg PO Q6H PRN 04/22/24 05/14/24 History Apixaban [Eliquis] 5 mg PO BID 04/22/24 05/14/24 History Atorvastatin [Lipitor] 10 mg PO HS@199904/22/24 05/14/24 History Calcium Carbonate [Tums] 500 mg PO TID PRN 04/22/24 05/14/24 History Dapagliflozin Propanediol [Farxiga] 10 mg PO DAILY@0604/22/24 05/14/24 History Furosemide [Lasix] 20 mg PO DAILY@0604/22/24 05/14/24 History Latanoprost [Latanoprost 0.005%] 1 drop BOTH EYES HS@199904/22/24 05/14/24 History Loratadine 10 mg PO DAILY@0604/22/24 05/14/24 History Magnesium Oxide [Mag-Ox] 400 mg PO DAILY@1400 04/22/24 05/14/24 History Potassium Chloride ER [K-Dur 20] 20 meq PO DAILY@0600 04/22/24 05/14/24 History allopurinoL 200 mg PO DAILY@0700 04/22/24 05/14/24 History Metoprolol Tartrate [Lopressor] 50 mg PO BID tab 05/04/24 05/14/24 Rx Cephalexin [Keflex] 500 mg PO BID@0700,1900 05/14/24 05/14/24 History Cholestyramine (with Sugar) 4 gm PO BID PRN 05/14/24 05/14/24 History [Questran Packet] Folic Acid 0.8 mg PO DAILY@1400 05/14/24 05/14/24 History Levothyroxine Sodium [Synthroid] 125 mcg PO DAILY@0500 05/14/24 05/14/24 History Mag Hydrox/Aluminum Hyd/Simeth 10 ml PO Q4H PRN 05/14/24 05/14/24 History [Mylanta Maximum Strength Liq] Omeprazole [PriLOSEC] 20 mg PO DAILY@0600 05/14/24 05/14/24 History Allergies Allergy/AdvReac Type Severity Reaction Status Date / Time morphine AdvReac Unknown Verified 05/14/24 13:19 Physical Exam Vitals: Vital Signs Temp Pulse Resp BP Pulse Ox 05/14/24 17:30 98.3 F 101 H 22 110/66 05/14/24 17:00 104 H 29 H 05/14/24 16:30 121 H 32 H 05/14/24 16:00 105 H 22 100/87 05/14/24 15:30 129 H 13 104/79 05/14/24 15:00 121 H 18 90/42 96 05/14/24 14:30 137 H 20 97 05/14/24 14:00 105 H 22 107/40 97 05/14/24 13:55 115 H 20 107/40 97 05/14/24 13:30 129 H 20 110/84 05/14/24 13:00 134 H 25 H 92/68 05/14/24 12:50 100.4 F H 05/14/24 12:07 20 05/14/24 11:57 99.1 F 141 H 20 109/47 97 Intake and Output 05/14/24 05/14/24 05/14/24 06:59 14:59 22:59 Other: Weight 90.718 kg -GENERAL: The patient is alert and oriented x 1-2, partially to time and place, not in any acute distress. Well developed, well nourished. Generally weak- HEENT: Pupils are round and equally reacting to light. EOMI. No scleral icterus. No conjunctival pallor. Normocephalic, atraumatic. No pharyngeal erythema. No thyromegaly. CARDIOVASCULAR: S1 and S2 present. No murmurs, rubs, or gallops. -PULMONARY: Chest is clear to auscultation, no wheezing , no crackles. Decreased breath sounds on the bases. Patient is mildly tachypneic ABDOMEN: Soft, nontender, nondistended, normoactive bowel sounds. No palpable organomegaly. -MUSCULOSKELETAL: No joint swelling or deformity. Mild neck and upper shoulder tenderness EXTREMITIES: No cyanosis, clubbing, or pedal edema. NEUROLOGICAL: Gross neurological examination did not reveal any focal deficits. SKIN: No rashes. no petechiae. Results CBC & Chem 7: 05/14/24 12:48 05/14/24 12:48 Labs: Abnormal Lab Results - Last 24 Hours (Table) 05/14/24 05/14/24 05/14/24 Range/Units 12:48 12:48 12:48 Sodium 136 L (137-145) mmol/L Carbon Dioxide 35 H (22-30) mmol/L Troponin I 0.050 H* (0.000-0.034) ng/mL Total Protein 5.3 L (6.3-8.2) g/dL Albumin 2.9 L (3.5-5.0) g/dL Urine Protein Trace H (Negative) Urine Glucose (UA) 3+ H (Negative) Influenza Type A (PCR) (Not Detectd) 05/14/24 Range/Units 13:54 Sodium (137-145) mmol/L Carbon Dioxide (22-30) mmol/L Troponin I (0.000-0.034) ng/mL Total Protein (6.3-8.2) g/dL Albumin (3.5-5.0) g/dL Urine Protein (Negative) Urine Glucose (UA) (Negative) Influenza Type A (PCR) Detected A (Not Detectd) Assessment and Plan Assessment: Left lower lobe consolidation, with mild pleural effusion. Tachypnea and tachycardia, rule out sepsis Influenza infection Multiple colonic diverticula and at least 1 with evidence of acute diverticulitis Mild metabolic and toxic encephalopathy. Continue monitoring throughout other causes Mild neck pain and upper shoulder tenderness most likely musculoskeletal. Continue monitoring and neurocheck A-fib and RVR Recent severe infection secondary to UTI Mildly elevated troponin Plan: Continue with IV vancomycin Follow-up culture result Consult infectious disease team Consult pulmonary team for pulmonary consolidation, this also could be seen from previous admission Surgery team consult for buttock pain and diverticulitis Change Eliquis to Lovenox therapeutic dose in case patient requires urgent p rocedure or surgery. Labs and medication were reviewed.. Continue same treatment. Continue with sy mptomatic treatment. Resume home medication. Monitor labs and vitals. DVT and GI prophylaxis. Further recommendations as per clinical course of the patient DVT prophylaxis: Subcutaneous Lovenox GI Prophylaxis: Protonix PT/OT: From ECF Prognosis is guarded
[2024-05-14] MEDS: ATORVASTATIN 10 MG TAB PO SCH (19:48)
[2024-05-14] MEDS: METOPROLOL TARTRATE 50 MG TAB PO SCH (19:49)
[2024-05-14] MEDS: LATANOPROST 0.005% OPHTH DROPS 2.5 ML BTL BOTH EYES SCH (19:49)
[2024-05-14] MEDS: IPRATROPIUM-ALBUTEROL 3 ML NEB INHALATION STA (20:41)
[2024-05-14] MEDS ORDERED: APIXABAN 5 MG TAB PO SCH (21:00)
[2024-05-14] MEDS: AMIODARONE 450 MG in DEXTROSE 5% IN WATER 250 ML IV SCH (21:24)
[2024-05-15] MEDS: FUROSEMIDE 10 MG/ML 4 ML VIAL IV STA (03:51)
[2024-05-15] MEDS: allopurinoL 100 MG TAB PO SCH (05:57)
[2024-05-15] MEDS: PANTOPRAZOLE 40 MG TABLET PO SCH (05:57)
[2024-05-15] MEDS: LEVOTHYROXINE 125 MCG TAB PO SCH (05:57)
[2024-05-15] MEDS: LORATADINE 10 MG TAB PO SCH (05:57)
[2024-05-15] MEDS: DAPAGLIFLOZIN PROPANEDIOL 10 MG TABLET PO SCH (05:57)
[2024-05-15] MEDS: FUROSEMIDE 20 MG TAB PO SCH (05:57)
[2024-05-15 07:53] LABS: Basophils # (A) 0.1 k/uL (0-0.2); Basophils % (A) 0 %; Eosinophils # (A) 0.1 k/uL (0-0.7); Eosinophils % (A) 1 %; HGB 12.8 gm/dL (11.4-16.0); Hypochromasia Moderate; Lymphocytes # (A) 2.8 k/uL (1.0-4.8); Lymphocytes % (A) 21 %; MCH 29.2 pg (25.0-35.0); MCHC 30.5 g/dL (31.0-37.0); MCV 95.6 fL (80.0-100.0); Mean Platelet Volume 7.2; Monocytes # (A) 0.6 k/uL (0-1.0); Monocytes % (A) 4 %; Neutrophils # (A) 10.1 k/uL (1.3-7.7); Neutrophils % (A) 73 %; Platelet Count 324 k/uL (150-450); RDW 14.8 % (11.5-15.5); WBC 13.9 k/uL (3.8-10.6)
[2024-05-15 08:16] LABS: African American GFR (CKD) >90 (>60 ml/min/1.73 sqM); Anion Gap 6 mmol/L; Blood Urea Nitrogen 17 mg/dL (7-17); Calcium 9.6 mg/dL (8.4-10.2); Carbon Dioxide 35 mmol/L (22-30); Chloride 95 mmol/L (98-107); Glucose 94 mg/dL (74-99); Non-African American GFR(CKD) 82 (>60 ml/min/1.73 sqM); Potassium 4.8 mmol/L (3.5-5.1); Sodium 136 mmol/L (137-145)
[2024-05-15] MEDS: ENOXAPARIN 80 MG/0.8 ML SYRINGE SQ SCH (08:30)
[2024-05-15] MEDS: VANCOMYCIN 1,500 MG in SODIUM CHLORIDE 0.9% 500 ML 500 ML IVPB SCH (09:52)
[2024-05-15] MEDS: IPRATROPIUM-ALBUTEROL 3 ML NEB INHALATION PRN (10:07)
[2024-05-15] MEDS: AZITHROMYCIN 500 MG TAB PO SCH (12:18)
[2024-05-15] MEDS: FOLIC ACID 1 MG TAB PO SCH (12:18)
[2024-05-15] MEDS: MAGNESIUM OXIDE 400 MG TAB PO SCH (12:18)
--- NOTE | 2024-05-15 12:31 | P.PN ---
Subjective patient is a 78-year-old lady who was recently discharged from this facility for sepsis secondary to UTI and she was in the ICU for short time intubated because of her obtundation during sickness. She was at [facility] because of possible sepsis and A-fib and RVR. Patient looks mildly confused. She knows she is from [facility]. She was confused about where she is at. She needed some help to remember what year. She could not tell the name of the president. She is just partially oriented to place and time. Complains from buttock pain, patient states is severe about 10/10. Patient could not specify duration Also patient was noted to be tachypneic, she is becoming little bit exerted with talking. She looks generally weak. She denies headache. She has some neck pain and tenderness. Does not look to have meningeal signs. Patient is afebrile but tachycardic and tachypneic She is saturating high 90s on 3 L of oxygen via nasal cannula. CBC and BMP here and liver enzymes were unremarkable. Urine analysis is negative. INR within the reference range. Troponin mildly elevated at 0.05 TSH 4.3, [place] [address] CT of the chest and abdomen and pelvis with IV contrast showing left lower lobe pulmonary consolidation with small pleural effusion with some evidence of diverticulitis. Patient blood pressure improved. Continue current IV fluid Patient mentation looks close to baseline patient is mildly confused. Patient has multiple metabolic reasons to be mildly encephalopathic, no lateralization was noticed. However we will continue with close monitoring if any further neurological symptoms or decline will consider further workup and management. 05/15 Patient her abdominal pain is better Her breathing is better She is saturating 97% on 3 L oxygen. No more fever Leukocytosis is 13.9 today.Creatinine normal 0.7 She is currently on ceftriaxone and Zithromax and Tamiflu and Protonix. Continued on Lovenox, may switch to Eliquis tomorrow Review of systems CONSTITUTIONAL: No fever, no malaise, no fatigue. HEENT: No recent visual problems or hearing problems. Denied any sore throat. NEUROLOGICAL: No headaches, no weakness, no numbness. HEMATOLOGICAL: Denies any bleeding or petechiae. GENITOURINARY: Denies any burning micturition, frequency, or urgency. MUSCULOSKELETAL/RHEUMATOLOGICAL: Denies any joint pain, swelling, or any muscle pain. ENDOCRINE: Denies any polyuria or polydipsia. w Active Medications Generic Name Dose Route Start Last Admin Trade Name Freq PRN Reason Stop Dose Admin Acetaminophen 650 mg 05/14/24 18:30 Acetaminophen Tab 325 Mg Tab PO Q6HR PRN Mild Pain or Fever > 100.5 Al Hydroxide/Mg Hydroxide 10 ml 05/14/24 16:35 Mag Hydrox/Al Hydrox/Simeth 30 Ml Cup PO Q4H PRN GI Upset Albuterol/Ipratropium 3 ml 05/14/24 18:11 05/15/24 10:07 Ipratropium-Albuterol 3 Ml Neb INHALATION 3 ml RT-QID PRN Administration Shortness Of Breath Or Wheezing Allopurinol 200 mg 05/15/24 07:00 05/15/24 05:57 Allopurinol 100 Mg Tab PO 200 mg DAILY@0700 INEZ Administration Atorvastatin Calcium 10 mg 05/14/24 20:00 05/14/24 19:48 Atorvastatin 10 Mg Tab PO Not Given HS@2000 [facility] Azithromycin 500 mg 05/15/24 11:00 05/15/24 12:18 Azithromycin 500 Mg Tab PO 05/17/24 09:01 500 mg DAILY INEZ Administration Protocol Calcium Carbonate/Glycine 500 mg 05/14/24 16:35 Calcium Carbonate 500 Mg Chewable PO TID PRN Indigestion Cholestyramine Resin 4 gm 05/14/24 16:35 Cholestyramine (With Sugar) 4 Gm Packet PO BID PRN Diarrhea Dapagliflozin 10 mg 05/15/24 06:00 05/15/24 05:57 Dapagliflozin Propanediol 10 Mg Tablet PO 10 mg DAILY@0600 [facility] Administration Enoxaparin Sodium 80 mg 05/15/24 09:00 05/15/24 08:30 Enoxaparin 80 Mg/0.8 Ml Syringe SQ 80 mg Q12HR INEZ Administration Folic Acid 1 mg 05/15/24 14:00 05/15/24 12:18 Folic Acid 1 Mg Tab PO 1 mg DAILY@1400 INEZ Administration Furosemide 20 mg 05/15/24 06:00 05/15/24 05:57 Furosemide 20 Mg Tab PO 20 mg DAILY@0600 INEZ Administration Amiodarone HCl 450 mg/ 250 mls @ 16.667 mls/hr 05/14/24 21:24 05/14/24 21:24 Dextrose/Water IV 05/15/24 15:23 0.5 mg/min .Q15H INEZ 16.667 mls/hr Administration Protocol 0.5 MG/MIN Ceftriaxone Sodium 2 gm/ 50 mls @ 100 mls/hr 05/15/24 11:00 Sodium Chloride IVPB Q24HR [facility] Protocol Latanoprost 1 drops 05/14/24 20:00 05/14/24 19:49 Latanoprost 0.005% Ophth Drops 2.5 Ml Btl BOTH EYES Not Given HS@2000 [facility] Levothyroxine Sodium 125 mcg 05/15/24 05:00 05/15/24 05:57 Levothyroxine 125 Mcg Tab PO 125 mcg DAILY@0500 [facility] Administration Loratadine 10 mg 05/15/24 06:00 05/15/24 05:57 Loratadine 10 Mg Tab PO 10 mg DAILY@0600 [facility] Administration Magnesium Oxide 400 mg 05/15/24 14:00 05/15/24 12:18 Magnesium Oxide 400 Mg Tab PO 400 mg DAILY@1400 [facility] Administration Metoprolol Tartrate 50 mg 05/14/24 21:00 05/15/24 08:30 Metoprolol Tartrate 50 Mg Tab PO 50 mg BID [facility] Administration Naloxone HCl 0.2 mg 05/14/24 16:30 Naloxone 0.4 Mg/Ml 1 Ml Vial IV Q2M PRN Opioid Reversal Oseltamivir Phosphate 30 mg 05/14/24 18:15 05/15/24 08:30 Oseltamivir 30 Mg Cap PO 05/19/24 09:01 30 mg Q12HR [facility] Administration Protocol Pantoprazole Sodium 40 mg 05/15/24 06:00 05/15/24 05:57 Pantoprazole 40 Mg Tablet PO 40 mg DAILY@0600 [facility] Administration Objective - Vital Signs Vital signs: Vital Signs Temp 97.9 F 05/14/24 20:00 Pulse 109 H 05/15/24 12:15 Resp 18 05/15/24 12:15 BP 103/69 05/15/24 12:15 Pulse Ox 97 05/15/24 12:15 FiO2 Intake & Output 05/14/24 05/15/24 05/15/24 18:59 06:59 18:59 Intake Total 240 Output Total 700 1000 Balance -460 -1000 Weight 90.718 kg 95 kg Intake: Oral 240 Output: Urine 700 1000 Other: Voiding Method External Catheter External Catheter - Exam GENERAL: The patient is alert and oriented x3, not in any acute distress. Well developed, well nourished. HEENT: Pupils are round and equally reacting to light. EOMI. No scleral icterus. No conjunctival pallor. Normocephalic, atraumatic. No pharyngeal erythema. No thyromegaly. CARDIOVASCULAR: S1 and S2 present. No murmurs, rubs, or gallops. PULMONARY: Chest is clear to auscultation, no wheezing , no crackles. ABDOMEN: Soft, nontender, nondistended, normoactive bowel sounds. No palpable organomegaly. MUSCULOSKELETAL: No joint swelling or deformity. EXTREMITIES: No cyanosis, clubbing, or pedal edema. NEUROLOGICAL: Gross neurological examination did not reveal any focal deficits. SKIN: No rashes. no petechiae. - Labs CBC & Chem 7: 05/15/24 07:17 05/15/24 07:17 Labs: Abnormal Lab Results - Last 24 Hours (Table) 05/14/24 05/14/24 05/14/24 Range/Units 12:48 12:48 12:48 WBC (3.8-10.6) k/uL MCHC (31.0-37.0) g/dL Neutrophils # (1.3-7.7) k/uL Sodium 136 L (137-145) mmol/L Chloride (98-107) mmol/L Carbon Dioxide 35 H (22-30) mmol/L Troponin I 0.050 H* (0.000-0.034) ng/mL Total Protein 5.3 L (6.3-8.2) g/dL Albumin 2.9 L (3.5-5.0) g/dL Urine Protein Trace H (Negative) Urine Glucose (UA) 3+ H (Negative) Influenza Type A (PCR) (Not Detectd) 05/14/24 05/14/24 05/15/24 Range/Units 13:54 18:36 07:17 WBC (3.8-10.6) k/uL MCHC (31.0-37.0) g/dL Neutrophils # (1.3-7.7) k/uL Sodium 136 L (137-145) mmol/L Chloride 95 L (98-107) mmol/L Carbon Dioxide 35 H (22-30) mmol/L Troponin I 0.043 H* (0.000-0.034) ng/mL Total Protein (6.3-8.2) g/dL Albumin (3.5-5.0) g/dL Urine Protein (Negative) Urine Glucose (UA) (Negative) Influenza Type A (PCR) Detected A (Not Detectd) 05/15/24 Range/Units 07:17 WBC 13.9 H (3.8-10.6) k/uL MCHC 30.5 L (31.0-37.0) g/dL Neutrophils # 10.1 H (1.3-7.7) k/uL Sodium (137-145) mmol/L Chloride (98-107) mmol/L Carbon Dioxide (22-30) mmol/L Troponin I (0.000-0.034) ng/mL Total Protein (6.3-8.2) g/dL Albumin (3.5-5.0) g/dL Urine Protein (Negative) Urine Glucose (UA) (Negative) Influenza Type A (PCR) (Not Detectd) Assessment and Plan Assessment: Left lower lobe consolidation, with mild pleural effusion. Tachypnea and tachycardia, rule out sepsis Influenza infection Multiple colonic diverticula and at least 1 with evidence of acute diverticulitis Mild metabolic and toxic encephalopathy. Continue monitoring throughout other causes Mild neck pain and upper shoulder tenderness most likely musculoskeletal. Continue monitoring and neurocheck A-fib and RVR Recent severe infection secondary to UTI Mildly elevated troponin Plan: Continue with IV ceftriaxone and Zithromax Follow-up culture result Consult infectious disease team Consult pulmonary team for pulmonary consolidation, this also could be seen from previous admission Surgery team consult for buttock pain and diverticulitis Change Eliquis to Lovenox therapeutic dose in case patient requires urgent procedure or surgery. Labs and medication were reviewed.. Continue same treatment. Continue with symptomatic treatment. Resume home medication. Monitor labs and vitals. DVT and GI prophylaxis. Further recommendations as per clinical course of the patient DVT prophylaxis: Subcutaneous Lovenox GI Prophylaxis: Protonix PT/OT: From ECF Prognosis is guarded
--- NOTE | 2024-05-15 12:55 | P.CNPUL ---
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 Patient was treated with antibiotics, and she was also anticoagulated with Eliquis. She was seen at the time by many consultants, including neurology and infectious disease, patient was eventually discharged to shelter on 05/04/2024. Her final diagnosis was acute urinary tract infection acute metabolic encephalopathy acute hypoxic respiratory failure acute left lower lobe pneumonia/atelectasis atrial fibrillation with controlled rate, and she also had history of depression and psychosis. Yesterday, patient was sent from the shelter as her nurse noted that the patient had atrial fibrillation with RVR, and patient had a low-grade temp of 100.1. The patient herself felt that her heart was racing she also had some shortness of breath, and felt that she had a bit of a cough. Chest x-ray on this admission showed evidence of pulmonary vascular congestion and left lower lobe atelectasis, it basically no different from a chest x-ray done on her last hospitalization 05/01/2024. CT of the chest and abdomen and pelvis showed consolidation/atelectasis of the left lower lobe with left pleural effusion, small, and it was felt that the patient may have retained secretions in the left lower lobe underlying infection/pneumonia is not entirely ruled out. Patient was noted to have a bit of leukocytosis with WBC count of 13.9 hemoglobin 12.8 she had relatively normal electrolytes, elevated BNP level of 13,100, and in addition the patient tested positive for influenza A by PCR. Considering all of this, this consult was initiated. Again the patient has multiple confusional symptoms, and she is now on amiodarone, Zithromax and Rocephin, she is also receiving Lasix for presumptive pulmonary edema with bilateral pleural effusions. Patient is also on Tamiflu. Reviewed the patient's labs and orders, felt no need for any change, will check her procalcitonin level and decide on her antibiotics, again the findings on the chest x-ray are old findings. Review of Systems CONSTITUTIONAL: Low-grade fever, weakness, fatigue HEENT: No recent visual problems or hearing problems. Denied any sore throat. CARDIOVASCULAR: Rapid heartbeat but no chest pain PULMONARY: Minimal cough no chest pain, she does have occasional wheezing -GASTROINTESTINAL: No GI symptoms, no diarrhea no nausea no vomiting NEUROLOGICAL: No headaches, no weakness, no numbness. HEMATOLOGICAL: No clotting bleeding or bruising GENITOURINARY: Negative MUSCULOSKELETAL/RHEUMATOLOGICAL: Negative ENDOCRINE: Negative Psychiatric: History of psychosis/infectious encephalopathy. Past Medical History Past Medical History: Unable to Obtain, Atrial Fibrillation, Heart Failure, CVA/TIA, Hyperlipidemia, Hypertension, Renal Disease, Thyroid Disorder Additional Past Medical History / Comment(s): brain bleed from fall History of Any Multi-Drug Resistant Organisms: None Reported Past Surgical History: Unable to Obtain, Joint Replacement Past Psychological History: No Psychological Hx Reported Smoking Status: Unknown if ever smoked Medications and Allergies Home Medications Medication Instructions Recorded Confirmed Type Acetaminophen Tab [Tylenol] 1,000 mg PO BID 04/22/24 05/14/24 History Acetaminophen [Tylenol 8 Hour] 650 mg PO Q6H PRN 04/22/24 05/14/24 History Apixaban [Eliquis] 5 mg PO BID 04/22/24 05/14/24 History Atorvastatin [Lipitor] 10 mg PO HS@199904/22/24 05/14/24 History Calcium Carbonate [Tums] 500 mg PO TID PRN 04/22/24 05/14/24 History Dapagliflozin Propanediol [Farxiga] 10 mg PO DAILY@0604/22/24 05/14/24 History Furosemide [Lasix] 20 mg PO DAILY@59904/22/24 05/14/24 History Latanoprost [Latanoprost 0.005%] 1 drop BOTH EYES HS@199904/22/24 05/14/24 History Loratadine 10 mg PO DAILY@0600 04/22/24 05/14/24 History Magnesium Oxide [Mag-Ox] 400 mg PO DAILY@1400 04/22/24 05/14/24 History Potassium Chloride ER [K-Dur 20] 20 meq PO DAILY@0600 04/22/24 05/14/24 History allopurinoL 200 mg PO DAILY@0700 04/22/24 05/14/24 History Metoprolol Tartrate [Lopressor] 50 mg PO BID tab 05/04/24 05/14/24 Rx Cephalexin [Keflex] 500 mg PO BID@0700,1900 05/14/24 05/14/24 History Cholestyramine (with Sugar) 4 gm PO BID PRN 05/14/24 05/14/24 History [Questran Packet] Folic Acid 0.8 mg PO DAILY@1400 05/14/24 05/14/24 History Levothyroxine Sodium [Synthroid] 125 mcg PO DAILY@0500 05/14/24 05/14/24 History Mag Hydrox/Aluminum Hyd/Simeth 10 ml PO Q4H PRN 05/14/24 05/14/24 History [Mylanta Maximum Strength Liq] Omeprazole [PriLOSEC] 20 mg PO DAILY@0600 05/14/24 05/14/24 History Allergies Allergy/AdvReac Type Severity Reaction Status Date / Time morphine AdvReac Unknown Verified 05/14/24 13:19 Physical Exam Vitals: Vital Signs Temp Pulse Pulse Resp BP BP Pulse Ox 05/15/24 12:15 109 H 18 103/69 97 05/15/24 10:19 74 05/15/24 10:09 72 05/15/24 09:25 113 H 18 05/15/24 08:29 113 H 18 131/85 94 L 05/15/24 04:00 104 H 18 138/85 96 05/15/24 01:50 88 05/14/24 23:54 88 18 120/80 99 05/14/24 20:00 97.9 F 82 18 126/84 97 05/14/24 18:15 102 H 18 111/70 100 05/14/24 17:30 98.3 F 101 H 22 110/66 05/14/24 17:00 104 H 29 H 05/14/24 16:30 121 H 32 H 05/14/24 16:00 105 H 22 100/87 05/14/24 15:30 129 H 13 104/79 05/14/24 15:00 121 H 18 90/42 96 05/14/24 14:30 137 H 20 97 05/14/24 14:00 105 H 22 107/40 97 05/14/24 13:55 115 H 20 107/40 97 05/14/24 13:30 129 H 20 110/84 05/14/24 13:00 134 H 25 H 92/68 05/14/24 12:50 100.4 F H Intake and Output 05/14/24 05/15/24 05/15/24 22:59 06:59 14:59 Intake Total 240 250 Output Total 700 1000 Balance -460 -750 Intake: Intake, IV Titration 250 Amount Amiodarone 450 mg In 250 Dextrose 5% in Water 250 ml @ 0.5 MG/MIN 16.667 mls/hr IV .Q15H [facility] Rx#: [id number] Oral 240 Output: Urine 700 1000 Other: Voiding Method External Catheter External Catheter External Catheter Weight 90.718 kg 95 kg GENERAL: Revealed 78-year-old female in no distress, on 3 L nasal cannula and O2 sat she is 97% HEENT: PERRLA, EOMI, nonicteric. No neck masses no JVD no stridor CARDIOVASCULAR: Irregular irregular rhythm S1 and S2 present. No murmurs, rubs, or gallops. -PULMONARY: Diminished breath sounds at the bases with minimal crackles at the left base ABDOMEN: Obese, soft, nontender, nondistended, normoactive bowel sounds. No palpable organomegaly. -MUSCULOSKELETAL: No joint swelling or deformity. No limitation in range of motion however the patient is noted to be generally weak and she uses a walker to ambulate. EXTREMITIES: No clubbing, trace of edema, no cyanosis NEUROLOGICAL: Alert and oriented x 3 no gross focal neurologic deficit SKIN: No rashes Results - Laboratory Findings CBC and BMP: 05/15/24 07:17 05/15/24 07:17 PT/INR, D-dimer PT 11.8 sec (10.0-12.5) 05/14/24 12:48 INR 1.1 (<1.2) 05/14/24 12:48 Abnormal lab findings: Abnormal Labs 05/14/24 05/14/24 05/14/24 12:48 12:48 12:48 WBC MCHC Neutrophils # Sodium 136 L Chloride Carbon Dioxide 35 H Troponin I 0.050 H* Total Protein 5.3 L Albumin 2.9 L Urine Protein Trace H Urine Glucose (UA) 3+ H Influenza Type A (PCR) 05/14/24 05/14/24 05/15/24 13:54 18:36 07:17 WBC MCHC Neutrophils # Sodium 136 L Chloride 95 L Carbon Dioxide 35 H Troponin I 0.043 H* Total Protein Albumin Urine Protein Urine Glucose (UA) Influenza Type A (PCR) Detected A 05/15/24 07:17 WBC 13.9 H MCHC 30.5 L Neutrophils # 10.1 H Sodium Chloride Carbon Dioxide Troponin I Total Protein Albumin Urine Protein Urine Glucose (UA) Influenza Type A (PCR) - Diagnostic Findings CT scan - chest: image reviewed (As noted in HPI patient has small bilateral ef fusions and left lower lobe atelectasis/consolidation) Assessment and Plan Assessment: Impression: Atrial fibrillation with RVR on her initial presentation Chronic left lower lobe atelectasis/consolidation possible underlying pneumonia Acute influenza A infection Possible sepsis, patient had low-grade fever on her initial presentation, she also had tachypnea and tachycardia Recent urinary tract infection with recent episode of metabolic encephalopathy secondary to UTI Mildly elevated troponin being addressed by cardiology History of catatonia History of depression History of diastolic congestive heart failure and moderate pulmonary hypertension based on previous echocardiogram ejection fraction 60 to 70% Benign essential hypertension skilled nursing resident Recommendation: Continue present supportive care measures Continue oxygen and titrate accordingly Continue Rocephin and Zithromax, check procalcitonin and decide whether to continue with antibiotics Continue Tamiflu continue amiodarone Continue diuretics may have to increase the dose of diuretics depending on her response and depending on her renal status Check blood cultures and sputum cultures Continue anticoagulation therapy for atrial fibrillation, patient is now on subcu Lovenox Continue Protonix Will continue to follow Time with Patient: Greater than 30
[2024-05-15] MEDS: ONDANSETRON 4 MG/2 ML VIAL IVP PRN (14:15)
[2024-05-15] MEDS: ALPRAZolam 0.5 MG TAB PO PRN (14:16)
[2024-05-15] MEDS: FUROSEMIDE 10 MG/ML 4 ML VIAL IV SCH (14:47)
[2024-05-15] MEDS: METOPROLOL TARTRATE 25 MG TAB PO STA (15:51)
--- NOTE | 2024-05-15 17:03 | P.CON ---
Consult Note - . Consult date: 05/15/24 Assessment/Plan:: Patient is an 78-year-old female who presented for A-fib with RVR noted at her facility. [facility] when a nurse "heard her to be in A-fib with RVR". History is limited as patient is oriented to self only and tells me she has no complaints. Patient was noted to have a leukocytosis and a CT-AP showed evidence for diverticulitis. Review of Systems ROS Statement: Those systems with pertinent positive or pertinent negative responses have been documented in the HPI. ROS Other: All systems not noted in ROS Statement are negative. Limitations: ROS unobtainable due to patients medical condition Past Medical History Past Medical History: Unable to Obtain, Atrial Fibrillation, Heart Failure, CVA/TIA, Hyperlipidemia, Hypertension, Renal Disease, Thyroid Disorder Additional Past Medical History / Comment(s): brain bleed from fall History of Any Multi-Drug Resistant Organisms: None Reported Past Surgical History: Unable to Obtain, Joint Replacement Past Psychological History: No Psychological Hx Reported Smoking Status: Unknown if ever smoked General Exam - General Exam Comments Initial Comments: PE: CONSTITUTIONAL: No apparent distress, chronically ill-appearing, awake and alert SKIN: Warm, dry, no jaundice, hives or petechiae EYES: Pupils are equally round, extraocular movements intact without nystagmus, clear conjunctiva, non-icteric sclera HENT: Normocephalic, atraumatic, moist mucus membranes, oropharynx clear without exudates NECK: , Full range of motion, normal appearance PULMONARY: Rhonchi rales and crackles throughout the left lung field and right lower lung field, no wheezes or stridor, no accessory muscle use, normal excursion CARDIOVASCULAR: Irregularly irregular rhythm, tachycardia normal S1 and S2. No appreciated murmurs, rubs or gallops. Strong radial pulses with intact distal perfusion. 2-3+ bilateral lower extremity edema GASTROINTESTINAL: Soft, active bowel sounds throughout, minimally tender to palpation in the suprapubic region, otherwise, non-distended, no palpable masses, no rebound or guarding. No hepatosplenomegaly MUSCULOSKELETAL: Extremities are atraumatic NEUROLOGIC:_a/o x 1 believe she is at the [facility], believes it is 2002, GCS 14, patient is conversant, speech is clear moves all extremities x 4 without motor or sensory deficit PSYCHIATRIC:_normal mood and affect, thought process is linear 78 year old female with diverticulitis -Heart Healthy Diet -Agree with antibiotics. Antibiotics per ID -Patient will need colonoscopy in 4-6 weeks -Pain and nausea control Bryon Valdez DO [facility] [phone]
--- NOTE | 2024-05-15 20:38 | P.CONS ---
History of Present Illness - Reason for Consult Consult date: 05/15/24 Sepsis Requesting physician: Ronnell Barrett Sheet - Chief Complaint Palpitation x 1 day - History of Present Illness Patient is a 78-year-old female with a past medical history significant for atrial fibrillation CVA TIA hypertension hyperlipidemia renal disease recent admission to the hospital treated for UTI and pneumonia now presenting back to the hospital after the patient was noted to be in A-fib with RVR at the long-term with no clear history of any fever at the long-term on presentation to the hospital patient did have a low-grade fever of 99.1 subse quently have a temperature of 100.4 F patient was tachycardic but not hypotensive mildly hypoxic currently on 3 L nasal cannula oxygen patient did have white count of 10.2 admission which is up to 13.9 with a left shift creatinine is normal electrolytes are normal troponin is elevated liver isms are normal procalcitonin 0.93 UA has been negative she tested positive for influenza A COVID testing was negative patient did have a chest x-ray that was negative for acute cardiopulmonary disease process abdominal pelvis and chest CT with a left lower lobe air bronchogram consolidation CT of abdominal pelvis did shows colonic diverticula concerning for some inflammation and diverticulitis patient has been started on ceftriaxone doxycycline Tamiflu infectious he was consulted regarding sepsis and antibiotic management Review of Systems Positive point and negatives has been mentioned in the HPI, complete review of systems was performed and all other systems are negative Past Medical History Past Medical History: Unable to Obtain, Atrial Fibrillation, Heart Failure, CVA/TIA, Hyperlipidemia, Hypertension, Renal Disease, Thyroid Disorder Additional Past Medical History / Comment(s): brain bleed from fall History of Any Multi-Drug Resistant Organisms: None Reported Past Surgical History: Unable to Obtain, Joint Replacement Past Psychological History: No Psychological Hx Reported Smoking Status: Unknown if ever smoked Medications and Allergies Home Medications Medication Instructions Recorded Confirmed Type Acetaminophen Tab [Tylenol] 1,000 mg PO BID 04/22/24 05/14/24 History Acetaminophen [Tylenol 8 Hour] 650 mg PO Q6H PRN 04/22/24 05/14/24 History Apixaban [Eliquis] 5 mg PO BID 04/22/24 05/14/24 History Atorvastatin [Lipitor] 10 mg PO HS@2000 04/22/24 05/14/24 History Calcium Carbonate [Tums] 500 mg PO TID PRN 04/22/24 05/14/24 History Dapagliflozin Propanediol [Farxiga] 10 mg PO DAILY@0600 04/22/24 05/14/24 History Furosemide [Lasix] 20 mg PO DAILY@0604/22/24 05/14/24 History Latanoprost [Latanoprost 0.005%] 1 drop BOTH EYES HS@199904/22/24 05/14/24 History Loratadine 10 mg PO DAILY@0604/22/24 05/14/24 History Magnesium Oxide [Mag-Ox] 400 mg PO DAILY@1400 04/22/24 05/14/24 History Potassium Chloride ER [K-Dur 20] 20 meq PO DAILY@0604/22/24 05/14/24 History allopurinoL 200 mg PO DAILY@0700 04/22/24 05/14/24 History Metoprolol Tartrate [Lopressor] 50 mg PO BID tab 05/04/24 05/14/24 Rx Cephalexin [Keflex] 500 mg PO BID@0700,1900 05/14/24 05/14/24 History Cholestyramine (with Sugar) 4 gm PO BID PRN 05/14/24 05/14/24 History [Questran Packet] Folic Acid 0.8 mg PO DAILY@1400 05/14/24 05/14/24 History Levothyroxine Sodium [Synthroid] 125 mcg PO DAILY@0500 05/14/24 05/14/24 History Mag Hydrox/Aluminum Hyd/Simeth 10 ml PO Q4H PRN 05/14/24 05/14/24 History [Mylanta Maximum Strength Liq] Omeprazole [PriLOSEC] 20 mg PO DAILY@0600 05/14/24 05/14/24 History Allergies Allergy/AdvReac Type Severity Reaction Status Date / Time morphine AdvReac Unknown Verified 05/14/24 13:19 Physical Exam Vitals: Vital Signs Temp Pulse Pulse Resp BP BP Pulse Ox 05/15/24 12:15 109 H 18 103/69 97 05/15/24 10:19 74 05/15/24 10:09 72 05/15/24 09:25 113 H 18 05/15/24 08:29 113 H 18 131/85 94 L 05/15/24 04:00 104 H 18 138/85 96 05/15/24 01:50 88 05/14/24 23:54 88 18 120/80 99 05/14/24 20:00 97.9 F 82 18 126/84 97 05/14/24 18:15 102 H 18 111/70 100 05/14/24 17:30 98.3 F 101 H 22 110/66 05/14/24 17:00 104 H 29 H 05/14/24 16:30 121 H 32 H 05/14/24 16:00 105 H 22 100/87 05/14/24 15:30 129 H 13 104/79 05/14/24 15:00 121 H 18 90/42 96 05/14/24 14:30 137 H 20 97 05/14/24 14:00 105 H 22 107/40 97 05/14/24 13:55 115 H 20 107/40 97 05/14/24 13:30 129 H 20 110/84 Intake and Output 05/14/24 05/15/24 05/15/24 22:59 06:59 14:59 Intake Total 240 250 Output Total 700 1000 Balance -460 -750 Intake: Intake, IV Titration 250 Amount Amiodarone 450 mg In 250 Dextrose 5% in Water 250 ml @ 0.5 MG/MIN 16.667 mls/hr IV .Q15H [facility] Rx#: [id number] Oral 240 Output: Urine 700 1000 Other: Voiding Method External Catheter External Catheter External Catheter Weight 90.718 kg 95 kg GENERAL DESCRIPTION: Elderly female lying in bed, no distress. No tachypnea or accessory muscle of respiration use. HEENT: Shows Pallor , no scleral icterus. Oral mucous membrane is dry. NECK: Trachea central, no thyromegaly. LUNGS: Unlabored breathing. Decreased breath sound at the base HEART: S1, S2, irregular rate and rhythm. ABDOMEN: Soft, no tenderness , EXTREMITIES: No edema of feet. SKIN: No rash, no masses palpable. NEUROLOGICAL: The patient is awake, alert, oriented x3, mood and affect normal. Results CBC & Chem 7: 05/15/24 07:17 05/15/24 07:17 Labs: Abnormal Lab Results - Last 24 Hours (Table) 05/14/24 05/14/24 05/14/24 Range/Units 12:48 12:48 12:48 WBC (3.8-10.6) k/uL MCHC (31.0-37.0) g/dL Neutrophils # (1.3-7.7) k/uL Sodium 136 L (137-145) mmol/L Chloride (98-107) mmol/L Carbon Dioxide 35 H (22-30) mmol/L Troponin I 0.050 H* (0.000-0.034) ng/mL Total Protein 5.3 L (6.3-8.2) g/dL Albumin 2.9 L (3.5-5.0) g/dL Procalcitonin (0.02-0.50) ng/mL Urine Protein Trace H (Negative) Urine Glucose (UA) 3+ H (Negative) Influenza Type A (PCR) (Not Detectd) 05/14/24 05/14/24 05/14/24 Range/Units 12:48 13:54 18:36 WBC (3.8-10.6) k/uL MCHC (31.0-37.0) g/dL Neutrophils # (1.3-7.7) k/uL Sodium (137-145) mmol/L Chloride (98-107) mmol/L Carbon Dioxide (22-30) mmol/L Troponin I 0.043 H* (0.000-0.034) ng/mL Total Protein (6.3-8.2) g/dL Albumin (3.5-5.0) g/dL Procalcitonin 0.93 H (0.02-0.50) ng/mL Urine Protein (Negative) Urine Glucose (UA) (Negative) Influenza Type A (PCR) Detected A (Not Detectd) 05/15/24 05/15/24 Range/Units 07:17 07:17 WBC 13.9 H (3.8-10.6) k/uL MCHC 30.5 L (31.0-37.0) g/dL Neutrophils # 10.1 H (1.3-7.7) k/uL Sodium 136 L (137-145) mmol/L Chloride 95 L (98-107) mmol/L Carbon Dioxide 35 H (22-30) mmol/L Troponin I (0.000-0.034) ng/mL Total Protein (6.3-8.2) g/dL Albumin (3.5-5.0) g/dL Procalcitonin (0.02-0.50) ng/mL Urine Protein (Negative) Urine Glucose (UA) (Negative) Influenza Type A (PCR) (Not Detectd) Assessment and Plan (1) Pneumonia Current Visit: Yes Status: Acute Code(s): J18.9 - PNEUMONIA, UNSPECIFIED ORGANISM SNOMED Code(s): 449882369 (2) Acute diverticulitis Current Visit: Yes Status: Acute Code(s): K57.92 - DVTRCLI OF INTEST, PART UNSP, W/O PERF OR ABSCESS W/O BLEED SNOMED Code(s): 710015163 (3) Influenza A Current Visit: Yes Status: Acute Code(s): J10.1 - FLU DUE TO OTH IDENT INFLUENZA VIRUS W OTH RESP MANIFEST SNOMED Code(s): 653248730 (4) Sepsis Current Visit: Yes Status: Acute Code(s): A41.9 - SEPSIS, UNSPECIFIED ORGANISM SNOMED Code(s): 66680108 Plan: 1patient presented to hospital with sepsis in this patient who did have fever 100.4 degrees following hide patient did have elevated white count and tachycardia meeting currently for SIRS/sepsis source is multifactorial in this patient has been diagnosed with acute influenza A concerning for left lower lobe pneumonia with evidence of consolidation on the CT plus minus a component of diverticulitis. 2patient will be given Tamiflu 5-day course. 3continue with Rocephin and Flagyl to cover for the anaerobes and monitor clinical course closely. We will follow on clinical condition and cultures to further adjust medication if needed Thank you for this consultation we will follow the patient along with you Dictation was produced using [employer] dictation software. please excuse any grammatical, word or spelling errors.
[2024-05-15] MEDS: METOPROLOL TARTRATE 25 MG TAB PO SCH (22:44)
[2024-05-15] MEDS: metroNIDAZOLE 500 MG TAB PO SCH (22:44)
[2024-05-15] MEDS: DOXYCYCLINE 100 MG in SODIUM CHLORIDE 0.9% 100 ML IVPB SCH (22:44)
[2024-05-15] MEDS: ACETAMINOPHEN TAB 325 MG TAB PO PRN (22:53)
--- NOTE | 2024-05-15 23:29 | P.CRDCN ---
History of Present Illness Consult date: 05/15/24 History of present illness: HISTORY OF PRESENTING ILLNESS: 78-year-old female was recently discharged from [facility] and was treated for sepsis and UTI. She was also in ICU and was intubated because of metabolic encephalopathy. She was discharged to [facility]. She presented to the hospital because of concerns of worsening sepsis and atrial fibrillation with RVR on admission. On admission she was also noticed to have influenza A infection. Admission Labs: NT-proBNP 13,000, troponin 0.05, repeat 0.04, TSH 4.3, BUN 17, creatinine 0.7, Hb 11.8 this time she was also tested positive for influenza A. Admission EKG: Atrial fibrillation with RVR with right bundle branch block Prior cardiac testing: Echo from March 2024 shows an EF of 65%, concerns of possible apical hypertrophy, moderate pulmonary hypertension, severe tricuspid regurgitation REVIEW OF SYSTEMS: 14 point review of system is negative except what is mentioned above in HPI. PHYSICAL EXAMINATION: Neck: Brisk carotid upstroke, no jugular venous distention. Lungs: Mild crackles audible about her lung melgoza Heart: Irregularly irregular pulse, mild systolic murmur audible Abdomen: Soft nontender, positive bowel sounds. Extremities: 1-2+ pitting edema bilateral lower extremity Neuro: Somnolent but oritented, no focal deficits. Detailed neuro exam was not performed. ASSESSMENT: # Atrial fibrillation with RVR on admission. 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 Lipitor 10 mg daily, She is on Farxiga 10 mg daily. She recently had UTI. Consider discontinuing this medication Continue IV Lasix 40 mg daily. Patient appears volume overloaded. Caution with diuretics because of LVH and apical hypertrophy Continue metoprolol tartrate 75 mg twice daily. Consider uptitrating as blood pressure and heart rate tolerates. Currently she is rate controlled atrial fibrillation. Discontinue amiodarone. Patient never achieved rhythm control during last hospital stay. Unlikely patient might achieve rhythm control with amiodarone. However considering her LVH , she needs further outpatient Joaquin Allen MD, FACC, RPVI Thank you for allowing [facility] to participate in this patient's care. Feel free to reach out in case of any followup questions. Past Medical History Past Medical History: Unable to Obtain, Atrial Fibrillation, Heart Failure, CVA/TIA, Hyperlipidemia, Hypertension, Renal Disease, Thyroid Disorder Additional Past Medical History / Comment(s): brain bleed from fall History of Any Multi-Drug Resistant Organisms: None Reported Past Surgical History: Unable to Obtain, Joint Replacement Past Psychological History: No Psychological Hx Reported Smoking Status: Unknown if ever smoked Medications and Allergies Home Medications Medication Instructions Recorded Confirmed Type Acetaminophen Tab [Tylenol] 1,000 mg PO BID 04/22/24 05/14/24 History Acetaminophen [Tylenol 8 Hour] 650 mg PO Q6H PRN 04/22/24 05/14/24 History Apixaban [Eliquis] 5 mg PO BID 04/22/24 05/14/24 History Atorvastatin [Lipitor] 10 mg PO HS@199904/22/24 05/14/24 History Calcium Carbonate [Tums] 500 mg PO TID PRN 04/22/24 05/14/24 History Dapagliflozin Propanediol [Farxiga] 10 mg PO DAILY@0604/22/24 05/14/24 History Furosemide [Lasix] 20 mg PO DAILY@0604/22/24 05/14/24 History Latanoprost [Latanoprost 0.005%] 1 drop BOTH EYES HS@199904/22/24 05/14/24 History Loratadine 10 mg PO DAILY@0600 04/22/24 05/14/24 History Magnesium Oxide [Mag-Ox] 400 mg PO DAILY@139904/22/24 05/14/24 History Potassium Chloride ER [K-Dur 20] 20 meq PO DAILY@0600 04/22/24 05/14/24 History allopurinoL 200 mg PO DAILY@0700 04/22/24 05/14/24 History Metoprolol Tartrate [Lopressor] 50 mg PO BID tab 05/04/24 05/14/24 Rx Cephalexin [Keflex] 500 mg PO BID@0700,1900 05/14/24 05/14/24 History Cholestyramine (with Sugar) 4 gm PO BID PRN 05/14/24 05/14/24 History [Questran Packet] Folic Acid 0.8 mg PO DAILY@1400 05/14/24 05/14/24 History Levothyroxine Sodium [Synthroid] 125 mcg PO DAILY@0500 05/14/24 05/14/24 History Mag Hydrox/Aluminum Hyd/Simeth 10 ml PO Q4H PRN 05/14/24 05/14/24 History [Mylanta Maximum Strength Liq] Omeprazole [PriLOSEC] 20 mg PO DAILY@0600 05/14/24 05/14/24 History Allergies Allergy/AdvReac Type Severity Reaction Status Date / Time morphine AdvReac Unknown Verified 05/14/24 13:19 Physical Exam Vitals: Vital Signs Pulse Pulse Resp BP Pulse Ox 05/15/24 15:49 106 H 18 93/56 92 L 05/15/24 13:59 109 H 18 05/15/24 12:15 109 H 18 103/69 97 05/15/24 10:19 74 05/15/24 10:09 72 05/15/24 09:25 113 H 18 05/15/24 08:29 113 H 18 131/85 94 L 05/15/24 04:00 104 H 18 138/85 96 05/15/24 01:50 88 05/14/24 23:54 88 18 120/80 99 Intake and Output 05/15/24 05/15/24 05/16/24 14:59 22:59 06:59 Intake Total 250 118 Output Total 1000 Balance -750 118 Intake: Intake, IV Titration 250 Amount Amiodarone 450 mg In 250 Dextrose 5% in Water 250 ml @ 0.5 MG/MIN 16.667 mls/hr IV .Q15H [facility] Rx#: [id number] Oral 118 Output: Urine 1000 Other: Voiding Method External Catheter Results 05/15/24 07:17 05/15/24 07:17 CBC 05/15/24 Range/Units 07:17 WBC 13.9 H (3.8-10.6) k/uL RBC 4.40 (3.80-5.40) m/uL Hgb 12.8 (11.4-16.0) gm/dL Hct 42.0 (34.0-46.0) % Plt Count 324 (150-450) k/uL Comprehensive Metabolic Panel 05/15/24 Range/Units 07:17 Sodium 136 L (137-145) mmol/L Potassium 4.8 (3.5-5.1) mmol/L Chloride 95 L (98-107) mmol/L Carbon Dioxide 35 H (22-30) mmol/L BUN 17 (7-17) mg/dL Creatinine 0.70 (0.52-1.04) mg/dL Glucose 94 (74-99) mg/dL Calcium 9.6 (8.4-10.2) mg/dL Current Medications Generic Name Dose Route Start Last Admin Trade Name Freq PRN Reason Stop Dose Admin Acetaminophen 650 mg 05/14/24 18:30 05/15/24 22:53 Acetaminophen Tab 325 Mg Tab PO 650 mg Q6HR PRN Administration Mild Pain or Fever > 100.5 Al Hydroxide/Mg Hydroxide 10 ml 05/14/24 16:35 Mag Hydrox/Al Hydrox/Simeth 30 Ml Cup PO Q4H PRN GI Upset Albuterol/Ipratropium 3 ml 05/14/24 18:11 05/15/24 10:07 Ipratropium-Albuterol 3 Ml Neb INHALATION 3 ml RT-QID PRN Administration Shortness Of Breath Or Wheezing Allopurinol 200 mg 05/15/24 07:00 05/15/24 05:57 Allopurinol 100 Mg Tab PO 200 mg DAILY@0700 INEZ Administration Alprazolam 0.5 mg 05/15/24 14:09 05/15/24 14:16 Alprazolam 0.5 Mg Tab PO 0.5 mg BID PRN Administration Anxiety Apixaban 5 mg 05/15/24 23:30 Apixaban 5 Mg Tab PO BID [facility] Protocol Atorvastatin Calcium 10 mg 05/14/24 20:00 05/15/24 22:46 Atorvastatin 10 Mg Tab PO 10 mg HS@2000 [facility] Administration Calcium Carbonate/Glycine 500 mg 05/14/24 16:35 Calcium Carbonate 500 Mg Chewable PO TID PRN Indigestion Cholestyramine Resin 4 gm 05/14/24 16:35 Cholestyramine (With Sugar) 4 Gm Packet PO BID PRN Diarrhea Folic Acid 1 mg 05/15/24 14:00 05/15/24 12:18 Folic Acid 1 Mg Tab PO 1 mg DAILY@1400 [facility] Administration Furosemide 40 mg 05/15/24 14:45 05/15/24 14:47 Furosemide 10 Mg/Ml 4 Ml Vial IV 40 mg DAILY [facility] Administration Ceftriaxone Sodium 2 gm/ 50 mls @ 100 mls/hr 05/15/24 11:00 05/15/24 13:39 Sodium Chloride IVPB 100 mls/hr Q24HR [facility] Administration Protocol Doxycycline Hyclate 100 mg/ 100 mls @ 100 mls/hr 05/15/24 21:00 05/15/24 22:44 Sodium Chloride IVPB 05/17/24 20:59 100 mls/hr Q12HR [facility] Administration Protocol Latanoprost 1 drops 05/14/24 20:00 05/15/24 22:44 Latanoprost 0.005% Ophth Drops 2.5 Ml Btl BOTH EYES 1 drops HS@2000 [facility] Administration Levothyroxine Sodium 125 mcg 05/15/24 05:00 05/15/24 05:57 Levothyroxine 125 Mcg Tab PO 125 mcg DAILY@0500 [facility] Administration Loratadine 10 mg 05/15/24 06:00 05/15/24 05:57 Loratadine 10 Mg Tab PO 10 mg DAILY@0600 [facility] Administration Magnesium Oxide 400 mg 05/15/24 14:00 05/15/24 12:18 Magnesium Oxide 400 Mg Tab PO 400 mg DAILY@1400 [facility] Administration Metoprolol Tartrate 75 mg 05/15/24 21:00 05/15/24 22:44 Metoprolol Tartrate 25 Mg Tab PO 75 mg BID INEZ Administration Metronidazole 500 mg 05/15/24 22:00 05/15/24 22:44 Metronidazole 500 Mg Tab PO 500 mg TID [facility] Administration Protocol Naloxone HCl 0.2 mg 05/14/24 16:30 Naloxone 0.4 Mg/Ml 1 Ml Vial IV Q2M PRN Opioid Reversal Ondansetron HCl 4 mg 05/15/24 14:08 05/15/24 14:15 Ondansetron 4 Mg/2 Ml Vial IVP 4 mg Q6HR PRN Administration Nausea And Vomiting Oseltamivir Phosphate 30 mg 05/14/24 18:15 05/15/24 22:44 Oseltamivir 30 Mg Cap PO 05/19/24 09:01 30 mg Q12HR [facility] Administration Protocol Pantoprazole Sodium 40 mg 05/15/24 06:00 05/15/24 05:57 Pantoprazole 40 Mg Tablet PO 40 mg DAILY@0600 [facility] Administration Intake and Output 05/15/24 05/15/24 05/16/24 14:59 22:59 06:59 Intake Total 250 118 Output Total 1000 Balance -750 118 Intake: Intake, IV Titration 250 Amount Amiodarone 450 mg In 250 Dextrose 5% in Water 250 ml @ 0.5 MG/MIN 16.667 mls/hr IV .Q15H [facility] Rx#: [id number] Oral 118 Output: Urine 1000 Other: Voiding Method External Catheter 05/15/24 07:17 05/15/24 07:17
[2024-05-16] MEDS: APIXABAN 5 MG TAB PO SCH (00:49)
[2024-05-16] MEDS: CHOLESTYRAMINE (WITH SUGAR) 4 GM PACKET PO PRN (00:59)
[2024-05-16 10:31] LABS: African American GFR (CKD) 76 (>60 ml/min/1.73 sqM); Anion Gap 2 mmol/L; Blood Urea Nitrogen 17 mg/dL (7-17); Calcium 9.3 mg/dL (8.4-10.2); Carbon Dioxide 39 mmol/L (22-30); Chloride 94 mmol/L (98-107); Glucose 79 mg/dL (74-99); Non-African American GFR(CKD) 66 (>60 ml/min/1.73 sqM); Potassium 4.2 mmol/L (3.5-5.1); Sodium 135 mmol/L (137-145)
--- NOTE | 2024-05-16 11:00 | P.PN ---
Subjective patient is a 78-year-old lady who was recently discharged from this facility for sepsis secondary to UTI and she was in the ICU for short time intubated because of her obtundation during sickness. She was at [facility] because of possible sepsis and A-fib and RVR. Patient looks mildly confused. She knows she is from [facility]. She was confused about where she is at. She needed some help to remember what year. She could not tell the name of the president. She is just partially oriented to place and time. Complains from buttock pain, patient states is severe about 10/10. Patient could not specify duration Also patient was noted to be tachypneic, she is becoming little bit exerted with talking. She looks generally weak. She denies headache. She has some neck pain and tenderness. Does not look to have meningeal signs. Patient is afebrile but tachycardic and tachypneic She is saturating high 90s on 3 L of oxygen via nasal cannula. CBC and BMP here and liver enzymes were unremarkable. Urine analysis is negative. INR within the reference range. Troponin mildly elevated at 0.05 TSH 4.3, [place] [address] [place] of the chest and abdomen and pelvis with IV contrast showing left lower lobe pulmonary consolidation with small pleural effusion with some evidence of diverticulitis. Patient blood pressure improved. Continue current IV fluid Patient mentation looks close to baseline patient is mildly confused. Patient has multiple metabolic reasons to be mildly encephalopathic, no lateralization was noticed. However we will continue with close monitoring if any further neurological symptoms or decline will consider further workup and management. 05/15 Patient her abdominal pain is better Her breathing is better She is saturating 97% on 3 L oxygen. No more fever Leukocytosis is 13.9 today.Creatinine normal 0.7 She is currently on ceftriaxone and Zithromax and Tamiflu and Protonix. Continued on Lovenox, may switch to Eliquis tomorrow Patient is1/20 Awake and alert sitting up in bed denies chest pain She still feels short of breath and still tachypneic with coughing Blood pressure on the low side but her metoprolol dose increased 50 up to 75 mg Currently she was placed back on her Eliquis Continue with antibiotics ceftriaxone and doxycycline. Review of systems CONSTITUTIONAL: No fever, no malaise, no fatigue. HEENT: No recent visual problems or hearing problems. Denied any sore throat. NEUROLOGICAL: No headaches, no weakness, no numbness. HEMATOLOGICAL: Denies any bleeding or petechiae. GENITOURINARY: Denies any burning micturition, frequency, or urgency. MUSCULOSKELETAL/RHEUMATOLOGICAL: Denies any joint pain, swelling, or any muscle pain. ENDOCRINE: Denies any polyuria or polydipsia. w Active Medications Generic Name Dose Route Start Last Admin Trade Name Freq PRN Reason Stop Dose Admin Acetaminophen 650 mg 05/14/24 18:30 05/15/24 22:53 Acetaminophen Tab 325 Mg Tab PO 650 mg Q6HR PRN Administration Mild Pain or Fever > 100.5 Al Hydroxide/Mg Hydroxide 10 ml 05/14/24 16:35 Mag Hydrox/Al Hydrox/Simeth 30 Ml Cup PO Q4H PRN GI Upset Albuterol/Ipratropium 3 ml 05/14/24 18:11 05/15/24 10:07 Ipratropium-Albuterol 3 Ml Neb INHALATION 3 ml RT-QID PRN Administration Shortness Of Breath Or Wheezing Allopurinol 200 mg 05/15/24 07:00 05/16/24 06:24 Allopurinol 100 Mg Tab PO 200 mg DAILY@0700 INEZ Administration Alprazolam 0.5 mg 05/15/24 14:09 05/15/24 14:16 Alprazolam 0.5 Mg Tab PO 0.5 mg BID PRN Administration Anxiety Apixaban 5 mg 05/15/24 23:30 05/16/24 08:09 Apixaban 5 Mg Tab PO 5 mg BID INEZ Administration Protocol Atorvastatin Calcium 10 mg 05/14/24 20:00 05/15/24 22:46 Atorvastatin 10 Mg Tab PO 10 mg HS@2000 [facility] Administration Calcium Carbonate/Glycine 500 mg 05/14/24 16:35 Calcium Carbonate 500 Mg Chewable PO TID PRN Indigestion Cholestyramine Resin 4 gm 05/14/24 16:35 05/16/24 00:59 Cholestyramine (With Sugar) 4 Gm Packet PO 4 gm BID PRN Administration Diarrhea Folic Acid 1 mg 05/15/24 14:00 05/15/24 12:18 Folic Acid 1 Mg Tab PO 1 mg DAILY@1400 [facility] Administration Furosemide 40 mg 05/15/24 14:45 05/16/24 08:10 Furosemide 10 Mg/Ml 4 Ml Vial IV 40 mg DAILY [facility] Administration Ceftriaxone Sodium 2 gm/ 50 mls @ 100 mls/hr 05/15/24 11:00 05/16/24 08:08 Sodium Chloride IVPB 100 mls/hr Q24HR [facility] Administration Protocol Doxycycline Hyclate 100 mg/ 100 mls @ 100 mls/hr 05/15/24 21:00 05/15/24 22:44 Sodium Chloride IVPB 05/17/24 20:59 100 mls/hr Q12HR [facility] Administration Protocol Latanoprost 1 drops 05/14/24 20:00 05/15/24 22:44 Latanoprost 0.005% Ophth Drops 2.5 Ml Btl BOTH EYES 1 drops HS@2000 [facility] Administration Levothyroxine Sodium 125 mcg 05/15/24 05:00 05/16/24 06:24 Levothyroxine 125 Mcg Tab PO 125 mcg DAILY@0500 INEZ Administration Loratadine 10 mg 05/15/24 06:00 05/16/24 06:24 Loratadine 10 Mg Tab PO 10 mg DAILY@0600 [facility] Administration Magnesium Oxide 400 mg 05/15/24 14:00 05/15/24 12:18 Magnesium Oxide 400 Mg Tab PO 400 mg DAILY@1400 [facility] Administration Metoprolol Tartrate 75 mg 05/15/24 21:00 05/16/24 08:09 Metoprolol Tartrate 25 Mg Tab PO 75 mg BID INEZ Administration Metronidazole 500 mg 05/15/24 22:00 05/16/24 08:09 Metronidazole 500 Mg Tab PO 500 mg TID [facility]EZ Administration Protocol Naloxone HCl 0.2 mg 05/14/24 16:30 Naloxone 0.4 Mg/Ml 1 Ml Vial IV Q2M PRN Opioid Reversal Ondansetron HCl 4 mg 05/15/24 14:08 05/15/24 14:15 Ondansetron 4 Mg/2 Ml Vial IVP 4 mg Q6HR PRN Administration Nausea And Vomiting Oseltamivir Phosphate 30 mg 05/14/24 18:15 05/16/24 08:09 Oseltamivir 30 Mg Cap PO 05/19/24 09:01 30 mg Q12HR [facility] Administration Protocol Pantoprazole Sodium 40 mg 05/15/24 06:00 05/16/24 06:24 Pantoprazole 40 Mg Tablet PO 40 mg DAILY@0600 [facility] Administration Objective - Vital Signs Vital signs: Vital Signs Temp 97.5 F L 05/16/24 08:00 Pulse 99 05/16/24 08:00 Resp 18 05/16/24 08:00 BP 94/62 05/16/24 08:00 Pulse Ox 100 05/16/24 08:00 FiO2 Intake & Output 05/15/24 05/16/24 05/16/24 18:59 06:59 18:59 Intake Total 368 20 Output Total 1000 600 Balance -632 -580 Weight 92.5 kg Intake: IV 20 Invasive Line 1 10 Invasive Line 2 10 Intake, IV Titration 250 Amount Amiodarone 450 mg In 250 Dextrose 5% in Water 250 ml @ 0.5 MG/MIN 16.667 mls/hr IV .Q15H [facility] Rx#: [id number] Oral 118 Output: Urine 1000 600 Other: Voiding Method External Catheter External Catheter External Catheter # Bowel Movements 1 - Exam GENERAL: The patient is alert and oriented x3, not in any acute distress. Well developed, well nourished. HEENT: Pupils are round and equally reacting to light. EOMI. No scleral icterus. No conjunctival pallor. Normocephalic, atraumatic. No pharyngeal erythema. No thyromegaly. CARDIOVASCULAR: S1 and S2 present. No murmurs, rubs, or gallops. PULMONARY: Chest is clear to auscultation, no wheezing , no crackles. ABDOMEN: Soft, nontender, nondistended, normoactive bowel sounds. No palpable organomegaly. MUSCULOSKELETAL: No joint swelling or deformity. EXTREMITIES: No cyanosis, clubbing, or pedal edema. NEUROLOGICAL: Gross neurological examination did not reveal any focal deficits. SKIN: No rashes. no petechiae. - Labs CBC & Chem 7: 05/15/24 07:17 05/16/24 09:13 Labs: Abnormal Lab Results - Last 24 Hours (Table) 05/14/24 05/16/24 Range/Units 12:48 09:13 Sodium 135 L (137-145) mmol/L Chloride 94 L (98-107) mmol/L Carbon Dioxide 39 H (22-30) mmol/L Procalcitonin 0.93 H (0.02-0.50) ng/mL Microbiology - Last 24 Hours (Table) 05/14/24 12:38 Blood Culture - Preliminary Blood Assessment and Plan Assessment: Left lower lobe consolidation, with mild pleural effusion. Tachypnea and tachycardia, rule out sepsis Influenza infection Multiple colonic diverticula and at least 1 with evidence of acute dive rticulitis Mild metabolic and toxic encephalopathy. Continue monitoring throughout other causes Mild neck pain and upper shoulder tenderness most likely musculoskeletal. Continue monitoring and neurocheck A-fib and RVR Recent severe infection secondary to UTI Mildly elevated troponin Plan: Continue with IV ceftriaxone and Zithromax Follow-up culture result Consult infectious disease team Consult pulmonary team for pulmonary consolidation, this also could be seen from previous admission Surgery team consult for buttock pain and diverticulitis continue Eliquis Labs and medication were reviewed.. Continue same treatment. Continue with symptomatic treatment. Resume home medication. Monitor labs and vitals. DVT and GI prophylaxis. Further recommendations as per clinical course of the patient DVT prophylaxis: Subcutaneous Lovenox GI Prophylaxis: Protonix PT/OT: From ECF Prognosis is guarded
--- NOTE | 2024-05-16 12:27 | P.PN ---
Subjective Progress Note Date: 05/16/24 Principal diagnosis: Reason for follow-up is influenza A and pneumonia and diverticulitis Patient is a 78-year-old female with a past medical history significant for atrial fibrillation CVA TIA hypertension hyperlipidemia renal disease recent admission to the hospital treated for UTI and pneumonia now presenting back to the hospital after the patient was noted to be in A-fib with RVR at the shelter, patient did have a fever on presentation to the hospital CT with evidence of left lower lobe consolidation and is of concern for diverticulitis prompted this consultation. On today's evaluation that is 05/16/2023, patient has been afebrile, patient is breathing comfortably and is currently on 2 L current oxygen patient denies having any significant cough no chest pain, patient denies nausea vomiting or diarrhea and no abdominal pain. Patient did have a creatinine 0.84 CBC is pending blood cultures are pending Objective - Vital Signs Vital signs: Vital Signs Temp 97.5 F L 05/16/24 08:00 Pulse 99 05/16/24 08:00 Resp 18 05/16/24 08:00 BP 94/62 05/16/24 08:00 Pulse Ox 100 05/16/24 08:00 FiO2 Intake & Output 05/15/24 05/16/24 05/16/24 18:59 06:59 18:59 Intake Total 368 20 Output Total 1000 600 Balance -632 -580 Weight 92.5 kg Intake: IV 20 Invasive Line 1 10 Invasive Line 2 10 Intake, IV Titration 250 Amount Amiodarone 450 mg In 250 Dextrose 5% in Water 250 ml @ 0.5 MG/MIN 16.667 mls/hr IV .Q15H [facility] Rx#: [id number] Oral 118 Output: Urine 1000 600 Other: Voiding Method External Catheter External Catheter External Catheter # Bowel Movements 1 - Exam GENERAL DESCRIPTION: An elderly female lying in bed in no distress RESPIRATORY SYSTEM: Unlabored breathing , decreased breath sounds at bases HEART: S1 S2 regular rate and rhythm , ABDOMEN: Soft , no tenderness EXTREMITIES: No edema feet - Labs CBC & Chem 7: 05/15/24 07:17 05/16/24 09:13 Labs: Abnormal Lab Results - Last 24 Hours (Table) 05/14/24 05/16/24 Range/Units 12:48 09:13 Sodium 135 L (137-145) mmol/L Chloride 94 L (98-107) mmol/L Carbon Dioxide 39 H (22-30) mmol/L Procalcitonin 0.93 H (0.02-0.50) ng/mL Microbiology - Last 24 Hours (Table) 05/14/24 12:38 Blood Culture - Preliminary Blood Assessment and Plan (1) Pneumonia Current Visit: Yes Status: Acute Code(s): J18.9 - PNEUMONIA, UNSPECIFIED ORGANISM SNOMED Code(s): 357804488 (2) Acute diverticulitis Current Visit: Yes Status: Acute Code(s): K57.92 - DVTRCLI OF INTEST, PART UNSP, W/O PERF OR ABSCESS W/O BLEED SNOMED Code(s): 331241255 (3) Influenza A Current Visit: Yes Status: Acute Code(s): J10.1 - FLU DUE TO OTH IDENT INFLUENZA VIRUS W OTH RESP MANIFEST SNOMED Code(s): 871116057 (4) Sepsis Current Visit: Yes Status: Acute Code(s): A41.9 - SEPSIS, UNSPECIFIED ORGANISM SNOMED Code(s): 70132369 Plan: 1patient presented to hospital with sepsis in this patient who did have fever 1 00.4 degrees following hide patient did have elevated white count and tachycardia meeting currently for SIRS/sepsis source is multifactorial in this patient has been diagnosed with acute influenza A concerning for left lower lobe pneumonia with evidence of consolidation on the CT plus a component of diverticulitis. 2patient to continue with Tamiflu to finish 5-day course. 3patient is currently being treated with Rocephin and Flagyl and monitor clinical course closely. Dictation was produced using [email or web address] dictation software. please excuse any grammatical, word or spelling errors.
--- NOTE | 2024-05-16 13:53 | P.PN ---
Subjective HISTORY OF PRESENT ILLNESS: 78-year-old female was recently discharged from [facility] and was treated for sepsis and UTI. She was also in ICU and was intubated because of metabolic encephalopathy. She was discharged to [facility]. She presented to the hospital because of concerns of worsening sepsis and atrial fibrillation with RVR on admission. On admission she was also noticed to have influenza A infection. Admission Labs: NT-proBNP 13,000, troponin 0.05, repeat 0.04, TSH 4.3, BUN 17, creatinine 0.7, Hb 11.8 this time she was also tested positive for influenza A. Admission EKG: Atrial fibrillation with RVR with right bundle branch block Prior cardiac testing: Echo from March 2024 shows an EF of 65%, concerns of possible apical hypertrophy, moderate pulmonary hypertension, severe tricuspid regurgitation 05/16/2024 Patient examined this morning at the bedside. Patient currently denies chest pain or pressure. She reports mild shortness of breath. She remains on IV diuretics. Blood pressure 109/67. Telemetry reveals atrial fibrillation with controlled ventricular rate. PHYSICAL EXAM: VITAL SIGNS: Reviewed. GENERAL: Well-developed in no acute distress. NECK: Supple. No JVD or thyromegaly LUNGS: Respirations even and unlabored. Lungs with bilateral wheezing noted. HEART: Irregular rate and rhythm. S1 and S2 heard. EXTREMITIES: Normal range of motion. No clubbing or cyanosis. Peripheral pulses intact. No lower extremity edema ASSESSMENT: # Persistent atrial fibrillation with RVR, currently rate controlled # Mod to severe LVH with apical hypertrophy # Right bundle branch block # Mild acute on chronic HFpEF exacerbation # Acute hypoxic respiratory failure # Influenza A pneumonia # Metabolic encephalopathy PLAN: Continue IV Lasix Daily weights, accurate intake and output, monitoring of kidney function Continue additional cardiac medications Continue telemetry monitoring Further recommendations pending patient course Nurse practitioner note has been reviewed by physician. Signing provider agrees with the documented findings, assessment, and plan of care documented by WATER QUALITY CONTROL ENGINEER as a scribe. Objective - Vital Signs Vital signs: Vital Signs Temp 97.4 F L 05/16/24 11:40 Pulse 86 05/16/24 11:40 Resp 16 05/16/24 11:40 BP 109/67 05/16/24 11:40 Pulse Ox 99 05/16/24 11:40 FiO2 Intake & Output 05/15/24 05/16/24 05/16/24 18:59 06:59 18:59 Intake Total 368 20 Output Total 1000 600 Balance -632 -580 Weight 92.5 kg Intake: IV 20 Invasive Line 1 10 Invasive Line 2 10 Intake, IV Titration 250 Amount Amiodarone 450 mg In 250 Dextrose 5% in Water 250 ml @ 0.5 MG/MIN 16.667 mls/hr IV .Q15H [facility] Rx#: [id number] Oral 118 Output: Urine 1000 600 Other: Voiding Method External Catheter External Catheter External Catheter # Bowel Movements 1 - Labs CBC & Chem 7: 05/15/24 07:17 05/16/24 09:13 Labs: Abnormal Lab Results - Last 24 Hours (Table) 05/16/24 Range/Units 09:13 Sodium 135 L (137-145) mmol/L Chloride 94 L (98-107) mmol/L Carbon Dioxide 39 H (22-30) mmol/L Microbiology - Last 24 Hours (Table) 05/14/24 12:38 Blood Culture - Preliminary Blood
--- NOTE | 2024-05-16 14:06 | P.PN ---
Subjective Progress Note Date: 05/16/24 SURGICAL PROGRESS NOTE CHIEF COMPLAINT: A-fib HISTORY OF PRESENT ILLNESS: Surgical service is following regards to patient's diverticulitis. Here with A-fib RVR. She started Eliquis yesterday. Also inf luenza A positive. Patient has no abdominal pain. She is tolerating diet. She is having bowel movements. Afebrile. WBC as of yesterday was elevated 13.9 PHYSICAL EXAM: VITAL SIGNS: Reviewed. GENERAL: Well-developed in no acute distress. ABDOMEN: Soft. obese. Nondistended. Nontender. NEUROLOGIC: awake and alert ASSESSMENT: 1. Acute diverticulitis PLAN: -Continue heart healthy, regular diet -Continue antibiotics per ID service -Patient will need colonoscopy in 4 to 6 weeks -Repeat CBC in AM Physician Cut Out Operator note has been reviewed by physician. Signing provider agrees with the documented findings, assessment, and plan of care. Attestation Patient seen and examined at bedside. Presented with chief complaint of atrial fibrillation. Concerning CT findings of diverticulitis. Patient denying any abdominal pain. Slight elevation in white count today. She is having bowel movements and tolerating diet. Continue IV antibiotics per ID service. I did discuss colonoscopy with the patient as she has never had 1. She would be recommended to have 1 in about 6 weeks. Korey Weber, DO Objective - Vital Signs Vital signs: Vital Signs Temp 97.4 F L 05/16/24 11:40 Pulse 86 05/16/24 11:40 Resp 16 05/16/24 11:40 BP 109/67 05/16/24 11:40 Pulse Ox 99 05/16/24 11:40 FiO2 Intake & Output 05/15/24 05/16/24 05/16/24 18:59 06:59 18:59 Intake Total 368 20 Output Total 1000 600 Balance -632 -580 Weight 92.5 kg Intake: IV 20 Invasive Line 1 10 Invasive Line 2 10 Intake, IV Titration 250 Amount Amiodarone 450 mg In 250 Dextrose 5% in Water 250 ml @ 0.5 MG/MIN 16.667 mls/hr IV .Q15H [facility] Rx#: [id number] Oral 118 Output: Urine 1000 600 Other: Voiding Method External Catheter External Catheter External Catheter # Bowel Movements 1 - Labs CBC & Chem 7: 05/15/24 07:17 05/16/24 09:13 Labs: Abnormal Lab Results - Last 24 Hours (Table) 05/16/24 Range/Units 09:13 Sodium 135 L (137-145) mmol/L Chloride 94 L (98-107) mmol/L Carbon Dioxide 39 H (22-30) mmol/L Microbiology - Last 24 Hours (Table) 05/14/24 12:38 Blood Culture - Preliminary Blood
--- NOTE | 2024-05-16 14:37 | P.PN ---
Subjective Progress Note Date: 05/16/24 Principal diagnosis: Sepsis. This is an 78-year-old female, familiar to our service, patient was last admitted to [facility] on April [address] atus and confusion, she was hypoxic, and she only responded at the time to painful stimuli, eventually the patient ended up in the ICU and she was on BiPAP 04/01/100%, felt that the patient had infectious encephalopathy secondary to UTI/urosepsis at the same time patient had atrial fibrillation with RVR, she also had episodes of catatonia, delirium, and she had congestive heart failure. Patient was treated with antibiotics, and she was also anticoagulated with Eliquis. She was seen at the time by many consultants, including neurology and infectious disease, patient was eventually discharged to longterm on 05/04/2024. Her final diagnosis was acute urinary tract infection acute metabolic encephalopathy acute hypoxic respiratory failure acute left lower lobe pneumonia/atelectasis atrial fibrillation with controlled rate, and she also had history of depression and psychosis. Yesterday, patient was sent from the longterm as her nurse noted that the patient had atrial fibrillation with RVR, and patient had a low-grade temp of 100.1. The patient herself felt that her heart was racing she also had some shortness of breath, and felt that she had a bit of a cough. Chest x-ray on this admission showed evidence of pulmonary vascular congestion and left lower lobe atelectasis, it basically no different from a chest x-ray done on her last hospitalization 05/01/2024. CT of the chest and abdomen and pelvis showed consolidation/atelectasis of the left lower lobe with left pleural effusion, small, and it was felt that the patient may have retained secretions in the left lower lobe underlying infection/pneumonia is not entirely ruled out. Patient was noted to have a bit of leukocytosis with WBC count of 13.9 hemoglobin 12.8 she had relatively normal electrolytes, elevated BNP level of 13,100, and in addition the patient tested positive for influenza A by PCR. Considering all of this, this consult was initiated. Again the patient has multiple confusional symptoms, and she is now on amiodarone, Zithromax and Rocephin, she is also receiving Lasix for presumptive pulmonary edema with bilateral pleural effusions. Patient is also on Tamiflu. Reviewed the patient's labs and orders, felt no need for any change, will check her procalcitonin level and decide on her antibiotics, again the findings on the chest x-ray are old findings. Progress note dated May 24, 2024. 78-year-old female seen in consultation yesterday. The patient initially presented with atrial fibrillation with RVR, and a chronic left lower lobe consolidation, or possible pneumonia. She also tested positive for influenza A infection. She was thought to possibly have low-grade sepsis, which is why we were consulted. Currently, the patient is on lactated Ringer's at 10 cc an hour. The patient is receiving Rocephin, doxycycline, Tamiflu. She is getting oxygen by nasal cannula at 3 L. Abs today include a sodium 135, potassium 4.2, chlorides 94, CO2 39, BUN 17, creatinine 0.84. Blood cultures are negative. Chest x-ray on admission was negative. Objective - Vital Signs Vital signs: Vital Signs Temp 97.4 F L 05/16/24 11:40 Pulse 86 05/16/24 11:40 Resp 16 05/16/24 11:40 BP 109/67 05/16/24 11:40 Pulse Ox 99 05/16/24 11:40 FiO2 Intake & Output 05/15/24 05/16/24 05/16/24 18:59 06:59 18:59 Intake Total 368 20 Output Total 1000 600 Balance -632 -580 Weight 92.5 kg Intake: IV 20 Invasive Line 1 10 Invasive Line 2 10 Intake, IV Titration 250 Amount Amiodarone 450 mg In 250 Dextrose 5% in Water 250 ml @ 0.5 MG/MIN 16.667 mls/hr IV .Q15H [facility] Rx#: [id number] Oral 118 Output: Urine 1000 600 Other: Voiding Method External Catheter External Catheter External Catheter # Bowel Movements 1 - Exam No acute distress, oriented 3. Currently on 3 L of oxygen. HEENT examination is grossly unremarkable. Mucous membranes are moist. No oral lesions. Neck supple. Full range of motion. No adenopathy thyromegaly or neck vein distention. Cardiovascular examination reveals regular rhythm rate. S1-S2 normal. No S3 or S4. No discernible murmur noted. Lungs reveal minimal crackles at lung base. The right lung is clear. No rhonchi. No wheezes. Abdomen soft bowel sounds are heard. No masses or tenderness. Extremities are intact. No cyanosis clubbing or edema. Skin is without rash or lesion. Neurologic examination is brief but nonfocal. - Labs CBC & Chem 7: 05/15/24 07:17 05/16/24 09:13 Labs: Abnormal Lab Results - Last 24 Hours (Table) 05/16/24 Range/Units 09:13 Sodium 135 L (137-145) mmol/L Chloride 94 L (98-107) mmol/L Carbon Dioxide 39 H (22-30) mmol/L Microbiology - Last 24 Hours (Table) 05/14/24 12:38 Blood Culture - Preliminary Blood Assessment and Plan Assessment: Atrial fibrillation with rapid ventricular response. Chronic left lower lobe atelectasis/consolidation, with possible pneumonia. Acute influenza A infection. Possible low-grade sepsis. Recent urinary tract infection, with associated metabolic encephalopathy. History of catatonia. History of depression. History of diastolic CHF. Benign essential hypertension. Plan: Plan dated May 16, 2024. The patient continues on appropriate medications, including Rocephin, doxycycline, and Tamiflu, for acute influenza A infection. The patient is also on lactated Ringer's at 10 cc an hour, and oxygen by nasal cannula at 3 L. Labs, x-rays, and medications are reviewed. We will continue to follow and make recommendations along the way. Overall prognosis remains guarded. Time with Patient: Less than 30
[2024-05-17] MEDS ORDERED: ZINC OXIDE PASTE (Z-GUARD) 1 APPLIC TOPICAL PRN (07:38)
--- NOTE | 2024-05-17 09:49 | XR ---
EXAMINATION TYPE: XR chest 1V DATE OF EXAM: 05/17/2024 9:44 AM COMPARISON: Whole-body CT and chest x-ray May 14, 2024 CLINICAL INDICATION: Female, 78 years old with history of sob, TECHNIQUE: Single AP portable frontal upright view of the chest is obtained. FINDINGS: Cardiomegaly is redemonstrated. Persistent left basilar opacity. Right lung is clear. The osseous structures are intact. IMPRESSION: Persistent cardiomegaly with left basilar acute infiltrate and/or atelectasis and likely stable small left pleural effusion. No significant change from most recent CT. [facility], , 05/17/2024 9:46 AM
[2024-05-17 09:51] LABS: Basophils % (A) 0 %; Eosinophils # (A) 0.2 k/uL (0-0.7); Eosinophils % (A) 2 %; HCT 40.1 % (34.0-46.0); Hypochromasia Moderate; Lymphocytes # (A) 2.6 k/uL (1.0-4.8); Lymphocytes % (A) 36 %; MCH 28.5 pg (25.0-35.0); MCHC 30.1 g/dL (31.0-37.0); MCV 94.9 fL (80.0-100.0); Mean Platelet Volume 7.5; Monocytes # (A) 0.4 k/uL (0-1.0); Monocytes % (A) 5 %; Neutrophils % (A) 54 %; Platelet Count 286 k/uL (150-450); RBC 4.22 m/uL (3.80-5.40); RDW 14.6 % (11.5-15.5); WBC 7.3 k/uL (3.8-10.6)
[2024-05-17 10:33] LABS: African American GFR (CKD) 81 (>60 ml/min/1.73 sqM); Blood Urea Nitrogen 14 mg/dL (7-17); Calcium 9.5 mg/dL (8.4-10.2); Chloride 94 mmol/L (98-107); Glucose 98 mg/dL (74-99); Non-African American GFR(CKD) 70 (>60 ml/min/1.73 sqM); Potassium 3.7 mmol/L (3.5-5.1); Sodium 138 mmol/L (137-145)
[2024-05-17 10:42] LABS: Anion Gap 8 mmol/L
[2024-05-17 10:47] LABS: Carbon Dioxide 36 mmol/L (22-30)
--- NOTE | 2024-05-17 12:28 | P.PN ---
Subjective HISTORY OF PRESENT ILLNESS: 78-year-old female was recently discharged from [facility] and was treated for sepsis and UTI. She was also in ICU and was intubated because of metabolic encephalopathy. She was discharged to [facility]. She presented to the hospital because of concerns of worsening sepsis and atrial fibrillation with RVR on admission. On admission she was also noticed to have influenza A infection. Admission Labs: NT-proBNP 13,000, troponin 0.05, repeat 0.04, TSH 4.3, BUN 17, creatinine 0.7, Hb 11.8 this time she was also tested positive for influenza A. Admission EKG: Atrial fibrillation with RVR with right bundle branch block Prior cardiac testing: Echo from March 2024 shows an EF of 65%, concerns of possible apical hypertrophy, moderate pulmonary hypertension, severe tricuspid regurgitation 05/16/2024 Patient examined this morning at the bedside. Patient currently denies chest pain or pressure. She reports mild shortness of breath. She remains on IV diuretics. Blood pressure 109/67. Telemetry reveals atrial fibrillation with controlled ventricular rate. 05/17/2024 Patient examined this morning at the bedside. Patient denies chest pain or pressure. She currently denies shortness of breath. Telemetry reveals atrial fibrillation with controlled ventricular rate. She remains on IV Lasix. PHYSICAL EXAM: VITAL SIGNS: Reviewed. GENERAL: Well-developed in no acute distress. NECK: Supple. No JVD or thyromegaly LUNGS: Respirations even and unlabored. Lungs diminished bilaterally. HEART: Irregular rate and rhythm. S1 and S2 heard. EXTREMITIES: Normal range of motion. No clubbing or cyanosis. Peripheral pulses intact. No lower extremity edema ASSESSMENT: # Persistent atrial fibrillation with RVR, currently rate controlled # Mod to severe LVH with apical hypertrophy # Right bundle branch block # Mild acute on chronic HFpEF exacerbation # Acute hypoxic respiratory failure # Influenza A pneumonia # Metabolic encephalopathy PLAN: Discontinue IV Lasix. Begin oral Lasix 40 mg daily Daily weights, accurate intake and output, monitoring of kidney function Continue additional cardiac medications Continue telemetry monitoring Patient is currently stable from a cardiac perspective Further recommendations pending patient course Nurse practitioner note has been reviewed by physician. Signing provider agrees with the documented findings, assessment, and plan of care documented by CONVENTIONAL MORTGAGE UNDERWRITER as a scribe. Objective - Vital Signs Vital signs: Vital Signs Temp 97.7 F 05/17/24 11:54 Pulse 89 05/17/24 11:54 Resp 16 05/17/24 11:54 BP 105/60 05/17/24 11:54 Pulse Ox 98 05/17/24 11:57 FiO2 Intake & Output 05/16/24 05/17/24 05/17/24 18:59 06:59 18:59 Intake Total 240 200 Output Total 1150 200 Balance -1150 240 0 Weight 94 kg Intake: IV 20 Invasive Line 1 10 Invasive Line 2 10 Oral 240 180 Output: Urine 1150 200 Other: Voiding Method External Catheter External Catheter External Catheter - Labs CBC & Chem 7: 05/17/24 08:42 05/17/24 08:42 Labs: Abnormal Lab Results - Last 24 Hours (Table) 05/17/24 05/17/24 Range/Units 08:42 08:42 MCHC 30.1 L (31.0-37.0) g/dL Chloride 94 L (98-107) mmol/L Carbon Dioxide 36 H (22-30) mmol/L Microbiology - Last 24 Hours (Table) 05/14/24 12:38 Blood Culture - Preliminary Blood
--- NOTE | 2024-05-17 14:04 | P.PN ---
Subjective Progress Note Date: 05/17/24 SURGICAL PROGRESS NOTE CHIEF COMPLAINT: A-fib HISTORY OF PRESENT ILLNESS: Surgical service is following regards to patient's diverticulitis. Patient denies any abdominal pain. She is tolerating diet. S he does report her appetite is decreased. She denies any vomiting. Afebrile. WBC has normalized from 13.9-7.3 Hgb is 12 PHYSICAL EXAM: VITAL SIGNS: Reviewed. GENERAL: Well-developed in no acute distress. ABDOMEN: Soft. obese. Nondistended. Nontender. NEUROLOGIC: awake and alert ASSESSMENT: 1. Acute diverticulitis 2. A-fib RVR 3. Influenza A positive PLAN: -Continue heart healthy, regular diet -Continue antibiotics per ID service -Patient will need colonoscopy in 4 to 6 weeks Physician Research And Development Manager note has been reviewed by physician. Signing provider agrees with the documented findings, assessment, and plan of care. Objective - Vital Signs Vital signs: Vital Signs Temp 97.7 F 05/17/24 11:54 Pulse 89 05/17/24 11:54 Resp 16 05/17/24 11:54 BP 105/60 05/17/24 11:54 Pulse Ox 98 05/17/24 11:57 FiO2 Intake & Output 05/16/24 05/17/24 05/17/24 18:59 06:59 18:59 Intake Total 240 200 Output Total 1150 200 Balance -1150 240 0 Weight 94 kg Intake: IV 20 Invasive Line 1 10 Invasive Line 2 10 Oral 240 180 Output: Urine 1150 200 Other: Voiding Method External Catheter External Catheter External Catheter - Labs CBC & Chem 7: 05/17/24 08:42 05/17/24 08:42 Labs: Abnormal Lab Results - Last 24 Hours (Table) 05/17/24 05/17/24 Range/Units 08:42 08:42 MCHC 30.1 L (31.0-37.0) g/dL Chloride 94 L (98-107) mmol/L Carbon Dioxide 36 H (22-30) mmol/L Microbiology - Last 24 Hours (Table) 05/14/24 12:38 Blood Culture - Preliminary Blood Assessment and Plan Assessment: resolved episode of diverticulitis tolerating regular diet no abdominal pain stable for discharge Time with Patient: Less than 30
--- NOTE | 2024-05-17 14:43 | P.PN ---
Subjective Progress Note Date: 05/17/24 Principal diagnosis: Sepsis. This is an 78-year-old female, familiar to our service, patient was last admitted to [facility] on April [address] atus and confusion, she was hypoxic, and she only responded at the time to painful stimuli, eventually the patient ended up in the ICU and she was on BiPAP 04/01/100%, felt that the patient had infectious encephalopathy secondary to UTI/urosepsis at the same time patient had atrial fibrillation with RVR, she also had episodes of catatonia, delirium, and she had congestive heart failure. Patient was treated with antibiotics, and she was also anticoagulated with Eliquis. She was seen at the time by many consultants, including neurology and infectious disease, [facility]. Her final diagnosis was acute urinary tract infection acute metabolic encephalopathy acute hypoxic respiratory failure acute left lower lobe pneumonia/atelectasis atrial fibrillation with controlled rate, and she also had history of depression and psychosis. Yesterday, [facility] as her nurse noted that the patient had atrial fibrillation with RVR, and patient had a low-grade temp of 100.1. The patient herself felt that her heart was racing she also had some shortness of breath, and felt that she had a bit of a cough. Chest x-ray on this admission showed evidence of pulmonary vascular congestion and left lower lobe atelectasis, it basically no different from a chest x-ray done on her last hospitalization 05/01/2024. CT of the chest and abdomen and pelvis showed consolidation/atelectasis of the left lower lobe with left pleural effusion, small, and it was felt that the patient may have retained secretions in the left lower lobe underlying infection/pneumonia is not entirely ruled out. Patient was noted to have a bit of leukocytosis with WBC count of 13.9 hemoglobin 12.8 she had relatively normal electrolytes, elevated BNP level of 13,100, and in addition the patient tested positive for influenza A by PCR. Considering all of this, this consult was initiated. Again the patient has multiple confusional symptoms, and she is now on amiodarone, Zithromax and Rocephin, she is also receiving Lasix for presumptive pulmonary edema with bilateral pleural effusions. Patient is also on Tamiflu. Reviewed the patient's labs and orders, felt no need for any change, will check her procalcitonin level and decide on her antibiotics, again the findings on the chest x-ray are old findings. Progress note dated May 16, 2024. 78-year-old female seen in consultation yesterday. The patient initially presented with atrial fibrillation with RVR, and a chronic left lower lobe consolidation, or possible pneumonia. She also tested positive for influenza A infection. She was thought to possibly have low-grade sepsis, which is why we were consulted. Currently, the patient is on lactated Ringer's at 10 cc an hour. The patient is receiving Rocephin, doxycycline, Tamiflu. She is getting oxygen by nasal cannula at 3 L. Abs today include a sodium 135, potassium 4.2, chlorides 94, CO2 39, BUN 17, creatinine 0.84. Blood cultures are negative. Chest x-ray on admission was negative. Progress note dated May 17, 2024. 78-year-old female seen in follow-up today. The patient is seen today in room 357. He is resting comfortably in bed. She is not manifesting any signs or symptoms of respiratory distress. She is currently on 2 L of oxygen. Saturations are in the mid to high 90s. The patient is getting saline at 10 cc an hour. Current labs include a white count 7.3, hemoglobin 12, hematocrit 40.1, and a platelet count of 286,000. Sodium 138, potassium 3.7, chloride 94, CO2 36, BUN 14, creatinine 0.8. Calcium is 9.5. Blood cultures are negative. Chest x-ray shows evidence of cardiomegaly, and left basilar infiltrate and/or atelectasis. Objective - Vital Signs Vital signs: Vital Signs Temp 97.7 F 05/17/24 11:54 Pulse 89 05/17/24 11:54 Resp 16 05/17/24 11:54 BP 105/60 05/17/24 11:54 Pulse Ox 98 05/17/24 11:57 FiO2 Intake & Output 05/16/24 05/17/24 05/17/24 18:59 06:59 18:59 Intake Total 240 200 Output Total 1150 200 Balance -1150 240 0 Weight 94 kg Intake: IV 20 Invasive Line 1 10 Invasive Line 2 10 Oral 240 180 Output: Urine 1150 200 Other: Voiding Method External Catheter External Catheter External Catheter - Exam No acute distress, oriented 3. Currently on 2 L of oxygen. HEENT examination is grossly unremarkable. Mucous membranes are moist. No oral lesions. Neck supple. Full range of motion. No adenopathy thyromegaly or neck vein distention. Cardiovascular examination reveals regular rhythm rate. S1-S2 normal. No S3 or S4. No discernible murmur noted. Lungs reveal minimal crackles at lung base. The right lung is clear. No rhonchi. No wheezes. Abdomen soft bowel sounds are heard. No masses or tenderness. Extremities are intact. No cyanosis clubbing or edema. Skin is without rash or lesion. Neurologic examination is brief but nonfocal. - Labs CBC & Chem 7: 05/17/24 08:42 05/17/24 08:42 Labs: Abnormal Lab Results - Last 24 Hours (Table) 05/17/24 05/17/24 Range/Units 08:42 08:42 MCHC 30.1 L (31.0-37.0) g/dL Chloride 94 L (98-107) mmol/L Carbon Dioxide 36 H (22-30) mmol/L Microbiology - Last 24 Hours (Table) 05/14/24 12:38 Blood Culture - Preliminary Blood Assessment and Plan Assessment: Atrial fibrillation with rapid ventricular response. Chronic left lower lobe atelectasis/consolidation, with possible pneumonia. Acute influenza A infection. Possible low-grade sepsis. Recent urinary tract infection, with associated metabolic encephalopathy. History of catatonia. History of depression. History of diastolic CHF. Benign essential hypertension. Plan: Plan dated May 16, 2024. The patient continues on appropriate medications, including Rocephin, doxycycline, and Tamiflu, for acute influenza A infection. The patient is also on lactated Ringer's at 10 cc an hour, and oxygen by nasal cannula at 3 L. Labs, x-rays, and medications are reviewed. We will continue to follow and make recommendations along the way. Overall prognosis remains guarded. Plan dated May 17, 2024. The patient is seen today in room 357. She is resting comfortably in bed. She is on 2 L of oxygen. Saturations were in the mid to high 90s. The patient is receiving saline at 10 cc an hour. Labs, x-rays, medications are reviewed. The patient is awake and alert. She denies any shortness of breath, difficulty alcon thing, coughing, wheezing, or phlegm production. From the pulmonary standpoint, the patient could be evaluated for possible discharge. The patient remains a full code. All labs, x-rays, and medications are reviewed. Time with Patient: Less than 30
--- NOTE | 2024-05-17 15:18 | P.PN ---
Subjective Progress Note Date: 05/17/24 Principal diagnosis: Reason for follow-up is influenza A and pneumonia and diverticulitis Patient is a 78-year-old female with a past medical history significant for atrial fibrillation CVA TIA hypertension hyperlipidemia renal disease recent admission to the hospital treated for UTI and pneumonia now presenting back to the hospital after the patient was noted to be in A-fib with RVR at the assisted, patient did have a fever on presentation to the hospital CT with evidence of left lower lobe consolidation and is of concern for diverticulitis prompted this consultation. On today's evaluation that is 05/17/2024, Patient is afebrile this morning patient denies having any chest pain shortness of breath did have occasional cough, the patient is currently on 3 L current oxygen, patient denies any abdominal pain no diarrhea no nausea no vomiting. Patient white count is down to 7.3 creatinine 0.80 blood cultures currently pending chest x-ray persistent cardiomegaly with left basilar acute infiltrate Objective - Vital Signs Vital signs: Vital Signs Temp 97.7 F 05/17/24 11:54 Pulse 89 05/17/24 11:54 Resp 16 05/17/24 11:54 BP 105/60 05/17/24 11:54 Pulse Ox 98 05/17/24 11:57 FiO2 Intake & Output 05/16/24 05/17/24 05/17/24 18:59 06:59 18:59 Intake Total 240 200 Output Total 1150 200 Balance -1150 240 0 Weight 94 kg Intake: IV 20 Invasive Line 1 10 Invasive Line 2 10 Oral 240 180 Output: Urine 1150 200 Other: Voiding Method External Catheter External Catheter External Catheter - Exam GENERAL DESCRIPTION: An elderly female lying in bed in no distress RESPIRATORY SYSTEM: Unlabored breathing , decreased breath sounds at bases HEART: S1 S2 regular rate and rhythm , ABDOMEN: Soft , no tenderness EXTREMITIES: No edema feet - Labs CBC & Chem 7: 05/17/24 08:42 05/17/24 08:42 Labs: Abnormal Lab Results - Last 24 Hours (Table) 05/17/24 05/17/24 Range/Units 08:42 08:42 MCHC 30.1 L (31.0-37.0) g/dL Chloride 94 L (98-107) mmol/L Carbon Dioxide 36 H (22-30) mmol/L Microbiology - Last 24 Hours (Table) 05/14/24 12:38 Blood Culture - Preliminary Blood Assessment and Plan (1) Pneumonia Current Visit: Yes Status: Acute Code(s): J18.9 - PNEUMONIA, UNSPECIFIED ORGANISM SNOMED Code(s): 446541734 (2) Acute diverticulitis Current Visit: Yes Status: Acute Code(s): K57.92 - DVTRCLI OF INTEST, PART UNSP, W/O PERF OR ABSCESS W/O BLEED SNOMED Code(s): 477340810 (3) Influenza A Current Visit: Yes Status: Acute Code(s): J10.1 - FLU DUE TO OTH IDENT INFLUENZA VIRUS W OTH RESP MANIFEST SNOMED Code(s): 150888757 (4) Sepsis Current Visit: Yes Status: Acute Code(s): A41.9 - SEPSIS, UNSPECIFIED ORGANISM SNOMED Code(s): 67978216 Plan: 1patient presented to hospital with sepsis in this patient who did have fever 100.4 degrees following hide patient did have elevated white count and tach ycardia meeting currently for SIRS/sepsis source is multifactorial in this patient has been diagnosed with acute influenza A concerning for left lower lobe pneumonia with evidence of consolidation on the CT plus a component of diverticulitis. 2patient will be treated with Tamiflu to finish 5-day course. 3patient did have improvement to feel better white count has normalized to continue with Rocephin for another 24 before transition to oral along with Flagyl and monitor clinical course closely. Dictation was produced using [employer] dictation software. please excuse any grammatical, word or spelling errors. Time with Patient: Less than 30
--- NOTE | 2024-05-17 18:18 | P.PN ---
Subjective patient is a 78-year-old lady who was recently discharged from this facility for sepsis secondary to UTI and she was in the ICU for short time intubated because of her obtundation during sickness. She was at [facility] because of possible sepsis and A-fib and RVR. Patient looks mildly confused. She knows she is from [facility]. She was confused about where she is at. She needed some help to remember what year. She could not tell the name of the president. She is just partially oriented to place and time. Complains from buttock pain, patient states is severe about 10/10. Patient could not specify duration Also patient was noted to be tachypneic, she is becoming little bit exerted with talking. She looks generally weak. She denies headache. She has some neck pain and tenderness. Does not look to have meningeal signs. Patient is afebrile but tachycardic and tachypneic She is saturating high 90s on 3 L of oxygen via nasal cannula. CBC and BMP here and liver enzymes were unremarkable. Urine analysis is negative. INR within the reference range. Troponin mildly elevated at 0.05 TSH 4.3, [place] [address] CT of the chest and abdomen and pelvis with IV contrast showing left lower lobe pulmonary consolidation with small pleural effusion with some evidence of diverticulitis. Patient blood pressure improved. Continue current IV fluid Patient mentation looks close to baseline patient is mildly confused. Patient has multiple metabolic reasons to be mildly encephalopathic, no lateralization was noticed. However we will continue with close monitoring if any further neurological symptoms or decline will consider further workup and management. 05/15 Patient her abdominal pain is better Her breathing is better She is saturating 97% on 3 L oxygen. No more fever Leukocytosis is 13.9 today.Creatinine normal 0.7 She is currently on ceftriaxone and Zithromax and Tamiflu and Protonix. Continued on Lovenox, may switch to Eliquis tomorrow 05/16 Patient is Awake and alert sitting up in bed denies chest pain She still feels short of breath and still tachypneic with coughing Blood pressure on the low side but her metoprolol dose increased 50 up to 75 mg Currently she was placed back on her Eliquis Continue with antibiotics ceftriaxone and doxycycline. 05/17 the pt is currently awake and alert she is sitting up in bed , breathing is stable and qieut , no dyspena or wheezing pt is improving slowly and gradually Patient denies any other new complaint Her breathing is quiet and she is on her home dose of 3 L oxygen per minute She remains on contact droplet isolation Tamiflu for her influenza infection. There is some evidence of lower lung infiltrate versus atelectasis and currently covered with ceftriaxone and Zithromax. Also there was suspicion of diverticulitis on admission, currently her abdomen is benign soft with no pain or tenderness and tolerates diet with no issue with bowel movement Patient was cleared today by pulmonary, surgery teams However she still needs another 24 hours of IV antibiotics Possible discharge in 24 hours if she remains stable Objective - Vital Signs Vital signs: Vital Signs Temp 98.3 F 05/17/24 16:26 Pulse 95 05/17/24 16:26 Resp 18 05/17/24 16:26 BP 114/67 05/17/24 16:26 Pulse Ox 98 05/17/24 16:26 FiO2 Intake & Output 05/16/24 05/17/24 05/17/24 18:59 06:59 18:59 Intake Total 240 200 Output Total 1150 200 Balance -1150 240 0 Weight 94 kg Intake: IV 20 Invasive Line 1 10 Invasive Line 2 10 Oral 240 180 Output: Urine 1150 200 Other: Voiding Method External Catheter External Catheter External Catheter # Voids 1 - Exam GENERAL: The patient is alert and oriented x3, not in any acute distress. Well developed, well nourished. HEENT: Pupils are round and equally reacting to light. EOMI. No scleral icterus. No conjunctival pallor. Normocephalic, atraumatic. No pharyngeal erythema. No thyromegaly. CARDIOVASCULAR: S1 and S2 present. No murmurs, rubs, or gallops. PULMONARY: Chest is clear to auscultation, no wheezing , no crackles. ABDOMEN: Soft, nontender, nondistended, normoactive bowel sounds. No palpable organomegaly. MUSCULOSKELETAL: No joint swelling or deformity. EXTREMITIES: No cyanosis, clubbing, or pedal edema. NEUROLOGICAL: Gross neurological examination did not reveal any focal deficits. SKIN: No rashes. no petechiae. - Labs CBC & Chem 7: 05/17/24 08:42 05/17/24 08:42 Labs: Abnormal Lab Results - Last 24 Hours (Table) 05/17/24 05/17/24 Range/Units 08:42 08:42 MCHC 30.1 L (31.0-37.0) g/dL Chloride 94 L (98-107) mmol/L Carbon Dioxide 36 H (22-30) mmol/L Microbiology - Last 24 Hours (Table) 05/14/24 12:38 Blood Culture - Preliminary Blood Assessment and Plan Assessment: Left lower lobe consolidation, with mild pleural effusion. Tachypnea and tachycardia, rule out sepsis Influenza infection Multiple colonic diverticula and at least 1 with evidence of acute diverticulitis Mild metabolic and toxic encephalopathy. Continue monitoring throughout other causes Mild neck pain and upper shoulder tenderness most likely musculoskeletal. C ontinue monitoring and neurocheck A-fib and RVR Recent severe infection secondary to UTI Mildly elevated troponin Plan: Continue with IV ceftriaxone and Zithromax Follow-up culture result Consult infectious disease team Consult pulmonary team for pulmonary consolidation, this also could be seen from previous admission Surgery team consult for buttock pain and diverticulitis continue Eliquis Labs and medication were reviewed.. Continue same treatment. Continue with symptomatic treatment. Resume home medication. Monitor labs and vitals. DVT and GI prophylaxis. Further recommendations as per clinical course of the patient DVT prophylaxis: Subcutaneous Lovenox GI Prophylaxis: Protonix PT/OT: From ECF Prognosis is guarded Possible discharge in 24 hours
[2024-05-18 07:16] LABS: African American GFR (CKD) >90 (>60 ml/min/1.73 sqM); Anion Gap 4 mmol/L; Blood Urea Nitrogen 12 mg/dL (7-17); Calcium 9.2 mg/dL (8.4-10.2); Carbon Dioxide 37 mmol/L (22-30); Chloride 95 mmol/L (98-107); Glucose 91 mg/dL (74-99); Non-African American GFR(CKD) 83 (>60 ml/min/1.73 sqM); Potassium 3.2 mmol/L (3.5-5.1); Sodium 136 mmol/L (137-145)
[2024-05-18] MEDS: FUROSEMIDE 40 MG TAB PO SCH (09:15)
--- NOTE | 2024-05-18 10:04 | CDI ---
Documentation Clarification Form Date: 05/18/2024 09:37:18 AM From: Marely Garcia RN CCDS Phone: [phone] Admit Date: 05/14/2024 04:30:00 PM Patient Name: Danae Saavedra Visit Number: [id number] Discharge Date: ATTENTION: The Clinical Documentation Specialists (CDI) and [facility] Coding Staff appreciate your assistance in clarifying documentation. Please respond to the clarification below the line at the bottom and electronically sign. The CDI & [facility] Coding staff will review the response and follow-up if needed. Please note: Queries are made part of the Legal Health Record. If you have any questions, please contact the author of this message via ITS. Doctor: Ronnell E Sheet Mildly elevated troponin is documented in the 05/14 05/17 Progress notes . Please clarify if there is an additional diagnosis and/or clinical significance related to this value. Patient history/risk factors: 78 year old F presents to the ED from [facility] because of possible sepsis and Afib RVR. Medical History: Recently discharged from this facility for sepsis secondary to uti. Heart failure, htn, renal disease, thyroid disorder. 05/14 Clinical indicators: VSS: 05/14: B/P 92/68, Temp 100.4 F Oral, HR 134, RR 25, SpO2 97% 3L nc Troponin: 05/14 0.050, 0.043 Labs 05/14: Wbc 10.2; BNP 51287; Procalcitonin 0.93; Influenza A detected ID Note 05/17: Pneumonia, Acute diverticulitis, Influenza A, Sepsis 1patient presented to hospital with sepsis in this patient who did have fever 100.4 degrees following hide patient did have elevated white count and tachycardia meeting currently for SIRS/sepsis source is multifactorial in this patient has been diagnosed with acute influenza A concerning for left lower lobe pneumonia with evidence of consolidation on the CT plus a component of diverticulitis. Treatment: 05/14 Tylenol po x 1; 05/14 Cefepime ivpb x 1; 05/14 Vancomycin ivpb x 1; 05/14 Midodrine po x1, 05/14 Duoneb Inhalation x 1; 05/14 Tamiflu po Q12H, 05/15 Vancomycin ivpb x 1, 05/15 Zithromax po daily x 3 doses, 05/06 Ceftriaxone ivpb Q24H, 05/15 Doxycycline ivpb Q12H, 05/15 Flagyl po tid Is there an additional diagnosis and/or clinical significance related to the above lab result/information: [ x ] Type 2 NH due to infectious process, Influenza A , Diverticulitis, Pneumonia [ ] No additional diagnosis/Not clinically significant [ ] Other, please specify [ ] Unable to determine Reference: [place] [employer] Fourth [place] Definition of Myocardial Infarction Elevated Cardiac Troponin >99th percentile with Troponin rise and/or fall * With Acute ischemia * Acute Myocardial Infarction * Atherosclerosis thrombosis * Type I NH * Oxygen supply and demand imbalance * Type II NH (Please indicate etiology) * Without acute ischemia * Acute Myocardial Injury (Template Last Reviewed: October 2022) MTDD
--- NOTE | 2024-05-18 10:42 | CDI ---
Documentation Clarification Form Date: 05/18/2024 10:24:21 AM From: Marely Garcia RN CCDS Phone: [phone] Admit Date: 05/14/2024 04:30:00 PM Patient Name: Danae Saavedra Visit Number: [id number] Discharge Date: ATTENTION: The Clinical Documentation Specialists (CDI) and [facility] Coding Staff appreciate your assistance in clarifying documentation. Please respond to the clarification below the line at the bottom and electronically sign. The CDI & [facility] Coding staff will review the response and follow-up if needed. Please note: Queries are made part of the Legal Health Record. If you have any questions, please contact the author of this message via ITS. Doctor: Ronnell E Sheet Tachypnea and tachycardia, rule out sepsis. Is documented 05/14, HP 05/17 Medicine notes Based on this information and the findings below, is there an additional diagnosis that is clinically appropriate for this patient? Patient history/risk factors: 78 year old F presents to the ED from [facility] because of possible sepsis and Afib RVR. Medical History: Recently discharged from this facility for sepsis secondary to uti. Heart failure, htn, renal disease, thyroid disorder. 05/14 hp Clinical Indicators: WBC 05/14: 10.2 Labs: Influenza A detected. CT chest/abd 05/14: Consolidation in the left lung base atleast partially due to pleural effusion. Colonic diverticula and abdomen with at least one which may have some inflammation. Vitals signs 05/14: B/P 92/68, Temp 100.4 F Oral, HR 134, RR 25, SpO2 97% 3L nc Treatment: ID Consult: 05/14 Tamiflu po Q12H Antibiotics: 05/14 Cefepime ivpb x 1; 05/14 Vancomycin ivpb x 1, 05/15 Vancomycin ivpb x 1, 05/15 Zithromax po daily x 3 doses, 05/06 Ceftriaxone ivpb Q24H, 05/15 Doxycycline ivpb Q12H, 05/15 Flagyl po tid IV Bolus: 05/14 LR 500cc iv x 1; 05/14 LR 500cc iv x 1, Is there an additional diagnosis that is clinically appropriate for this patient? [ x ] Sepsis, present on admission [ ] Sepsis, ruled out [ ] Other, please specify [ ] Unable to determine SIRS Criteria: 2 or more of the following may indicate SIRS Temperature < 96.8F (36C) or > 101.0F (38.3C) Heart Rate > 90 bpm Respiratory Rate > 20 breaths/min or PaCO2 < 32 mmHg White Blood Cell Count > 12,000 or < 4,000 cells/mm3 or > 10% bands (Template Last Reviewed: April 2022) MTDD
--- NOTE | 2024-05-18 10:54 | P.PN ---
Subjective HISTORY OF PRESENT ILLNESS: 78-year-old female was recently discharged from [facility] and was treated for sepsis and UTI. She was also in ICU and was intubated because of metabolic encephalopathy. She was discharged to [facility]. She presented to the hospital because of concerns of worsening sepsis and atrial fibrillation with RVR on admission. On admission she was also noticed to have influenza A infection. Admission Labs: NT-proBNP 13,000, troponin 0.05, repeat 0.04, TSH 4.3, BUN 17, creatinine 0.7, Hb 11.8 this time she was also tested positive for influenza A. Admission EKG: Atrial fibrillation with RVR with right bundle branch block Prior cardiac testing: Echo from March 2024 shows an EF of 65%, concerns of possible apical hypertrophy, moderate pulmonary hypertension, severe tricuspid regurgitation 05/16/2024 Patient examined this morning at the bedside. Patient currently denies chest pain or pressure. She reports mild shortness of breath. She remains on IV diuretics. Blood pressure 109/67. Telemetry reveals atrial fibrillation with controlled ventricular rate. 05/17/2024 Patient examined this morning at the bedside. Patient denies chest pain or pressure. She currently denies shortness of breath. Telemetry reveals atrial fibrillation with controlled ventricular rate. She remains on IV Lasix. 05/18/2024 Patient examined this morning the bedside. Patient currently denies chest pain or pressure. She denies shortness of breath. Vital signs are stable. PHYSICAL EXAM: VITAL SIGNS: Reviewed. GENERAL: Well-developed in no acute distress. NECK: Supple. No JVD or thyromegaly LUNGS: Respirations even and unlabored. Lungs diminished bilaterally. HEART: Irregular rate and rhythm. S1 and S2 heard. EXTREMITIES: Normal range of motion. No clubbing or cyanosis. Peripheral pulses intact. No lower extremity edema ASSESSMENT: # Persistent atrial fibrillation with RVR, currently rate controlled # Mod to severe LVH with apical hypertrophy # Right bundle branch block # Mild acute on chronic HFpEF exacerbation # Acute hypoxic respiratory failure # Influenza A pneumonia # Metabolic encephalopathy PLAN: Continue current cardiac medications Patient is currently stable from a cardiac perspective We will sign off. Please reconsult if needed. Nurse practitioner note has been reviewed by physician. Signing provider agrees with the documented findings, assessment, and plan of care documented by [employer] as a scribe. Objective - Vital Signs Vital signs: Vital Signs Temp 97.6 F 05/18/24 09:01 Pulse 81 05/18/24 09:01 Resp 16 05/18/24 09:01 BP 96/55 05/18/24 09:01 Pulse Ox 99 05/18/24 09:01 FiO2 Intake & Output 05/17/24 05/18/24 05/18/24 18:59 06:59 18:59 Intake Total 200 237 250 Output Total 200 250 Balance 0 -13 250 Weight 96.5 kg Intake: IV 20 10 Invasive Line 1 10 Invasive Line 2 10 10 Oral 180 237 240 Output: Urine 200 250 Other: Voiding Method External Catheter External Catheter External Catheter # Voids 1 1 # Bowel Movements 1 - Labs CBC & Chem 7: 05/17/24 08:42 05/18/24 06:11 Labs: Abnormal Lab Results - Last 24 Hours (Table) 05/18/24 Range/Units 06:11 Sodium 136 L (137-145) mmol/L Potassium 3.2 L (3.5-5.1) mmol/L Chloride 95 L (98-107) mmol/L Carbon Dioxide 37 H (22-30) mmol/L Microbiology - Last 24 Hours (Table) 05/14/24 12:38 Blood Culture - Preliminary Blood
[2024-05-18] MEDS: POTASSIUM CHLORIDE ER 20 MEQ TAB.ER PO STA (11:26)
--- NOTE | 2024-05-18 11:54 | P.PN ---
Subjective Progress Note Date: 05/18/24 Principal diagnosis: Reason for follow-up is influenza A and pneumonia and diverticulitis Patient is a 78-year-old female with a past medical history significant for atrial fibrillation CVA TIA hypertension hyperlipidemia renal disease recent admission to the hospital treated for UTI and pneumonia now presenting back to the hospital after the patient was noted to be in A-fib with RVR at the [facility], patient did have a fever on presentation to the hospital CT with evidence of left lower lobe consolidation and is of concern for diverticulitis prompted this consultation. On today's evaluation that is 05/18/2024,the patient denies any fever or any chills, patient is breathing comfortably on 3 L nasal oxygen, the patient denies chest pain shortness of breath and no significant cough, patient denies abdominal pain, no nausea vomiting or diarrhea. Patient did have a creatinine 0.69 Objective - Vital Signs Vital signs: Vital Signs Temp 97.6 F 05/18/24 09:01 Pulse 81 05/18/24 09:01 Resp 16 05/18/24 09:01 BP 96/55 05/18/24 09:01 Pulse Ox 99 05/18/24 09:01 FiO2 Intake & Output 05/17/24 05/18/24 05/18/24 18:59 06:59 18:59 Intake Total 200 237 250 Output Total 200 250 Balance 0 -13 250 Weight 96.5 kg Intake: IV 20 10 Invasive Line 1 10 Invasive Line 2 10 10 Oral 180 237 240 Output: Urine 200 250 Other: Voiding Method External Catheter External Catheter External Catheter # Voids 1 1 # Bowel Movements 1 - Exam GENERAL DESCRIPTION: An elderly female lying in bed in no distress RESPIRATORY SYSTEM: Unlabored breathing , decreased breath sounds at bases HEART: S1 S2 regular rate and rhythm , ABDOMEN: Soft , no tenderness EXTREMITIES: No edema feet - Labs CBC & Chem 7: 05/17/24 08:42 05/18/24 06:11 Labs: Abnormal Lab Results - Last 24 Hours (Table) 05/17/24 05/18/24 Range/Units 08:42 06:11 Sodium 136 L (137-145) mmol/L Potassium 3.2 L (3.5-5.1) mmol/L Chloride 94 L 95 L (98-107) mmol/L Carbon Dioxide 36 H 37 H (22-30) mmol/L Microbiology - Last 24 Hours (Table) 05/14/24 12:38 Blood Culture - Preliminary Blood Assessment and Plan (1) Pneumonia Current Visit: Yes Status: Acute Code(s): J18.9 - PNEUMONIA, UNSPECIFIED ORGANISM SNOMED Code(s): 120141460 (2) Acute diverticulitis Current Visit: Yes Status: Acute Code(s): K57.92 - DVTRCLI OF INTEST, PART UNSP, W/O PERF OR ABSCESS W/O BLEED SNOMED Code(s): 164253015 (3) Influenza A Current Visit: Yes Status: Acute Code(s): J10.1 - FLU DUE TO OTH IDENT INFLUENZA VIRUS W OTH RESP MANIFEST SNOMED Code(s): 088572227 (4) Sepsis Current Visit: Yes Status: Acute Code(s): A41.9 - SEPSIS, UNSPECIFIED ORGANISM SNOMED Code(s): 13619933 Plan: 1patient presented to hospital with sepsis in this patient who did have fever 100.4 degrees following hide patient did have elevated white count and tachycardia meeting currently for SIRS/sepsis source is multifactorial in this patient has been diagnosed with acute influenza A concerning for left lower lobe pneumonia with evidence of consolidation on the CT plus a component of diverticulitis. 2patient will finish a 5-day course of Tamiflu 3patient has received adequate antibiotics for underlying pneumonia we will suggest a 7-day course of oral Ceftin and Flagyl for diverticulitis prescription has been sent to the pharmacy. Dictation was produced using [employer] dictation software. please excuse any grammatical, word or spelling errors. Time with Patient: Less than 30
--- NOTE | 2024-05-18 13:01 | P.PN ---
Subjective Progress Note Date: 05/18/24 Principal diagnosis: Sepsis. This is an 78-year-old female, familiar to our service, patient was last admitted to [facility] on April [address] atus and confusion, she was hypoxic, and she only responded at the time to painful stimuli, eventually the patient ended up in the ICU and she was on BiPAP 04/01/100%, felt that the patient had infectious encephalopathy secondary to UTI/urosepsis at the same time patient had atrial fibrillation with RVR, she also had episodes of catatonia, delirium, and she had congestive heart failure. Patient was treated with antibiotics, and she was also anticoagulated with Eliquis. She was seen at the time by many consultants, including neurology and infectious disease, patient was eventually discharged to senior living on 05/04/[facility]24. Her final diagnosis was acute urinary tract infection acute metabolic encephalopathy acute hypoxic respiratory failure acute left lower lobe pneumonia/atelectasis atrial fibrillation with controlled rate, and she also had history of depression and psychosis. Yesterday, patient was sent from the senior living as her nurse noted that the patient had atrial fibrillation with RVR, and patient had a low-grade temp of 100.1. The patient herself felt that her heart was racing she also had some shortness of breath, and felt that she had a bit of a cough. Chest x-ray on this admission showed evidence of pulmonary vascular congestion and left lower lobe atelectasis, it basically no different from a chest x-ray done on her last hospitalization 05/01/2024. CT of the chest and abdomen and pelvis showed consolidation/atelectasis of the left lower lobe with left pleural effusion, small, and it was felt that the patient may have retained secretions in the left lower lobe underlying infection/pneumonia is not entirely ruled out. Patient was noted to have a bit of leukocytosis with WBC count of 13.9 hemoglobin 12.8 she had relatively normal electrolytes, elevated BNP level of 13,100, and in addition the patient tested positive for influenza A by PCR. Considering all of this, this consult was initiated. Again the patient has multiple confusional symptoms, and she is now on amiodarone, Zithromax and Rocephin, she is also receiving Lasix for presumptive pulmonary edema with bilateral pleural effusions. Patient is also on Tamiflu. Reviewed the patient's labs and orders, felt no need for any change, will check her procalcitonin level and decide on her antibiotics, again the findings on the chest x-ray are old findings. Progress note dated May 16, 2024. 78-year-old female seen in consultation yesterday. The patient initially presented with atrial fibrillation with RVR, and a chronic left lower lobe consolidation, or possible pneumonia. She also tested positive for influenza A infection. She was thought to possibly have low-grade sepsis, which is why we were consulted. Currently, the patient is on lactated Ringer's at 10 cc an hour. The patient is receiving Rocephin, doxycycline, Tamiflu. She is getting oxygen by nasal cannula at 3 L. Abs today include a sodium 135, potassium 4.2, chlorides 94, CO2 39, BUN 17, creatinine 0.84. Blood cultures are negative. Chest x-ray on admission was negative. Progress note dated May 17, 2024. 78-year-old female seen in follow-up today. The patient is seen today in room 357. He is resting comfortably in bed. She is not manifesting any signs or symptoms of respiratory distress. She is currently on 2 L of oxygen. Saturations are in the mid to high 90s. The patient is getting saline at 10 cc an hour. Current labs include a white count 7.3, hemoglobin 12, hematocrit 40.1, and a platelet count of 286,000. Sodium 138, potassium 3.7, chloride 94, CO2 36, BUN 14, creatinine 0.8. Calcium is 9.5. Blood cultures are negative. Chest x-ray shows evidence of cardiomegaly, and left basilar infiltrate and/or atelectasis. Progress note dated May 18, 2024. 78-year-old female seen today in room 357. The patient is resting comfortably in bed. She is awake and alert. No acute distress. She continues on nasal O2 3 L. She is getting saline at 10 cc an hour. She denies any significant shortness of breath, cough, wheezing, chest tightness, or phlegm production. Current labs include a sodium 136, potassium 3.2, chlorides 95, CO2 37, BUN 12, and creatinine 0.69. Calcium is 9.2. Objective - Vital Signs Vital signs: Vital Signs Temp 97.6 F 05/18/24 11:23 Pulse 74 05/18/24 11:23 Resp 16 05/18/24 11:23 BP 115/59 05/18/24 11:23 Pulse Ox 99 05/18/24 11:23 FiO2 Intake & Output 05/17/24 05/18/24 05/18/24 18:59 06:59 18:59 Intake Total 200 237 490 Output Total 200 250 400 Balance 0 -13 90 Weight 96.5 kg Intake: IV 20 10 Invasive Line 1 10 Invasive Line 2 10 10 Oral 180 237 480 Output: Urine 200 250 400 Other: Voiding Method External Catheter External Catheter External Catheter # Voids 1 1 # Bowel Movements 1 - Exam No acute distress, oriented 3. Currently on 3 L of oxygen. HEENT examination is grossly unremarkable. Mucous membranes are moist. No oral lesions. Neck supple. Full range of motion. No adenopathy thyromegaly or neck vein dis tention. Cardiovascular examination reveals regular rhythm rate. S1-S2 normal. No S3 or S4. No discernible murmur noted. Lungs reveal minimal crackles at lung base. The right lung is clear. No rhonchi. No wheezes. Abdomen soft bowel sounds are heard. No masses or tenderness. Extremities are intact. No cyanosis clubbing or edema. Skin is without rash or lesion. Neurologic examination is brief but nonfocal. - Labs CBC & Chem 7: 05/17/24 08:42 05/18/24 06:11 Labs: Abnormal Lab Results - Last 24 Hours (Table) 05/18/24 Range/Units 06:11 Sodium 136 L (137-145) mmol/L Potassium 3.2 L (3.5-5.1) mmol/L Chloride 95 L (98-107) mmol/L Carbon Dioxide 37 H (22-30) mmol/L Microbiology - Last 24 Hours (Table) 05/14/24 12:38 Blood Culture - Preliminary Blood Assessment and Plan Assessment: Atrial fibrillation with rapid ventricular response. Chronic left lower lobe atelectasis/consolidation, with possible pneumonia. Acute influenza A infection. Possible low-grade sepsis. Recent urinary tract infection, with associated metabolic encephalopathy. History of catatonia. History of depression. History of diastolic CHF. Benign essential hypertension. Plan: Plan dated May 16, 2024. The patient continues on appropriate medications, including Rocephin, doxycycli ne, and Tamiflu, for acute influenza A infection. The patient is also on lactated Ringer's at 10 cc an hour, and oxygen by nasal cannula at 3 L. Labs, x-rays, and medications are reviewed. We will continue to follow and make recommendations along the way. Overall prognosis remains guarded. Plan dated May 17, 2024. The patient is seen today in room 357. She is resting comfortably in bed. She is on 2 L of oxygen. Saturations were in the mid to high 90s. The patient is receiving saline at 10 cc an hour. Labs, x-rays, medications are reviewed. The patient is awake and alert. She denies any shortness of breath, difficulty breathing, coughing, wheezing, or phlegm production. From the pulmonary standpoint, the patient could be evaluated for possible discharge. The patient remains a full code. All labs, x-rays, and medications are reviewed. Plan dated May 18, 2024. The patient is seen today in room 357. She is resting comfortably in bed. She is on oxygen by nasal cannula at 3 L. Saturations are in the mid to high 90s. The patient is getting saline at 10 cc an hour. The patient is awake and alert. No respiratory distress. No audible wheezing, use of accessory muscles, or conversational dyspnea. From the pulmonary perspective, the patient could be considered for possible discharge. The patient remains a full code. All labs, x-rays, and medications are reviewed. Time with Patient: Less than 30
--- NOTE | 2024-05-18 14:15 | P.DS ---
Providers Date of admission: 05/14/24 16:30 Attending physician: Ronnell Church MD Consults: 05/14/24 19:12 Consult Physician Routine Consulting Provider: Markos Gustafson Consult Reason/Comments: sepsis Do you want consulting provider notified?: Yes 05/14/24 19:13 Consult Physician Routine Consulting Provider: Javier Moise Consult Reason/Comments: left lung consolidation Do you want consulting provider notified?: Yes Primary care physician: Ana Laura Cedeno DO Hospital Course: Diagnoses: Left lower lobe consolidation, with mild pleural effusion. Secondary to pneumonia less likely atelectasis, improved with antibiotic treatment Tachypnea and tachycardia, secondary to sepsis Influenza infection Multiple colonic diverticula and at least 1 with evidence of acute diverticulitis Mild metabolic and toxic encephalopathy. Improved Mild neck pain and upper shoulder tenderness most likely musculoskeletal. Resolved A-fib and RVR Recent severe infection secondary to UTI Mildly elevated troponin Moderate to severe LVH with apical hypertrophy Right bundle branch block Hospital course: patient is a 78-year-old lady who was recently discharged from this facility for sepsis secondary to UTI and she was in the ICU for short time intubated because of her obtundation during sickness. She was at [facility] because of possible sepsis and A-fib and RVR. Patient looks mildly confused. And workup showed left lower lobe pulmonary infiltrate suspicious for pneumonia and CT of the abdomen and pelvis showing possible diverticulitis in one of the diverticuli. Patient treated with antibiotic ceftriaxone and Zithromax with pulmonary, general surgery and infectious disease consult. Patient showed interval improvement. Patient also was placed on Tamiflu for her influenza A infection w as positive test Patient showed interval improvement and on the day of discharge she is fully awake and oriented, sitting up in bed asking to be discharged denying chest pain or dyspnea. No new GI/ symptoms. No headache confusion or chills. Patient was cleared for discharge by all consultants including pulmonary, infectious disease team And general surgery team Food General Manager evaluated the patient, metoprolol and Lasix doses were increased. No further recommendation per director electrical engineering will clear the patient for discharge as well Patient will be discharged on oral antibiotics as per ID team, please refer to the discharge instruction Problems and management plan were discussed with the patient and he verbalized understanding and acceptance Patient was found stable and can be discharged home in guarded prognosis however he needs follow-up as an outpatient. Patient was instructed to follow up with PCP within one week and patient agrees General surgeon team recommend to repeat colonoscopy in 4 to 6-week patient is informed and she agrees Physical exam Gen: patient is a AAOx3, no distress CVS: S1-S2, RRR, no murmur Lungs: B/L CTA, no wheezing Abdomen: soft, no distention, no tenderness, positive bowel sounds Extremity: no leg edema or induration Time spent more than 35 minutes Patient Condition at Discharge: Stable Plan - Discharge Summary Discharge Rx Participant: Yes New Discharge Prescriptions: New metroNIDAZOLE [Flagyl] 500 mg PO TID #21 tab Furosemide [Lasix] 40 mg PO DAILY tab Metoprolol Tartrate [Lopressor] 75 mg PO BID tab Oseltamivir [Tamiflu] 30 mg PO Q12HR 1 Days #2 cap cefuroxime axetiL [Ceftin] 500 mg PO BID #14 tab Continue Potassium Chloride ER [K-Dur 20] 20 meq PO DAILY@0600 Apixaban [Eliquis] 5 mg PO BID Loratadine 10 mg PO DAILY@0600 Latanoprost [Latanoprost 0.005%] 1 drop BOTH EYES HS@2000 Atorvastatin [Lipitor] 10 mg PO HS@2000 Folic Acid 0.8 mg PO DAILY@1400 Mag Hydrox/Aluminum Hyd/Simeth [Mylanta Maximum Strength Liq] 10 ml PO Q4H PRN PRN Reason: Gi Upset Calcium Carbonate [Tums] 500 mg PO TID PRN PRN Reason: Indigestion Magnesium Oxide [Mag-Ox] 400 mg PO DAILY@1400 allopurinoL 200 mg PO DAILY@0700 Dapagliflozin Propanediol [Farxiga] 10 mg PO DAILY@0600 Cholestyramine (with Sugar) [Questran Packet] 4 gm PO BID PRN PRN Reason: Diarrhea Omeprazole [PriLOSEC] 20 mg PO DAILY@0600 Levothyroxine Sodium [Synthroid] 125 mcg PO DAILY@0500 Discontinued Furosemide [Lasix] 20 mg PO DAILY@0600 Metoprolol Tartrate [Lopressor] 50 mg PO BID tab Cephalexin [Keflex] 500 mg PO BID@0700,1900 No Action Acetaminophen Tab [Tylenol] 1,000 mg PO BID Acetaminophen [Tylenol 8 Hour] 650 mg PO Q6H PRN PRN Reason: Fever And/ Or Pain Discharge Medication List Acetaminophen Tab [Tylenol] 1,000 mg PO BID 04/22/24 [History] Acetaminophen [Tylenol 8 Hour] 650 mg PO Q6H PRN 04/22/24 [History] Apixaban [Eliquis] 5 mg PO BID 04/22/24 [History] Atorvastatin [Lipitor] 10 mg PO HS@199904/22/24 [History] Calcium Carbonate [Tums] 500 mg PO TID PRN 04/22/24 [History] Dapagliflozin Propanediol [Farxiga] 10 mg PO DAILY@0604/22/24 [History] Latanoprost [Latanoprost 0.005%] 1 drop BOTH EYES HS@199904/22/24 [History] Loratadine 10 mg PO DAILY@0604/22/24 [History] Magnesium Oxide [Mag-Ox] 400 mg PO DAILY@1400 04/22/24 [History] Potassium Chloride ER [K-Dur 20] 20 meq PO DAILY@0604/22/24 [History] allopurinoL 200 mg PO DAILY@0704/22/24 [History] Cholestyramine (with Sugar) [Questran Packet] 4 gm PO BID PRN 05/14/24 [History] Folic Acid 0.8 mg PO DAILY@1400 05/14/24 [History] Levothyroxine Sodium [Synthroid] 125 mcg PO DAILY@0500 05/14/24 [History] Mag Hydrox/Aluminum Hyd/Simeth [Mylanta Maximum Strength Liq] 10 ml PO Q4H PRN 05/14/24 [History] Omeprazole [PriLOSEC] 20 mg PO DAILY@0605/14/24 [History] Furosemide [Lasix] 40 mg PO DAILY tab 05/18/24 [Rx] Metoprolol Tartrate [Lopressor] 75 mg PO BID tab 05/18/24 [Rx] Oseltamivir [Tamiflu] 30 mg PO Q12HR 1 Days #2 cap 05/18/24 [Rx] cefuroxime axetiL [Ceftin] 500 mg PO BID #14 tab 05/18/24 [Rx] metroNIDAZOLE [Flagyl] 500 mg PO TID #21 tab 05/18/24 [Rx] Follow up Appointment(s)/Referral(s): Pao,Ana Laura L, DO [Primary Care Provider] - 1-2 days
[2024-05-18 16:02] VITALS: BP 117/67; PULSE 98; RESP 18; TEMP 97.8
== END 2024-05-18 17:45 | DRG 871 ==
LOC: EC 11:55 → 3SCARD 16:30
PROVIDERS: ADMIT Internal Medicine; ATTEND Internal Medicine
DX: A41.9 Sepsis, unspecified organism (principal); G92.8 Other toxic encephalopathy; J10.01 Influenza due to other identified influenza virus with the same other identified influenza virus pneumonia; I50.33 Acute on chronic diastolic (congestive) heart failure; J96.01 Acute respiratory failure with hypoxia; I21.A1 Myocardial infarction type 2; G93.41 Metabolic encephalopathy; I27.20 Pulmonary hypertension, unspecified; I11.0 Hypertensive heart disease with heart failure; K57.32 Diverticulitis of large intestine without perforation or abscess without bleeding; I48.19 Other persistent atrial fibrillation; J98.11 Atelectasis; N39.0 Urinary tract infection, site not specified; K57.30 Diverticulosis of large intestine without perforation or abscess without bleeding; Z11.52 Encounter for screening for COVID-19; I45.10 Unspecified right bundle-branch block; E78.5 Hyperlipidemia, unspecified; Z79.01 Long term (current) use of anticoagulants; Z79.84 Long term (current) use of oral hypoglycemic drugs; Z79.890 Hormone replacement therapy; Z79.899 Other long term (current) drug therapy; Z86.73 Personal history of transient ischemic attack (TIA), and cerebral infarction without residual deficits
CPT/HCPCS: 51702; 71045; 71046; 71260; 74177; 80048; 80053; 81003; 83605; 83690; 83880; 84145; 84443; 84484; 85025; 85610; 85730; 87040; 87636; 93005; 94640; 94760; 96365; 96366; 96367; 96368; 96375; 99291